=== PATIENT | female | born 1950 | race Caucasian/White ===

== ENCOUNTER 2016-06-29 14:50 | Emergency (ER) | payer OTHER ==
[~2016-06-29] VITALS: Ht 157.5 cm; Wt 90.0 kg
[2016-06-29 14:53] VITALS: BP 144/91; PULSE 101; RESP 22; TEMP 98; O2SAT 96
[2016-06-29 15:07] VITALS: BP 144/91; PULSE 101; RESP 22; TEMP 98; O2SAT 96
[2016-06-29] MEDS ORDERED: HYDR-3533 PO ×2 (15:13→16:42)
[2016-06-29] MEDS ORDERED: LISI2.5T3 PO (15:13)
[2016-06-29] MEDS ORDERED: BUPR150XL PO (15:13)
--- NOTE | 2016-06-29 15:17 | PD ---
HPI Chief Complaint: Injury Time Seen by Provider: 15:17 Travel History International Travel<30 days: No Contact w/Intl Traveler<30days: No Traveled to known affect area: No History of Present Illness HPI 66-year-old right-hand dominant female with history of chronic back pain, Manfred- en-Y bypass presents to the ED for evaluation of 2 month history of left shoulder pain. Patient states that she fell onto her outstretched left arm on . She states that she attempted to see her orthopedist but was denied due to insurance reasons. She states that she fell again 2 weeks ago, again injuring the left shoulder in the process. She presents to the ED today after pain has increased to the levels where she cannot sleep at night. She thinks it may be exacerbated by sleeping upright. She endorses pain with range of motion, numbness and tingling into all 5 fingers, weakness of machine quilt stuffer strength. She denies neck pain. No treatment attempted at home. PFSH Past Medical History Depression: Yes Hypertension: Yes Musculoskeletal: Yes (CHRONIC BACK PAIN) Tetanus Vaccination: > 5 Years Influenza Vaccination: No ?: Not Past Surgical History Abdominal Surgery: Yes (TUMMY TUCK, GASTRIC BYPASS) Joint Replacement: Yes (RIGHT SHOULDER) Other Surgery: Yes Social History Alcohol Use: No Tobacco Use: Yes (1.5 PPD) Substance Use: No Allergies-Medications (Allergen,Severity, Reaction): Coded Allergies: Nonsteroidal Anti-Inflammatory Agts (Verified Adverse Reaction, Severe, GASTRIC BYPASS, 06/29/16) Aspirin (Verified Adverse Reaction, Unknown, GASTRIC BYPASS, 06/29/16) Reported Meds & Prescriptions Reported Meds & Active Scripts Active Lortab (Hydrocodone-Acetaminophen) 5-325 Mg Tab 1 Tab PO Q6H PRN Reported Lortab (Hydrocodone-Acetaminophen) 5-325 Mg Tab Unknown Dose PO DIRECTED PRN Wellbutrin Xl 24 HR (Bupropion HCl) 150 Mg Tab Unknown Dose PO DAILY Lisinopril 2.5 Mg Tab Unknown Dose PO DAILY Review of Systems Except as stated in HPI: all other systems reviewed are Neg Physical Exam Narrative GENERAL: Well-nourished, well-developed obese white female in no acute distress. SKIN: Warm and dry. Several old ecchymosis and small skin tears over the left upper extremity. In various stages of healing. No signs of infection. HEAD: Normocephalic. EYES: No scleral icterus. No injection or drainage. NECK: Supple, trachea midline. No JVD or lymphadenopathy. No midline tenderness to palpation. No pain elicited with range of motion. CARDIOVASCULAR: Regular rate and rhythm without murmurs, gallops, or rubs. RESPIRATORY: Breath sounds equal bilaterally. No accessory muscle use. GASTROINTESTINAL: Abdomen soft, non-tender, nondistended. MUSCULOSKELETAL: No cyanosis, or edema. FOCUSED LEFT UPPER EXTREMITY EXAM: Tender to palpation over the acromioclavicular joint and posterior shoulder. Tender to palpation of the shaft of the humerus. Pain elicited with resisted abduction of the shoulder and flexion and extension of the elbow. Negative drop test. Strong machine quilt stuffer strength. 2+ radial pulse. Sensation intact and equal in the hands, forearms, upper arms as compared to contralateral arm. BACK: Nontender without obvious deformity. No CVA tenderness. Data Data Last Documented VS Vital Signs Date Time Temp Pulse Resp B/P Pulse Ox O2 Delivery O2 Flow Rate FiO2 06/29/16 15:07 Room Air 06/29/16 15:07 98.0 101 22 144/91 96 Orders Elbow, Complete (4 Vws) (06/29/16 15:35) Shoulder, Complete (>2vws) (06/29/16 15:35) Ice/Cold Pack (06/29/16 15:35) Splint Or Brace Apply/Monitor (06/29/16 16:38) MDM Medical Decision Making Medical Screen Exam Complete: Yes Emergency Medical Condition: Yes Differential Diagnosis Musculoskeletal pain versus acromioclavicular separation versus rotator cuff injury versus humeral fracture versus other Narrative Course 66-year-old right-hand dominant female with history of chronic back pain, Manfred- en-Y bypass presents to the ED for evaluation of 2 month history of left shoulder pain. Patient states that she fell onto her outstretched left arm on . She states that she fell again 2 weeks ago, again injuring the left shoulder in the process. Sought treatment after pain increased, affecting her sleep. She endorses pain with range of motion, numbness and tingling into all 5 fingers, weakness of machine quilt stuffer strength. She denies neck pain. States that she has a follow-up appointment with a new orthopedist early next month. Vitals reviewed. Physical exam reveals an obese white female in no acute distress. Focused left upper extremity exam reveals tenderness to palpation over the acromioclavicular joint and posterior shoulder. Tender to palpation of the shaft of the humerus. Pain elicited with resisted abduction of the shoulder and flexion and extension of the elbow. Negative drop test. Strong machine quilt stuffer strength. 2+ radial pulse. Sensation intact and equal in the hands, forearms, upper arms as compared to contralateral arm. Ice pack was applied. X -rays of the shoulder and elbow reveal no bony injury per radiology read. I suspect this may be a rotator cuff injury. She was provided with a shoulder sling. She is prescribed pain medications. I supplemented this with 5 mg Lortab, #20. Patient is instructed to wear the sling unless sleeping or showering, take medication as prescribed, follow up with the orthopedist as planned. She indicated understanding of the instructions and is amenable to plan of care. She stable and discharged home. Diagnosis Primary Impression: Left shoulder pain Qualified Code: M25.512 - Left shoulder pain, unspecified chronicity Additional Impression: Left upper arm pain Referrals: Orthopedist Patient Instructions: General Instructions, Rotator Cuff Injury (ED), Shoulder Pain (ED) Additional Instructions: Rest, ice, elevate the extremity. Keep the arm in the sling during the course of the day to remind you to rest. You may remove the sling for showering and sleeping at night. Apply ice no longer than 10-15 minutes per hour a few times a day. 800 mg ibuprofen up to 3 times a day as needed for pain. Return to normal, gentle activity as tolerated. No heavy lifting or strenuous activities for the next few weeks. Follow up with the orthopedist as planned Return to the ED for any urgent or emergent medical condition. Med/Other Pt SpecificInfo: Prescription(s) given Scripts Hydrocodone-Acetaminophen (Lortab)5-325 Mg Tab1 Tab PO Q6H PRN (PAIN) #15 TAB Ref 0 Prov:Nedra Cruz MD 06/29/16 Disposition: 01 DISCHARGE HOME Condition: Stable Ashley Davis Jun 29, 2016 15:17
--- NOTE | 2016-06-29 16:25 | RADHPO ---
EXAM DATE/TIME: 06/29/2016 15:48 [facility] COMPARISON: No previous studies available for comparison. INDICATIONS : Left elbow pain for 2 weeks. Patient fell. MEDICAL HISTORY : None. SURGICAL HISTORY : None. ENCOUNTER: Initial ACUITY: 2 weeks PAIN SCORE: 8/10 LOCATION: Left elbow. FINDINGS: Multiple view examination of the left elbow demonstrates no soft tissue swelling, joint effusion, or fracture. The osseous structures are in normal alignment. Bony mineralization is normal. CONCLUSION: Unremarkable examination of the left elbow. Ildefonso Ramsey MD on June 29, 2016 at 16:22 Board Certified Radiologist. This report was verified electronically.
--- NOTE | 2016-06-29 16:34 | RADHPO ---
EXAM DATE/TIME: 06/29/2016 15:53 [facility] COMPARISON: No previous studies available for comparison. INDICATIONS : Left shoulder pain for 2 weeks. Patient fell. MEDICAL HISTORY : None. SURGICAL HISTORY : None. ENCOUNTER: Initial ACUITY: 2 weeks PAIN SCORE: 8/10 LOCATION: Left shoulder. FINDINGS: Multiple view examination of the left shoulder demonstrates no evidence of fracture or dislocation. The glenohumeral and acromioclavicular joints are maintained. Mild degenerative changes. There is ind uration of the soft tissues of the proximal humerus. CONCLUSION: No acute fracture. Soft tissue swelling proximal arm. Leo Mata MD on June 29, 2016 at 16:31 Board Certified Radiologist. This report was verified electronically.
== END 2016-06-29 16:45 | disposition home or self-care (01) ==
LOC: PHEFT 14:50
DX: M25.512 Pain in left shoulder (principal); M79.622 Pain in left upper arm; I10 Essential (primary) hypertension; F17.200 Nicotine dependence, unspecified, uncomplicated; Z87.39 Personal history of other diseases of the musculoskeletal system and connective tissue; Z86.59 Personal history of other mental and behavioral disorders
CPT/HCPCS: 73030; 73080; 99283

== ENCOUNTER 2017-03-07 20:33 | Observation (INO) | payer OTHER ==
[~2017-03-07] VITALS: Ht 165.1 cm; Wt 85.0 kg
[~2017-03-07 20:33] MED LIST: BUPR150XL PO; HYDR-3533 PO; LISI2.5T3 PO
[2017-03-07 20:47] VITALS: BP 133/85; PULSE 112; RESP 20; TEMP 98.5; O2SAT 97
[2017-03-07] MEDS ORDERED: LORazepam 2 MG/ML VIAL IV PUSH ONE ×2 (21:00→21:45)
--- NOTE | 2017-03-07 21:15 | PD ---
HPI Chief Complaint: Altered Mental Status Time Seen by Provider: 21:11 Travel History International Travel<30 days: No Contact w/Intl Traveler<30days: No Traveled to known affect area: No History of Present Illness HPI This is a 66-year-old female who presents under a Shaikh act initiated by Police Department. According to her Shaikh act form, "subject was hallucinating, speaking the persons who aren't there, and attempted to leave the safety of her home and was wandering in the street on [facility], in [facility] The [employer] police coxswain reports that they received a call in regards to the patient being altered. This was from a home health care person. The home health care person was unable to provide additional information regards to her current circumstance such as symptoms duration or past medical history or primary care physician. The patient did tell paramedics that she has taken 5 of her Lortab tablets today. In addition to this the patient does report that she took 2 aspirin as well. When asked the patient feels suicidal she says "yes" but history is otherwise very minimal at this time. She seems to be primarily responding to internal stimuli. History from chart reveals very limitedthe patient was seen here in June 2016 where was noted that she has a history of gastric bypass, chronic back pain. She received 1.5 L of normal saline by EMS. PFSH Past Medical History Depression: Yes Hypertension: Yes Musculoskeletal: Yes (CHRONIC BACK PAIN) ?: Not Past Surgical History Abdominal Surgery: Yes (TUMMY TUCK, GASTRIC BYPASS) Joint Replacement: Yes (RIGHT SHOULDER) Other Surgery: Yes Social History Alcohol Use: No Tobacco Use: Yes (1.5 PPD) Substance Use: No Allergies-Medications (Allergen,Severity, Reaction): Coded Allergies: diclofenac (Unverified Adverse Reaction, Severe, GASTRIC BYPASS, 12/21/16) etodolac (Unverified Adverse Reaction, Severe, GASTRIC BYPASS, 12/21/16) flurbiprofen (Unverified Adverse Reaction, Severe, GASTRIC BYPASS, 12/21/16 ) ibuprofen (Unverified Adverse Reaction, Severe, GASTRIC BYPASS, 12/21/16) indomethacin (Unverified Adverse Reaction, Severe, GASTRIC BYPASS, 12/21/16 ) ketoprofen (Unverified Adverse Reaction, Severe, GASTRIC BYPASS, 12/21/16) ketorolac (Unverified Adverse Reaction, Severe, GASTRIC BYPASS, 12/21/16) naproxen (Unverified Adverse Reaction, Severe, GASTRIC BYPASS, 12/21/16) oxaprozin (Unverified Adverse Reaction, Severe, GASTRIC BYPASS, 12/21/16) aspirin (Unverified Adverse Reaction, Unknown, GASTRIC BYPASS, 12/21/16) Reported Meds & Prescriptions Reported Meds & Active Scripts Active Review of Systems ROS Limitations: Altered Mental Status Except as stated in HPI: all other systems reviewed are Neg Physical Exam Exam Limitations: Altered Mental Status Narrative GENERAL: This is a disheveled female who is tachycardic on initial examination with a heart rate of 110. SKIN: Warm and dry. HEAD: Atraumatic. Normocephalic. EYES: Pupils equal and round reactive to light. No scleral icterus. No injection or drainage. ENT: No nasal bleeding or discharge. Mucous membranes pink and moist. NECK: Trachea midline. No JVD. CARDIOVASCULAR: Tachycardic with a regular rhythm. No murmur appreciated. RESPIRATORY: No accessory muscle use. Clear to auscultation. Breath sounds equal bilaterally. GASTROINTESTINAL: Abdomen soft, non-tender, nondistended. Hepatic and splenic margins not palpable. MUSCULOSKELETAL: No obvious deformities. No clubbing. No cyanosis. No edema. NEUROLOGICAL: Awake and alert. No obvious cranial nerve deficits. Motor grossly within normal limits. Pressured speech. PSYCHIATRIC: Altered, responding to internal stimuli. Data Data Last Documented VS Vital Signs Date Time Temp Pulse Resp B/P (MAP) Pulse Ox O2 Delivery O2 Flow Rate FiO2 03/07/17 23:25 100 18 137/88 (104) 97 Nasal Cannula 2.00 03/07/17 20:47 98.5 Orders Orders Complete Blood Count With Diff (03/07/17 20:59) Comprehensive Metabolic Panel (03/07/17 20:59) Lactic Acid Sepsis Protocol (03/07/17 20:59) Urinalysis - C+S If Indicated (03/07/17 20:59) Blood Culture (03/07/17 20:59) Chest, Single Ap (03/07/17 20:59) Blood Glucose (03/07/17 20:59) Ecg Monitoring (03/07/17 20:59) Iv Access Insert/Monitor (03/07/17 20:59) Oximetry (03/07/17 20:59) Oxygen Administration (03/07/17 20:59) Cath For Specimen (03/07/17 20:59) Electrocardiogram (03/07/17 20:59) Prothrombin Time / Inr (Pt) (03/07/17 20:59) Act Partial Throm Time (Ptt) (03/07/17 20:59) Ct Brain W/O Iv Contrast(Rout) (03/07/17 20:59) Drug Screen, Random Urine (03/07/17 20:59) Alcohol (Ethanol) (03/07/17 20:59) Salicylates (Aspirin) (03/07/17 20:59) Tylenol (Acetaminophen) (03/07/17 20:59) Ckmb (Isoenzyme) Profile (03/07/17 20:59) Magnesium (Mg) (03/07/17 20:59) Troponin I (03/07/17 20:59) Lorazepam Inj (Ativan Inj) (03/07/17 21:00) Lorazepam Inj (Ativan Inj) (03/07/17 21:45) Ammonia (03/07/17 21:55) ^ Sitter (03/07/17 22:07) Sodium Chlorid 0.9% 500 Ml Inj (Ns 500 M (03/07/17 22:30) Salicylates (Aspirin) (03/07/17 23:43) Tylenol (Acetaminophen) (03/07/17 23:43) Admit Order (Ed Use Only) (03/07/17 23:56) Labs Laboratory Tests Test 03/07/17 21:15 03/07/17 22:20 03/07/17 22:30 03/07/17 23:50 White Blood Count 4.8 TH/MM3 Red Blood Count 2.46 MIL/MM3 Hemoglobin 8.7 GM/DL Hematocrit 27.0 % Mean Corpuscular Volume 109.7 FL Mean Corpuscular Hemoglobin 35.5 PG Mean Corpuscular Hemoglobin Concent 32.4 % Red Cell Distribution Width 19.8 % Platelet Count 176 TH/MM3 Mean Platelet Volume 8.5 FL Neutrophils (%) (Auto) 84.3 % Lymphocytes (%) (Auto) 8.2 % Monocytes (%) (Auto) 6.6 % Eosinophils (%) (Auto) 0.4 % Basophils (%) (Auto) 0.5 % Neutrophils # (Auto) 4.0 TH/MM3 Lymphocytes # (Auto) 0.4 TH/MM3 Monocytes # (Auto) 0.3 TH/MM3 Eosinophils # (Auto) 0.0 TH/MM3 Basophils # (Auto) 0.0 TH/MM3 CBC Comment DIFF FINAL Differential Comment Prothrombin Time 11.7 SEC Prothromb Time International Ratio 1.1 RATIO Activated Partial Thromboplast Time 25.3 SEC Blood Urea Nitrogen 11 MG/DL Creatinine 0.61 MG/DL Random Glucose 91 MG/DL Total Protein 6.0 GM/DL Albumin 2.6 GM/DL Calcium Level 7.7 MG/DL Magnesium Level 1.7 MG/DL Alkaline Phosphatase 121 U/L Aspartate Amino Transf (AST/SGOT) 23 U/L Alanine Aminotransferase (ALT/SGPT) 19 U/L Total Bilirubin 0.4 MG/DL Sodium Level 142 MEQ/L Potassium Level 3.8 MEQ/L Chloride Level 115 MEQ/L Carbon Dioxide Level 18.9 MEQ/L Anion Gap 8 MEQ/L Estimat Glomerular Filtration Rate 99 ML/MIN Lactic Acid Level 2.9 mmol/L 1.3 mmol/L Total Creatine Kinase 57 U/L Troponin I LESS THAN 0.02 NG/ML Salicylates Level 2.6 MG/DL Acetaminophen Level 9.3 MCG/ML Ethyl Alcohol Level LESS THAN 3 MG/DL Urine Color YELLOW Urine Turbidity CLEAR Urine pH 5.5 Urine Specific [place] 1.022 Urine Protein TRACE mg/dL Urine Glucose (UA) NEG mg/dL Urine Ketones NEG mg/dL Urine Occult Blood NEG Urine Nitrite NEG Urine Bilirubin NEG Urine Urobilinogen LESS THAN 2.0 MG/DL Urine Leukocyte Esterase NEG Urine RBC 1 /hpf Urine WBC 1 /hpf Urine Squamous Epithelial Cells <1 /hpf Urine Hyaline Casts 14 /lpf Urine Mucus FEW /lpf Microscopic Urinalysis Comment CATH-CULT NOT IND Urine Opiates Screen POS Urine Barbiturates Screen NEG Urine Amphetamines Screen POS Urine Benzodiazepines Screen POS Urine Cocaine Screen NEG Urine Cannabinoids Screen NEG Ammonia 20 MCMOL/L Test 03/07/17 23:55 Vitamin B12 Level 2464 PG/ML Salicylates Level 1.7 MG/DL Acetaminophen Level 4.4 MCG/ML MDM Medical Decision Making Medical Screen Exam Complete: Yes Emergency Medical Condition: Yes Medical Record Reviewed: Yes Interpretation(s) CBC reveals hemoglobin of 8.7, WBC count 4.8 Lactic acid 2.9 Differential Diagnosis Anticholinergic syndrome, sympathomimetic syndrome, unintentional overdose, intentional overdose, acute psychosis, substance, closed head injury, encephalitis, meningitis, schizophrenia, schizoaffective disorder Narrative Course The patient was placed on ECG monitoring pulse oximetry. A 12 EKG was obtained. The patient will be given IV Ativan. Plan is for basic lab work, chest x-ray, urinalysis, urine drug screen, CT brain. Patient became increasingly agitated during her hospital stay requiring the use of soft restraints. She was given a total of 2 mg IV Ativan in order to obtain CT imaging. Urinalysis and urine drug screen were obtained via catheter specimen. The patient's lactic acid was noted to be 2.9. She is already received 1.5 L of IV fluid via EMS, additional bolus of 500 mL normal saline will be initiated. 2300: Again of my shift the patient was signed out pending CT of the brain. Sixto Todd Mar 07, 2017 21:15
[2017-03-07 21:45] LABS: BASOPHIL % 0.5 % (0.0-2.0); EOSINOPHIL % 0.4 % (0.0-4.0); HEMOGLOBIN 8.7 GM/DL (11.6-15.3); LYMPH % 8.2 % (9.0-44.0); LYMPHOCYTE # 0.4 TH/MM3 (1.0-4.8); MEAN CELL VOLUME 109.7 FL (80.0-100.0); MEAN CORPUSCULAR HEMOGLOBIN 35.5 PG (27.0-34.0); MEAN CORPUSCULAR HGB CONC 32.4 % (32.0-36.0); MEAN PLATELET VOLUME 8.5 FL (7.0-11.0); MONO % 6.6 % (0.0-8.0); MONOCYTE # 0.3 TH/MM3 (0-0.9); NEUT % 84.3 % (16.0-70.0); PLATELET COUNT 176 TH/MM3 (150-450); RED BLOOD COUNT 2.46 MIL/MM3 (4.00-5.30); RED CELL DISTRIBUTION WIDTH 19.8 % (11.6-17.2); WHITE BLOOD COUNT 4.8 TH/MM3 (4.0-11.0)
[2017-03-07 21:57] LABS: LACTIC ACID SEPSIS PROTOCOL 2.9 mmol/L (0.4-2.0)
[2017-03-07 21:58] LABS: INTERNATIONAL NORMALIZED RATIO 1.1 RATIO; PROTHROMBIN TIME - PATIENT 11.7 SEC (9.8-11.6)
--- NOTE | 2017-03-07 22:02 | PD ---
Physical Exam Narrative General: The patient is a well-developed well-nourished female, agitated on my arrival to the room in soft restraints of her extremities. Head and Neck exam: Head is normocephalic atraumatic. Eyes: EOMI, pupils are equal round and reactive to light. Pupils are slightly dilated on examination. Nose: Midline septum with pink mucous membranes Mouth: Dentition unremarkable. Dry mucus membranes. Posterior oropharynx is not erythematous. No tonsillar hypertrophy. Uvula midline. Airway patent. Neck: No palpable lymphadenopathy. No nuchal rigidity. No thyromegaly. Cardiovascular: Sinus tachycardia in the low 100 without murmurs, gallops, or rubs. No pulse deficit to the extremities on simultaneous auscultation and palpation of her radial artery. Lungs: Clear to auscultation bilaterally. No wheezes, rhonchi, or rales. Abdomen: Soft, without tenderness to palpation in all 4 quadrants of the abdomen. No guarding, rebound, or rigidity. Normal bowel sounds are audible. No tenderness on palpation of McBurney's point. Extremities: No clubbing, cyanosis, or edema. 2+ pulses in all 4 extremities. No calf tenderness on palpation. Neurologic Exam: Cranial nerves 2-12 were intact on exam. Strength is 5/5 in all 4 extremities. No sensory deficits noted. Skin Exam: No rash noted. Intact skin that is warm and dry. Data Data Last Documented VS Vital Signs Date Time Temp Pulse Resp B/P (MAP) Pulse Ox O2 Delivery O2 Flow Rate FiO2 03/07/17 23:25 100 18 137/88 (104) 97 Nasal Cannula 2.00 03/07/17 20:47 98.5 Orders Orders Complete Blood Count With Diff (03/07/17 20:59) Comprehensive Metabolic Panel (03/07/17 20:59) Lactic Acid Sepsis Protocol (03/07/17 20:59) Urinalysis - C+S If Indicated (03/07/17 20:59) Blood Culture (03/07/17 20:59) Chest, Single Ap (03/07/17 20:59) Blood Glucose (03/07/17 20:59) Ecg Monitoring (03/07/17 20:59) Iv Access Insert/Monitor (03/07/17 20:59) Oximetry (03/07/17 20:59) Oxygen Administration (03/07/17 20:59) Cath For Specimen (03/07/17 20:59) Electrocardiogram (03/07/17 20:59) Prothrombin Time / Inr (Pt) (03/07/17 20:59) Act Partial Throm Time (Ptt) (03/07/17 20:59) Ct Brain W/O Iv Contrast(Rout) (03/07/17 20:59) Drug Screen, Random Urine (03/07/17 20:59) Alcohol (Ethanol) (03/07/17 20:59) Salicylates (Aspirin) (03/07/17 20:59) Tylenol (Acetaminophen) (03/07/17 20:59) Ckmb (Isoenzyme) Profile (03/07/17 20:59) Magnesium (Mg) (03/07/17 20:59) Troponin I (03/07/17 20:59) Lorazepam Inj (Ativan Inj) (03/07/17 21:00) Lorazepam Inj (Ativan Inj) (03/07/17 21:45) Ammonia (03/07/17 21:55) ^ Sitter (03/07/17 22:07) Sodium Chlorid 0.9% 500 Ml Inj (Ns 500 M (03/07/17 22:30) Salicylates (Aspirin) (03/07/17 23:43) Tylenol (Acetaminophen) (03/07/17 23:43) Admit Order (Ed Use Only) (03/07/17 23:56) Labs Laboratory Tests Test 03/07/17 21:15 03/07/17 22:20 03/07/17 22:30 03/07/17 23:50 White Blood Count 4.8 TH/MM3 Red Blood Count 2.46 MIL/MM3 Hemoglobin 8.7 GM/DL Hematocrit 27.0 % Mean Corpuscular Volume 109.7 FL Mean Corpuscular Hemoglobin 35.5 PG Mean Corpuscular Hemoglobin Concent 32.4 % Red Cell Distribution Width 19.8 % Platelet Count 176 TH/MM3 Mean Platelet Volume 8.5 FL Neutrophils (%) (Auto) 84.3 % Lymphocytes (%) (Auto) 8.2 % Monocytes (%) (Auto) 6.6 % Eosinophils (%) (Auto) 0.4 % Basophils (%) (Auto) 0.5 % Neutrophils # (Auto) 4.0 TH/MM3 Lymphocytes # (Auto) 0.4 TH/MM3 Monocytes # (Auto) 0.3 TH/MM3 Eosinophils # (Auto) 0.0 TH/MM3 Basophils # (Auto) 0.0 TH/MM3 CBC Comment DIFF FINAL Differential Comment Prothrombin Time 11.7 SEC Prothromb Time International Ratio 1.1 RATIO Activated Partial Thromboplast Time 25.3 SEC Blood Urea Nitrogen 11 MG/DL Creatinine 0.61 MG/DL Random Glucose 91 MG/DL Total Protein 6.0 GM/DL Albumin 2.6 GM/DL Calcium Level 7.7 MG/DL Magnesium Level 1.7 MG/DL Alkaline Phosphatase 121 U/L Aspartate Amino Transf (AST/SGOT) 23 U/L Alanine Aminotransferase (ALT/SGPT) 19 U/L Total Bilirubin 0.4 MG/DL Sodium Level 142 MEQ/L Potassium Level 3.8 MEQ/L Chloride Level 115 MEQ/L Carbon Dioxide Level 18.9 MEQ/L Anion Gap 8 MEQ/L Estimat Glomerular Filtration Rate 99 ML/MIN Lactic Acid Level 2.9 mmol/L 1.3 mmol/L Total Creatine Kinase 57 U/L Troponin I LESS THAN 0.02 NG/ML Salicylates Level 2.6 MG/DL Acetaminophen Level 9.3 MCG/ML Ethyl Alcohol Level LESS THAN 3 MG/DL Urine Color YELLOW Urine Turbidity CLEAR Urine pH 5.5 Urine Specific [place] 1.022 Urine Protein TRACE mg/dL Urine Glucose (UA) NEG mg/dL Urine Ketones NEG mg/dL Urine Occult Blood NEG Urine Nitrite NEG Urine Bilirubin NEG Urine Urobilinogen LESS THAN 2.0 MG/DL Urine Leukocyte Esterase NEG Urine RBC 1 /hpf Urine WBC 1 /hpf Urine Squamous Epithelial Cells <1 /hpf Urine Hyaline Casts 14 /lpf Urine Mucus FEW /lpf Microscopic Urinalysis Comment CATH-CULT NOT IND Urine Opiates Screen POS Urine Barbiturates Screen NEG Urine Amphetamines Screen POS Urine Benzodiazepines Screen POS Urine Cocaine Screen NEG Urine Cannabinoids Screen NEG Ammonia 20 MCMOL/L Test 03/07/17 23:55 Vitamin B12 Level 2464 PG/ML Salicylates Level 1.7 MG/DL Acetaminophen Level 4.4 MCG/ML [facility] Medical Record Reviewed: Yes Supervised Visit with MECCA: Yes Interpretation(s) Last Impressions Head CT 03/07/172058 Signed Impressions: Service Date/Time: Tuesday, March 07, 2017 22:49 - CONCLUSION: Normal examination. Ildefonso Ramsey MD Chest X-Ray 03/07/172058 Signed Impressions: Service Date/Time: Tuesday, March 07, 2017 22:27 - CONCLUSION: No acute disease. The study is degraded by motion artifact and there is no definite evidence of pneumonia. Riki Flynn MD Narrative Course I, Dr. Polo, have reviewed the advance practice practitioner's documentation and am in agreement, met with the patient face to face, made the diagnosis, and the medical decision making was done by me. The patient was initially evaluated by Sixto. Please see his complete history and physical. *My assessment and Findings: The patient is a 66-year-old female who presents to the [facility] emergency Department with altered mentation under a Shaikh act. The patient initially is unable to provide any history. According to the Shaikh act the patient was found altered by a FRAMING INSPECTOR that was reportedly caring for her. During the course of the patients emergency department visit, the patients history, examination, and differential diagnosis were reviewed with the patient. The patient was placed on a cardiac rehabilitation program director with oximetry and frequent blood pressure monitoring. The patient had IV access obtained and blood work sent for analysis. The patient was initially provided Ativan for sedation and agitation. The patient was placed in soft restraints for her safety. The patient was given normal saline IV fluids. The patients laboratory studies were reviewed and remarkable for a white count of 4.8, hemoglobin 8.7, platelets 176 with 84.3 neutrophils, lymphocytes 8.2. CMP is remarkable for chloride of 1:15, CO2 18.9, calcium 7.7, alkaline phosphatase 121, troponin I less than 0.02, CPK 57, initial lactic acid was 2.9 , repeat lactic acid 1.3, ammonia level is 20, PT 11.7, PTT 25.3, urine drug screen is positive for opiates, amphetamines, benzodiazepines. Acetaminophen level is 9.3, repeat level IV.4, alcohol level less than 3, initial aspirin level was 2.6 and repeated to be down to 1.7. Radiology studies were reviewed and remarkable for a chest x-ray that shows no acute cardiopulmonary disease. The patient's case was checked out to me at the conclusion of Sixto shift. The patient urinalysis and CT scan of the brain are pending. Urinalysis is unremarkable, no signs of infection, CT scan of the brain shows a normal examination. A repeat evaluation the patient has become more awake and attempts to provide some history. She reports that she took 10 Lortab in order to "get high". The patients results were discussed with the patient, including the plan of care. I explained that further testing and/ or monitoring is indicated based on the patients history, examination, and/ or laboratory findings. Therefore, I recommended admission for additional evaluation. The patient expressed understanding and was agreeable with this plan. The patient was admitted to the hospital in guarded condition and sent to a bed under the care of [facility] service. Physician Communication Physician Communication The patient's case including history, pertinent physical examination findings, and laboratory studies were discussed with Dr. Cochran. It was agreed that the patient would be admitted to the [facility] service. Diagnosis Primary Impression: Altered mental status Qualified Codes: R41.0 - Disorientation, unspecified Admitting Information Admitting Physician Requests: Observation Sera Polo MD Mar 07, 2017 22:02
[2017-03-07 22:15] LABS: ALBUMIN 2.6 GM/DL (3.4-5.0); AST (GOT) 23 U/L (15-37); BICARBONATE 18.9 MEQ/L (21.0-32.0); BLOOD UREA NITROGEN 11 MG/DL (7-18); CALCIUM 7.7 MG/DL (8.5-10.1); CHLORIDE 115 MEQ/L (98-107); CREATININE 0.61 MG/DL (0.50-1.00); GLOMERULAR FILTRATION RATE 99 ML/MIN (>89); GLUCOSE,RANDOM 91 MG/DL (74-106); MAGNESIUM 1.7 MG/DL (1.5-2.5); SODIUM (NA) 142 MEQ/L (136-145)
[2017-03-07 22:16] LABS: ACETAMINOPHEN 9.3 MCG/ML (10.0-30.0); ALT (GPT) 19 U/L (10-53)
[2017-03-07 22:19] LABS: ALKALINE PHOSPHATASE 121 U/L (45-117); TOTAL BILIRUBIN ADULT 0.4 MG/DL (0.2-1.0); TROPONIN I LESS THAN 0.02 NG/ML (0.02-0.05)
[2017-03-07] MEDS ORDERED: SODIUM CHLORID 0.9% 500 ML INJ 500 ML IV ONE (22:30)
--- NOTE | 2017-03-07 22:46 | RADRPT ---
EXAM DATE/TIME: 03/07/2017 22:27 [facility] COMPARISON: No previous studies available for comparison. INDICATIONS : Fever. MEDICAL HISTORY : None. SURGICAL HISTORY : None. ENCOUNTER: Initial ACUITY: 1 day PAIN SCORE: Non-responsive. LOCATION: Bilateral chest FINDINGS: A single view of the chest demonstrates the lungs to be symmetrically aerated without evidence of mas s, infiltrate or effusion. The cardiomediastinal contours are unremarkable. Osseous structures are intact. Patient is status post right shoulder arthroplasty. There is motion artifact. CONCLUSION: No acute disease. The study is degraded by motion artifact and there is no definite evidence of pneum onia. Riki Flynn MD on March 07, 2017 at 22:44 Board Certified Radiologist. This report was verified electronically.
[2017-03-07 23:04] LABS: BILIRUBIN, URINE NEG (NEG); BLOOD, URINE NEG (NEG); GLUCOSE,URINE NEG (NEG); HYALINE CAST, URINE 14 /lpf (RARE); KETONE, URINE NEG (NEG); MUCUS URINE FEW /lpf (OCC); NITRITE,URINE NEG (NEG); PH, URINE 5.5 (5.0-8.5); SQUAMOUS EPITHELIAL CELL URINE <1 /hpf (0-5); URINE COLOR YELLOW (YELLW/STRAW); URINE LEUKOCYTE ESTERASE NEG (NEG)
[2017-03-07 23:25] VITALS: BP 137/88; PULSE 100; RESP 18; O2SAT 97
--- NOTE | 2017-03-07 23:29 | RADRPT ---
EXAM DATE/TIME: 03/07/2017 22:49 [facility] COMPARISON: No previous studies available for comparison. INDICATIONS : Altered mental status. Possible ingestion. RADIATION DOSE: 56.35 CTDIvol (mGy) MEDICAL HISTORY : Hypertension. SURGICAL HISTORY : None. ENCOUNTER: Initial ACUITY: 1 day PAIN SCALE: 0/10 LOCATION: cranial TECHNIQUE: Multiple contiguous axial images were obtained of the head. Using automated exposure control and adj ustment of the mA and/or kV according to patient size, radiation dose was kept as low as reasonably a chievable to obtain optimal diagnostic quality images. DICOM format image data is available electro nically for review and comparison. FINDINGS: CEREBRUM: The ventricles are normal for age. No evidence of midline shift, mass lesion, hemorrhage or acute in farction. No extra-axial fluid collections are seen. POSTERIOR FOSSA: The cerebellum and brainstem are intact. The 4th ventricle is midline. The cerebellopontine angle i s unremarkable. EXTRACRANIAL: The visualized portion of the orbits is intact. SKULL: The calvaria is intact. No evidence of skull fracture. CONCLUSION: Normal examination. Ildefonso Ramsey MD on March 07, 2017 at 23:26 Board Certified Radiologist. This report was verified electronically.
[2017-03-08] VITALS (8 sets, daily range): BP systolic 140–176; BP diastolic 71–102; PULSE 82–111; RESP 18–24; TEMP 97.2–97.8; O2SAT 96–98
--- NOTE | 2017-03-08 00:05 | HHI.HP ---
[facility] Bryson Bradley M.D. Admission Diagnosis AMS, polysubstance abuse, valdez act Diagnoses: Chief Complaint: AMS Travel History International Travel<30 Days: No Contact w/Intl Traveler <30 Da: No Traveled to Known Affected Are: No History of Present Illness Written by FRITZ Osborne acting as scribe for Dr. Sierra] on 03/08/17 at 00:05. 66 y/o female with a history of depression and HTN was brought in under a valdez act after being found wondering in the streets after apparently taking an unspecified amount of Lortab per 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 Patient is confused and wakes up periodically, she was able to say she look the medication to hurt herself. After that statement she went to sleep. ROS and history taking is limited due to mental status. Review of Systems ROS Limitations: Altered Mental Status Past Family Social History Past Medical History Per EMR: HTN, depression Past Surgical History Unable to obtain Reported Medications Reported Meds & Active Scripts Active Lortab (Hydrocodone-Acetaminophen) 5-325 Mg Tab 1 Tab PO Q6H PRN Reported Lortab (Hydrocodone-Acetaminophen) 5-325 Mg Tab Unknown Dose PO DIRECTED PRN Wellbutrin Xl 24 HR (Bupropion HCl) 150 Mg Tab Unknown Dose PO DAILY Lisinopril 2.5 Mg Tab Unknown Dose PO DAILY Allergies: Coded Allergies: diclofenac (Unverified Adverse Reaction, Severe, GASTRIC BYPASS, 12/21/16) etodolac (Unverified Adverse Reaction, Severe, GASTRIC BYPASS, 12/21/16) flurbiprofen (Unverified Adverse Reaction, Severe, GASTRIC BYPASS, 12/21/16 ) ibuprofen (Unverified Adverse Reaction, Severe, GASTRIC BYPASS, 12/21/16) indomethacin (Unverified Adverse Reaction, Severe, GASTRIC BYPASS, 12/21/16 ) ketoprofen (Unverified Adverse Reaction, Severe, GASTRIC BYPASS, 12/21/16) ketorolac (Unverified Adverse Reaction, Severe, GASTRIC BYPASS, 12/21/16) naproxen (Unverified Adverse Reaction, Severe, GASTRIC BYPASS, 12/21/16) oxaprozin (Unverified Adverse Reaction, Severe, GASTRIC BYPASS, 12/21/16) aspirin (Unverified Adverse Reaction, Unknown, GASTRIC BYPASS, 12/21/16) Active Ordered Medications Current Medications Medications (Trade) Dose Ordered Sig/Bryan Route Start Time Stop Time Status Last Admin Sodium Chloride 1,000 ml @ 100 mls/hr Q10H IV 03/08/17 00:14 03/08/17 01:45 (NS Flush) 2 ml UNSCH PRN IV FLUSH 03/08/17 00:15 (NS Flush) 2 ml BID IV FLUSH 03/08/17 09:00 (Zofran Inj) 4 mg Q6H PRN IVP 03/08/17 00:15 (Narcan Inj) 0.4 mg UNSCH PRN IV PUSH 03/08/17 00:15 (Milk Of Magnesia Liq) 30 ml Q12H PRN PO 03/08/17 00:15 (Senokot) 17.2 mg Q12H PRN PO 03/08/17 00:15 (Dulcolax Supp) 10 mg DAILY PRN RECTAL 03/08/17 00:15 (Lactulose Liq) 30 ml DAILY PRN PO 03/08/17 00:15 Family History Unable to obtain Social History Unable to obtain Physical Exam Vital Signs Vital Signs Date Time Temp Pulse Resp B/P (MAP) Pulse Ox O2 Delivery O2 Flow Rate FiO2 03/07/17 23:25 100 18 137/88 (104) 97 Nasal Cannula 2.00 03/07/17 21:16 97 Nasal Cannula 2.00 03/07/17 20:47 98.5 112 20 133/85 (101) 97 Physical Exam GENERAL: This is a well-nourished, well-developed patient, in no apparent distress. SKIN: No rashes, ecchymoses or lesions. Cool and dry. HEAD: Atraumatic. Normocephalic. EYES: Pupils equal round and reactive. Extraocular motions intact. No scleral icterus. No injection or drainage. ENT: Nose without bleeding, purulent drainage or septal hematoma. Airway patent. NECK: Trachea midline. No JVD or lymphadenopathy. CARDIOVASCULAR: Regular rate and rhythm without murmurs, gallops, or rubs. RESPIRATORY: Clear to auscultation. Breath sounds equal bilaterally. No wheezes , rales, or rhonchi. GASTROINTESTINAL: Abdomen soft, non-tender, nondistended. No guarding. MUSCULOSKELETAL: Extremities without clubbing, cyanosis, or edema. No joint tenderness, effusion, or edema noted. NEUROLOGICAL: Sleepy and confused. Not oriented. Motor and sensory grossly within normal limits. Normal speech. Laboratory Laboratory Tests Test 03/07/17 21:15 03/07/17 22:20 03/07/17 22:30 03/07/17 23:50 White Blood Count 4.8 Red Blood Count 2.46 Hemoglobin 8.7 Hematocrit 27.0 Mean Corpuscular Volume 109.7 Mean Corpuscular Hemoglobin 35.5 Mean Corpuscular Hemoglobin Concent 32.4 Red Cell Distribution Width 19.8 Platelet Count 176 Mean Platelet Volume 8.5 Neutrophils (%) (Auto) 84.3 Lymphocytes (%) (Auto) 8.2 Monocytes (%) (Auto) 6.6 Eosinophils (%) (Auto) 0.4 Basophils (%) (Auto) 0.5 Neutrophils # (Auto) 4.0 Lymphocytes # (Auto) 0.4 Monocytes # (Auto) 0.3 Eosinophils # (Auto) 0.0 Basophils # (Auto) 0.0 CBC Comment DIFF FINAL Differential Comment Prothrombin Time 11.7 Prothromb Time International Ratio 1.1 Activated Partial Thromboplast Time 25.3 Blood Urea Nitrogen 11 Creatinine 0.61 Random Glucose 91 Total Protein 6.0 Albumin 2.6 Calcium Level 7.7 Magnesium Level 1.7 Alkaline Phosphatase 121 Aspartate Amino Transf (AST/SGOT) 23 Alanine Aminotransferase (ALT/SGPT) 19 Total Bilirubin 0.4 Sodium Level 142 Potassium Level 3.8 Chloride Level 115 Carbon Dioxide Level 18.9 Anion Gap 8 Estimat Glomerular Filtration Rate 99 Lactic Acid Level 2.9 Total Creatine Kinase 57 Troponin I LESS THAN 0.02 Salicylates Level 2.6 Acetaminophen Level 9.3 Ethyl Alcohol Level LESS THAN 3 Urine Color YELLOW Urine Turbidity CLEAR Urine pH 5.5 Urine Specific [place] 1.022 Urine Protein TRACE Urine Glucose (UA) NEG Urine Ketones NEG Urine Occult Blood NEG Urine Nitrite NEG Urine Bilirubin NEG Urine Urobilinogen LESS THAN 2.0 Urine Leukocyte Esterase NEG Urine RBC 1 Urine WBC 1 Urine Squamous Epithelial Cells <1 Urine Hyaline Casts 14 Urine Mucus FEW Microscopic Urinalysis Comment CATH-CULT NOT IND Urine Opiates Screen POS Urine Barbiturates Screen NEG Urine Amphetamines Screen POS Urine Benzodiazepines Screen POS Urine Cocaine Screen NEG Urine Cannabinoids Screen NEG Ammonia 20 Test 03/07/17 23:55 Date/Time Source Procedure Growth Status 03/07/17 21:15 Blood Peripheral Aerobic Blood Culture Pending Received 03/07/17 21:15 Blood Peripheral Anaerobic Blood Culture Pending Received Result Diagram: 03/07/[id number] Imaging Last Impressions Head CT 03/07/172058 Signed Impressions: Service Date/Time: Tuesday, March 07, 2017 22:49 - CONCLUSION: Normal examination. Ildefonso Ramsey MD Chest X-Ray 03/07/172058 Signed Impressions: Service Date/Time: Tuesday, March 07, 2017 22:27 - CONCLUSION: No acute disease. The study is degraded by motion artifact and there is no definite evidence of pneumonia. MD Cindy Allan VTE Risk Assessment Caprini VTE Risk Assessment: Mod/High Risk (score >= 2) Caprini Risk Assessment Model Point Value = 1 Point Value = 2 Point Value = 3 Point Value = 5 Age 41-60 Minor surgery BMI > 25 kg/m2 Swollen legs Varicose veins or History of unexplained or recurrent spontaneous Oral contraceptives or hormone replacement Sepsis (< 1 month) Serious lung disease, including pneumonia (< 1 month) Abnormal pulmonary function Acute myocardial infarction Congestive heart failure (< 1 month) History of inflammatory bowel disease Medical patient at bed rest Age 61-74 Arthroscopic surgery Major open surgery (> 45 min) Laparoscopic surgery (> 45 min) Malignancy Confined to bed (> 72 hours) Immobilizing plaster cast Central venous access Age >= 75 History of VTE Family history of VTE Factor V Leiden Prothrombin [id number] Lupus anticoagulant Anticardiolipin antibodies Elevated serum homocysteine Heparin-induced thrombocytopenia Other congenital or acquired thrombophilia Stroke (< 1 month) Elective arthroplasty Hip, pelvis, or leg fracture Acute spinal cord injury (< 1 month) Prophylaxis Regimen Total Risk Factor Score Risk Level Prophylaxis Regimen 0-1 Low Early ambulation 2 Moderate Order ONE of the following: *Sequential Compression Device (SCD) *Heparin 5000 units SQ BID 3-4 Higher Order ONE of the following medications: *Heparin 5000 units SQ TID *Enoxaparin/Lovenox 40 mg SQ daily (WT < 150 kg, CrCl > 30 mL/min) *Enoxaparin/Lovenox 30 mg SQ daily (WT < 150 kg, CrCl > 10-29 mL/min) *Enoxaparin/Lovenox 30 mg SQ BID (WT < 150 kg, CrCl > 30 mL/min) AND/OR *Sequential Compression Device (SCD) 5 or more Highest Order ONE of the following medications: *Heparin 5000 units SQ TID (Preferred with Epidurals) *Enoxaparin/Lovenox 40 mg SQ daily (WT < 150 kg, CrCl > 30 mL/min) *Enoxaparin/Lovenox 30 mg SQ daily (WT < 150 kg, CrCl > 10-29 mL/min) *Enoxaparin/Lovenox 30 mg SQ BID (WT < 150 kg, CrCl > 30 mL/min) AND *Sequential Compression Device (SCD) Assessment and Plan Problem List: (1) Acute encephalopathy ICD Code: G93.40 - Encephalopathy, unspecified Assessment and Plan 66 y/o female with a history of depression and THN was brought in under a valdez act after being found wondering in the streets after apparently taking an unspecified amount of Lortabs per 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 Acute toxic encephalopathy, suspected due to intentional overdose of lortab Head CT reviewed and unremarkable -Neuro checks -Consult psych -Monitor telemetry Amphetamine positive on urine drug screen. Counseled when appropriate. Hypertension, chronic -Resume medications when patient is alert, monitor vitals DVT prophylaxis: SCDs Discussed Condition With Patient and ED physician This note was transcribed by FRITZ Deal. I, Dr. Abel Cochran personally performed the history, physical exam, and medical decision making; and confirmed the accuracy of the information in the transcribed note. Authenticated by Dr. Abel Cochran on 03/08/17 at 05:59. Bryanna Mccormack Mar 08, 2017 00:05 Abel Cochran MD Mar 08, 2017 06:00
[2017-03-08] MEDS ORDERED: NALOXONE HCL 0.4 MG/ML AMP IV PUSH PRN (00:15)
[2017-03-08] MEDS ORDERED: SENNOSIDES 8.6 MG TAB PO PRN (00:15)
[2017-03-08] MEDS ORDERED: SODIUM CHLORIDE 0.9% FLUSH 10 ML FLUSH IV FLUSH PRN (00:15)
[2017-03-08] MEDS ORDERED: BISACODYL 10 MG SUPP RECTAL PRN (00:15)
[2017-03-08] MEDS ORDERED: LACTULOSE SYRUP 20 GM/30 ML CUP PO PRN (00:15)
[2017-03-08] MEDS ORDERED: ONDANSETRON HCL 4 MG/2 ML VIAL IVP PRN (00:15)
[2017-03-08] MEDS ORDERED: MAGNESIUM HYDROXIDE SUSP 30 ML CUP PO PRN (00:15)
[2017-03-08] MEDS: SODIUM CHLOR 0.9% 1000 ML INJ 1,000 ML IV SCH ×2 (01:45→12:02)
[2017-03-08] MEDS ORDERED: SODIUM CHLORIDE 0.9% FLUSH 10 ML FLUSH IV FLUSH SCH (09:00)
--- NOTE | 2017-03-08 09:25 | HHI.PR ---
Subjective Remarks Follow up for encephalopathy, overdose. The patient is drowsy, awakens to loud voice, but does not participate in communication. She will not answer any questions, including simple yes/no questions. She is not following commands. Currently in restraints. Vitals signs reviewed, BP elevated, otherwise stable. Objective Vitals Vital Signs Date Time Temp Pulse Resp B/P (MAP) Pulse Ox O2 Delivery O2 Flow Rate FiO2 03/08/17 08:12 97.6 98 24 176/96 (122) 97 03/08/17 06:49 98 Nasal Cannula 2.00 03/08/17 05:51 95 03/08/17 03:54 97.8 98 18 144/92 (109) 96 03/08/17 01:39 97.7 111 20 166/85 (112) 96 03/07/17 23:25 100 18 137/88 (104) 97 Nasal Cannula 2.00 03/07/17 21:16 97 Nasal Cannula 2.00 03/07/17 20:47 98.5 112 20 133/85 (101) 97 I/O 03/07/17 03/07/17 03/07/17 03/08/17 03/08/17 03/08/17 07:00 15:00 23:00 07:00 15:00 23:00 Intake Total 240 ml Balance 240 ml Intake Oral 240 ml # Voids 3 Result Diagram: 03/07/17211403/07/172114 Imaging Last Impressions Head CT 03/07/172058 Signed Impressions: Service Date/Time: Tuesday, March 07, 2017 22:49 - CONCLUSION: Normal examination. Ildefonso Ramsey MD Chest X-Ray 03/07/172058 Signed Impressions: Service Date/Time: Tuesday, March 07, 2017 22:27 - CONCLUSION: No acute disease. The study is degraded by motion artifact and there is no definite evidence of pneumonia. Riki Flynn MD Objective Remarks GENERAL: Well-nourished, well-developed female patient in [facility]. SKIN: Warm and dry. No rash. HEENT: Normocephalic. Atraumatic.Pupils equal and round. Mucous membranes pink and moist. NECK: Supple. Trachea midline. CARDIOVASCULAR: Regular rate and rhythm. S1, S2 noted. No murmur appreciated. RESPIRATORY: No accessory muscle use. Clear to auscultation. Breath sounds equal bilaterally. GASTROINTESTINAL: Abdomen soft, non-tender, nondistended. Normoactive bowel sounds x4. MUSCULOSKELETAL: No obvious deformities. Extremities without clubbing, cyanosis , or edema. NEUROLOGICAL: Awake and alert. No obvious cranial nerve deficits. Moving all extremities spontaneously. PSYCHIATRIC: Confused mood; insight and judgment limited. Medications and IVs Current Medications Medications (Trade) Dose Ordered Sig/Bryan Route Start Time Stop Time Status Last Admin Sodium Chloride 1,000 ml @ 100 mls/hr Q10H IV 03/08/17 00:14 03/08/17 01:45 (NS Flush) 2 ml UNSCH PRN IV FLUSH 03/08/17 00:15 (NS Flush) 2 ml BID IV FLUSH 03/08/17 09:00 (Zofran Inj) 4 mg Q6H PRN IVP 03/08/17 00:15 (Narcan Inj) 0.4 mg UNSCH PRN IV PUSH 03/08/17 00:15 (Milk Of Magnesia Liq) 30 ml Q12H PRN PO 03/08/17 00:15 (Senokot) 17.2 mg Q12H PRN PO 03/08/17 00:15 (Dulcolax Supp) 10 mg DAILY PRN RECTAL 03/08/17 00:15 (Lactulose Liq) 30 ml DAILY PRN PO 03/08/17 00:15 A/P Problem List: (1) Acute encephalopathy ICD Code: G93.40 - Encephalopathy, unspecified Assessment and Plan 66 y/o female with a history of depression and hypertension was brought in under a Shaikh Act by police after being found wandering in the streets after apparently taking an unspecified amount of Lortabs per her WAX PUMPER. Acute toxic encephalopathy, suspected due to intentional overdose: patient reportedly ingested unknown amount of Lortab. Head CT images reviewed and unremarkable. UDS positive for opiates, amphetamines, and benzos. Etoh level negative. Rule out infectious etiology, UA and CXR negative, blood cultures pending. -Continue Neuro checks -Supportive treatment -Restraints as needed -Sitter ordered -Monitor on telemetry -Monitor for improvement. Hallucinations and Suicidal Ideations: reportedly patient told admitting physician that she took the pills to hurt herself. Shaikh Act also reports patient was hallucinating on the scene. Unclear if related to psychiatric illness vs intoxication with polysubstance abuse. -consult psychiatry for further recommendations Polysubstance Abuse: UDS positive for Amphetamine, Opiates, Benzos. -Will insurance counsel on cessation when patient more awake/alert Hypertension, chronic -Resume medications when patient is alert, monitor vitals -IV Vasotec prn SBP > 180 DVT prophylaxis: SCDs Discharge Planning 1500hrs: Patient much more awake and alert, however still not making any sense nor following commands. Patient examined with Dr. Silverio. Patient appears to have involuntary movements of mouth, head, and extremities. I contacted Cammy Loomis at [phone]. Cammy reports that she was her caregiver previously but has not been her caregiver in over a year. She states she still keeps in touch with the patient about once a week. She believes the current primary caregiver is possibly Philippe with company called [employer], however the most recent caregiver prior to that was Ashley however she is in [place] with her ill mother. Ashley's number is [phone] however she did not answer the phone. Cammy also provided the patient's sister Asha's phone number [phone] however also no answer. Cammy explains most of the patient's problems stem from a "mental illness". The patient lives alone in a condo and has caregivers 4hours a day, 7days a week to assist with activities of daily living such as meals, getting to appointments, cleaning, etc. Cammy explains that the patient has questionable neighbors who frequent the home. Cammy actually stopped working for this patient because she felt unsafe visiting the home. Cammy also explains that the patient has a history of overmedicating herself when her back pain worsens. The patient does not pay attention to how much medications she takes. Also questioned the patient's current involuntary movements; Cammy denies any history of this and states the patient can usually sit still in a chair and carry on a decent conversation. Suspect involuntary movements related to recent methamphetamine use. Cammy reports the patient is independently ambulatory at baseline. Discussed extensively with Dr. Silverio who recommends 2mg IV Ativan x1 now, and admission to inpatient med/psych unit. He also recommends EEG and possibly neurology consult if condition does not improve. Will transfer the patient to med/psych today. Discharge patient to med/psych unit Condition on discharge: Improved Heart Healthy Diet as tolerated Ad Imani activity Rx written: no changes to meds Follow-up with primary care physician and psychiatry 1530 hrs.: Patient's niece Evette Worley [phone] contacted me. Evette reports that the patient does have a history of drug abuse many years ago, however has been reportedly clean other than her prescribed opiate medications. Evette says her family has suspected that the patient has been depressed and suicidal for a long time, however the patient has never outwardly expressed any suicidal ideations nor has she been hospitalized for suicide attempt. Evette is available to answer any further questions and would like to be updated if possible. I spent 35 minutes [id number] with the patient or on the emerson discussing the patient's disposition, prognosis, and plan of care with her caregivers. Over half the time spent was devoted to counseling the patient regarding placement in coordinating care with caregivers and case management. Pallavi Urrutia PA-C Mar 08, 2017 9:25 am
--- NOTE | 2017-03-08 09:25 | HHI.PR ---
Subjective Remarks Follow up for encephalopathy, overdose. The patient is drowsy, awakens to loud voice, but does not participate in communication. She will not answer any questions, including simple yes/no questions. She is not following commands. Currently in restraints. Vitals signs reviewed, BP elevated, otherwise stable. Objective Vitals Vital Signs Date Time Temp Pulse Resp B/P (MAP) Pulse Ox O2 Delivery O2 Flow Rate FiO2 03/08/17 08:12 97.6 98 24 176/96 (122) 97 03/08/17 06:49 98 Nasal Cannula 2.00 03/08/17 05:51 95 03/08/17 03:54 97.8 98 18 144/92 (109) 96 03/08/17 01:39 97.7 111 20 166/85 (112) 96 03/07/17 23:25 100 18 137/88 (104) 97 Nasal Cannula 2.00 03/07/17 21:16 97 Nasal Cannula 2.00 03/07/17 20:47 98.5 112 20 133/85 (101) 97 I/O 03/07/17 03/07/17 03/07/17 03/08/17 03/08/17 03/08/17 07:00 15:00 23:00 07:00 15:00 23:00 Intake Total 240 ml Balance 240 ml Intake Oral 240 ml # Voids 3 Result Diagram: 03/07/17211403/07/172114 Imaging Last Impressions Head CT 03/07/172058 Signed Impressions: Service Date/Time: Tuesday, March 07, 2017 22:49 - CONCLUSION: Normal examination. Ildefonso Ramsey MD Chest X-Ray 03/07/172058 Signed Impressions: Service Date/Time: Tuesday, March 07, 2017 22:27 - CONCLUSION: No acute disease. The study is degraded by motion artifact and there is no definite evidence of pneumonia. Riki Flynn MD Objective Remarks GENERAL: Well-nourished, well-developed female patient in [facility]. SKIN: Warm and dry. No rash. HEENT: Normocephalic. Atraumatic.Pupils equal and round. Mucous membranes pink and moist. NECK: Supple. Trachea midline. CARDIOVASCULAR: Regular rate and rhythm. S1, S2 noted. No murmur appreciated. RESPIRATORY: No accessory muscle use. Clear to auscultation. Breath sounds equal bilaterally. GASTROINTESTINAL: Abdomen soft, non-tender, nondistended. Normoactive bowel sounds x4. MUSCULOSKELETAL: No obvious deformities. Extremities without clubbing, cyanosis , or edema. NEUROLOGICAL: Awake and alert. No obvious cranial nerve deficits. Moving all extremities spontaneously. PSYCHIATRIC: Confused mood; insight and judgment limited. Medications and IVs Current Medications Medications (Trade) Dose Ordered Sig/Bryan Route Start Time Stop Time Status Last Admin Sodium Chloride 1,000 ml @ 100 mls/hr Q10H IV 03/08/17 00:14 03/08/17 01:45 (NS Flush) 2 ml UNSCH PRN IV FLUSH 03/08/17 00:15 (NS Flush) 2 ml BID IV FLUSH 03/08/17 09:00 (Zofran Inj) 4 mg Q6H PRN IVP 03/08/17 00:15 (Narcan Inj) 0.4 mg UNSCH PRN IV PUSH 03/08/17 00:15 (Milk Of Magnesia Liq) 30 ml Q12H PRN PO 03/08/17 00:15 (Senokot) 17.2 mg Q12H PRN PO 03/08/17 00:15 (Dulcolax Supp) 10 mg DAILY PRN RECTAL 03/08/17 00:15 (Lactulose Liq) 30 ml DAILY PRN PO 03/08/17 00:15 A/P Problem List: (1) Acute encephalopathy ICD Code: G93.40 - Encephalopathy, unspecified Assessment and Plan 66 y/o female with a history of depression and hypertension was brought in under a Shaikh Act by police after being found wandering in the streets after apparently taking an unspecified amount of Lortabs per her EVENTS ADMINISTRATIVE ASSISTANT. Acute toxic encephalopathy, suspected due to intentional overdose: patient reportedly ingested unknown amount of Lortab. Head CT images reviewed and unremarkable. UDS positive for opiates, amphetamines, and benzos. Etoh level negative. Rule out infectious etiology, UA and CXR negative, blood cultures pending. -Continue Neuro checks -Supportive treatment -Restraints as needed -Sitter ordered -Monitor on telemetry -Monitor for improvement. Hallucinations and Suicidal Ideations: reportedly patient told admitting physician that she took the pills to hurt herself. Shaikh Act also reports patient was hallucinating on the scene. Unclear if related to psychiatric illness vs intoxication with polysubstance abuse. -consult psychiatry for further recommendations Polysubstance Abuse: UDS positive for Amphetamine, Opiates, Benzos. -Will extension course counselor on cessation when patient more awake/alert Hypertension, chronic -Resume medications when patient is alert, monitor vitals -IV Vasotec prn SBP > 180 DVT prophylaxis: SCDs Discharge Planning 1500hrs: Patient much more awake and alert, however still not making any sense nor following commands. Patient examined with Dr. Silverio. Patient appears to have involuntary movements of mouth, head, and extremities. I contacted Cammy Loomis at [phone]. Cammy reports that she was her caregiver previously but has not been her caregiver in over a year. She states she still keeps in touch with the patient about once a week. She believes the current primary caregiver is possibly Philippe with company called [employer], however the most recent caregiver prior to that was Ashley however she is in [place] with her ill mother. Ashley's number is [phone] however she did not answer the phone. Cammy also provided the patient's sister Asha's phone number however also no answer. Cammy explains most of the patient's problems stem from a "mental illness". The patient lives alone in a condo and has caregivers 4hours a day, 7days a week to assist with activities of daily living such as meals, getting to appointments, cleaning, etc. Cammy explains that the patient has questionable neighbors who frequent the home. Cammy actually stopped working for this patient because she felt unsafe visiting the home. Cammy also explains that the patient has a history of overmedicating herself when her back pain worsens. The patient does not pay attention to how much medications she takes. Also questioned the patient's current involuntary movements; Cammy denies any history of this and states the patient can usually sit still in a chair and carry on a decent conversation. Suspect involuntary movements related to recent methamphetamine use. Cammy reports the patient is independently ambulatory at baseline. Discussed extensively with Dr. Silverio who recommends 2mg IV Ativan x1 now, and admission to inpatient med/psych unit. He also recommends EEG and possibly neurology consult if condition does not improve. Will transfer the patient to med/psych today. Discharge patient to med/psych unit Condition on discharge: Improved Heart Healthy Diet as tolerated Ad Imani activity Rx written: no changes to meds Follow-up with primary care physician and psychiatry 1530 hrs.: Patient's niece vEette Worley [phone] contacted me. Evette reports that the patient does have a history of drug abuse many years ago, however has been reportedly clean other than her prescribed opiate medications. Evette says her family has suspected that the patient has been depressed and suicidal for a long time, however the patient has never outwardly expressed any suicidal ideations nor has she been hospitalized for suicide attempt. Evette is available to answer any further questions and would like to be updated if possible. I spent 35 minutes [id number] with the patient or on the emerson discussing the patient's disposition, prognosis, and plan of care with her caregivers. Over half the time spent was devoted to counseling the patient regarding placement in coordinating care with caregivers and case management. Pallavi Urrutia PA-C Mar 08, 2017 9:25 am
--- NOTE | 2017-03-08 09:25 | HHI.PR ---
Subjective Remarks Follow up for encephalopathy, overdose. The patient is drowsy, awakens to loud voice, but does not participate in communication. She will not answer any questions, including simple yes/no questions. She is not following commands. Currently in restraints. Vitals signs reviewed, BP elevated, otherwise stable. Objective Vitals Vital Signs Date Time Temp Pulse Resp B/P (MAP) Pulse Ox O2 Delivery O2 Flow Rate FiO2 03/08/17 08:12 97.6 98 24 176/96 (122) 97 03/08/17 06:49 98 Nasal Cannula 2.00 03/08/17 05:51 95 03/08/17 03:54 97.8 98 18 144/92 (109) 96 03/08/17 01:39 97.7 111 20 166/85 (112) 96 03/07/17 23:25 100 18 137/88 (104) 97 Nasal Cannula 2.00 03/07/17 21:16 97 Nasal Cannula 2.00 03/07/17 20:47 98.5 112 20 133/85 (101) 97 I/O 03/07/17 03/07/17 03/07/17 03/08/17 03/08/17 03/08/17 07:00 15:00 23:00 07:00 15:00 23:00 Intake Total 240 ml Balance 240 ml Intake Oral 240 ml # Voids 3 Result Diagram: 03/07/17211403/07/172114 Imaging Last Impressions Head CT 03/07/172058 Signed Impressions: Service Date/Time: Tuesday, March 07, 2017 22:49 - CONCLUSION: Normal examination. Ildefonso Ramsey MD Chest X-Ray 03/07/172058 Signed Impressions: Service Date/Time: Tuesday, March 07, 2017 22:27 - CONCLUSION: No acute disease. The study is degraded by motion artifact and there is no definite evidence of pneumonia. Riki Flynn MD Objective Remarks GENERAL: Well-nourished, well-developed female patient in [facility]. SKIN: Warm and dry. No rash. HEENT: Normocephalic. Atraumatic.Pupils equal and round. Mucous membranes pink and moist. NECK: Supple. Trachea midline. CARDIOVASCULAR: Regular rate and rhythm. S1, S2 noted. No murmur appreciated. RESPIRATORY: No accessory muscle use. Clear to auscultation. Breath sounds equal bilaterally. GASTROINTESTINAL: Abdomen soft, non-tender, nondistended. Normoactive bowel sounds x4. MUSCULOSKELETAL: No obvious deformities. Extremities without clubbing, cyanosis , or edema. NEUROLOGICAL: Awake and alert. No obvious cranial nerve deficits. Moving all extremities spontaneously. PSYCHIATRIC: Confused mood; insight and judgment limited. Medications and IVs Current Medications Medications (Trade) Dose Ordered Sig/Bryan Route Start Time Stop Time Status Last Admin Sodium Chloride 1,000 ml @ 100 mls/hr Q10H IV 03/08/17 00:14 03/08/17 01:45 (NS Flush) 2 ml UNSCH PRN IV FLUSH 03/08/17 00:15 (NS Flush) 2 ml BID IV FLUSH 03/08/17 09:00 (Zofran Inj) 4 mg Q6H PRN IVP 03/08/17 00:15 (Narcan Inj) 0.4 mg UNSCH PRN IV PUSH 03/08/17 00:15 (Milk Of Magnesia Liq) 30 ml Q12H PRN PO 03/08/17 00:15 (Senokot) 17.2 mg Q12H PRN PO 03/08/17 00:15 (Dulcolax Supp) 10 mg DAILY PRN RECTAL 03/08/17 00:15 (Lactulose Liq) 30 ml DAILY PRN PO 03/08/17 00:15 A/P Problem List: (1) Acute encephalopathy ICD Code: G93.40 - Encephalopathy, unspecified Assessment and Plan 66 y/o female with a history of depression and hypertension was brought in under a Shaikh Act by police after being found wandering in the streets after apparently taking an unspecified amount of Lortabs per her ANALYTICS DIRECTOR. Acute toxic encephalopathy, suspected due to intentional overdose: patient reportedly ingested unknown amount of Lortab. Head CT images reviewed and unremarkable. UDS positive for opiates, amphetamines, and benzos. Etoh level negative. Rule out infectious etiology, UA and CXR negative, blood cultures pending. -Continue Neuro checks -Supportive treatment -Restraints as needed -Sitter ordered -Monitor on telemetry -Monitor for improvement. Hallucinations and Suicidal Ideations: reportedly patient told admitting physician that she took the pills to hurt herself. Shaikh Act also reports patient was hallucinating on the scene. Unclear if related to psychiatric illness vs intoxication with polysubstance abuse. -consult psychiatry for further recommendations Polysubstance Abuse: UDS positive for Amphetamine, Opiates, Benzos. -Will high school counselor on cessation when patient more awake/alert Hypertension, chronic -Resume medications when patient is alert, monitor vitals -IV Vasotec prn SBP > 180 DVT prophylaxis: SCDs Discharge Planning 1500hrs: Patient much more awake and alert, however still not making any sense nor following commands. Patient examined with Dr. Silverio. Patient appears to have involuntary movements of mouth, head, and extremities. I contacted Cammy Loomis at [phone]. Cammy reports that she was her caregiver previously but has not been her caregiver in over a year. She states she still keeps in touch with the patient about once a week. She believes the current primary caregiver is possibly Philippe with company called [employer], however the most recent caregiver prior to that was Ashley however she is in [place] with her ill mother. Ashley's number is [phone] however she did not answer the phone. Cammy also provided the patient's sister Asha's phone number however also no answer. Cammy explains most of the patient's problems stem from a "mental illness". The patient lives alone in a condo and has caregivers 4hours a day, 7days a week to assist with activities of daily living such as meals, getting to appointments, cleaning, etc. Cammy explains that the patient has questionable neighbors who frequent the home. Cammy actually stopped working for this patient because she felt unsafe visiting the home. Cammy also explains that the patient has a history of overmedicating herself when her back pain worsens. The patient does not pay attention to how much medications she takes. Also questioned the patient's current involuntary movements; Cammy denies any history of this and states the patient can usually sit still in a chair and carry on a decent conversation. Suspect involuntary movements related to recent methamphetamine use. Cammy reports the patient is independently ambulatory at baseline. Discussed extensively with Dr. Silverio who recommends 2mg IV Ativan x1 now, and admission to inpatient med/psych unit. He also recommends EEG and possibly neurology consult if condition does not improve. Will transfer the patient to med/psych today. Discharge patient to med/psych unit Condition on discharge: Improved Heart Healthy Diet as tolerated Ad Imani activity Rx written: no changes to meds Follow-up with primary care physician and psychiatry 1530 hrs.: Patient's niece Evette Worley [phone] contacted me. Evette reports that the patient does have a history of drug abuse many years ago, however has been reportedly clean other than her prescribed opiate medications. Evette says her family has suspected that the patient has been depressed and suicidal for a long time, however the patient has never outwardly expressed any suicidal ideations nor has she been hospitalized for suicide attempt. Evette is available to answer any further questions and would like to be updated if possible. I spent 35 minutes [id number] with the patient or on the emerson discussing the patient's disposition, prognosis, and plan of care with her caregivers. Over half the time spent was devoted to counseling the patient regarding placement in coordinating care with caregivers and case management. Pallavi Urrutia PA-C Mar 08, 2017 9:25 am
[2017-03-08] MEDS ORDERED: ENALAPRILAT 1.25 MG/ML VIAL IV PUSH PRN (10:00)
[2017-03-08] MEDS ORDERED: HYDR-3516 PO (10:06)
[2017-03-08] MEDS ORDERED: ZOLP5TAB3 PO (10:07)
[2017-03-08] MEDS ORDERED: ESCI10TA PO (10:07)
[2017-03-08] MEDS ORDERED: OMEP40CA2 PO (10:08)
[2017-03-08] MEDS ORDERED: ONDA1TAB17 PO (10:14)
[2017-03-08] MEDS ORDERED: VENTAER INH (10:14)
[2017-03-08] MEDS ORDERED: BUPR300T PO (10:16)
[2017-03-08] MEDS ORDERED: LISI10TA3 PO (10:16)
[2017-03-08] MEDS ORDERED: LORazepam 2 MG/ML VIAL IV PUSH ONE (14:45)
--- NOTE | 2017-03-08 15:01 | HHI.DCPOC ---
Discharge Care Plan Diagnosis: (1) Acute encephalopathy Goals to Promote Your Health * To prevent worsening of your condition and complications * To maintain your health at the optimal level Directions to Meet Your Goals Take your medications as prescribed Follow your dietary instruction Follow activity as directed Keep your appointments as scheduled Take your immunizations and boosters as scheduled If your symptoms worsen call your PCP, if no PCP go to Urgent Care Center or Emergency Room Smoking is Dangerous to Your Health. Avoid second hand smoke Call the 24-hour hour crisis hotline for domestic abuse at Pallavi Urrutia PA-C Mar 08, 2017 3:01 pm
--- NOTE | 2017-03-08 15:01 | HHI.DCPOC ---
Discharge Care Plan Diagnosis: (1) Acute encephalopathy Goals to Promote Your Health * To prevent worsening of your condition and complications * To maintain your health at the optimal level Directions to Meet Your Goals Take your medications as prescribed Follow your dietary instruction Follow activity as directed Keep your appointments as scheduled Take your immunizations and boosters as scheduled If your symptoms worsen call your PCP, if no PCP go to Urgent Care Center or Emergency Room Smoking is Dangerous to Your Health. Avoid second hand smoke Call the 24-hour hour crisis hotline for domestic abuse at Pallavi Urrutia PA-C Mar 08, 2017 3:01 pm
--- NOTE | 2017-03-08 15:01 | HHI.DCPOC ---
Discharge Care Plan Diagnosis: (1) Acute encephalopathy Goals to Promote Your Health * To prevent worsening of your condition and complications * To maintain your health at the optimal level Directions to Meet Your Goals Take your medications as prescribed Follow your dietary instruction Follow activity as directed Keep your appointments as scheduled Take your immunizations and boosters as scheduled If your symptoms worsen call your PCP, if no PCP go to Urgent Care Center or Emergency Room Smoking is Dangerous to Your Health. Avoid second hand smoke Call the 24-hour hour crisis hotline for domestic abuse at Pallavi Urrutia PA-C Mar 08, 2017 3:01 pm
--- NOTE | 2017-03-08 15:03 | PD.PSY.CON ---
Provisional Diagnosis Admission Date Mar 07, 2017 at 23:57 [place] I. Unspecified psychosis [place] II. deferred History of Present Illness Service Psychiatry Consult Requested By Hospitalist Reason for Consult Psychosis Primary Care Physician Bryson Bradley M.D. HPI The patient is a 66 year-old , domiciled alone in an apartment in [facility], single, unemployed, with a psychiatric history of depression and MRJim and medical history of HTN was brought in under a valdez act after being found wondering in the streets after apparently taking an unspecified amount of Lortab per her AUTHORIZATION NURSE. Patient is confused and wakes up periodically, she was able to say she look the medication to hurt herself. After that statement she went to sleep. ROS and history taking is limited due to mental status. As per documentation reviewed patient has endorsed that she has tried to OD deliberately. Documentation was reviewed. I have discussed the case with ESTRELLITA Urrutia. We also got collateral information from a previous caregiver. Patient is positive for amphetamines, opiates and benzodiazepines. At this moment the patient is agitated, incoherent, internally preoccupied, very restless, unable to provide any meaningful information for the psychiatric assessment. As per nurse in charge, patient has been having visual hallucinations, very disorganized, talking nonsense. Collateral f from her sister Asha, was attempted unsuccessfully. Review of Systems ROS Limitations: Uncooperative Past Family Social History Coded Allergies: diclofenac (Unverified Adverse Reaction, Severe, GASTRIC BYPASS, 12/21/16) etodolac (Unverified Adverse Reaction, Severe, GASTRIC BYPASS, 12/21/16) flurbiprofen (Unverified Adverse Reaction, Severe, GASTRIC BYPASS, 12/21/16 ) ibuprofen (Unverified Adverse Reaction, Severe, GASTRIC BYPASS, 12/21/16) indomethacin (Unverified Adverse Reaction, Severe, GASTRIC BYPASS, 12/21/16 ) ketoprofen (Unverified Adverse Reaction, Severe, GASTRIC BYPASS, 12/21/16) ketorolac (Unverified Adverse Reaction, Severe, GASTRIC BYPASS, 12/21/16) naproxen (Unverified Adverse Reaction, Severe, GASTRIC BYPASS, 12/21/16) oxaprozin (Unverified Adverse Reaction, Severe, GASTRIC BYPASS, 12/21/16) aspirin (Unverified Adverse Reaction, Unknown, GASTRIC BYPASS, 12/21/16) Reported Medications Lisinopril (Lisinopril) 10 Mg Tab, 10 MG PO DAILY, #30 TAB 0 Refills 03/08/17 Bupropion HCl ER 24 HR (Bupropion HCl ER 24 HR) 300 Mg Tab, 300 MG PO DAILY for Control Depression, TAB 0 Refills 03/08/17 Albuterol 18 GM Inh (Ventolin Hfa 18 GM Inh) 90 Mcg/Act Aer, 2 PUFF INH Q4-6H Y for SHORTNESS OF BREATH, #1 INHALER 0 Refills 03/08/17 Ondansetron (Ondansetron) 8 Mg Tab, 4 MG PO TID for Nausea/Vomiting, TAB 0 Refills 03/08/17 Omeprazole (Omeprazole) 40 Mg Cap, 40 MG PO DAILY, #30 CAP 0 Refills 03/08/17 Escitalopram (Escitalopram) 10 Mg Tab, 10 MG PO DAILY, #30 TAB 0 Refills 03/08/17 Zolpidem (Zolpidem) 5 Mg Tab, 5 MG PO HS Y for INSOMNIA, TAB 0 Refills 03/08/17 Hydrocodone-Acetaminophen (Hydrocodone-Acetaminophen) 5-325 mg Tab, 1 TAB PO Q4HR Y for PAIN, TAB 0 Refills 03/08/17 Current Medications Medications (Trade) Dose Ordered Sig/Bryan Route Start Time Stop Time Status Last Admin Sodium Chloride 1,000 ml @ 100 mls/hr Q10H IV 03/08/17 00:14 03/08/17 12:02 (NS Flush) 2 ml UNSCH PRN IV FLUSH 03/08/17 00:15 (NS Flush) 2 ml BID IV FLUSH 03/08/17 09:00 03/08/17 12:02 (Zofran Inj) 4 mg Q6H PRN IVP 03/08/17 00:15 (Narcan Inj) 0.4 mg UNSCH PRN IV PUSH 03/08/17 00:15 (Milk Of Magnesia Liq) 30 ml Q12H PRN PO 03/08/17 00:15 (Senokot) 17.2 mg Q12H PRN PO 03/08/17 00:15 (Dulcolax Supp) 10 mg DAILY PRN RECTAL 03/08/17 00:15 (Lactulose Liq) 30 ml DAILY PRN PO 03/08/17 00:15 (Vasotec Inj) 1.25 mg Q6HR PRN IV PUSH 03/08/17 10:00 03/08/17 12:31 (Ativan Inj) 2 mg ONCE ONCE IV PUSH 03/08/17 14:45 03/08/17 14:46 UNV Physical Exam Vital Signs Vital Signs Date Time Temp Pulse Resp B/P (MAP) Pulse Ox O2 Delivery O2 Flow Rate FiO2 03/08/17 14:02 152/81 (104) 03/08/17 12:22 97.6 96 22 98 03/08/17 06:49 Nasal Cannula 2.00 I/O 03/08/17 03/08/17 03/09/17 08:00 16:00 00:00 Intake Total 240 ml 53554 ml Balance 240 ml 77400 ml Lab Results Test 03/07/17 21:15 03/07/17 22:20 03/07/17 22:30 03/07/17 23:50 White Blood Count 4.8 TH/MM3 Red Blood Count 2.46 MIL/MM3 Hemoglobin 8.7 GM/DL Hematocrit 27.0 % Mean Corpuscular Volume 109.7 FL Mean Corpuscular Hemoglobin 35.5 PG Mean Corpuscular Hemoglobin Concent 32.4 % Red Cell Distribution Width 19.8 % Platelet Count 176 TH/MM3 Mean Platelet Volume 8.5 FL Neutrophils (%) (Auto) 84.3 % Lymphocytes (%) (Auto) 8.2 % Monocytes (%) (Auto) 6.6 % Eosinophils (%) (Auto) 0.4 % Basophils (%) (Auto) 0.5 % Neutrophils # (Auto) 4.0 TH/MM3 Lymphocytes # (Auto) 0.4 TH/MM3 Monocytes # (Auto) 0.3 TH/MM3 Eosinophils # (Auto) 0.0 TH/MM3 Basophils # (Auto) 0.0 TH/MM3 CBC Comment DIFF FINAL Differential Comment Prothrombin Time 11.7 SEC Prothromb Time International Ratio 1.1 RATIO Activated Partial Thromboplast Time 25.3 SEC Blood Urea Nitrogen 11 MG/DL Creatinine 0.61 MG/DL Random Glucose 91 MG/DL Total Protein 6.0 GM/DL Albumin 2.6 GM/DL Calcium Level 7.7 MG/DL Magnesium Level 1.7 MG/DL Alkaline Phosphatase 121 U/L Aspartate Amino Transf (AST/SGOT) 23 U/L Alanine Aminotransferase (ALT/SGPT) 19 U/L Total Bilirubin 0.4 MG/DL Sodium Level 142 MEQ/L Potassium Level 3.8 MEQ/L Chloride Level 115 MEQ/L Carbon Dioxide Level 18.9 MEQ/L Anion Gap 8 MEQ/L Estimat Glomerular Filtration Rate 99 ML/MIN Lactic Acid Level 2.9 mmol/L 1.3 mmol/L Total Creatine Kinase 57 U/L Troponin I LESS THAN 0.02 NG/ML Salicylates Level 2.6 MG/DL Acetaminophen Level 9.3 MCG/ML Ethyl Alcohol Level LESS THAN 3 MG/DL Urine Color YELLOW Urine Turbidity CLEAR Urine pH 5.5 Urine Specific [place] 1.022 Urine Protein TRACE mg/dL Urine Glucose (UA) NEG mg/dL Urine Ketones NEG mg/dL Urine Occult Blood NEG Urine Nitrite NEG Urine Bilirubin NEG Urine Urobilinogen LESS THAN 2.0 MG/DL Urine Leukocyte Esterase NEG Urine RBC 1 /hpf Urine WBC 1 /hpf Urine Squamous Epithelial Cells <1 /hpf Urine Hyaline Casts 14 /lpf Urine Mucus FEW /lpf Microscopic Urinalysis Comment CATH-CULT NOT IND Urine Opiates Screen POS Urine Barbiturates Screen NEG Urine Amphetamines Screen POS Urine Benzodiazepines Screen POS Urine Cocaine Screen NEG Urine Cannabinoids Screen NEG Ammonia 20 MCMOL/L Test 03/07/17 23:55 Vitamin B12 Level 2464 PG/ML Salicylates Level 1.7 MG/DL Acetaminophen Level 4.4 MCG/ML Date/Time Source Procedure Growth Status 03/07/17 21:15 Blood Peripheral Aerobic Blood Culture - Preliminary NO GROWTH IN 1 DAY Resulted 03/07/17 21:15 Blood Peripheral Anaerobic Blood Culture - Preliminary NO GROWTH IN 1 DAY Resulted Mental Status Examination Appearance: Appropriate Consciousness: Clouded Mental Status Exam Remarks Limited due to the level of agitation and disorganization. Assessment & Plan Problem List: (1) Unspecified psychosis ICD Codes: F29 - Unspecified psychosis not due to a substance or known physiological condition Assessment & Plan: At the moment of this evaluation the patient is noncooperative, very agitated, restless, incoherent, no able to provide any meaningful information. Patient has psychiatric history of developmental delay and depression. She is now under valdez act duet to psychosis and because patient had reportedly tried to commit suicide by overdose. No collateral information could be reached at this moment. Medical workup so far is negative. We will order an EEG. We will give Ativan 2 mg IV to help the patient to come down. Patient needs to be admitted in psychiatry for safety and stabilization. Transfer to med psych. Assessment & Plan Estimated LOS: Tico Hampton MD Mar 08, 2017 15:03
--- NOTE | 2017-03-08 19:45 | EKG ---
Date Performed: 03/07/2017 Time Performed: 21:18:40 PTAGE: 66 years EKG: SINUS TACHYCARDIA NONSPECIFIC ST T WAVE CHANGES NO PRIORS FOR COMPARISON ABNORMAL RHYTHM EC G NO PREVIOUS TRACING DOCTOR: Madisyn Davidson Interpretating Date/Time 03/08/2017 19:43:08
== END 2017-03-08 18:39 | disposition home or self-care (01) ==
LOC: NEPC 20:33 → NEDA 23:57 → NEPGCP 03-08 01:18
PROVIDERS: ADMIT Hospitalist; ATTEND Hospitalist
DX: T65.894A Toxic effect of other specified substances, undetermined, initial encounter (principal); G92 Toxic encephalopathy; G89.29 Other chronic pain; I10 Essential (primary) hypertension; Z78.1 Physical restraint status; F32.9 Major depressive disorder, single episode, unspecified; Z98.84 Bariatric surgery status; M54.9 Dorsalgia, unspecified; R94.31 Abnormal electrocardiogram [ECG] [EKG]; F17.200 Nicotine dependence, unspecified, uncomplicated; B95.7 Other staphylococcus as the cause of diseases classified elsewhere; Y92.488 Other paved roadways as the place of occurrence of the external cause
CPT/HCPCS: 70450; 71010; 80053; 80307; 81001; 82140; 82550; 82607; 83605; 83735; 84484; 85025; 85610; 85730; 86403; 87040; 87077; 87186; 93005; 96361; 96374; 96375; 99285; G0378; J2060; J7030; J7040; P9612

== ENCOUNTER 2017-03-08 18:59 | Inpatient (IN) | payer OTHER ==
[2017-03-08 18:20] VITALS: BP 150/110; PULSE 98; RESP 26; O2SAT 94
[~2017-03-08 18:59] MED LIST changes: +BUPR300T PO; +ESCI10TA PO; +HYDR-3516 PO; +LISI10TA3 PO; +OMEP40CA2 PO; +ONDA1TAB17 PO; +VENTAER INH; +ZOLP5TAB3 PO
[2017-03-08] MEDS: NICOTINE 21 MG/24 HR PATCH T-DERMAL SCH (19:45)
[2017-03-08] MEDS ORDERED: LORazepam 1 MG TAB PO PRN ×2 (19:45)
[2017-03-08] MEDS ORDERED: MAGNESIUM HYDROXIDE SUSP 30 ML CUP PO PRN (19:45)
[2017-03-08] MEDS ORDERED: ALUMINUM/MAGNESIUM/SIMETH 30 ML CUP PO PRN (19:45)
[2017-03-08] MEDS ORDERED: LORazepam 0.5 MG TAB PO PRN (19:45)
[2017-03-08] MEDS ORDERED: FLUMAZENIL 0.5 MG/5 ML VIAL IV PUSH PRN (19:45)
[2017-03-08] MEDS ORDERED: LORazepam 2 MG/ML VIAL IM PRN ×2 (19:45)
[2017-03-08] MEDS ORDERED: LORazepam 2 MG/ML VIAL IV PUSH PRN (19:45)
[2017-03-08] MEDS: LISINOPRIL 10 MG TAB PO SCH (19:45)
[2017-03-08] MEDS ORDERED: LORazepam 2 MG TAB PO PRN (19:45)
[2017-03-08] MEDS ORDERED: ACETAMINOPHEN 325 MG TAB PO PRN (19:45)
[2017-03-08] MEDS ORDERED: LORazepam 2 MG/ML VIAL IM ONE (20:00)
[2017-03-08] MEDS ORDERED: LORazepam 2 MG/ML VIAL IV PRN (20:30)
[2017-03-09] MEDS: LORazepam 2 MG/ML VIAL IV PUSH PRN ×7 (00:28→23:21)
[2017-03-09 05:47] VITALS: BP 123/64; PULSE 105; RESP 20; O2SAT 97
[2017-03-09] MEDS: LISINOPRIL 10 MG TAB PO SCH (08:27)
[2017-03-09] MEDS: NICOTINE 21 MG/24 HR PATCH T-DERMAL SCH ×2 (08:28→12:00)
[2017-03-09 10:26] LABS: ANION GAP 8 MEQ/L (5-15); BICARBONATE 25.9 MEQ/L (21.0-32.0); BLOOD UREA NITROGEN 4 MG/DL (7-18); CHLORIDE 105 MEQ/L (98-107); GLOMERULAR FILTRATION RATE 224 ML/MIN (>89); SODIUM (NA) 139 MEQ/L (136-145)
[2017-03-09 10:28] LABS: POTASSIUM 2.8 MEQ/L (3.5-5.1)
--- NOTE | 2017-03-09 10:30 | HHI.HP ---
Provisional Diagnosis Admission Date Mar 08, 2017 at 18:59 [place] I. Delirium, rule out depression Certification of Person's Competence To Provide Express and Informed Consent I have personally examined Katie Jaramillo , a person being served at [facility] on, Mar 09, 2017 10:22. Express and informed consent means consent voluntarily given in writing, by a competent person, after sufficient explanation and disclosure of the subject matter involved to enable the person to make a knowing and willful decision without any element of force, fraud, deceit, duress, or other form of constraint or coercion. This person is 18 years of age or older, is not now known to be incompetent to consent to treatment with a guardian advocate, and does not have a health care surrogate or proxy currently making medical treatment decisions. I have found this person to be one of the following: [] Competent to provide express and informed consent, as defined above, for voluntary admission to this facility and is competent to provide express and informed consent for treatment. He/she has the consistent capacity to make well reasoned, willful, and knowing decisions concerning his or her medical or mental health treatment. The person fully and consistently understands the purpose of the admission for examination/placement and is fully capable of personally exercising all rights assured [place] [x] Incompetent to provide express and informed consent to voluntary admission, and this is incompetent to provide express and informed consent to treatment. The person must be transferred to involuntary status and a petition for a guardian advocate filed with the Circuit Court. [] Refusing to provide express and informed consent to voluntary admission but is competent to provide express and informed consent for treatment. The person must be discharged or transferred to involuntary status. Form shall be completed within 24 hours of a person's arrival at the receiving facility and filed in the clinical record of each person: 1. Admitted on a voluntary basis 2. Permitted to provide express and informed consent to his/her own treatment 3. Allowed to transfer from involuntary to voluntary status 4. Prior to permitting a person to consent to his or her own treatment after having been previously found incompetent to consent to treatment. History of Present Illness Capacity: Lacks Capacity HPI 03/08/2017 The patient is a 66 year-old , domiciled alone in an apartment in [facility], single, unemployed, with a psychiatric history of depression and MRJim and medical history of HTN was brought in under a valdez act after being found wondering in the streets after apparently taking an unspecified amount of Lortab per her PROGRAM ARRANGER. Patient is confused and wakes up periodically, she was able to say she look the medication to hurt herself. After that statement she went to sleep. ROS and history taking is limited due to mental status. As per documentation reviewed patient has endorsed that she has tried to OD deliberately. Documentation was reviewed. I have discussed the case with ESTRELLITA Urrutia. We also got collateral information from a previous caregiver. Patient is positive for amphetamines, opiates and benzodiazepines. At this moment the patient is agitated, incoherent, internally preoccupied, very restless, unable to provide any meaningful information for the psychiatric assessment. As per nurse in charge, patient has been having visual hallucinations, very disorganized, talking nonsense. Collateral f from her sister Asha, was attempted unsuccessfully. At the moment of this evaluation the patient is noncooperative, very agitated, restless, incoherent, no able to provide any meaningful information. Patient has psychiatric history of developmental delay and depression. She is now under valdez act duet to psychosis and because patient had reportedly tried to commit suicide by overdose. No collateral information could be reached at this moment. Medical workup so far is negative. We will order an EEG. We will give Ativan 2 mg IV to help the patient to come down. Patient needs to be admitted in psychiatry for safety and stabilization. Transfer to med psych. 03/09/2017 Collateral from her sister Asha, was attempted today again unsuccessfully. On psychiatric evaluation patient is more alert today, continues to be very confused, disoriented in time and place, with loosening of associations, easily distracted, getting any significant information for the psychiatric assessment at this moment. Patient does report good mood, she denies suicidal and homicidal ideation at this moment, she denies visual and auditory hallucinations. Patient does not seem to be aware of the reason of her hospitalization. Review of Systems ROS Limitations: Uncooperative Past Family Social History Coded Allergies: diclofenac (Unverified Adverse Reaction, Severe, GASTRIC BYPASS, 12/21/16) etodolac (Unverified Adverse Reaction, Severe, GASTRIC BYPASS, 12/21/16) flurbiprofen (Unverified Adverse Reaction, Severe, GASTRIC BYPASS, 12/21/16 ) ibuprofen (Unverified Adverse Reaction, Severe, GASTRIC BYPASS, 12/21/16) indomethacin (Unverified Adverse Reaction, Severe, GASTRIC BYPASS, 12/21/16 ) ketoprofen (Unverified Adverse Reaction, Severe, GASTRIC BYPASS, 12/21/16) ketorolac (Unverified Adverse Reaction, Severe, GASTRIC BYPASS, 12/21/16) naproxen (Unverified Adverse Reaction, Severe, GASTRIC BYPASS, 12/21/16) oxaprozin (Unverified Adverse Reaction, Severe, GASTRIC BYPASS, 12/21/16) aspirin (Unverified Adverse Reaction, Unknown, GASTRIC BYPASS, 12/21/16) Reported Medications Lisinopril (Lisinopril) 10 Mg Tab, 10 MG PO DAILY, #30 TAB 0 Refills 03/08/17 Bupropion HCl ER 24 HR (Bupropion HCl ER 24 HR) 300 Mg Tab, 300 MG PO DAILY for Control Depression, TAB 0 Refills 03/08/17 Albuterol 18 GM Inh (Ventolin Hfa 18 GM Inh) 90 Mcg/Act Aer, 2 PUFF INH Q4-6H Y for SHORTNESS OF BREATH, #1 INHALER 0 Refills 03/08/17 Ondansetron (Ondansetron) 8 Mg Tab, 4 MG PO TID for Nausea/Vomiting, TAB 0 Refills 03/08/17 Omeprazole (Omeprazole) 40 Mg Cap, 40 MG PO DAILY, #30 CAP 0 Refills 03/08/17 Escitalopram (Escitalopram) 10 Mg Tab, 10 MG PO DAILY, #30 TAB 0 Refills 03/08/17 Zolpidem (Zolpidem) 5 Mg Tab, 5 MG PO HS Y for INSOMNIA, TAB 0 Refills 03/08/17 Hydrocodone-Acetaminophen (Hydrocodone-Acetaminophen) 5-325 mg Tab, 1 TAB PO Q4HR Y for PAIN, TAB 0 Refills 03/08/17 Current Medications Medications (Trade) Dose Ordered Sig/Bryan Route Start Time Stop Time Status Last Admin (Prinivil) 10 mg DAILY PO 03/08/17 19:45 (Ativan) 1 mg Q6H PRN PO 03/08/17 19:45 (Ativan Inj) 1 mg Q6H PRN IM 03/08/17 19:45 03/08/17 22:21 (Tylenol) 650 mg Q4H PRN PO 03/08/17 19:45 (Milk Of Magnesia Liq) 30 ml DAILY PRN PO 03/08/17 19:45 (Mag-Al Plus Susp Liq) 30 ml Q6H PRN PO 03/08/17 19:45 (Habitrol 21 Mg Patch.24 Hr) 1 patch DAILY T-DERMAL 03/08/17 19:45 (Romazicon Inj) 0.2 mg Q1M PRN IV PUSH 03/08/17 19:45 (Ativan) 1 mg Q4H PRN PO 03/08/17 19:45 (Ativan Inj) 1 mg Q4H PRN IV PUSH 03/08/17 19:45 (Ativan) 2 mg Q2H PRN PO 03/08/17 19:45 (Ativan Inj) 2 mg Q2H PRN IV PUSH 03/08/17 19:45 03/09/17 08:25 (Ativan Inj) 2 mg Q1H PRN IV PUSH 03/08/17 19:45 (Ativan Inj) 2 mg Q15M PRN IV PUSH 03/08/17 19:45 Physical Exam Vital Signs Vital Signs Date Time Temp Pulse Resp B/P (MAP) Pulse Ox O2 Delivery O2 Flow Rate FiO2 03/09/17 05:47 105 20 123/64 (83) 97 I/O 03/09/17 03/09/17 03/10/17 08:00 16:00 00:00 Intake Total 0 ml Balance 0 ml Lab Results Test 03/09/17 09:18 Mental Status Examination Appearance: Appropriate Consciousness: Lethargic Orientation: Person Motor Activity: Abnormal gait Speech: Incoherent Suicidal Ideation: No Suicidal Plan: No Suicidal Intention: No Homicidal Ideation: No Homicidal Plan: No Homicidal Intention: No Insight: Poor Judgment: Poor Assessment & Plan Problem List: (1) Unspecified psychosis ICD Codes: F29 - Unspecified psychosis not due to a substance or known physiological condition Assessment & Plan: At the moment of this evaluation the patient is poorly cooperative, incoherent, confused no able to provide any meaningful information. Patient has psychiatric history of developmental delay and depression. She is now under valdez act duet to psychosis and because patient had reportedly tried to commit suicide by overdose. No collateral information could be reached at this moment. Medical workup so far is negative. We will order an EEG. We will give Ativan 2 mg IV to help the patient to come down. Patient needs to be admitted in psychiatry for safety and stabilization. SW intervention for collateral and psychosocial assessment. Assessment & Plan Estimated LOS: days Tico Silverio MD Mar 09, 2017 10:30
[2017-03-09 10:34] LABS: HDL CHOLESTEROL 41.6 MG/DL (40.0-60.0); LDL CHOLESTEROL 18 MG/DL (0-99)
[2017-03-09] MEDS ORDERED: NS + KCL 20 MEQ INJ 1,000 ML IV SCH (12:00)
--- NOTE | 2017-03-09 14:19 | PD.CONS ---
[facility] By Dr Silverio Reason for Consult medical management Primary Care Physician Bryson Bradley M.D. Diagnoses: History of Present Illness 66 y/o female with a history of depression and HTN was brought initially to ER under a valdez act after being found wondering in the streets after apparently taking an unspecified amount of Lortab per her HAND WELT BUTTER. Patient was noted confused on admission, she was able to say she look the medication to hurt herself. Patient was seen b psych, recommends med psych admission. Patient is now in the psych /med floor. Not able to eat, K i slow and replaced. Patien tis with on / off mentation. Says she has no pain at this time. 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 Review of Systems ROS Limitations: Clinical Condition, Refused, Poor Historian Except as stated in HPI: all other systems reviewed are Neg Past Family Social History Allergies: Coded Allergies: diclofenac (Unverified Adverse Reaction, Severe, GASTRIC BYPASS, 12/21/16) etodolac (Unverified Adverse Reaction, Severe, GASTRIC BYPASS, 12/21/16) flurbiprofen (Unverified Adverse Reaction, Severe, GASTRIC BYPASS, 12/21/16 ) ibuprofen (Unverified Adverse Reaction, Severe, GASTRIC BYPASS, 12/21/16) indomethacin (Unverified Adverse Reaction, Severe, GASTRIC BYPASS, 12/21/16 ) ketoprofen (Unverified Adverse Reaction, Severe, GASTRIC BYPASS, 12/21/16) ketorolac (Unverified Adverse Reaction, Severe, GASTRIC BYPASS, 12/21/16) naproxen (Unverified Adverse Reaction, Severe, GASTRIC BYPASS, 12/21/16) oxaprozin (Unverified Adverse Reaction, Severe, GASTRIC BYPASS, 12/21/16) aspirin (Unverified Adverse Reaction, Unknown, GASTRIC BYPASS, 12/21/16) Past Medical History HTN, depression Past Surgical History none Reported Medications Reported Meds & Active Scripts Active Reported Lisinopril 10 Mg Tab 10 Mg PO DAILY Bupropion HCl ER 24 HR (Bupropion HCl) 300 Mg Tab 300 Mg PO DAILY Ventolin Hfa 18 GM Inh (Albuterol Sulfate) 90 Mcg/Act Aer 2 Puff INH Q4-6H PRN Ondansetron (Ondansetron HCl) 8 Mg Tab 4 Mg PO TID Omeprazole 40 Mg Cap 40 Mg PO DAILY Escitalopram (Escitalopram Oxalate) 10 Mg Tab 10 Mg PO DAILY Zolpidem (Zolpidem Tartrate) 5 Mg Tab 5 Mg PO HS PRN Hydrocodone-Acetaminophen 5-325 mg Tab 1 Tab PO Q4HR PRN Family History Denies any medical problems in the family Social History Chronic narcotic use Physical Exam Vital Signs Vital Signs Date Time Temp Pulse Resp B/P (MAP) Pulse Ox O2 Delivery O2 Flow Rate FiO2 03/09/17 05:47 105 20 123/64 (83) 97 03/08/17 18:20 98 26 150/110 (123) 94 Physical Exam GENERAL: This is a well-nourished, well-developed patient, in no apparent distress. SKIN: No rashes, ecchymoses or lesions. Cool and dry. HEAD: Atraumatic. Normocephalic. EYES: Pupils equal round and reactive. Extraocular motions intact. No scleral icterus. No injection or drainage. ENT: Nose without bleeding, purulent drainage or septal hematoma. Airway patent. NECK: Trachea midline. No JVD or lymphadenopathy. CARDIOVASCULAR: Regular rate and rhythm without murmurs, gallops, or rubs. RESPIRATORY: Clear to auscultation. Breath sounds equal bilaterally. No wheezes , rales, or rhonchi. GASTROINTESTINAL: Abdomen soft, non-tender, nondistended. No guarding. MUSCULOSKELETAL: Extremities without clubbing, cyanosis, or edema. No joint tenderness, effusion, or edema noted. NEUROLOGICAL: Sleepy.Not oriented. Motor and sensory grossly within normal limits. Normal speech. Laboratory Laboratory Tests Test 03/09/17 09:18 Blood Urea Nitrogen 4 Creatinine 0.30 Random Glucose 74 Calcium Level 8.1 Sodium Level 139 Potassium Level 2.8 Chloride Level 105 Carbon Dioxide Level 25.9 Anion Gap 8 Estimat Glomerular Filtration Rate 224 Triglycerides Level 66 Cholesterol Level 73 LDL Cholesterol 18 HDL Cholesterol 41.6 Cholesterol/HDL Ratio 1.75 Result Diagram: 03/09/17 0918 Assessment and Plan Assessment and Plan 66 y/o female with a history of depression and THN was brought in under a valdez act after being found wondering in the streets after apparently taking an unspecified amount of Lortabs per her HAND WELT BUTTER. Acute toxic encephalopathy, suspected due to intentional overdose of lortab Head CT reviewed and unremarkable -Neuro checks -Consult psych -Monitor telemetry Amphetamine positive on urine drug screen. Counseled when appropriate. Hypertension, chronic -Resume medications when patient is alert, monitor vitals DVT prophylaxis: ambulation Jenn Diaz MD Mar 09, 2017 14:19
[2017-03-09] MEDS: POTASSIUM CHLOR 20 MEQ PREMIX 100 ML IV SCH ×2 (15:39→17:43)
--- NOTE | 2017-03-09 16:11 | PD.PSY.CON ---
Provisional Diagnosis Admission Date Mar 08, 2017 at 18:59 [place] I. Delirium, rule out depression History of Present Illness Service Psychiatry Consult Requested By Dr. Tico Silverio Reason for Consult Second opinion Primary Care Physician Bryson Bradley M.D. [facility] 03/08/2017 The patient is a 66 year-old , domiciled alone in an apartment in [facility], single, unemployed, with a psychiatric history of depression and MRJim and medical history of HTN was brought in under a valdez act after being found wondering in the streets after apparently taking an unspecified amount of Lortab per her HOME HEALTH SPEECH THERAPIST. Patient is confused and wakes up periodically, she was able to say she look the medication to hurt herself. After that statement she went to sleep. ROS and history taking is limited due to mental status. As per documentation reviewed patient has endorsed that she has tried to OD deliberately. Documentation was reviewed. I have discussed the case with ESTRELLITA Urrutia. We also got collateral information from a previous caregiver. Patient is positive for amphetamines, opiates and benzodiazepines. At this moment the patient is agitated, incoherent, internally preoccupied, very restless, unable to provide any meaningful information for the psychiatric assessment. As per nurse in charge, patient has been having visual hallucinations, very disorganized, talking nonsense. Collateral f from her sister Asha, was attempted unsuccessfully. At the moment of this evaluation the patient is noncooperative, very agitated, restless, incoherent, no able to provide any meaningful information. Patient has psychiatric history of developmental delay and depression. She is now under valdez act duet to psychosis and because patient had reportedly tried to commit suicide by overdose. No collateral information could be reached at this moment. Medical workup so far is negative. We will order an EEG. We will give Ativan 2 mg IV to help the patient to come down. Patient needs to be admitted in psychiatry for safety and stabilization. Transfer to med psych. 03/09/2017 Collateral from her sister Asha, was attempted today again unsuccessfully. On psychiatric evaluation patient is more alert today, continues to be very confused, disoriented in time and place, with loosening of associations, easily distracted, getting any significant information for the psychiatric assessment at this moment. Patient does report good mood, she denies suicidal and homicidal ideation at this moment, she denies visual and auditory hallucinations. Patient does not seem to be aware of the reason of her hospitalization. 03/09/17 - Second opinion Patient is 66-year-old woman, domiciled alone, single, unemployed with a past psychiatric history of depression who was brought into the hospital after allegedly overdose on Lortab and wandering in the streets which she was subsequently admitted to the inpatient psychiatry unit for further evaluation and management. Patient was found lying on hospital bed, cooperative with interview, noted to be alert and oriented only to person to be confused and disorganized thought process and expressing nonsensical statements. Patient stated that she is 26 years old. Patient wasn't able to recall events that brought to the hospital. Patient's sister was was at bedside and stated that she believes that the patient had "took too much of something" was unable to recall what she had taken. Patient sister also reports that patient has never had a prior suicide attempt as far as she is concerned. Past Family Social History Coded Allergies: diclofenac (Unverified Adverse Reaction, Severe, GASTRIC BYPASS, 12/21/16) etodolac (Unverified Adverse Reaction, Severe, GASTRIC BYPASS, 12/21/16) flurbiprofen (Unverified Adverse Reaction, Severe, GASTRIC BYPASS, 12/21/16 ) ibuprofen (Unverified Adverse Reaction, Severe, GASTRIC BYPASS, 12/21/16) indomethacin (Unverified Adverse Reaction, Severe, GASTRIC BYPASS, 12/21/16 ) ketoprofen (Unverified Adverse Reaction, Severe, GASTRIC BYPASS, 12/21/16) ketorolac (Unverified Adverse Reaction, Severe, GASTRIC BYPASS, 12/21/16) naproxen (Unverified Adverse Reaction, Severe, GASTRIC BYPASS, 12/21/16) oxaprozin (Unverified Adverse Reaction, Severe, GASTRIC BYPASS, 12/21/16) aspirin (Unverified Adverse Reaction, Unknown, GASTRIC BYPASS, 12/21/16) Reported Medications Lisinopril (Lisinopril) 10 Mg Tab, 10 MG PO DAILY, #30 TAB 0 Refills 03/08/17 Bupropion HCl ER 24 HR (Bupropion HCl ER 24 HR) 300 Mg Tab, 300 MG PO DAILY for Control Depression, TAB 0 Refills 03/08/17 Albuterol 18 GM Inh (Ventolin Hfa 18 GM Inh) 90 Mcg/Act Aer, 2 PUFF INH Q4-6H Y for SHORTNESS OF BREATH, #1 INHALER 0 Refills 03/08/17 Ondansetron (Ondansetron) 8 Mg Tab, 4 MG PO TID for Nausea/Vomiting, TAB 0 Refills 03/08/17 Omeprazole (Omeprazole) 40 Mg Cap, 40 MG PO DAILY, #30 CAP 0 Refills 03/08/17 Escitalopram (Escitalopram) 10 Mg Tab, 10 MG PO DAILY, #30 TAB 0 Refills 03/08/17 Zolpidem (Zolpidem) 5 Mg Tab, 5 MG PO HS Y for INSOMNIA, TAB 0 Refills 03/08/17 Hydrocodone-Acetaminophen (Hydrocodone-Acetaminophen) 5-325 mg Tab, 1 TAB PO Q4HR Y for PAIN, TAB 0 Refills 03/08/17 Current Medications Medications (Trade) Dose Ordered Sig/Bryan Route Start Time Stop Time Status Last Admin (Prinivil) 10 mg DAILY PO 03/08/17 19:45 (Ativan) 1 mg Q6H PRN PO 03/08/17 19:45 (Ativan Inj) 1 mg Q6H PRN IM 03/08/17 19:45 03/08/17 22:21 (Tylenol) 650 mg Q4H PRN PO 03/08/17 19:45 (Milk Of Magnesia Liq) 30 ml DAILY PRN PO 03/08/17 19:45 (Mag-Al Plus Susp Liq) 30 ml Q6H PRN PO 03/08/17 19:45 (Habitrol 21 Mg Patch.24 Hr) 1 patch DAILY T-DERMAL 03/08/17 19:45 03/09/17 12:00 (Romazicon Inj) 0.2 mg Q1M PRN IV PUSH 03/08/17 19:45 (Ativan) 1 mg Q4H PRN PO 03/08/17 19:45 (Ativan Inj) 1 mg Q4H PRN IV PUSH 03/08/17 19:45 03/09/17 13:45 (Ativan) 2 mg Q2H PRN PO 03/08/17 19:45 (Ativan Inj) 2 mg Q2H PRN IV PUSH 03/08/17 19:45 03/09/17 08:25 (Ativan Inj) 2 mg Q1H PRN IV PUSH 03/08/17 19:45 (Ativan Inj) 2 mg Q15M PRN IV PUSH 03/08/17 19:45 Potassium Chloride 100 ml @ 50 mls/hr Q2H IV 03/09/17 14:00 03/09/17 17:59 03/09/17 15:39 Potassium Chloride/Sodium Chloride 1,000 ml @ 84 mls/hr [id number] IV 03/09/17 12:00 03/09/17 13:25 Physical Exam Vital Signs Vital Signs Date Time Temp Pulse Resp B/P (MAP) Pulse Ox O2 Delivery O2 Flow Rate FiO2 03/09/17 05:47 105 20 123/64 (83) 97 I/O 03/09/17 03/09/17 03/10/17 08:00 16:00 00:00 Intake Total 0 ml Balance 0 ml Lab Results Test 03/09/17 09:18 Blood Urea Nitrogen 4 MG/DL Creatinine 0.30 MG/DL Random Glucose 74 MG/DL Calcium Level 8.1 MG/DL Sodium Level 139 MEQ/L Potassium Level 2.8 MEQ/L Chloride Level 105 MEQ/L Carbon Dioxide Level 25.9 MEQ/L Anion Gap 8 MEQ/L Estimat Glomerular Filtration Rate 224 ML/MIN Triglycerides Level 66 MG/DL Cholesterol Level 73 MG/DL LDL Cholesterol 18 MG/DL HDL Cholesterol 41.6 MG/DL Cholesterol/HDL Ratio 1.75 RATIO Mental Status Examination Appearance: Appropriate Consciousness: Highly Distractible Orientation: Person Motor Activity: Abnormal gait Speech: Incoherent Fund of Knowledge: Poor (unable to assess due to patient's current disorganization) Attention and Concentration: Easily Distracted Memory: Impaired Mood: Other ("okay") Affect: Anxious Thought Process & Associations: Disorganized Thought Content: Other (nonsensical statements) Hallucination Type: None Delusion Type: None Suicidal Ideation: No Suicidal Plan: No Suicidal Intention: No Homicidal Ideation: No Homicidal Plan: No Homicidal Intention: No Insight: Poor Judgment: Poor Assessment & Plan Problem List: (1) Unspecified psychosis ICD Codes: F29 - Unspecified psychosis not due to a substance or known physiological condition Assessment & Plan I have seen and examined this patient, reviewed the documentation, discussed personally with Dr. Silverio, and I agree and concur with his assessment and plan. Consult appreciated. Leo Hogan MD Mar 09, 2017 16:11
[2017-03-09 19:05] LABS: HEMOGLOBIN A1a 1.1 %; HEMOGLOBIN A1b 0.7 %; HEMOGLOBIN Ao 87.4 %; HEMOGLOBIN LA1C 1.5 %; HEMOGLOBIN P3 3.4 %
[2017-03-10] MEDS: LORazepam 2 MG/ML VIAL IV PUSH PRN ×11 (01:10→15:49)
[2017-03-10] MEDS ORDERED: cloNIDine HCL 0.1 MG TAB PO ONE (05:30)
[2017-03-10 05:41] VITALS: BP 168/77; PULSE 122; RESP 18; TEMP 99.1; O2SAT 99
--- NOTE | 2017-03-10 06:23 | RADRPT ---
EXAM DATE/TIME: 03/10/2017 05:51 [place] COMPARISON: CHEST SINGLE AP, March 07, 2017, 22:27. INDICATIONS : Congestion. MEDICAL HISTORY : None. SURGICAL HISTORY : None. ENCOUNTER: Subsequent ACUITY: 4 - 6 days PAIN SCORE: 0/10 LOCATION: Bilateral chest FINDINGS: Bilateral infiltrates are present, mainly central and generally worse on the right than the left. No significant effusion suspected. Cardiac contours are satisfactory coming for rotation. CONCLUSION: Bilateral infiltrates Ildefonso Ramsey MD on March 10, 2017 at 6:21 Board Certified Radiologist. This report was verified electronically.
--- NOTE | 2017-03-10 06:56 | MG ---
cc: MELISA NEGRON Corrected: 03/10/17 Lab No: Date: 03/09/2017 Age: Sex: F Race: DATE OF 1950 REFERRING PHYSICIAN MCKENNA Urrutia MEDICAL HISTORY Hypertension, gastric bypass, depression, tobacco use admitted as Shaikh Act by police. The patient was hallucinating, speaking to people who were not there, wandering in the street. MEDICATIONS Not applicable. DESCRIPTION The background activity is 9-10 Hz alpha located posteriorly superimposed by excess beta activity. There is excessive muscle and movement artifact during the recording. Photic stimulation did not elicit a driving response. Hyperventilation was omitted. There were no electrographic seizures or epileptiform discharges noted. INTERPRETATION This is a normal awake EEG. Beta activity is a nonspecific finding that may indicate medication adverse effects like benzos or barbiturates. The absence of electrographic seizures or epileptiform discharges does not exclude the diagnosis of epilepsy. Clinical correlation is recommended. MD SHELL Sanches/JUMANA /9:09 PM /6:52 AM YOBANI
[2017-03-10] MEDS ORDERED: AZITHROMYCIN INJ 500 MG in SODIUM CHLOR 0.9% 250 ML INJ 250 ML IV ONE ×2 (07:00→07:30)
[2017-03-10] MEDS: NICOTINE 21 MG/24 HR PATCH T-DERMAL SCH (08:23)
[2017-03-10] MEDS: LISINOPRIL 10 MG TAB PO SCH (08:23)
--- NOTE | 2017-03-10 08:56 | HHI.PYPN ---
Subjective Remarks Patient was seen for psychiatric reevaluation. Case widely discussed with nurse in charge and executive secretary social welfare. Patient continues to be very confused,, disorganized, restless, agitated, unable to follow verbal commands. She is internally preoccupied having active visual hallucinations. As per nurses patient had some periods of lucidity is yesterday, but returns to her current state. Review of Systems Except as stated in HPI: all other systems reviewed are Neg Mental Status Examination Appearance: Appropriate Consciousness: Highly Distractible Orientation: Person Motor Activity: Abnormal gait Speech: Incoherent Fund of Knowledge: Poor (unable to assess due to patient's current disorganization) Attention and Concentration: Easily Distracted Memory: Impaired Mood: Other ("okay") Affect: Anxious Thought Process & Associations: Disorganized Thought Content: Other (nonsensical statements) Hallucination Type: None Delusion Type: None Suicidal Ideation: No Suicidal Plan: No Suicidal Intention: No Homicidal Ideation: No Homicidal Plan: No Homicidal Intention: No Insight: Poor Judgment: Poor Results Labs Test 03/09/17 09:18 Blood Urea Nitrogen 4 MG/DL Creatinine 0.30 MG/DL Random Glucose 74 MG/DL Calcium Level 8.1 MG/DL Sodium Level 139 MEQ/L Potassium Level 2.8 MEQ/L Chloride Level 105 MEQ/L Carbon Dioxide Level 25.9 MEQ/L Anion Gap 8 MEQ/L Estimat Glomerular Filtration Rate 224 ML/MIN Hemoglobin A1c 4.8 % Triglycerides Level 66 MG/DL Cholesterol Level 73 MG/DL LDL Cholesterol 18 MG/DL HDL Cholesterol 41.6 MG/DL Cholesterol/HDL Ratio 1.75 RATIO Vitals/IOs Vital Signs Date Time Temp Pulse Resp B/P (MAP) Pulse Ox O2 Delivery O2 Flow Rate FiO2 03/10/17 05:41 99.1 122 18 168/77 (107) 99 Intake and Output 03/10/17 03/10/17 03/11/17 08:00 16:00 00:00 Intake Total 0 ml Balance 0 ml Assessment & Plan Problem List: (1) Unspecified psychosis ICD Codes: F29 - Unspecified psychosis not due to a substance or known physiological condition (2) Sedative, hypnotic, 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 Continue to monitor withdrawal closely, CIWA protocol. We'll start Librium 50 mg every 6 hours to help with GABAergic hyper excitability. Also will order CMP, CBC. We will discuss with medical team the convenience of transfer the patient to ICU airway protection if withdrawal symptoms continue to worsen. Assessment & Plan Estimated LOS: days Justification for Cont. Inpt. Patient needs to continue hospitalization for stabilization and safety. Tico Silverio MD Mar 10, 2017 08:56
[2017-03-10] MEDS: chlordiazePOXIDE 25 MG CAP PO SCH ×2 (09:00→14:11)
[2017-03-10 09:09] VITALS: BP 150/102; PULSE 113; RESP 24; TEMP 98.1; O2SAT 95
[2017-03-10 10:10] VITALS: O2SAT 98
[2017-03-10] MEDS: PIPERACIL-TAZO 4.5 GM PREMIX 100 ML IV SCH ×2 (10:39→14:11)
[2017-03-10 11:50] LABS: AUTOMATED NEUTROPHIL # 22.1 TH/MM3 (1.8-7.7); BASOPHIL % 0.1 % (0.0-2.0); HEMATOCRIT 33.2 % (35.0-46.0); LYMPH % 3.3 % (9.0-44.0); LYMPHOCYTE # 0.8 TH/MM3 (1.0-4.8); MEAN CELL VOLUME 114.2 FL (80.0-100.0); MEAN CORPUSCULAR HGB CONC 31.6 % (32.0-36.0); MONO % 7.6 % (0.0-8.0); PLATELET COUNT 190 TH/MM3 (150-450); RED BLOOD COUNT 2.91 MIL/MM3 (4.00-5.30); RED CELL DISTRIBUTION WIDTH 21.6 % (11.6-17.2); WHITE BLOOD COUNT 24.9 TH/MM3 (4.0-11.0)
[2017-03-10 11:51] LABS: HEMO FLAGS AUTO DIFF
[2017-03-10 12:29] LABS: ALKALINE PHOSPHATASE 127 U/L (45-117); ALT (GPT) 35 U/L (10-53); ANION GAP 11 MEQ/L (5-15); AST (GOT) 68 U/L (15-37); BICARBONATE 24.3 MEQ/L (21.0-32.0); BLOOD UREA NITROGEN 7 MG/DL (7-18); CHLORIDE 105 MEQ/L (98-107); GLOMERULAR FILTRATION RATE 187 ML/MIN (>89); POTASSIUM 3.8 MEQ/L (3.5-5.1); SODIUM (NA) 140 MEQ/L (136-145); TOTAL BILIRUBIN ADULT 1.1 MG/DL (0.2-1.0)
[2017-03-10 15:35] VITALS: BP 147/95; PULSE 113; RESP 24; TEMP 97.7; O2SAT 99
[2017-03-10 16:40] LABS: BLOOD GAS BASE EXCESS 3.6 mmol/L (-2-2); BLOOD GAS CARBOXYHEMOGLOBIN 0.6 % (0-4); BLOOD GAS HCO3 26 mmol/L (22-26); BLOOD GAS O2 HGB SATURATION 92 % (90-100); BLOOD GAS OXYGEN CONTENT 9.6 Vol % (12.0-20.0); BLOOD GAS PCO2 26 mmHg (38-42); BLOOD GAS PO2 67 mmHG (61-120); BLOOD GAS TOTAL HGB 7.4 G/DL (12.0-16.0); TEMP CORR TO 98.6
[2017-03-10 16:42] LABS: CRITICAL VALUE YES; DRAW SITE RA; LITER FLOW 3 L/M; NUMBER OF ARTERIAL PUNCTURES 1; OXYGEN DEVICE NASAL CANNULA; STAT YES; ULNAR PULSE PRESENT
--- NOTE | 2017-03-10 17:31 | HHI.PR ---
Subjective Remarks Follow up visit overdose of Lortab, positive amphetamine and benzo on utox, withdrawals. Nurse reported patient has not been doing well all day. Spoke with Dr. Centeno, stating that they have been given IM and IV push advanced all day. Patient has received about 20 mg of Ativan and is still continues to be restless. O2 sat has dropped and now needs to be on 2 L nasal cannula. Currently O2 saturation is 96%. Patient's heart rate is 110-116. Patient is mouthing words but is very disoriented and confused. Patient is pale and clammy. Appears to be tachypneic and very restless. Objective Vitals Vital Signs Date Time Temp Pulse Resp B/P (MAP) Pulse Ox O2 Delivery O2 Flow Rate FiO2 03/10/17 15:35 97.7 113 24 147/95 (112) 99 03/10/17 10:10 98 03/10/17 09:09 98.1 113 24 150/102 (118) 95 03/10/17 05:41 99.1 122 18 168/77 (107) 99 I/O 03/09/17 03/09/17 03/09/17 03/10/17 03/10/17 03/10/17 07:00 15:00 23:00 07:00 15:00 23:00 Intake Total 0 ml 166 ml 0 ml 450 ml Balance 0 ml 166 ml 0 ml 450 ml Intake Oral 0 ml 0 ml 0 ml IV Total 166 ml 450 ml # Voids 4 2 2 # Bowel Movements 3 Result Diagram: 03/10/17 1115 03/10/17 1115 Imaging Last Impressions Chest X-Ray 03/10/17 0000 Signed Impressions: Service Date/Time: March 05:51 - CONCLUSION: Bilateral infiltrates Ildefonso Ramsey MD Objective Remarks GENERAL: This is an obese, well-developed patient, in no apparent distress. SKIN: Cool and Clammy. HEENT: Normocephalic. Pupils equal round and reactive. Nose without bleeding. Airway patent. NECK: Trachea midline. CARDIOVASCULAR: Tachycardia without murmurs, gallops, or rubs. RESPIRATORY: Rhonchi. Diminished bases. Tachypneic GASTROINTESTINAL: Abdomen soft, non-tender, nondistended. Bowel Sounds normoactive x4. MUSCULOSKELETAL: Extremities without clubbing, cyanosis, or edema. NEUROLOGICAL: Awake. Confuse. Moves all extremities.. 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 Admitted to inpatient medical psychiatric unit. Consulted for medical management. Acute toxic encephalopathy, suspected due to intentional overdose of lortab Head CT reviewed and unremarkable -Neuro checks -Consult psych -Monitor telemetry Amphetamine positive on urine drug screen - Notable withdrawals.Clammy, cold, pale - Has been given ativan approx 20 mg. patient continues to be restless, tachypneic and very disoriented. - Call was placed to donor floor technician for patient transfer to intensive care unit for closer monitoring. - ABG ordered. Transfer orders provided. Spoke with Dr. Fregoso regarding patient. Pneumonia - Possibly aspiration pna - Continue with azithromycin, Zosyn - Chest x-ray showed bilateral infiltrates - Leukocytosis Hypertension, chronic - Resume medications when patient is alert, monitor vitals DVT prophylaxis SCDs Discussed with nursing, Dr. Moreno Discharge Planning Discharge to intensive care unit Donnie Velazco Mar 10, 2017 17:31
[2017-03-11] MEDS ORDERED: AZITHROMYCIN INJ 500 MG in SODIUM CHLOR 0.9% 250 ML INJ 250 ML IV SCH (06:00)
== END 2017-03-10 16:49 | disposition short-term general hospital (02) | DRG 896 ==
LOC: H4EA 18:59
PROVIDERS: ADMIT Psychiatry & Neurology Psychiatry; ATTEND Psychiatry & Neurology Psychiatry
DX: F13.259 Sedative, hypnotic or anxiolytic dependence with sedative, hypnotic or anxiolytic-induced psychotic disorder, unspecified (principal); G92 Toxic encephalopathy; J69.0 Pneumonitis due to inhalation of food and vomit; F13.239 Sedative, hypnotic or anxiolytic dependence with withdrawal, unspecified; F32.9 Major depressive disorder, single episode, unspecified; T40.2X2A Poisoning by other opioids, intentional self-harm, initial encounter; I10 Essential (primary) hypertension; R06.82 Tachypnea, not elsewhere classified; Z79.891 Long term (current) use of opiate analgesic; Z98.84 Bariatric surgery status
CPT/HCPCS: 36600; 71010; 80048; 80053; 80061; 82805; 83036; 95819; J0456; J2060; J2543; J3480; J7050

== ENCOUNTER 2017-03-10 16:33 | Inpatient (IN) | payer OTHER ==
[2017-03-10] VITALS (7 sets, daily range): BP systolic 116–157; BP diastolic 86–104; PULSE 113–119; RESP 24–40; TEMP 98.1–99.2; O2SAT 91–99
[~2017-03-10] VITALS: Ht 162.6 cm; Wt 80.0 kg
[~2017-03-10 16:33] MED LIST changes: -BUPR150XL PO; -HYDR-3533 PO; -LISI2.5T3 PO; -ONDA1TAB17 PO; +ONDA8TAB7 PO
[2017-03-10] MEDS ORDERED: MIDAZOLAM HCL 5 MG/ML VIAL (1 ML) ONE (16:50)
[2017-03-10] MEDS ORDERED: SUCCINYLCHOLINE CHLORIDE 200 MG/10 ML VIAL ONE (16:50)
[2017-03-10] MEDS ORDERED: ETOMIDATE 40 MG/20 ML VIAL ONE (16:50)
--- NOTE | 2017-03-10 17:07 | HHI.HP ---
[facility] Service Critical Care Medicine Primary Care Physician Bryson Bradley M.D. Admission Diagnosis Diagnosis: Chief Complaint: altered mental status Travel History International Travel<30 Days: No Contact w/Intl Traveler <30 Da: No Traveled to Known Affected Are: No History of Present Illness This is a 66-year-old with a history of depression and hypertension who was brought in to the ER with altered mental status and subjective overdose on Lortabs. Her UDS at that time was positive for amphetamines, benzodiazepines, opiates. She was transferred to our medical psychiatry unit for management of resolving opiate overdose and poly-substance withdraw. I am familiar with this patient and have evaluated this patient at the request of the rapid response team multiple times over the last few days. She is a poor historian and cannot participate in a history. Today she was rapid responsed for altered mental statu. I evaluated her on arrival to the [facility]. She is at neurologic baseline for me over the last 3 days. she protects her airway. she has erratic movements that are almost choreic in nature, and has tachycardia and hypertension which she has had over the last 4 days. She has a blood gas which demonstrates a primary respiratory alkalosis and no evidence of hypoxia on room air. laboratory data is unremarkable except for a wbc 25k without fever or suspected area of infection. She is admitted to the ICU for withdraw symptoms too severe to be safely cared for on a medical floor. Review of Systems ROS Limitations: Clinical Condition, Altered Mental Status, Combative, Psychotic, Poor Historian Past Family Social History Allergies: Coded Allergies: diclofenac (Unverified Adverse Reaction, Severe, GASTRIC BYPASS, 12/21/16) etodolac (Unverified Adverse Reaction, Severe, GASTRIC BYPASS, 12/21/16) flurbiprofen (Unverified Adverse Reaction, Severe, GASTRIC BYPASS, 12/21/16 ) ibuprofen (Unverified Adverse Reaction, Severe, GASTRIC BYPASS, 12/21/16) indomethacin (Unverified Adverse Reaction, Severe, GASTRIC BYPASS, 12/21/16 ) ketoprofen (Unverified Adverse Reaction, Severe, GASTRIC BYPASS, 12/21/16) ketorolac (Unverified Adverse Reaction, Severe, GASTRIC BYPASS, 12/21/16) naproxen (Unverified Adverse Reaction, Severe, GASTRIC BYPASS, 12/21/16) oxaprozin (Unverified Adverse Reaction, Severe, GASTRIC BYPASS, 12/21/16) aspirin (Unverified Adverse Reaction, Unknown, GASTRIC BYPASS, 12/21/16) Past Medical History HTN depression Past Surgical History none Reported Medications Lisinopril 10 Mg Tab 10 Mg PO DAILY Bupropion HCl ER 24 HR (Bupropion HCl) 300 Mg Tab 300 Mg PO DAILY Ventolin Hfa 18 GM Inh (Albuterol Sulfate) 90 Mcg/Act Aer 2 Puff INH Q4-6H PRN Ondansetron (Ondansetron HCl) 8 Mg Tab 4 Mg PO TID Omeprazole 40 Mg Cap 40 Mg PO DAILY Escitalopram (Escitalopram Oxalate) 10 Mg Tab 10 Mg PO DAILY Zolpidem (Zolpidem Tartrate) 5 Mg Tab 5 Mg PO HS PRN Hydrocodone-Acetaminophen 5-325 mg Tab 1 Tab PO Q4HR PRN Active Ordered Medications See MAR Family History Denies any medical problems in the family Social History Chronic narcotic use Physical Exam Physical Exam GENERAL: Middle-aged female, lying in bed, no acute distress, very restless HEENT: Normocephalic. Atraumatic. Pupils equal, round, reactive, conjugate. Mucous membranes are moist NECK: Trachea is midline. There is no JVD. CHEST: Unlabored. Equal chest rise. 2 L nasal cannula CARDIOVASCULAR: Tachycardic rate, regular rhythm. Sinus by telemetry ABDOMEN: Soft, nontender, nondistended. No guarding. MUSCULOSKELETAL: Pulses 2+. No peripheral edema. NEUROLOGICAL: RASS +1. CAM +. intermittently follows simple commands. withdraws briskly. Caprini VTE Risk Assessment Caprini VTE Risk Assessment: Mod/High Risk (score >= 2) Caprini Risk Assessment Model Point Value = 1 Point Value = 2 Point Value = 3 Point Value = 5 Age 41-60 Minor surgery BMI > 25 kg/m2 Swollen legs Varicose veins or History of unexplained or recurrent spontaneous Oral contraceptives or hormone replacement Sepsis (< 1 month) Serious lung disease, including pneumonia (< 1 month) Abnormal pulmonary function Acute myocardial infarction Congestive heart failure (< 1 month) History of inflammatory bowel disease Medical patient at bed rest Age 61-74 Arthroscopic surgery Major open surgery (> 45 min) Laparoscopic surgery (> 45 min) Malignancy Confined to bed (> 72 hours) Immobilizing plaster cast Central venous access Age >= 75 History of VTE Family history of VTE Factor V Leiden Prothrombin [id number] Lupus anticoagulant Anticardiolipin antibodies Elevated serum homocysteine Heparin-induced thrombocytopenia Other congenital or acquired thrombophilia Stroke (< 1 month) Elective arthroplasty Hip, pelvis, or leg fracture Acute spinal cord injury (< 1 month) Prophylaxis Regimen Total Risk Factor Score Risk Level Prophylaxis Regimen 0-1 Low Early ambulation 2 Moderate Order ONE of the following: *Sequential Compression Device (SCD) *Heparin 5000 units SQ BID 3-4 Higher Order ONE of the following medications: *Heparin 5000 units SQ TID *Enoxaparin/Lovenox 40 mg SQ daily (WT < 150 kg, CrCl > 30 mL/min) *Enoxaparin/Lovenox 30 mg SQ daily (WT < 150 kg, CrCl > 10-29 mL/min) *Enoxaparin/Lovenox 30 mg SQ BID (WT < 150 kg, CrCl > 30 mL/min) AND/OR *Sequential Compression Device (SCD) 5 or more Highest Order ONE of the following medications: *Heparin 5000 units SQ TID (Preferred with Epidurals) *Enoxaparin/Lovenox 40 mg SQ daily (WT < 150 kg, CrCl > 30 mL/min) *Enoxaparin/Lovenox 30 mg SQ daily (WT < 150 kg, CrCl > 10-29 mL/min) *Enoxaparin/Lovenox 30 mg SQ BID (WT < 150 kg, CrCl > 30 mL/min) AND *Sequential Compression Device (SCD) Assessment and Plan Assessment and Plan Assessment: 66yF originally admitted for suspected opiate overdose, now well out of window for overdose symptoms, and presenting with what clinically appears to be combination of polysubstance withdraw and possible [place] 1 psych disorder. Difficult to distinguish the two at this point. will control her agitation with anti-psychotics and benzodiazepines and will monitor in an ICU setting. Airway patent. Polysubstance Abuse Acute polysubstance withdraw Agitated Delirium - consult psych to follow along - haldol 10mg iv x 1 now, and 5mg iv q4h prn agitation - seroquel 100mg po q8hr - clonidine 0.3mg po q8hr - valium 20mg po q8hr - ativan 2mg iv q15min prn withdraw symptoms - restraints for patient safety. SCDs Kody Portillo MD Mar 10, 2017 17:07
[2017-03-10] MEDS ORDERED: RESP: ALBUTEROL 2.5 MG/IPRATROPIUM 0.5 MG NEB (PRN) INH (17:15)
[2017-03-10] MEDS ORDERED: MISCELLANEOUS NURSING INFORMATION XX SCH (17:15)
[2017-03-10] MEDS ORDERED: CHLORHEXIDINE GLUCONATE 2 % 1 PACK (2 CLOTHS) TOP PRN (17:15)
[2017-03-10] MEDS ORDERED: DEXTROSE 50% IN WATER 50 ML VIAL(D50) IV PUSH PRN (17:15)
[2017-03-10] MEDS ORDERED: ONDANSETRON HCL 4 MG/2 ML VIAL IV PUSH PRN (17:15)
[2017-03-10] MEDS: INSULIN NovoLIN REGULAR SUPPLEMENTAL SCALE SQ SCH (18:00)
[2017-03-10] MEDS ORDERED: HALOPERIDOL LACTATE 5 MG/ML AMP IV PUSH ONE (18:00)
[2017-03-10] MEDS: cloNIDine HCL 0.3 MG TAB PO SCH (18:00)
[2017-03-10] MEDS: QUEtiapine FUMARATE 100 MG TAB PO SCH (18:00)
[2017-03-10] MEDS: DIAZEPAM 10 MG TAB PO SCH (18:00)
[2017-03-10] MEDS ORDERED: DEXMEDETOMIDINE INJ 200 MCG in SODIUM CHLORIDE 0.9% INJ 50 ML IV PRN (18:30)
[2017-03-10] MEDS ORDERED: FLUMAZENIL 0.5 MG/5 ML VIAL IV PUSH PRN (18:45)
[2017-03-10] MEDS ORDERED: LORazepam 1 MG TAB PO PRN (18:45)
[2017-03-10] MEDS ORDERED: LORazepam 2 MG/ML VIAL IV PUSH PRN ×4 (18:45)
[2017-03-10] MEDS ORDERED: LORazepam 2 MG TAB PO PRN (18:45)
[2017-03-10] MEDS: ENOXAPARIN SODIUM 40 MG/0.4 ML SYRINGE SQ SCH (18:57)
[2017-03-10] MEDS: SODIUM CHLOR 0.9% 1000 ML INJ 1,000 ML IV SCH (19:13)
[2017-03-10] MEDS: LORazepam 2 MG/ML VIAL IV PUSH PRN ×6 (19:13→23:45)
[2017-03-10] MEDS: RESP: ALBUTEROL 2.5 MG/IPRATROPIUM 0.5 MG NEB (SCH) INH (20:34)
[2017-03-10] MEDS: DEXMEDETOMIDINE INJ 200 MCG in SODIUM CHLORIDE 0.9% INJ 50 ML IV PRN ×2 (21:02→23:52)
[2017-03-10] MEDS: HALOPERIDOL LACTATE 5 MG/ML AMP IV PRN (21:26)
[2017-03-11] VITALS (12 sets, daily range): BP systolic 99–134; BP diastolic 60–84; PULSE 86–112; RESP 22–51; TEMP 97.6–100.4; O2SAT 81–100
[2017-03-11] MEDS: DEXMEDETOMIDINE INJ 200 MCG in SODIUM CHLORIDE 0.9% INJ 50 ML IV PRN ×4 (01:34→07:58)
[2017-03-11] MEDS: CHLORHEXIDINE GLUCONATE 2 % 1 PACK (2 CLOTHS) TOP SCH (04:00)
[2017-03-11] MEDS: RESP: ALBUTEROL 2.5 MG/IPRATROPIUM 0.5 MG NEB (SCH) INH ×4 (04:07→19:28)
[2017-03-11] MEDS: SODIUM CHLOR 0.9% 1000 ML INJ 1,000 ML IV SCH ×2 (05:40→18:32)
[2017-03-11 06:00] LABS: HEMATOCRIT 26.2 % (35.0-46.0); MEAN CELL VOLUME 110.7 FL (80.0-100.0); MEAN CORPUSCULAR HGB CONC 32.5 % (32.0-36.0); PLATELET COUNT 133 TH/MM3 (150-450); RED BLOOD COUNT 2.36 MIL/MM3 (4.00-5.30); RED CELL DISTRIBUTION WIDTH 21.1 % (11.6-17.2); REVIEW FLAG FINAL; WHITE BLOOD COUNT 14.9 TH/MM3 (4.0-11.0)
[2017-03-11 06:24] LABS: BICARBONATE 24.2 MEQ/L (21.0-32.0); POTASSIUM 3.1 MEQ/L (3.5-5.1)
[2017-03-11] MEDS: LORazepam 2 MG/ML VIAL IV PUSH PRN ×16 (08:05→23:50)
[2017-03-11] MEDS ORDERED: POTASSIUM PHOSPHATE INJ 30 MMOL in SODIUM CHLOR 0.9% 250 ML INJ 250 ML IV PRN (08:45)
[2017-03-11] MEDS ORDERED: MAGNESIUM SULFATE INJ 2 GM in SODIUM CHLORIDE 0.9% INJ 96 ML IV PRN (08:45)
[2017-03-11] MEDS ORDERED: POTASSIUM CHLORIDE 25 MEQ EFFERVESCENT TAB PO PRN (08:45)
[2017-03-11] MEDS ORDERED: POTASSIUM PHOSPHATE MONOBASIC 500 MG TAB PO/TUBE PRN (08:45)
[2017-03-11] MEDS ORDERED: POTASSIUM PHOSPHATE MONOBASIC 500 MG TAB PO PRN (08:45)
[2017-03-11] MEDS ORDERED: SODIUM PHOSPHATE INJ 30 MMOL in SODIUM CHLOR 0.9% 250 ML INJ 240 ML IV PRN (08:45)
[2017-03-11] MEDS ORDERED: POTASSIUM CHLOR 40 MEQ PREMIX 100 ML IV PRN (08:45)
[2017-03-11] MEDS ORDERED: MAGNESIUM OXIDE 400 MG TAB PO PRN (08:45)
[2017-03-11] MEDS ORDERED: MAGNESIUM SULFATE INJ 4 GM in SODIUM CHLORIDE 0.9% INJ 92 ML IV PRN (08:45)
[2017-03-11] MEDS ORDERED: DEXMEDETOMIDINE INJ 200 MCG in SODIUM CHLORIDE 0.9% INJ 50 ML IV PRN (09:00)
[2017-03-11] MEDS: POTASSIUM CHLOR 20 MEQ PREMIX 100 ML IV PRN ×4 (09:30→21:17)
[2017-03-11] MEDS: INSULIN NovoLIN REGULAR SUPPLEMENTAL SCALE SQ SCH ×3 (12:00→18:00)
[2017-03-11 12:17] LABS: MAGNESIUM 2.1 MG/DL (1.5-2.5)
[2017-03-11] MEDS: DEXMEDETOMIDINE INJ 1,000 MCG in SODIUM CHLOR 0.9% 250 ML INJ 250 ML IV PRN ×3 (12:50→23:50)
[2017-03-11] MEDS: cloNIDine HCL 0.3 MG TAB PO SCH ×2 (14:00→21:10)
[2017-03-11] MEDS: DIAZEPAM 10 MG TAB PO SCH ×2 (14:00→21:11)
[2017-03-11] MEDS: QUEtiapine FUMARATE 100 MG TAB PO SCH ×2 (14:00→21:11)
[2017-03-11] MEDS: HALOPERIDOL LACTATE 5 MG/ML AMP IV PRN ×2 (14:34→18:25)
--- NOTE | 2017-03-11 15:24 | HHI.PYPN ---
Subjective Remarks Patient visited for psychiatric reevaluation, patient is disoriented, restless, very disorganized, no making any sense, unable to provide any meaningful information at this moment. She is restrained in 2 points due to the severity of the agitation. Mental Status Examination Mental Status Exam Remarks Limited due to the level of confusion and delirium. Results Labs Test 03/10/17 18:30 03/11/17 05:36 Nasal Screen MRSA (PCR) MRSA DETECTED White Blood Count 14.9 TH/MM3 Red Blood Count 2.36 MIL/MM3 Hemoglobin 8.5 GM/DL Hematocrit 26.2 % Mean Corpuscular Volume 110.7 FL Mean Corpuscular Hemoglobin 36.0 PG Mean Corpuscular Hemoglobin Concent 32.5 % Red Cell Distribution Width 21.1 % Platelet Count 133 TH/MM3 Mean Platelet Volume 7.3 FL Blood Urea Nitrogen 11 MG/DL Creatinine 0.37 MG/DL Random Glucose 113 MG/DL Calcium Level 7.8 MG/DL Sodium Level 143 MEQ/L Potassium Level 3.1 MEQ/L Chloride Level 107 MEQ/L Carbon Dioxide Level 24.2 MEQ/L Anion Gap 12 MEQ/L Estimat Glomerular Filtration Rate 176 ML/MIN Phosphorus Level 2.2 MG/DL Magnesium Level 2.1 MG/DL Vitals/IOs Vital Signs Date Time Temp Pulse Resp B/P (MAP) Pulse Ox O2 Delivery O2 Flow Rate FiO2 03/11/17 10:00 90 03/11/17 08:50 98 Nasal Cannula 3.00 03/11/17 08:00 98.1 22 126/72 (90) Intake and Output 03/11/17 03/11/17 03/12/17 08:00 16:00 00:00 Intake Total 1150 ml 50 ml Balance 1150 ml 50 ml Assessment & Plan Problem List: (1) Delirium ICD Codes: R41.0 - Disorientation, unspecified Assessment & Plan: Continue current psychotropic regimen. CIWA protocol. Assessment & Plan Estimated LOS: days Justification for Cont. Inpt. Patient will be transferred to psychiatry once medically stable. Tico Silverio MD Mar 11, 2017 15:24
[2017-03-11] MEDS: ENOXAPARIN SODIUM 40 MG/0.4 ML SYRINGE SQ SCH (17:23)
--- NOTE | 2017-03-11 19:07 | HHI.CCPN ---
Subjective Remarks/Hospital Course Hospital Course: This is a 66-year-old with a history of depression and hypertension who was brought in to the ER with altered mental status and subjective overdose on Lortabs. Her UDS at that time was positive for amphetamines, benzodiazepines, opiates. She was transferred to our medical psychiatry unit for management of resolving opiate overdose and poly-substance withdraw. I am familiar with this patient and have evaluated this patient at the request of the rapid response team multiple times over the last few days. She is a poor historian and cannot participate in a history. Today she was rapid responsed for altered mental statu. I evaluated her on arrival to the [facility] [place]. She is at neurologic baseline for me over the last 3 days. she protects her airway. she has erratic movements that are almost choreic in nature, and has tachycardia and hypertension which she has had over the last 4 days. She has a blood gas which demonstrates a primary respiratory alkalosis and no evidence of hypoxia on room air. laboratory data is unremarkable except for a wbc 25k without fever or suspected area of infection. She is admitted to the ICU for withdraw symptoms too severe to be safely cared for on a medical floor. Subjective: 03/11: no changes. still very delirious. agitated. requiring high doses ativan and haldol. appreciate psych recs. afebrile. elevated wbc of unclear significance. no evidence of active infection. Objective Vital Signs Date Time Temp Pulse Resp B/P (MAP) Pulse Ox O2 Delivery O2 Flow Rate FiO2 03/11/17 16:00 93 03/11/17 16:00 98.1 45 125/74 (91) 99 03/11/17 08:50 Nasal Cannula 3.00 Intake and Output 03/11/17 03/11/17 03/12/17 08:00 16:00 00:00 Intake Total 1150 ml 50 ml Balance 1150 ml 50 ml Result Diagram: 03/11/17 0536 03/11/17 0536 Objective Remarks GENERAL: Middle-aged female, lying in bed, no acute distress, very restless HEENT: Normocephalic. Atraumatic. Pupils equal, round, reactive, conjugate. Mucous membranes are moist NECK: Trachea is midline. There is no JVD. CHEST: Unlabored. Equal chest rise. 2 L nasal cannula CARDIOVASCULAR: Tachycardic rate, regular rhythm. Sinus by telemetry ABDOMEN: Soft, nontender, nondistended. No guarding. MUSCULOSKELETAL: Pulses 2+. No peripheral edema. NEUROLOGICAL: RASS +1. CAM +. intermittently follows simple commands. withdraws briskly. A/P Assessment and Plan Assessment: 66yF originally admitted for suspected opiate overdose, now well out of window for overdose symptoms, and presenting with what clinically appears to be combination of polysubstance withdraw and possible [place] 1 psych disorder. Difficult to distinguish the two at this point. will control her agitation with anti-psychotics and benzodiazepines and will monitor in an ICU setting. Airway patent. Polysubstance Abuse Acute polysubstance withdraw Agitated Delirium - consult psych to follow along - haldol 5mg iv q4h prn agitation - seroquel 100mg po q8hr - clonidine 0.3mg po q8hr - valium 20mg po q8hr - ativan 2mg iv q15min prn withdraw symptoms - restraints for patient safety. - holding PO meds due to somnolence, not safe to take PO. will consult speech to follow along for swallowing eval. SCDs Kody Portillo MD Mar 11, 2017 19:07
[2017-03-12] VITALS (31 sets, daily range): BP systolic 99–155; BP diastolic 57–90; PULSE 82–108; RESP 16–51; TEMP 98.7–100.7; O2SAT 90–100
[2017-03-12] MEDS: LORazepam 2 MG/ML VIAL IV PUSH PRN (01:27)
[2017-03-12] MEDS ORDERED: ETOMIDATE 40 MG/20 ML VIAL ONE (01:30)
[2017-03-12] MEDS ORDERED: SUCCINYLCHOLINE CHLORIDE 200 MG/10 ML VIAL ONE (01:30)
[2017-03-12] MEDS ORDERED: PROPOFOL 500 MG/50 ML INJ 50 ML ONE (01:35)
--- NOTE | 2017-03-12 02:46 | RADRPT ---
EXAM DATE/TIME: 03/12/2017 02:05 [facility] COMPARISON: CHEST SINGLE AP, March 07, 2017, 22:27. CHEST SINGLE AP, March 10, 2017, 5:51. INDICATIONS : E-T tube placement. MEDICAL HISTORY : Hypertension. SURGICAL HISTORY : None. ENCOUNTER: Subsequent ACUITY: 4 - 6 days PAIN SCORE: Non-responsive. LOCATION: Bilateral chest FINDINGS: Single AP view of the chest. Endotracheal tube is now in place with the tip 6 mm above the marcello. Bi lateral diffuse, mildly asymmetric pulmonary opacity unchanged. Right shoulder prosthesis again seen. No evidence of pleural effusion or pneumothorax. Cardiomediastinal silhouette unchanged. CONCLUSION: Endotracheal tube in place with the tip 6 mm above the marcello. No change in bilateral pulmonary paren chymal opacity. Filemon Feldman MD on March 12, 2017 at 2:43 Board Certified Radiologist. This report was verified electronically.
[2017-03-12 02:56] LABS: BLOOD, URINE TRACE (NEG); COMMENT (UR) CULT NOT INDICATED; CULTURE IF INDICATED CULT NOT INDICATED; GLUCOSE,URINE NEG (NEG); HYALINE CAST, URINE 1 /lpf (RARE); KETONE, URINE 40 mg/dL (NEG); MUCUS URINE FEW /lpf (OCC); NITRITE,URINE NEG (NEG); URINE COLOR YELLOW (YELLW/STRAW)
[2017-03-12 03:24] LABS: BLOOD GAS BASE EXCESS -3.5 mmol/L (-2-2); BLOOD GAS CARBOXYHEMOGLOBIN 1.1 % (0-4); BLOOD GAS HCO3 20 mmol/L (22-26); BLOOD GAS METHEMOGLOBIN 1.8 % (0-2); BLOOD GAS O2 HGB SATURATION 96 % (90-100); BLOOD GAS OXYGEN CONTENT 10.4 Vol % (12.0-20.0); BLOOD GAS PCO2 30 mmHg (38-42); BLOOD GAS PO2 160 mmHg (61-120); BLOOD GAS TOTAL HGB 7.4 G/DL (12.0-16.0); CRITICAL VALUE NO; DRAW SITE RT RADIAL; FIO2 50 %; NUMBER OF ARTERIAL PUNCTURES 2; OXYGEN DEVICE VENTILATOR; STAT NO; TEMP CORR TO 98.6; ULNAR PULSE PRESENT; VENT SETTINGS VAC16/550/PEEP 8
[2017-03-12] MEDS: PROPOFOL 1000 MG/100 ML INJ 100 ML IV PRN ×7 (03:29→23:16)
[2017-03-12] MEDS: RESP: ALBUTEROL 2.5 MG/IPRATROPIUM 0.5 MG NEB (SCH) INH ×4 (03:46→20:07)
[2017-03-12] MEDS: CHLORHEXIDINE GLUCONATE 2 % 1 PACK (2 CLOTHS) TOP SCH (04:00)
[2017-03-12] MEDS: cloNIDine HCL 0.3 MG TAB PO SCH ×3 (06:00→21:22)
[2017-03-12] MEDS: DIAZEPAM 10 MG TAB PO SCH ×3 (06:00→21:22)
[2017-03-12] MEDS: INSULIN NovoLIN REGULAR SUPPLEMENTAL SCALE SQ SCH ×5 (06:00→23:19)
[2017-03-12] MEDS: QUEtiapine FUMARATE 100 MG TAB PO SCH ×3 (06:00→21:23)
[2017-03-12 07:29] LABS: MEAN CELL VOLUME 110.1 FL (80.0-100.0); MEAN CORPUSCULAR HEMOGLOBIN 35.9 PG (27.0-34.0); MEAN CORPUSCULAR HGB CONC 32.6 % (32.0-36.0); PLATELET COUNT 125 TH/MM3 (150-450); RED BLOOD COUNT 2.09 MIL/MM3 (4.00-5.30); RED CELL DISTRIBUTION WIDTH 20.3 % (11.6-17.2); REVIEW FLAG FINAL; WHITE BLOOD COUNT 17.1 TH/MM3 (4.0-11.0)
[2017-03-12] MEDS: SODIUM CHLOR 0.9% 1000 ML INJ 1,000 ML IV SCH ×2 (07:33→17:25)
[2017-03-12] MEDS: HALOPERIDOL LACTATE 5 MG/ML AMP IV PRN (08:32)
[2017-03-12] MEDS ORDERED: Vancomycin Consult Pharmacy 1 EA OTHER SCH (10:30)
[2017-03-12] MEDS ORDERED: ROCURONIUM INJ 50 MG/5 ML VIAL IV ONE (10:30)
[2017-03-12] MEDS ORDERED: VANCOMYCIN INJ 1,250 MG in SODIUM CHLOR 0.9% 250 ML INJ 250 ML IV ONE (10:30)
--- NOTE | 2017-03-12 10:34 | HHI.CCPN ---
Subjective Remarks/Hospital Course Hospital Course: This is a 66-year-old with a history of depression and hypertension who was brought in to the ER with altered mental status and subjective overdose on Lortabs. Her UDS at that time was positive for amphetamines, benzodiazepines, opiates. She was transferred to our medical psychiatry unit for management of resolving opiate overdose and poly-substance withdraw. I am familiar with this patient and have evaluated this patient at the request of the rapid response team multiple times over the last few days. She is a poor historian and cannot participate in a history. Today she was rapid responsed for altered mental statu. I [place] [facility] [place] She is at neurologic baseline for me over the last 3 days. she protects her airway. she has erratic movements that are almost choreic in nature, and has tachycardia and hypertension which she has had over the last 4 days. She has a blood gas which demonstrates a primary respiratory alkalosis and no evidence of hypoxia on room air. laboratory data is unremarkable except for a wbc 25k without fever or suspected area of infection. She is admitted to the ICU for withdraw symptoms too severe to be safely cared for on a medical floor. Subjective: 03/11: no changes. still very delirious. agitated. requiring high doses ativan and haldol. appreciate psych recs. afebrile. elevated wbc of unclear significance. no evidence of active infection. 03/12: intubated overnight for worsening hypoxia. this morning, new low-grade fevers, wbc uptrended. also persistently encephalopathic. Objective Vital Signs Date Time Temp Pulse Resp B/P (MAP) Pulse Ox O2 Delivery O2 Flow Rate FiO2 03/12/17 09:40 100 50 03/12/17 06:00 97 03/12/17 04:00 100.3 41 103/58 (73) 03/11/17 19:28 Venturi Mask 03/11/17 08:50 3.00 Intake and Output 03/12/17 03/12/17 03/13/17 08:00 16:00 00:00 Intake Total 1150 ml Output Total 150 ml Balance 1000 ml Result Diagram: 03/12/17 0655 03/11/17 0536 Other Results Laboratory Tests Test 03/12/17 03:00 Blood Gas Puncture Site RT RADIAL Blood Gas Patient Temperature 98.6 Blood Gas HCO3 20 mmol/L (22-26) Blood Gas Base Excess -3.5 mmol/L (-2-2) Blood Gas Oxygen Saturation 96 % (90-100) Arterial Blood pH 7.44 (7.380-7.420) Arterial Blood Partial Pressure CO2 30 mmHg (38-42) Arterial Blood Partial Pressure O2 160 mmHg (61-120) Arterial Blood Oxygen Content 10.4 Vol % (12.0-20.0) Arterial Blood Carboxyhemoglobin 1.1 % (0-4) Arterial Blood Methemoglobin 1.8 % (0-2) Blood Gas Hemoglobin 7.4 G/DL (12.0-16.0) Oxygen Delivery Device VENTILATOR Blood Gas Ventilator Setting VAC16/550/PEEP 8 Blood Gas Inspired Oxygen 50 % Objective Remarks GENERAL: Middle-aged female, lying in bed, intubated, encephalopathic HEENT: Normocephalic. Atraumatic. Pupils equal, round, reactive, conjugate. Mucous membranes are moist NECK: Trachea is midline. There is no JVD. CHEST: intubated, equal chest rise. CARDIOVASCULAR: Tachycardic rate, regular rhythm. Sinus by telemetry ABDOMEN: Soft, nontender, nondistended. No guarding. MUSCULOSKELETAL: Pulses 2+. No peripheral edema. NEUROLOGICAL: RASS +1 or -3. intermittently agitated. on propofol 50 mcg/kg/ min. CAM +. withdraws briskly. does not follow commands. A/P Assessment and Plan Assessment: 66yF originally admitted for suspected opiate overdose, now well out of window for overdose symptoms, and presenting with what clinically appears to be combination of polysubstance withdraw and possible [place] 1 psych disorder. Difficult to distinguish the two at this point. Now intubated for hypoxic respiratory failure. aspiration pneumonia in the differential, will cover with empiric abx and f/u cultures. In terms of persistent encephalopathy, will obtain MRI brain to rule out organic structural causes. EEG on 03/10 demonstrated encephalopathy without ictal activity. Will continue all anti- delirium meds. Critically ill today and clinically declining from yesterday. New respiratory failure and off pathway from encephalopathy. Neuro: Polysubstance Abuse Acute polysubstance withdraw Agitated Delirium Toxic Encephalopathy - consult psych to follow along - haldol 5mg iv q4h prn agitation - seroquel 100mg po q8hr - clonidine 0.3mg po q8hr - valium 20mg po q8hr - ativan 2mg iv q15min prn withdraw symptoms - restraints for patient safety. - prop/fentanyl for goal RASS -2 - mri brain - send folate, tsh, free t4 levels. - start IV thiamine. Resp: Acute hypoxic respiratory failure - vent bundle, hob at 30 degrees, nebs - wean fio2 for spo2 > 90% - no SBT until encephalopathy improves - sputum culture and abx to cover possible aspiration CV: Sinus tachycardia - secondary to polysubstance withdraw - clonidine 0.3mg po q8hr FEN/GI Acute protein calorie malnutrition - moderate - ICU electrolyte protocol - start tube feeds - nutrition consult for goal recs - keep mivf Heme/ID: Possible Aspiration Pneumonia, HCAP - Vancomycin with pharmacy dosing - Zosyn 4.5gm iv q6h - thompson culture Endo: Hyperglycemia of critical illness - ssi, med scale, q6h Prophylaxis: - pepcid - SCDs, Lovenox Lines: piv Dispo: remain in ICU. clinically worse and critically ill this morning. Critical care time: 37 minutes, exclusive of separately billable procedures. SCDs Kody Portillo MD Mar 12, 2017 10:34
[2017-03-12 11:08] LABS: BICARBONATE 23.8 MEQ/L (21.0-32.0); POTASSIUM 3.7 MEQ/L (3.5-5.1)
[2017-03-12] MEDS: fentaNYL DRIP 250 ML IV PRN (11:55)
[2017-03-12] MEDS: FAMOTIDINE 20 MG/2 ML VIAL IV PUSH SCH ×2 (11:56→23:16)
[2017-03-12] MEDS: PIPERACIL-TAZO 4.5 GM PREMIX 100 ML IV SCH ×3 (11:57→23:16)
[2017-03-12] MEDS: THIAMINE INJ 100 MG in SODIUM CHLORIDE 0.9% INJ 100 ML IV SCH (12:02)
[2017-03-12] MEDS ORDERED: LACTATED RINGER'S 1000 ML INJ 1,000 ML IV SCH (14:00)
[2017-03-12 14:54] LABS: FREE T4 1.2 NG/DL (0.76-1.46)
--- NOTE | 2017-03-12 15:10 | RADRPT ---
EXAM DATE/TIME: 03/12/2017 14:39 [facility] COMPARISON: CT BRAIN W/O CONTRAST, March 07, 2017, 22:49. INDICATIONS : Encephalopathy. MEDICAL HISTORY : Hypertension. SURGICAL HISTORY : Gastric bypass. ENCOUNTER: Initial ACUITY: 1 week PAIN SCORE: 0/10 LOCATION: cranial TECHNIQUE: Multiplanar, multisequence MRI of the brain was performed without contrast. FINDINGS: CEREBRUM: Mild atrophy. The ventricles are normal for age. No evidence of midline shift, mass lesion, hemorrha ge or acute infarction. No extraaxial fluid collections are seen. The pituitary gland and suprasell ar cistern are normal in configuration. WHITE MATTER: No significant signal abnormalities are seen in the white matter. POSTERIOR FOSSA: The cerebellum and brainstem are intact. The 4th ventricle is midline. The cerebellopontine angle is unremarkable. The cerebellar tonsils are normal in position. DIFFUSION IMAGING: No focal areas of restricted diffusion are seen. No evidence of acute infarction. EXTRACRANIAL: The visualized portions of the orbits and paranasal sinuses are unremarkable. CONCLUSION: Negative noncontrast MRI of the brain. Ildefonso Osullivan MD on March 12, 2017 at 15:06 Board Certified Radiologist. This report was verified electronically.
[2017-03-12] MEDS: VANCOMYCIN INJ 1,750 MG in SODIUM CHLORID 0.9% 500 ML INJ 500 ML IV SCH (15:23)
[2017-03-12] MEDS: ENOXAPARIN SODIUM 40 MG/0.4 ML SYRINGE SQ SCH (17:25)
--- NOTE | 2017-03-12 18:04 | PD.PROCEDR ---
Procedure Note Procedure Lumbar Puncture Diagnosis: Acute encephalopathy Indications: Acute Encephalopathy Consent: Written consent was obtained Anesthesia: Versed IV Description of the Procedure: The patient was placed in the supine, right lateral decubitus position. The patient was prepped and draped sterilely. 1% lidocaine was infiltrated subcutaneously. A 20g Quincke needle was inserted into the L3-4 interspace and advanced until CSF was obtained. Opening pressure was obtained. CSF was drained in 4 incremental vials. The needle was removed and a dressing was applied. The patient was returned to the supine position. Instructions were given to remain flat x 2 hours. There were no immediate complications noted. There was minimal EBL. The patient tolerated the procedure well. Opening Pressure: 19 mmHg Amount of CSF removed: 12 mL Findings: Clear CSF. I personally performed the procedure. Kody Robledo MD Mar 12, 2017 18:03
[2017-03-12 19:14] LABS: SUPERNATE COLOR TUBE #1 CLEAR (CLEAR); VOLUME TUBE # 1 2.9 ML
[2017-03-12 19:15] LABS: CSF LYMPHOCYTES 0 %; CSF NEUTROPHILS 0 %; GROSS BLOOD TUBE #1 0 (0); GROSS BLOOD TUBE #2 0 (0); GROSS BLOOD TUBE #3 0 (0); GROSS BLOOD TUBE #4 0 (0); SUPERNATE COLOR TUBE #2 CLEAR (CLEAR); SUPERNATE COLOR TUBE #3 CLEAR (CLEAR); SUPERNATE COLOR TUBE #4 CLEAR (CLEAR); VOLUME TUBE # 3 2.9 ML; WBC TUBE #4 0 /MM3 (0-10)
[2017-03-13] VITALS (34 sets, daily range): BP systolic 97–130; BP diastolic 61–84; PULSE 85–97; RESP 18–34; TEMP 98.3–99; O2SAT 97–100
[2017-03-13] MEDS: CHLORHEXIDINE GLUCONATE 2 % 1 PACK (2 CLOTHS) TOP SCH (04:00)
[2017-03-13] MEDS: RESP: ALBUTEROL 2.5 MG/IPRATROPIUM 0.5 MG NEB (SCH) INH ×4 (04:17→20:54)
[2017-03-13] MEDS: PIPERACIL-TAZO 4.5 GM PREMIX 100 ML IV SCH ×4 (05:43→22:37)
[2017-03-13] MEDS: cloNIDine HCL 0.3 MG TAB PO SCH ×2 (05:47→13:58)
[2017-03-13] MEDS: SODIUM CHLOR 0.9% 1000 ML INJ 1,000 ML IV SCH (05:47)
[2017-03-13] MEDS: QUEtiapine FUMARATE 100 MG TAB PO SCH ×3 (05:47→22:37)
[2017-03-13] MEDS: INSULIN NovoLIN REGULAR SUPPLEMENTAL SCALE SQ SCH ×4 (06:00→23:40)
[2017-03-13] MEDS: PROPOFOL 1000 MG/100 ML INJ 100 ML IV PRN ×2 (06:02→16:36)
[2017-03-13 06:05] LABS: HEMATOCRIT 21.8 % (35.0-46.0); MEAN CORPUSCULAR HEMOGLOBIN 35.5 PG (27.0-34.0); MEAN CORPUSCULAR HGB CONC 31.9 % (32.0-36.0); PLATELET COUNT 117 TH/MM3 (150-450); RED BLOOD COUNT 1.96 MIL/MM3 (4.00-5.30); RED CELL DISTRIBUTION WIDTH 20.4 % (11.6-17.2); WHITE BLOOD COUNT 23.2 TH/MM3 (4.0-11.0)
[2017-03-13 06:14] LABS: REVIEW FLAG FINAL
[2017-03-13] MEDS: DIAZEPAM 10 MG TAB PO SCH ×2 (06:26→13:58)
[2017-03-13 06:28] LABS: BICARBONATE 24.4 MEQ/L (21.0-32.0); POTASSIUM 3.6 MEQ/L (3.5-5.1)
[2017-03-13] MEDS ORDERED: SODIUM CHLOR 0.9% 250 ML INJ 250 ML IV ONE (06:30)
--- NOTE | 2017-03-13 08:04 | HHI.CCPN ---
Subjective Remarks/Hospital Course Hospital Course: This is a 66-year-old with a history of depression and hypertension who was brought in to the ER with altered mental status and subjective overdose on Lortabs. Her UDS at that time was positive for amphetamines, benzodiazepines, opiates. She was transferred to our medical psychiatry unit for management of resolving opiate overdose and poly-substance withdraw. I am familiar with this patient and have evaluated this patient at the request of the rapid response team multiple times over the last few days. She is a poor historian and cannot participate in a history. Today she was rapid responsed for altered mental statu. I evaluated [place] [facility] [place] She is at neurologic baseline for me over the last 3 days. she protects her airway. she has erratic movements that are almost choreic in nature, and has tachycardia and hypertension which she has had over the last 4 days. She has a blood gas which demonstrates a primary respiratory alkalosis and no evidence of hypoxia on room air. laboratory data is unremarkable except for a wbc 25k without fever or suspected area of infection. She is admitted to the ICU for withdraw symptoms too severe to be safely cared for on a medical floor. Subjective: 03/11: no changes. still very delirious. agitated. requiring high doses ativan and haldol. appreciate psych recs. afebrile. elevated wbc of unclear significance. no evidence of active infection. 03/12: intubated overnight for worsening hypoxia. this morning, new low-grade fevers, wbc uptrended. also persistently encephalopathic. 03/13: remains encephalopathic. oliguric overnight but Cr 0.8 this AM. bedside critical care echo with grossly normal biventricular function, 1.5cm ivc with < 30% respiratory variation, no pericardial effusion. LP done yesterday without evidence of overt infection, slightly elevated opening pressure at 19, but obese and likely some element of intra-abdominal hypertension contributing to elevated opening pressure. CSF studies pending. Also, new right neck swelling which appears to be submandibular, difficult to quantify but ~5x5cm. This appears to be tender to palpation as patient becomes agitated on palpation. no bruising. mass/swelling is fixed and nonmobile. no intra-oral component that I can appreciate. I spoke to her sister yesterday afternoon, and apparently she was seen back in November at OSH for "stroke-like symptoms" and since that time has had a progressive decline with "easy forgetfullness" and intermittent confusion. Her sister endorses that the patient has had substance abuse problems, usually prescription opiates, however, has never had any other mental health diagnoses. Objective Vital Signs Date Time Temp Pulse Resp B/P (MAP) Pulse Ox O2 Delivery O2 Flow Rate FiO2 03/13/17 07:44 100 45 03/13/17 06:00 91 03/13/17 04:00 98.7 22 97/61 (73) 03/11/17 19:28 Venturi Mask 03/11/17 08:50 3.00 Intake and Output 03/13/17 03/13/17 03/14/17 08:00 16:00 00:00 Intake Total 1393 ml Output Total 275 ml Balance 1118 ml Result Diagram: 03/13/1751903/13/17519 Objective Remarks GENERAL: Middle-aged female, lying in bed, intubated, encephalopathic HEENT: Normocephalic. Atraumatic. Pupils equal, round, reactive, conjugate. Mucous membranes are moist NECK: Trachea is midline. There is no JVD. right neck mass/swelling ~5x5cm without bruising. fixed. non-mobile. appears to be tender to palpation. no fluctuance noted. CHEST: intubated, equal chest rise. prvc fio2 40%. CARDIOVASCULAR: Tachycardic rate, regular rhythm. Sinus by telemetry ABDOMEN: Soft, nontender, nondistended. No guarding. MUSCULOSKELETAL: Pulses 2+. No peripheral edema. NEUROLOGICAL: RASS -3. intermittently agitated. CAM +. withdraws briskly. does not follow commands. A/P Assessment and Plan Assessment: 66yF originally admitted for suspected opiate overdose, now well out of window for overdose symptoms, and presenting with what clinically appears to be combination of polysubstance withdraw and possible [place] 1 psych disorder. Now intubated for hypoxic respiratory failure. aspiration pneumonia in the differential, will cover with empiric abx and f/u cultures. MRI normal from yesterday. Progressive decline over last 5 months is concerning, combined with her movements that do not appear myoclonic or agitated but more choreiform or akathetic in nature. LP studies pending. Other acute encephalopathies in the differential. Also with new facial swelling which could be peridental abscess or new lymphadenopathy or abscess. will obtain CT neck with contrast to evaluate. EEG on 03/10 was negative for ictal activity, but will repeat today in light of persistent encephalopathy. Remains off pathway and critically ill with almost no improvement in last 24h and new acute medical problems which are life- threatening. Neuro: Polysubstance Abuse Acute polysubstance withdraw Agitated Delirium Toxic Encephalopathy - consult psych to follow along - haldol 5mg iv q4h prn agitation - seroquel 100mg po q8hr - clonidine 0.3mg po q8hr - valium 20mg po q8hr - ativan 2mg iv q15min prn withdraw symptoms - restraints for patient safety. - prop/fentanyl for goal RASS -2 - mri brain - folate, tsh, free t4 all wnl 03/12. - IV thiamine. - MRI brain 03/12 wnl - LP 03/12 no evidence of acute infection. protein and glucose normal. no wbc. - 14-3-3 protein send out lab pending. Resp: Acute hypoxic respiratory failure - persistent. - vent bundle, hob at 30 degrees, nebs - wean fio2 for spo2 > 90% - no SBT until encephalopathy improves - sputum culture and abx to cover possible aspiration, sputum NGTD. CV: Sinus tachycardia - secondary to polysubstance withdraw - clonidine 0.3mg po q8hr FEN/GI Acute protein calorie malnutrition - moderate Hypernatremia Hyperchloremia - ICU electrolyte protocol - tube feeds - nutrition consult for goal recs - change MIVF to 1/2 NS @ 150cc/hr to help with hypernatremia - start free water per tube: 200 mL po q6h Heme/ID: Possible Aspiration Pneumonia, HCAP - Vancomycin with pharmacy dosing - Zosyn 4.5gm iv q6h - thompson culture, cultures NGTD. Endo: Hyperglycemia of critical illness - ssi, med scale, q6h Prophylaxis: - pepcid - SCDs, Lovenox Lines: piv Dispo: remain in ICU. clinically worse and critically ill again this morning. Critical care time: 55 minutes, exclusive of separately billable procedures. Kody Robledo MD Mar 13, 2017 08:04
[2017-03-13] MEDS ORDERED: IOHEXOL 350 MG/ML 10 ML VIAL (for RAD DIAG) IVCONTRAST ONE (08:45)
[2017-03-13] MEDS: FREE WATER G-TUBE SCH ×3 (09:00→20:06)
--- NOTE | 2017-03-13 09:15 | RADRPT ---
EXAM DATE/TIME: 03/13/2017 08:41 [facility] COMPARISON: No previous studies available for comparison. INDICATIONS : Right sided neck swelling. IV CONTRAST: 70 cc Omnipaque 350 (iohexol) IV RADIATION DOSE: 26.88 CTDIvol (mGy) MEDICAL HISTORY : Hernia, hiatal. Hypertension. SURGICAL HISTORY : None. ENCOUNTER: Initial ACUITY: 1 day PAIN SCALE: 6/10 LOCATION: Right neck TECHNIQUE: Volumetric scanning of the neck was performed. Using automated exposure control and adjustment of th e mA and/or kV according to patient size, radiation dose was kept as low as reasonably achievable to obtain optimal diagnostic quality images. DICOM format image data is available electronically for r eview and comparison. FINDINGS: The soft tissues of the right neck are more edematous than the left NASOPHARYNX: The nasopharyngeal airway has a normal configuration. No mucosal thickening or mass is seen. There i s fluid present in an intubated patient OROPHARYNX: The intrinsic muscles of the tongue are symmetric. The tonsillar pillars are intact. The prevertebr al soft tissues are not thickened. Endotracheal tube and nasogastric tube are present LARYNX: The supraglottic, glottic, and infraglottic structures are intact. PARAPHARYNGEAL: The parapharyngeal space is intact. SALIVARY GLANDS: The right parotid gland is larger then the left without evidence of abscess or drainable fluid collec tion. LYMPH NODES: No enlarged or necrotic-appearing nodes. THYROID: Homogeneous enhancement without evidence of nodule. BONES: Unremarkable. CONCLUSION: There is diffuse soft tissue swelling of the right neck compared to the left. The right parotid gland is also larger than mild left without drainable fluid collection or mass. No drainable abscess or s ignificant pathologic lymphadenopathy is noted Barry Riggs MD on March 13, 2017 at 9:10 Board Certified Radiologist. This report was verified electronically.
[2017-03-13] MEDS: FAMOTIDINE 20 MG/2 ML VIAL IV PUSH SCH ×2 (10:04→22:37)
[2017-03-13] MEDS: SODIUM CHLOR 0.45% 1000 ML INJ 1,000 ML IV SCH ×3 (10:04→22:39)
[2017-03-13] MEDS: THIAMINE INJ 100 MG in SODIUM CHLORIDE 0.9% INJ 100 ML IV SCH (10:04)
[2017-03-13] MEDS: VANCOMYCIN INJ 1,750 MG in SODIUM CHLORID 0.9% 500 ML INJ 500 ML IV SCH (13:57)
[2017-03-13] MEDS: ENOXAPARIN SODIUM 40 MG/0.4 ML SYRINGE SQ SCH (16:42)
[2017-03-13 19:33] LABS: HEMATOCRIT 24.6 % (35.0-46.0); REVIEW FLAG FINAL
[2017-03-13] MEDS: fentaNYL DRIP 250 ML IV PRN (20:05)
[2017-03-14] VITALS (25 sets, daily range): BP systolic 99–144; BP diastolic 59–86; PULSE 80–106; RESP 11–26; TEMP 97.3–99; O2SAT 94–100
[2017-03-14] MEDS: PROPOFOL 1000 MG/100 ML INJ 100 ML IV PRN ×6 (00:46→23:44)
[2017-03-14] MEDS: FREE WATER G-TUBE SCH ×4 (03:00→20:11)
[2017-03-14] MEDS: CHLORHEXIDINE GLUCONATE 2 % 1 PACK (2 CLOTHS) TOP SCH (04:00)
[2017-03-14] MEDS: RESP: ALBUTEROL 2.5 MG/IPRATROPIUM 0.5 MG NEB (SCH) INH ×4 (04:38→19:56)
[2017-03-14] MEDS: PIPERACIL-TAZO 4.5 GM PREMIX 100 ML IV SCH ×4 (05:26→21:20)
[2017-03-14] MEDS: QUEtiapine FUMARATE 100 MG TAB PO SCH ×3 (05:26→21:20)
[2017-03-14] MEDS: SODIUM CHLOR 0.45% 1000 ML INJ 1,000 ML IV SCH ×3 (05:26→18:30)
[2017-03-14] MEDS: INSULIN NovoLIN REGULAR SUPPLEMENTAL SCALE SQ SCH ×4 (05:30→23:08)
--- NOTE | 2017-03-14 05:55 | MG ---
cc: MELISA NEGRON Lab No: Date: 03/13/2017 Age: 66 Sex: F Race: DATE OF [address] Robledo MEDICAL HISTORY Altered mental status on Lortab. Worsening hypoxemia, low-grade fever, persistently encephalopathic. UDS positive for amphetamines, benzos and opiates. History of depression, hypertension, possible stroke, arthritis, osteoporosis. MEDICATIONS 1. Piperacillin. 2. Propofol. 3. Valium. 4. Seroquel. DESCRIPTION This is a follow-up EEG The background activity is 6-7 Hz theta superimposed by excess beta activity. During the recording there was intermittent episodes of slowing. The recording is contaminated with excess movement artifact. Hyperventilation was not done. Photic stimulation did not elicit a driving response. There were no electrographic seizures or epileptiform discharges noted. INTERPRETATION This is an awake and drowsy EEG. The background slowing and the generalized slowing may indicate an encephalopathic etiology that may be related to metabolic, medication effect or hypoxia. There is no ictal activity or epileptiform discharges noted. The beta activity is a nonspecific finding that may be related to medication adverse effect like benzos or barbiturates. Clinical correlation is recommended. MD SHELL Sanches/JUMANA /2:30 PM /6:55 AM YOBANI
[2017-03-14 05:57] LABS: HEMATOCRIT 22.6 % (35.0-46.0); MEAN CELL VOLUME 104.7 FL (80.0-100.0); MEAN CORPUSCULAR HEMOGLOBIN 34.3 PG (27.0-34.0); MEAN CORPUSCULAR HGB CONC 32.7 % (32.0-36.0); PLATELET COUNT 101 TH/MM3 (150-450); RED BLOOD COUNT 2.16 MIL/MM3 (4.00-5.30); RED CELL DISTRIBUTION WIDTH 22.8 % (11.6-17.2); REVIEW FLAG FINAL; WHITE BLOOD COUNT 15.7 TH/MM3 (4.0-11.0)
[2017-03-14 06:17] LABS: BICARBONATE 21.5 MEQ/L (21.0-32.0); POTASSIUM 3.1 MEQ/L (3.5-5.1)
[2017-03-14] MEDS: THIAMINE INJ 100 MG in SODIUM CHLORIDE 0.9% INJ 100 ML IV SCH (08:25)
[2017-03-14] MEDS: DEXAMETHASONE SOD PHOS 20 MG/5 ML VIAL IV SCH ×2 (08:25→20:11)
[2017-03-14] MEDS: POTASSIUM CHLOR 20 MEQ PREMIX 100 ML IV PRN ×4 (09:37→15:59)
[2017-03-14] MEDS: FAMOTIDINE 20 MG/2 ML VIAL IV PUSH SCH ×2 (10:16→21:20)
[2017-03-14] MEDS: VANCOMYCIN INJ 1,750 MG in SODIUM CHLORID 0.9% 500 ML INJ 500 ML IV SCH (13:28)
[2017-03-14] MEDS: ENOXAPARIN SODIUM 40 MG/0.4 ML SYRINGE SQ SCH (17:15)
[2017-03-14] MEDS: fentaNYL DRIP 250 ML IV PRN (18:27)
--- NOTE | 2017-03-14 19:22 | HHI.CCPN ---
Subjective Remarks/Hospital Course Hospital Course: This is a 66-year-old with a history of depression and hypertension who was brought in to the ER with altered mental status and subjective overdose on Lortabs. Her UDS at that time was positive for amphetamines, benzodiazepines, opiates. She was transferred to our medical psychiatry unit for management of resolving opiate overdose and poly-substance withdraw. I am familiar with this patient and have evaluated this patient at the request of the rapid response team multiple times over the last few days. She is a poor historian and cannot participate in a history. Today she was rapid responsed for altered mental statu. I evaluated her [place] [facility] [place] She is at neurologic baseline for me over the last 3 days. she protects her airway. she has erratic movements that are almost choreic in nature, and has tachycardia and hypertension which she has had over the last 4 days. She has a blood gas which demonstrates a primary respiratory alkalosis and no evidence of hypoxia on room air. laboratory data is unremarkable except for a wbc 25k without fever or suspected area of infection. She is admitted to the ICU for withdraw symptoms too severe to be safely cared for on a medical floor. Subjective: 03/11: no changes. still very delirious. agitated. requiring high doses ativan and haldol. appreciate psych recs. afebrile. elevated wbc of unclear significance. no evidence of active infection. 03/12: intubated overnight for worsening hypoxia. this morning, new low-grade fevers, wbc uptrended. also persistently encephalopathic. 03/13: remains encephalopathic. oliguric overnight but Cr 0.8 this AM. bedside critical care echo with grossly normal biventricular function, 1.5cm ivc with < 30% respiratory variation, no pericardial effusion. LP done yesterday without evidence of overt infection, slightly elevated opening pressure at 19, but obese and likely some element of intra-abdominal hypertension contributing to elevated opening pressure. CSF studies pending. Also, new right neck swelling which appears to be submandibular, difficult to quantify but ~5x5cm. This appears to be tender to palpation as patient becomes agitated on palpation. no bruising. mass/swelling is fixed and nonmobile. no intra-oral component that I can appreciate. I spoke to her sister yesterday afternoon, and apparently she was seen back in November at OSH for "stroke-like symptoms" and since that time has had a progressive decline with "easy forgetfullness" and intermittent confusion. Her sister endorses that the patient has had substance abuse problems, usually prescription opiates, however, has never had any other mental health diagnoses. 03/14: no changes in mental status. still encephalopathic. sputum with 3 organisms growing, consistent with an aspiration pneumonia. all sensitivities not back yet. Objective Vital Signs Date Time Temp Pulse Resp B/P (MAP) Pulse Ox O2 Delivery O2 Flow Rate FiO2 03/14/17 18:00 80 12 123/69 (87) 95 03/14/17 16:00 97.7 03/14/17 16:00 35 03/11/17 19:28 Venturi Mask 03/11/17 08:50 3.00 Intake and Output 03/14/17 03/14/17 03/15/17 08:00 16:00 00:00 Intake Total 2319 ml 3277 ml 2346 ml Output Total 675 ml 1400 ml Balance 1644 ml 3277 ml 946 ml Result Diagram: 03/14/17 0523 03/14/17 05 Objective Remarks GENERAL: Middle-aged female, lying in bed, intubated, encephalopathic HEENT: Normocephalic. Atraumatic. Pupils equal, round, reactive, conjugate. Mucous membranes are moist NECK: Trachea is midline. There is no JVD. right neck mass/swelling ~5x5cm without bruising. fixed. non-mobile. appears to be tender to palpation. no fluctuance noted. CHEST: intubated, equal chest rise. prvc fio2 40%. CARDIOVASCULAR: Tachycardic rate, regular rhythm. Sinus by telemetry ABDOMEN: Soft, nontender, nondistended. No guarding. MUSCULOSKELETAL: Pulses 2+. No peripheral edema. NEUROLOGICAL: RASS -3. intermittently agitated. CAM +. withdraws briskly. does not follow commands. A/P Assessment and Plan Assessment: 66yF originally admitted for suspected opiate overdose, now well out of window for overdose symptoms, and presenting with what clinically appears to be combination of polysubstance withdraw and possible [place] 1 psych disorder. Now intubated for hypoxic respiratory failure. aspiration pneumonia with 3 microbes growing on sputum culture, sensitivities pending. Encephalopathy persists- will consult neurology for their opinion and recommendations. This does not appear to be isolated to opiate withdraw symptoms. Progressive decline over last 5 months is concerning, combined with her movements that do not appear myoclonic or agitated but more choreiform or akathetic in nature. LP studies pending. Other acute encephalopathies in the differential. ENT consulted for facial swelling. Neuro: Polysubstance Abuse Acute polysubstance withdraw Agitated Delirium Toxic Encephalopathy - consult psych to follow along - haldol 5mg iv q4h prn agitation - valium 20mg po q8hr - ativan 2mg iv q15min prn withdraw symptoms - restraints for patient safety. - prop/fentanyl for goal RASS -2 - folate, tsh, free t4 all wnl 03/12. - IV thiamine. - MRI brain 03/12 wnl - LP 03/12 no evidence of acute infection. protein and glucose normal. no wbc. - 14-3-3 protein send out lab pending. - consult neurology. Resp: Acute hypoxic respiratory failure - persistent. - vent bundle, hob at 30 degrees, nebs - wean fio2 for spo2 > 90% - no SBT until encephalopathy improves - sputum culture growing both MRSA and GNRs. continue broad spectrum abx until sensitivities result. CV: Sinus tachycardia - secondary to polysubstance withdraw - monitor clinically - hold clonidine given borderline hypotension. FEN/GI Acute protein calorie malnutrition - moderate Hypernatremia Hyperchloremia - ICU electrolyte protocol - tube feeds - nutrition consult for goal recs - MIVF to 1/2 NS @ 150cc/hr to help with hypernatremia, improving. drop to 75 cc /hr. - free water per tube: 200 mL po q6h Heme/ID: Aspiration Pneumonia, HCAP - Vancomycin with pharmacy dosing - Zosyn 4.5gm iv q6h - sputum 03/12: MRSA, proteus, second GNR: speciation and sensitivities still pending. Endo: Hyperglycemia of critical illness - ssi, med scale, q6h Prophylaxis: - pepcid - SCDs, Lovenox Lines: piv Dispo: remain in ICU. Kody Robledo MD Mar 14, 2017 19:22
--- NOTE | 2017-03-14 20:33 | MB ---
cc: KOBI WATSON M.D. DATE OF CONSULTATION 03/14/2017 REASON FOR CONSULTATION Mental status change. HISTORY OF THE PRESENT ILLNESS Ms. Jaramillo is a 66-year-old female who is admitted through the emergency room with change in mental status. The patient apparently was taking Lortab. Initially it was thought she might of had an overdose of the Lortab. Drug screen initially positive for opiates, benzodiazepines, amphetamines. The patient was admitted to the medical psychiatry unit for observation. However, 10 days off of opioid medications she was not showing significant improvement in mental status, still with quite a bit of encephalopathic features, also demonstrating abnormal movements, choreoathetoid type movements of the upper and lower extremities. She was transferred to the intensive medical care unit to evaluate for the possibility of withdrawal symptoms. She has been intubated and on a ventilator. She has not had any focal deficits or seizure activity. Her evaluation thus far has included an MRI of the brain which is within normal limits. Laboratory evaluations revealed normal serum ammonia level of 13. Thyroid panel was within normal limits with a TSH is 0.983, free T4 1.2. She underwent lumbar puncture with normal CSF showing 0 wbc's, 2 rbc's, glucose 72, protein 35. Cryptococcal antigen pending. Viral encephalitis panel pending. 14-3-3 protein was sent but is currently pending. She also had an electroencephalogram which revealed generalized slowing indicative of encephalopathy. No epileptiform discharges were identified. Beta activity was seen as well probably due to medication effect. PAST MEDICAL HISTORY 1. History of depression. 2. As well as hypertension. MEDICATIONS Her current medications are: 1. Albuterol nebulizer. 2. Decadron 8 mg IV q.12 h. 3. Vancomycin. 4. Thiamine IV. 5. Piperacillin. 6. Pepcid. 7. She is on fentanyl. 8. And propofol. NEUROLOGIC EXAMINATION Sedation was held. Blood pressure 130/73, pulse 82, respirations 11, temperature 97 degrees. Higher cortical function, she is very lethargic but is arousable to voice. She does follow simple commands such as gripping. I do not appreciate any abnormal motor activity presently. Reflexes are symmetric, perhaps trace weak in the right claim inspector compared to left. There is no Babinski sign present. LABORATORY DATA CSF as noted above. The white count is 15,700, hemoglobin is 7.4, hematocrit 22%, platelet count is 101,000. Sodium is 143, potassium 3.1, chloride 111, CO2 is 21. The BUN is 16, creatinine 1.02. GFR 55, glucose is 94, calcium 7.5. Ammonia 13. Ceruloplasmin pending. HSV 1 and 2, PCR pending. IMPRESSION Encephalopathy. CSF is negative for any infectious source. I agree with checking 14-3-3 to rule out Luciano-Creutzfeldt especially with the abnormal motor activity. There is no other supporting evidence of this diagnosis at the present time. However EEG did not show PLEDs. Metabolic encephalopathy I think is the most likely. Although there has been quite a delay since her last opiate medication, I think this still could be a delayed effect of opiates withdrawal depending on her degree of usage before. RECOMMENDATIONS Check additional labs including a sed rate, [place]. Will check urine for porphyria, checking porphyrin screen. MD ALINE Olivas/BRETT /7:34 PM /8:19 PM
--- NOTE | 2017-03-14 20:53 | MB ---
cc: VEE MONET M.D. DATE OF CONSULTATION: 03/14/2017. REASON FOR CONSULTATION: HISTORY OF PRESENT ILLNESS: She is 66-year-old seen in neurological consultation in regards to altered mental status. She was admitted on 03/10 with a history of overdose with a positive urine drug screen for amphetamines, benzodiazepines and opiates. She is in the intensive care unit intubated and sedated. The patient was delirious initially and on 03/12 was intubated and lumbar puncture was carried out on 03/12. PAST MEDICAL HISTORY: There is a history of: 1. Depression. 2. Hypertension. 3. Chronic narcotic use. MEDICATIONS: 1. Bupropion. 2. Lisinopril. 3. Omeprazole. 4. Citalopram. 5. Zolpidem. 6. Hydrocodone. PHYSICAL EXAMINATION: On exam, she was awakened to stimulation, on the ventilator, pupils about same size and minimally reactive. She followed commands. She moved all four extremities mildly but perhaps moving the left arm more than the right, at least in terms of a coremaker machine on command. She moved the toes and feet and started doing some flexion and extension of the legs, though mildly. Reflexes were present but diminished throughout and plantar responses flexor. IMAGING STUDIES: On 03/12, MRI of brain was negative for any acute abnormality. The lumbar puncture showed 0 WBCs, 2 RBCs, glucose 72 and protein normal at 35.5. Today's chemistry with sodium 143, potassium 3.1, BUN and creatinine normal. Glucose 94. A couple of days ago, TSH and T4 normal. WBCs 15.7, hemoglobin 7.4, platelet count 101,000. ASSESSMENT: 1. Sepsis. 2. Overdose on narcotic medication and withdrawal. 3. Encephalopathy, multifactorial. PLAN: 1. EEG was obtained today and we will review this. 2. Continue supportive medical care. 3. At this point no other neurologic intervention unless the EMG shows significant epileptiform features. At least initially her prognosis very encouraging from a neurological standpoint. Evidently this will depend upon the clinical course on her multiple medical problems. I will follow her with you. Thank you for asking us to assist in her care. Vee Monet MD [facility] /8:21 PM /8:48 PM
[2017-03-15] VITALS (20 sets, daily range): BP systolic 90–158; BP diastolic 51–99; PULSE 68–108; RESP 11–25; TEMP 97.2–98.3; O2SAT 94–100
[2017-03-15] MEDS: FREE WATER G-TUBE SCH ×4 (03:00→21:00)
[2017-03-15] MEDS: CHLORHEXIDINE GLUCONATE 2 % 1 PACK (2 CLOTHS) TOP SCH (03:03)
[2017-03-15] MEDS: RESP: ALBUTEROL 2.5 MG/IPRATROPIUM 0.5 MG NEB (SCH) INH ×4 (04:01→21:16)
[2017-03-15] MEDS: PROPOFOL 1000 MG/100 ML INJ 100 ML IV PRN ×2 (04:17→08:16)
[2017-03-15] MEDS: PIPERACIL-TAZO 4.5 GM PREMIX 100 ML IV SCH ×4 (04:17→21:18)
[2017-03-15] MEDS: SODIUM CHLOR 0.45% 1000 ML INJ 1,000 ML IV SCH (04:18)
[2017-03-15] MEDS: fentaNYL DRIP 250 ML IV PRN ×2 (04:21→21:28)
[2017-03-15] MEDS: QUEtiapine FUMARATE 100 MG TAB PO SCH (05:32)
[2017-03-15] MEDS: INSULIN NovoLIN REGULAR SUPPLEMENTAL SCALE SQ SCH ×3 (05:33→18:05)
[2017-03-15 06:44] LABS: BICARBONATE 22.8 MEQ/L (21.0-32.0); POTASSIUM 4.2 MEQ/L (3.5-5.1)
[2017-03-15] MEDS: THIAMINE INJ 100 MG in SODIUM CHLORIDE 0.9% INJ 100 ML IV SCH (08:16)
[2017-03-15] MEDS: DEXAMETHASONE SOD PHOS 20 MG/5 ML VIAL IV SCH ×2 (08:16→21:18)
[2017-03-15 08:20] LABS: HSV 1,PCR Negative (Negative)
[2017-03-15 10:00] LABS: CF EBV DNA PCR RESULT Negative (Negative); CF EBV SPEC SOURCE CSF; CMV PCR SPECIMEN SOURCE CSF
[2017-03-15] MEDS: DEXMEDETOMIDINE INJ 1,000 MCG in SODIUM CHLOR 0.9% 250 ML INJ 250 ML IV PRN ×2 (11:28→21:17)
[2017-03-15] MEDS: FAMOTIDINE 20 MG/2 ML VIAL IV PUSH SCH ×2 (11:28→21:20)
--- NOTE | 2017-03-15 11:46 | HHI.PR ---
Review/Management Daily Summary 03/[address] Ortiz, he was not aware I had seen pt yesterday before he saw pt anyway case discussed, likely met encephaloapthy neuro status probably unchanged, limited exam due to sedation continue agressive medical care, spoke to RN eeg results seen myself or dr Ortiz will follow and advice Subjective Subjective Comments sedated, intubated Active Medications Current Medications Medications (Trade) Dose Ordered Sig/Bryan Route Start Time Stop Time Status Last Admin (Valium) 20 mg Q8HR PO 03/10/17 18:00 Future Hold 03/13/17 06:26 (Haldol Inj) 5 mg Q4H PRN IV 03/10/17 17:00 03/12/17 08:32 (SEROquel) 100 mg Q8HR PO 03/10/17 18:00 03/15/17 05:32 (Catapres) 0.3 mg Q8HR PO 03/10/17 18:00 Future Hold 03/12/17 21:22 (D50w (Vial) Inj) 25 ml UNSCH PRN IV PUSH 03/10/17 17:15 (NovoLIN R SUPPLEMENTAL SCALE) 1 Q6HR SQ 03/10/17 18:00 03/14/17 17:32 (Duoneb Neb) 1 ampule Q2HR NEB PRN INH 03/10/17 17:15 (Zofran Inj) 4 mg Q6H PRN IV PUSH 03/10/17 17:15 (Lovenox Inj) 40 mg Q24H SQ 03/10/17 18:00 03/14/17 17:15 Miscellaneous Information 1 Q361D XX 03/10/17 17:15 (Chlorhexidine 2% Cloth) 3 pack Taper DAILY@04 TOP 03/11/17 04:00 03/07/18 03:59 03/15/17 03:03 (Chlorhexidine 2% Cloth) 3 pack UNSCH PRN TOP 03/10/17 17:15 Potassium Chloride 100 ml @ 50 mls/hr Q2H PRN IV 03/11/17 08:45 Potassium Chloride 100 ml @ 50 mls/hr Q2H PRN IV 03/11/17 08:45 03/14/17 15:59 (K-Lyte Cl Eff) 50 meq UNSCH PRN PO 03/11/17 08:45 Potassium Chloride 100 ml @ 25 mls/hr UNSCH PRN IV 03/11/17 08:45 Potassium Chloride 100 ml @ 50 mls/hr Q2H PRN IV 03/11/17 08:45 Magnesium Sulfate 4 gm/Sodium Chloride 100 ml @ 50 mls/hr UNSCH PRN IV 03/11/17 08:45 (Mag-Ox) 800 mg UNSCH PRN PO 03/11/17 08:45 Magnesium Sulfate 2 gm/Sodium Chloride 100 ml @ 50 mls/hr UNSCH PRN IV 03/11/17 08:45 (K-Phos) 2,000 mg Q4H PRN PO 03/11/17 08:45 Sodium Phosphate 30 mmol/Sodium Chloride 250 ml @ 42 mls/hr UNSCH PRN IV 03/11/17 08:45 (K-Phos) 2,000 mg UNSCH PRN PO/TUBE 03/11/17 08:45 Potassium Phosphate 30 mmol/ Sodium Chloride 260 ml @ 42 mls/hr UNSCH PRN IV 03/11/17 08:45 Dexmedetomidine HCl 1000 mcg/ Sodium Chloride 260 ml @ 4.32 mls/hr TITRATE PRN IV 03/11/17 11:15 03/15/17 11:28 Propofol 100 ml @ 2.52 mls/hr TITRATE PRN IV 03/12/17 10:30 03/15/17 08:16 Thiamine HCl 100 mg/Sodium Chloride 101 ml @ 101 mls/hr DAILY IV 03/12/17 12:00 03/15/17 08:16 Pharmacy Profile Note 0 ml @ 0 mls/hr UNSCH OTHER 03/12/17 10:30 Piperacillin Sod/ Tazobactam Sod 100 ml @ 200 mls/hr Q6H IV 03/12/17 11:00 03/15/17 11:28 (Pepcid Inj) 20 mg Q12H IV PUSH 03/12/17 11:00 03/15/17 11:28 Fentanyl Citrate 250 ml @ 5 mls/hr TITRATE PRN IV 03/12/17 11:00 03/15/17 04:21 Vancomycin HCl 1750 mg/Sodium Chloride 517.5 ml @ 257.5 mls/ hr Q24H IV 03/12/17 14:00 03/14/17 13:28 Miscellaneous Information SPECIFIC LAB TO BE MARLON... ONCE ONCE .XX 03/15/17 13:45 03/15/17 13:46 Sodium Chloride 1,000 ml @ 75 mls/hr [id number] IV 03/13/17 08:15 03/15/17 04:18 (Free Water) VOLUME: 200 ML Q6H G-TUBE 03/13/17 09:00 03/15/17 08:16 (Decadron Inj) 8 mg Q12HR IV 03/14/17 09:00 03/16/17 21:01 03/15/17 08:16 (Duoneb Neb) 1 ampule Q6HR NEB INH 03/14/17 22:00 03/15/17 08:27 Allergies Allergies Coded Allergies diclofenac (Unverified Adverse Reaction, Severe, GASTRIC BYPASS, 12/21/16) etodolac (Unverified Adverse Reaction, Severe, GASTRIC BYPASS, 12/21/16) flurbiprofen (Unverified Adverse Reaction, Severe, GASTRIC BYPASS, 12/21/16) ibuprofen (Unverified Adverse Reaction, Severe, GASTRIC BYPASS, 12/21/16) indomethacin (Unverified Adverse Reaction, Severe, GASTRIC BYPASS, 12/21/16) ketoprofen (Unverified Adverse Reaction, Severe, GASTRIC BYPASS, 12/21/16) ketorolac (Unverified Adverse Reaction, Severe, GASTRIC BYPASS, 12/21/16) naproxen (Unverified Adverse Reaction, Severe, GASTRIC BYPASS, 12/21/16) oxaprozin (Unverified Adverse Reaction, Severe, GASTRIC BYPASS, 12/21/16) aspirin (Unverified Adverse Reaction, Unknown, GASTRIC BYPASS, 12/21/16) Exam I&O / VS 03/15/17 03/15/17 03/16/17 15:00 23:00 07:00 Intake Total 365 ml Balance 365 ml IV Total 365 ml Vital Signs Date Time Temp Pulse Resp B/P (MAP) Pulse Ox O2 Delivery O2 Flow Rate FiO2 03/15/17 10:00 80 03/15/17 09:00 81 16 92/56 (68) 100 03/15/17 08:30 100 Ventilator 35 03/15/17 08:30 100 35 03/15/17 08:00 97.9 81 16 92/53 (66) 100 03/15/17 08:00 81 03/15/17 08:00 35 03/15/17 07:00 83 17 90/51 (64) 100 03/15/17 04:02 98 35 03/15/17 04:00 35 03/15/17 04:00 97.4 78 17 105/64 (78) 98 03/15/17 00:00 35 03/15/17 00:00 97.2 75 17 99/58 (72) 94 03/14/17 23:45 94 35 03/14/17 20:00 35 03/14/17 20:00 97.3 90 22 133/81 (98) 97 03/14/17 19:57 96 35 03/14/17 18:00 80 12 123/69 (87) 95 03/14/17 18:00 80 03/14/17 17:00 82 11 130/73 (92) 98 03/14/17 16:00 90 03/14/17 16:00 97.7 90 23 143/80 (101) 95 03/14/17 16:00 35 03/14/17 15:06 98 35 03/14/17 15:00 85 18 144/86 (105) 98 03/14/17 14:00 83 15 99/59 (72) 95 03/14/17 14:00 83 03/14/17 13:23 84 21 110/74 (86) 95 03/14/17 13:01 84 18 130/78 (95) 95 03/14/17 13:00 84 18 95 03/14/17 12:00 97.9 82 16 124/75 (91) 95 03/14/17 12:00 82 03/14/17 12:00 95 35 03/14/17 12:00 35 Objective Micro and Labs Laboratory Tests Test 03/14/17 22:48 03/15/17 06:18 Erythrocyte Sedimentation Rate 8 Potassium Level 4.4 4.2 Blood Urea Nitrogen 15 Creatinine 0.89 Random Glucose 96 Calcium Level 8.3 Sodium Level 142 Chloride Level 109 Carbon Dioxide Level 22.8 Anion Gap 10 Estimat Glomerular Filtration Rate 64 Date/Time Source Procedure Growth Status 03/12/17 19:18 Blood Peripheral Aerobic Blood Culture - Preliminary NO GROWTH IN 3 DAYS Resulted 03/12/17 19:18 Blood Peripheral Anaerobic Blood Culture - Preliminary NO GROWTH IN 3 DAYS Resulted 03/12/17 17:15 Cerebral Spinal Fluid Lumbar Puncture Acid Fast Stain - Final NO ACID FAST BACILLI SEEN Resulted 03/12/17 17:15 Cerebral Spinal Fluid Lumbar Puncture Mycobacterial Culture Pending Resulted 03/12/17 01:50 Sputum Endotracheal Gram Stain - Final Resulted 03/12/17 01:50 Sputum Culture - Preliminary S. Aureus Mrsa Proteus Mirabilis Gram Negative Ahmet Resulted Frank Monet MD Mar 15, 2017 11:46
[2017-03-15 11:55] LABS: HEMATOCRIT 25.1 % (35.0-46.0); MEAN CELL VOLUME 105.1 FL (80.0-100.0); MEAN CORPUSCULAR HEMOGLOBIN 34.1 PG (27.0-34.0); MEAN CORPUSCULAR HGB CONC 32.5 % (32.0-36.0); PLATELET COUNT 93 TH/MM3 (150-450); RED BLOOD COUNT 2.39 MIL/MM3 (4.00-5.30); RED CELL DISTRIBUTION WIDTH 21.6 % (11.6-17.2); WHITE BLOOD COUNT 9.9 TH/MM3 (4.0-11.0)
[2017-03-15 11:57] LABS: REVIEW FLAG FINAL
--- NOTE | 2017-03-15 13:04 | HHI.CCPN ---
Subjective Remarks/Hospital Course Hospital Course: This is a 66-year-old with a history of depression and hypertension who was brought in to the ER with altered mental status and subjective overdose on Lortabs. Her UDS at that time was positive for amphetamines, benzodiazepines, opiates. She was transferred to our medical psychiatry unit for management of resolving opiate overdose and poly-substance withdraw. I am familiar with this patient and have evaluated this patient at the request of the rapid response team multiple times over the last few days. She is a poor historian and cannot participate in a history. Today she was rapid responsed for altered mental statu. I evaluated her on arrival to the [facility]. She is at neurologic baseline for me over the last 3 days. she protects her airway. she has erratic movements that are almost choreic in nature, and has tachycardia and hypertension which she has had over the last 4 days. She has a blood gas which demonstrates a primary respiratory alkalosis and no evidence of hypoxia on room air. laboratory data is unremarkable except for a wbc 25k without fever or suspected area of infection. She is admitted to the ICU for withdraw symptoms too severe to be safely cared for on a medical floor. Subjective: 03/11: no changes. still very delirious. agitated. requiring high doses ativan and haldol. appreciate psych recs. afebrile. elevated wbc of unclear significance. no evidence of active infection. 03/12: intubated overnight for worsening hypoxia. this morning, new low-grade fevers, wbc uptrended. also persistently encephalopathic. 03/13: remains encephalopathic. oliguric overnight but Cr 0.8 this AM. bedside critical care echo with grossly normal biventricular function, 1.5cm ivc with < 30% respiratory variation, no pericardial effusion. LP done yesterday without evidence of overt infection, slightly elevated opening pressure at 19, but obese and likely some element of intra-abdominal hypertension contributing to elevated opening pressure. CSF studies pending. Also, new right neck swelling which appears to be submandibular, difficult to quantify but ~5x5cm. This appears to be tender to palpation as patient becomes agitated on palpation. no bruising. mass/swelling is fixed and nonmobile. no intra-oral component that I can appreciate. I spoke to her sister yesterday afternoon, and apparently she was seen back in November at OSH for "stroke-like symptoms" and since that time has had a progressive decline with "easy forgetfullness" and intermittent confusion. Her sister endorses that the patient has had substance abuse problems, usually prescription opiates, however, has never had any other mental health diagnoses. 03/14: no changes in mental status. still encephalopathic. sputum with 3 organisms growing, consistent with an aspiration pneumonia. all sensitivities not back yet. 03/15: starting to follow commands. fio2 improved. neurology eval patient and added additional lab tests to eval for encephalopathy. sensitivities not back yet on sputum. Objective Vital Signs Date Time Temp Pulse Resp B/P (MAP) Pulse Ox O2 Delivery O2 Flow Rate FiO2 03/15/17 12:19 100 35 03/15/17 12:00 100 03/15/17 12:00 98.1 12 129/80 (96) 03/15/17 08:30 Ventilator 03/11/17 08:50 3.00 Intake and Output 03/15/17 03/15/17 03/15/17 07:59 15:59 23:59 Intake Total 2727 ml 465 ml Output Total 1200 ml Balance 1527 ml 465 ml Result Diagram: 03/15/17 1130 03/15/17 0618 Other Results Microbiology Date/Time Source Procedure Growth Status 03/12/17 17:15 Cerebral Spinal Fluid Lumbar Puncture Gram Stain - Final Complete 03/12/17 17:15 Cerebral Spinal Fluid Lumbar Puncture CSF Culture - Final NO GROWTH IN 72 HOURS Complete Objective Remarks GENERAL: Middle-aged female, lying in bed, intubated, encephalopathic HEENT: Normocephalic. Atraumatic. Pupils equal, round, reactive, conjugate. Mucous membranes are moist NECK: Trachea is midline. There is no JVD. right neck swelling stable. CHEST: intubated, equal chest rise. prvc fio2 35%. CARDIOVASCULAR: Tachycardic rate, regular rhythm. Sinus by telemetry ABDOMEN: Soft, nontender, nondistended. No guarding. MUSCULOSKELETAL: Pulses 2+. No peripheral edema. NEUROLOGICAL: RASS -2. CAM +. withdraws briskly. intermittently weakly following commands. A/P Assessment and Plan Assessment: 66yF originally admitted for suspected opiate overdose, now well out of window for overdose symptoms, and presenting with what clinically appears to be combination of polysubstance withdraw and possible [place] 1 psych disorder. Now intubated for hypoxic respiratory failure. aspiration pneumonia with 3 microbes growing on sputum culture, sensitivities pending. encephalopathy slightly better- will transition to precedex and attempt to wean mechanical ventilation. neurology following and appreciate recommendations. Neuro: Polysubstance Abuse Acute polysubstance withdraw Agitated Delirium Toxic Encephalopathy - consult psych to follow along - haldol 5mg iv q4h prn agitation - ativan 2mg iv q15min prn withdraw symptoms - decrease seroquel to 50mg po q8hr. - restraints for patient safety. - transition to precedex for goal RASS -2. - folate, tsh, free t4 all wnl 03/12. - IV thiamine. - MRI brain 03/12 wnl - LP 03/12 no evidence of acute infection. protein and glucose normal. no wbc. - 14-3-3 protein send out lab pending. - neurology following. Resp: Acute hypoxic respiratory failure - persistent. - vent bundle, hob at 30 degrees, nebs - wean fio2 for spo2 > 90% - start SBTs. - sputum culture growing both MRSA and GNRs. continue broad spectrum abx until sensitivities result. CV: Sinus tachycardia - secondary to polysubstance withdraw - monitor clinically - hold clonidine given borderline hypotension. FEN/GI Acute protein calorie malnutrition - moderate Hypernatremia Hyperchloremia - ICU electrolyte protocol - tube feeds - nutrition consult for goal recs - d/c mivf. - free water per tube: 200 mL po q6h - lasix 40mg iv. Heme/ID: Aspiration Pneumonia, HCAP - Vancomycin with pharmacy dosing - Zosyn 4.5gm iv q6h - sputum 03/12: MRSA, proteus, second GNR: speciation and sensitivities still pending. Endo: Hyperglycemia of critical illness - ssi, med scale, q6h Prophylaxis: - pepcid - SCDs, Lovenox Lines: piv Dispo: remain in ICU. Kody Robledo MD Mar 15, 2017 13:04
[2017-03-15] MEDS ORDERED: FUROSEMIDE 40 MG/4 ML VIAL IV PUSH ONE (13:15)
[2017-03-15] MEDS ORDERED: PHARMACY ORDERED LAB ONE (13:45)
[2017-03-15] MEDS: QUEtiapine FUMARATE 25 MG TAB PO SCH ×2 (14:15→21:19)
[2017-03-15] MEDS: VANCOMYCIN INJ 1,750 MG in SODIUM CHLORID 0.9% 500 ML INJ 500 ML IV SCH (14:54)
[2017-03-15] MEDS: ENOXAPARIN SODIUM 40 MG/0.4 ML SYRINGE SQ SCH (17:57)
[2017-03-15 18:21] LABS: CSF CRYPTOCOCCUS AG CONF ND (NOT DETECTD)
[2017-03-16] VITALS (15 sets, daily range): BP systolic 127–164; BP diastolic 60–99; PULSE 56–129; RESP 11–27; TEMP 97–99.1; O2SAT 96–100
[2017-03-16] MEDS: DEXMEDETOMIDINE INJ 1,000 MCG in SODIUM CHLOR 0.9% 250 ML INJ 250 ML IV PRN (03:11)
[2017-03-16] MEDS: FREE WATER G-TUBE SCH ×4 (03:11→20:29)
[2017-03-16] MEDS: CHLORHEXIDINE GLUCONATE 2 % 1 PACK (2 CLOTHS) TOP SCH (03:12)
[2017-03-16] MEDS: hydrALAZINE HCL 20 MG/ML VIAL IV PRN (03:39)
[2017-03-16] MEDS: RESP: ALBUTEROL 2.5 MG/IPRATROPIUM 0.5 MG NEB (SCH) INH ×4 (04:10→19:31)
[2017-03-16] MEDS: INSULIN NovoLIN REGULAR SUPPLEMENTAL SCALE SQ SCH ×5 (05:00→16:53)
[2017-03-16] MEDS: QUEtiapine FUMARATE 25 MG TAB PO SCH ×3 (05:00→20:30)
[2017-03-16] MEDS: PIPERACIL-TAZO 4.5 GM PREMIX 100 ML IV SCH ×3 (05:00→16:53)
[2017-03-16] MEDS: fentaNYL DRIP 250 ML IV PRN (05:03)
[2017-03-16 05:45] LABS: HEMATOCRIT 24.1 % (35.0-46.0); MEAN CELL VOLUME 103.3 FL (80.0-100.0); MEAN CORPUSCULAR HEMOGLOBIN 34.3 PG (27.0-34.0); MEAN CORPUSCULAR HGB CONC 33.2 % (32.0-36.0); PLATELET COUNT 99 TH/MM3 (150-450); RED BLOOD COUNT 2.34 MIL/MM3 (4.00-5.30); RED CELL DISTRIBUTION WIDTH 20.6 % (11.6-17.2); WHITE BLOOD COUNT 3.7 TH/MM3 (4.0-11.0)
[2017-03-16 06:02] LABS: REVIEW FLAG FINAL
[2017-03-16 06:10] LABS: BICARBONATE 25.6 MEQ/L (21.0-32.0); POTASSIUM 4.1 MEQ/L (3.5-5.1)
[2017-03-16] MEDS ORDERED: DEXMEDETOMIDINE INJ 1,000 MCG in SODIUM CHLOR 0.9% 250 ML INJ 250 ML IV PRN (06:45)
[2017-03-16] MEDS: THIAMINE INJ 100 MG in SODIUM CHLORIDE 0.9% INJ 100 ML IV SCH (08:37)
[2017-03-16] MEDS: DEXAMETHASONE SOD PHOS 20 MG/5 ML VIAL IV SCH ×2 (08:37→20:29)
[2017-03-16] MEDS: FAMOTIDINE 20 MG/2 ML VIAL IV PUSH SCH (10:34)
--- NOTE | 2017-03-16 12:20 | HHI.CCPN ---
Subjective Remarks/Hospital Course Hospital Course: This is a 66-year-old with a history of depression and hypertension who was brought in to the ER with altered mental status and subjective overdose on Lortabs. Her UDS at that time was positive for amphetamines, benzodiazepines, opiates. She was transferred to our medical psychiatry unit for management of resolving opiate overdose and poly-substance withdraw. I am familiar with this patient and have evaluated this patient at the request of the rapid response team multiple times over the last few days. She is a poor historian and cannot participate in a history. Today she was rapid responsed for altered mental statu. I evaluated her on arrival to the [facility]. She is at neurologic baseline for me over the last 3 days. she protects her airway. she has erratic movements that are almost choreic in nature, and has tachycardia and hypertension which she has had over the last 4 days. She has a blood gas which demonstrates a primary respiratory alkalosis and no evidence of hypoxia on room air. laboratory data is unremarkable except for a wbc 25k without fever or suspected area of infection. She is admitted to the ICU for withdraw symptoms too severe to be safely cared for on a medical floor. Subjective: 03/11: no changes. still very delirious. agitated. requiring high doses ativan and haldol. appreciate psych recs. afebrile. elevated wbc of unclear significance. no evidence of active infection. 03/12: intubated overnight for worsening hypoxia. this morning, new low-grade fevers, wbc uptrended. also persistently encephalopathic. 03/13: remains encephalopathic. oliguric overnight but Cr 0.8 this AM. bedside critical care echo with grossly normal biventricular function, 1.5cm ivc with < 30% respiratory variation, no pericardial effusion. LP done yesterday without evidence of overt infection, slightly elevated opening pressure at 19, but obese and likely some element of intra-abdominal hypertension contributing to elevated opening pressure. CSF studies pending. Also, new right neck swelling which appears to be submandibular, difficult to quantify but ~5x5cm. This appears to be tender to palpation as patient becomes agitated on palpation. no bruising. mass/swelling is fixed and nonmobile. no intra-oral component that I can appreciate. I spoke to her sister yesterday afternoon, and apparently she was seen back in November at OSH for "stroke-like symptoms" and since that time has had a progressive decline with "easy forgetfullness" and intermittent confusion. Her sister endorses that the patient has had substance abuse problems, usually prescription opiates, however, has never had any other mental health diagnoses. 03/14: no changes in mental status. still encephalopathic. sputum with 3 organisms growing, consistent with an aspiration pneumonia. all sensitivities not back yet. 03/15: starting to follow commands. fio2 improved. neurology eval patient and added additional lab tests to eval for encephalopathy. sensitivities not back yet on sputum. 11:8: Waking up easily follows commands today. Tolerating CPAP. Will proceed with extubation. Sputum cx 03/12 with MRSA, Proteus and Pseudomonas Objective Vital Signs Date Time Temp Pulse Resp B/P (MAP) Pulse Ox O2 Delivery O2 Flow Rate FiO2 03/16/17 11:32 96 Nasal Cannula 4 36 03/16/17 10:00 56 03/16/17 08:00 98.0 27 137/72 (93) Intake and Output 03/16/17 03/16/17 03/17/17 08:00 16:00 00:00 Intake Total 1801 ml Output Total 1600 ml Balance 201 ml Result Diagram: 03/16/17 0445 03/16/17 0445 Objective Remarks GENERAL: Middle-aged female, lying in bed, intubated, following commands today HEENT: Normocephalic. Atraumatic. Pupils equal, round, reactive, conjugate. Mucous membranes are moist NECK: Trachea is midline. There is no JVD. right neck swelling stable. CHEST: intubated, equal chest rise. Now on CPAP, good TV CARDIOVASCULAR: S1-S2 normal no murmurs ABDOMEN: Soft, nontender, nondistended. No guarding. MUSCULOSKELETAL: Pulses 2+. No peripheral edema. NEUROLOGICAL: Intubated off sedation Follows commands in all extremities A/P Assessment and Plan Assessment: 66yF originally admitted for suspected opiate overdose, probably with prolonged opiate/polysubstance withdrawal. Now intubated for hypoxic respiratory failure. aspiration pneumonia with MRSA, proteus and PSAE growing on sputum culture. Encephalopathy Improving. neurology following and appreciate recommendations. Neuro: Polysubstance Abuse Acute prolonged polysubstance withdraw Agitated Delirium Toxic Encephalopathy - consulted psych to follow along - haldol 5mg iv q4h prn agitation - ativan 2mg iv q15min prn withdraw symptoms - Seroquel to 50mg po q8hr. - restraints for patient safety. - Precedex for goal RASS -1 to 0. - folate, tsh, free t4 all wnl 03/12. - IV thiamine. - MRI brain 03/12 wnl - LP 03/12 no evidence of acute infection. protein and glucose normal. no wbc. - 14-3-3 protein send out lab pending. - neurology following. Resp: Acute hypoxic respiratory failure - persistent. - vent bundle, hob at 30 degrees, nebs - wean fio2 for spo2 > 90% - SBT with possible extubation - sputum culture growing both MRSA, proteus, PSAE. continue broad spectrum abx until sensitivities result. CV: Sinus tachycardia - secondary to polysubstance withdraw - monitor clinically - hold clonidine given borderline hypotension. FEN/GI Acute protein calorie malnutrition - moderate Hypernatremia Hyperchloremia - ICU electrolyte protocol - tube feeds. PO diet after extubation - nutrition consult for goal recs Heme/ID: Aspiration Pneumonia, HCAP - Vancomycin with pharmacy dosing - Zosyn 4.5gm iv q6h - sputum 03/12: MRSA, proteus, PSAE Endo: Hyperglycemia of critical illness - ssi, med scale, q6h Prophylaxis: - pepcid - SCDs, Lovenox Lines: piv Dispo: remain in ICU. Level 3 Carol Fregoso MD Mar 16, 2017 12:20
[2017-03-16] MEDS: ENOXAPARIN SODIUM 40 MG/0.4 ML SYRINGE SQ SCH (16:53)
[2017-03-16 19:51] LABS: CALIFORNIA ENCEPH AB IGG <1:4 (<1:4); CALIFORNIA ENCEPH AB IGM <1:4 (<1:4); EAST EQUINE ENCEPH AB IGG <1:4 (<1:4); EAST EQUINE ENCEPH AB IGM <1:4 (<1:4); ST LOUIS ENCEPH AB IGG <1:4 (<1:4); ST LOUIS ENCEPH AB IGM <1:4 (<1:4)
[2017-03-16] MEDS: VANCOMYCIN INJ 1,500 MG in SODIUM CHLORID 0.9% 500 ML INJ 500 ML IV SCH (20:30)
[2017-03-16] MEDS: HALOPERIDOL LACTATE 5 MG/ML AMP IV PRN (20:31)
[2017-03-17] VITALS (14 sets, daily range): BP systolic 137–174; BP diastolic 74–97; PULSE 82–131; RESP 15–31; TEMP 97.4–99; O2SAT 92–100
[2017-03-17] MEDS: PIPERACIL-TAZO 4.5 GM PREMIX 100 ML IV SCH ×4 (00:39→17:08)
[2017-03-17] MEDS: FAMOTIDINE 20 MG/2 ML VIAL IV PUSH SCH ×2 (00:40→10:56)
[2017-03-17] MEDS: HALOPERIDOL LACTATE 5 MG/ML AMP IV PRN ×3 (00:40→08:18)
[2017-03-17] MEDS: FREE WATER G-TUBE SCH ×4 (00:40→21:00)
[2017-03-17] MEDS: CHLORHEXIDINE GLUCONATE 2 % 1 PACK (2 CLOTHS) TOP SCH (01:54)
[2017-03-17] MEDS: RESP: ALBUTEROL 2.5 MG/IPRATROPIUM 0.5 MG NEB (SCH) INH ×4 (03:20→22:28)
[2017-03-17] MEDS: QUEtiapine FUMARATE 25 MG TAB PO SCH ×3 (04:18→22:51)
[2017-03-17] MEDS: INSULIN NovoLIN REGULAR SUPPLEMENTAL SCALE SQ SCH ×4 (06:00→17:08)
--- NOTE | 2017-03-17 06:00 | RADRPT ---
EXAM DATE/TIME: 03/17/2017 03:36 [facility] COMPARISON: CHEST SINGLE AP, March 12, 2017, 2:05. INDICATIONS : Shortness of breath, possible pulmonary disease. MEDICAL HISTORY : Hypertension. SURGICAL HISTORY : None. ENCOUNTER: Subsequent ACUITY: 1 week PAIN SCORE: Non-responsive. LOCATION: Bilateral chest FINDINGS: The cardiac silhouette is enlarged in transverse diameter. Endotracheal tube is removed. There is pat martha alveolar disease bilaterally compatible with edema or pneumonia. CONCLUSION: 1. Patchy alveolar disease characteristic of edema or pneumonia. There has been no significant camacho e when compared to the prior exam. Mg Kendrick MD on March 17, 2017 at 5:58 Board Certified Radiologist. This report was verified electronically.
[2017-03-17 06:09] LABS: AUTOMATED NEUTROPHIL # 7.1 TH/MM3 (1.8-7.7); BASOPHIL % 0.2 % (0.0-2.0); LYMPH % 8.4 % (9.0-44.0); LYMPHOCYTE # 0.8 TH/MM3 (1.0-4.8); MEAN CELL VOLUME 103.6 FL (80.0-100.0); MEAN CORPUSCULAR HEMOGLOBIN 35.4 PG (27.0-34.0); MEAN CORPUSCULAR HGB CONC 34.2 % (32.0-36.0); MONO % 13.5 % (0.0-8.0); NEUT % 77.9 % (16.0-70.0); PLATELET COUNT 149 TH/MM3 (150-450); RED BLOOD COUNT 2.32 MIL/MM3 (4.00-5.30); WHITE BLOOD COUNT 9.1 TH/MM3 (4.0-11.0)
[2017-03-17 06:17] LABS: HEMO FLAGS AUTO DIFF
[2017-03-17 06:25] LABS: ANION GAP 11 MEQ/L (5-15); AST (GOT) 35 U/L (15-37); BLOOD UREA NITROGEN 19 MG/DL (7-18); CHLORIDE 106 MEQ/L (98-107); GLOMERULAR FILTRATION RATE 63 ML/MIN (>89); POTASSIUM 3.4 MEQ/L (3.5-5.1); SODIUM (NA) 142 MEQ/L (136-145)
[2017-03-17 06:26] LABS: ALT (GPT) 26 U/L (10-53)
[2017-03-17 06:28] LABS: ALKALINE PHOSPHATASE 92 U/L (45-117); TOTAL BILIRUBIN ADULT 0.5 MG/DL (0.2-1.0)
[2017-03-17] MEDS: POTASSIUM CHLOR 20 MEQ PREMIX 100 ML IV PRN ×2 (06:32→08:19)
[2017-03-17] MEDS: THIAMINE INJ 100 MG in SODIUM CHLORIDE 0.9% INJ 100 ML IV SCH (08:15)
--- NOTE | 2017-03-17 08:36 | HHI.PR ---
Review/Management Daily Summary 03/[address] Ortiz, he was not aware I had seen pt yesterday before he saw pt anyway case discussed, likely met encephaloapthy neuro status probably unchanged, limited exam due to sedation continue agressive medical care, spoke to RN eeg results seen myself or dr Ortiz will follow and advice 03/17 awake and anxious thinks she is the psych emerson follows commands, strong lining stamper resolving encephalopathy monitor peripherally 14-3-3 pending but do not expect abn Subjective Subjective Comments No acute events reported No headache Active Medications Current Medications Medications (Trade) Dose Ordered Sig/Bryan Route Start Time Stop Time Status Last Admin (Valium) 20 mg Q8HR PO 03/10/17 18:00 Future Hold 03/13/17 06:26 (Haldol Inj) 5 mg Q4H PRN IV 03/10/17 17:00 03/17/17 08:18 (Catapres) 0.3 mg Q8HR PO 03/10/17 18:00 Future Hold 03/12/17 21:22 (D50w (Vial) Inj) 25 ml UNSCH PRN IV PUSH 03/10/17 17:15 (NovoLIN R SUPPLEMENTAL SCALE) 1 Q6HR SQ 03/10/17 18:00 03/16/17 12:00 (Duoneb Neb) 1 ampule Q2HR NEB PRN INH 03/10/17 17:15 (Zofran Inj) 4 mg Q6H PRN IV PUSH 03/10/17 17:15 03/15/17 13:03 (Lovenox Inj) 40 mg Q24H SQ 03/10/17 18:00 03/16/17 16:53 Miscellaneous Information 1 Q361D XX 03/10/17 17:15 (Chlorhexidine 2% Cloth) Taper DAILY@04 TOP 03/11/17 04:00 03/07/18 03:59 03/15/17 03:03 (Chlorhexidine 2% Cloth) 3 pack UNSCH PRN TOP 03/10/17 17:15 Potassium Chloride 100 ml @ 50 mls/hr Q2H PRN IV 03/11/17 08:45 Potassium Chloride 100 ml @ 50 mls/hr Q2H PRN IV 03/11/17 08:45 03/14/17 15:59 (K-Lyte Cl Eff) 50 meq UNSCH PRN PO 03/11/17 08:45 Potassium Chloride 100 ml @ 25 mls/hr UNSCH PRN IV 03/11/17 08:45 Potassium Chloride 100 ml @ 50 mls/hr Q2H PRN IV 03/11/17 08:45 03/17/17 08:19 Magnesium Sulfate 4 gm/Sodium Chloride 100 ml @ 50 mls/hr UNSCH PRN IV 03/11/17 08:45 (Mag-Ox) 800 mg UNSCH PRN PO 03/11/17 08:45 Magnesium Sulfate 2 gm/Sodium Chloride 100 ml @ 50 mls/hr UNSCH PRN IV 03/11/17 08:45 (K-Phos) 2,000 mg Q4H PRN PO 03/11/17 08:45 Sodium Phosphate 30 mmol/Sodium Chloride 250 ml @ 42 mls/hr UNSCH PRN IV 03/11/17 08:45 (K-Phos) 2,000 mg UNSCH PRN PO/TUBE 03/11/17 08:45 Potassium Phosphate 30 mmol/ Sodium Chloride 260 ml @ 42 mls/hr UNSCH PRN IV 03/11/17 08:45 Thiamine HCl 100 mg/Sodium Chloride 101 ml @ 101 mls/hr DAILY IV 03/12/17 12:00 03/17/17 08:15 Pharmacy Profile Note 0 ml @ 0 mls/hr UNSCH OTHER 03/12/17 10:30 Piperacillin Sod/ Tazobactam Sod 100 ml @ 200 mls/hr Q6H IV 03/12/17 11:00 03/17/17 04:18 (Pepcid Inj) 20 mg Q12H IV PUSH 03/12/17 11:00 03/17/17 00:40 Fentanyl Citrate 250 ml @ 5 mls/hr TITRATE PRN IV 03/12/17 11:00 03/16/17 05:03 (Free Water) VOLUME: 200 ML Q6H G-TUBE 03/13/17 09:00 03/16/17 14:38 (Duoneb Neb) 1 ampule Q6HR NEB INH 03/14/17 22:00 03/17/17 03:20 (SEROquel) 50 mg Q8HR PO 03/15/17 14:00 03/16/17 14:38 Vancomycin HCl 1500 mg/Sodium Chloride 515 ml @ 257.5 mls/ hr Q24H IV 03/16/17 21:00 03/16/17 20:30 Miscellaneous Information SPECIFIC LAB TO BE DRAWN:VANCO TROUGH DATE TO BE DRReal ONCE ONCE .XX 03/19/17 20:45 03/19/17 20:46 (Apresoline Inj) 20 mg Q4H PRN IV 03/16/17 03:30 03/16/17 03:39 Dexmedetomidine HCl 1000 mcg/ Sodium Chloride 260 ml @ 4.32 mls/hr TITRATE PRN IV 03/16/17 06:45 03/16/17 09:02 Allergies Allergies Coded Allergies diclofenac (Unverified Adverse Reaction, Severe, GASTRIC BYPASS, 12/21/16) etodolac (Unverified Adverse Reaction, Severe, GASTRIC BYPASS, 12/21/16) flurbiprofen (Unverified Adverse Reaction, Severe, GASTRIC BYPASS, 12/21/16) ibuprofen (Unverified Adverse Reaction, Severe, GASTRIC BYPASS, 12/21/16) indomethacin (Unverified Adverse Reaction, Severe, GASTRIC BYPASS, 12/21/16) ketoprofen (Unverified Adverse Reaction, Severe, GASTRIC BYPASS, 12/21/16) ketorolac (Unverified Adverse Reaction, Severe, GASTRIC BYPASS, 12/21/16) naproxen (Unverified Adverse Reaction, Severe, GASTRIC BYPASS, 12/21/16) oxaprozin (Unverified Adverse Reaction, Severe, GASTRIC BYPASS, 12/21/16) aspirin (Unverified Adverse Reaction, Unknown, GASTRIC BYPASS, 12/21/16) Exam I&O / VS Vital Signs Date Time Temp Pulse Resp B/P (MAP) Pulse Ox O2 Delivery O2 Flow Rate FiO2 03/17/17 06:00 124 03/17/17 04:00 98.9 127 19 154/97 (116) 94 03/17/17 04:00 129 03/17/17 02:00 131 03/17/17 00:00 131 03/17/17 00:00 99.0 129 15 164/97 (119) 100 03/16/17 22:00 129 03/16/17 20:00 99.1 127 24 150/90 (110) 100 03/16/17 20:00 127 03/16/17 19:31 100 Nasal Cannula 4.00 03/16/17 18:00 119 03/16/17 16:00 101 03/16/17 16:00 98.2 101 12 128/72 (90) 03/16/17 14:00 86 03/16/17 12:00 75 03/16/17 12:00 98.4 75 11 145/91 (109) 100 03/16/17 11:32 96 Nasal Cannula 4 36 03/16/17 10:00 56 Objective Micro and Labs Laboratory Tests Test 03/17/17 04:58 White Blood Count 9.1 Red Blood Count 2.32 Hemoglobin 8.2 Hematocrit 24.0 Mean Corpuscular Volume 103.6 Mean Corpuscular Hemoglobin 35.4 Mean Corpuscular Hemoglobin Concent 34.2 Red Cell Distribution Width 20.0 Platelet Count 149 Mean Platelet Volume 9.9 Neutrophils (%) (Auto) 77.9 Lymphocytes (%) (Auto) 8.4 Monocytes (%) (Auto) 13.5 Eosinophils (%) (Auto) 0.0 Basophils (%) (Auto) 0.2 Neutrophils # (Auto) 7.1 Lymphocytes # (Auto) 0.8 Monocytes # (Auto) 1.2 Eosinophils # (Auto) 0.0 Basophils # (Auto) 0.0 CBC Comment AUTO DIFF Blood Urea Nitrogen 19 Creatinine 0.90 Random Glucose 97 Total Protein 5.9 Albumin 1.6 Calcium Level 9.1 Alkaline Phosphatase 92 Aspartate Amino Transf (AST/SGOT) 35 Alanine Aminotransferase (ALT/SGPT) 26 Total Bilirubin 0.5 Sodium Level 142 Potassium Level 3.4 Chloride Level 106 Carbon Dioxide Level 25.0 Anion Gap 11 Estimat Glomerular Filtration Rate 63 Date/Time Source Procedure Growth Status 03/12/17 19:18 Blood Peripheral Aerobic Blood Culture - Preliminary NO GROWTH IN 4 DAYS Resulted 03/12/17 19:18 Blood Peripheral Anaerobic Blood Culture - Preliminary NO GROWTH IN 4 DAYS Resulted 03/12/17 17:15 Cerebral Spinal Fluid Lumbar Puncture Acid Fast Stain - Final NO ACID FAST BACILLI SEEN Resulted 03/12/17 17:15 Cerebral Spinal Fluid Lumbar Puncture Mycobacterial Culture Pending Resulted 03/12/17 01:50 Sputum Endotracheal Gram Stain - Final Complete 03/12/17 01:50 Sputum Culture - Final S. Aureus Mrsa Proteus Mirabilis Pseudomonas Aeruginosa Complete Frank Monet MD Mar 17, 2017 08:36
[2017-03-17 09:24] LABS: BANDS 6 % (0-6); MYELOCYTES 1 % (0-0); NEUTROPHIL # MANUAL DIFF 7.7 TH/MM3 (1.8-7.7); POLYS (SEG NEUTROPHILS) 78 % (16-70); WBC DIFF SAMPLE 100
[2017-03-17 09:25] LABS: PLATELET ESTIMATE SMEAR LOW (NORMAL); PLATELET MORPHOLOGY NORMAL (NORMAL); SCAN/DIFF FINAL DIFF MANUAL
--- NOTE | 2017-03-17 11:50 | HHI.CCPN ---
Subjective Remarks/Hospital Course Hospital Course: This is a 66-year-old with a history of depression and hypertension who was brought in to the ER with altered mental status and subjective overdose on Lortabs. Her UDS at that time was positive for amphetamines, benzodiazepines, opiates. She was transferred to our medical psychiatry unit for management of resolving opiate overdose and poly-substance withdraw. I am familiar with this patient and have evaluated this patient at the request of the rapid response team multiple times over the last few days. She is a poor historian and cannot participate in a history. Today she was rapid responsed for altered mental statu. I evaluated her on arrival to the [facility]. She is at neurologic baseline for me over the last 3 days. she protects her airway. she has erratic movements that are almost choreic in nature, and has tachycardia and hypertension which she has had over the last 4 days. She has a blood gas which demonstrates a primary respiratory alkalosis and no evidence of hypoxia on room air. laboratory data is unremarkable except for a wbc 25k without fever or suspected area of infection. She is admitted to the ICU for withdraw symptoms too severe to be safely cared for on a medical floor. Subjective: 03/11: no changes. still very delirious. agitated. requiring high doses ativan and haldol. appreciate psych recs. afebrile. elevated wbc of unclear significance. no evidence of active infection. 03/12: intubated overnight for worsening hypoxia. this morning, new low-grade fevers, wbc uptrended. also persistently encephalopathic. 03/13: remains encephalopathic. oliguric overnight but Cr 0.8 this AM. bedside critical care echo with grossly normal biventricular function, 1.5cm ivc with < 30% respiratory variation, no pericardial effusion. LP done yesterday without evidence of overt infection, slightly elevated opening pressure at 19, but obese and likely some element of intra-abdominal hypertension contributing to elevated opening pressure. CSF studies pending. Also, new right neck swelling which appears to be submandibular, difficult to quantify but ~5x5cm. This appears to be tender to palpation as patient becomes agitated on palpation. no bruising. mass/swelling is fixed and nonmobile. no intra-oral component that I can appreciate. I spoke to her sister yesterday afternoon, and apparently she was seen back in November at OSH for "stroke-like symptoms" and since that time has had a progressive decline with "easy forgetfullness" and intermittent confusion. Her sister endorses that the patient has had substance abuse problems, usually prescription opiates, however, has never had any other mental health diagnoses. 03/14: no changes in mental status. still encephalopathic. sputum with 3 organisms growing, consistent with an aspiration pneumonia. all sensitivities not back yet. 03/15: starting to follow commands. fio2 improved. neurology eval patient and added additional lab tests to eval for encephalopathy. sensitivities not back yet on sputum. 03/16: Waking up easily follows commands today. Tolerating CPAP. Will proceed with extubation. Sputum cx 03/12 with MRSA, Proteus and Pseudomonas 03/17: Extubated yesterday, orientation is better today oriented to person and place. Remains tachycardic, Inderal started. Chest x-ray shows bilateral patchy infiltrates, but oxygen saturation is adequate. Will start Diuresis with Bumex for 2 days Objective Vital Signs Date Time Temp Pulse Resp B/P (MAP) Pulse Ox O2 Delivery O2 Flow Rate FiO2 03/17/17 10:00 122 03/17/17 08:49 96 Nasal Cannula 4.00 03/17/17 08:00 98.5 18 155/86 (109) 03/16/17 11:32 36 Intake and Output 03/17/17 03/17/17 03/18/17 08:00 16:00 00:00 Intake Total 200 ml Output Total 900 ml Balance -700 ml Result Diagram: 03/17/17 0458 03/17/17 0458 Objective Remarks GENERAL: Middle-aged female, lying in bed, following commands oriented to person and place HEENT: Normocephalic. Atraumatic. Pupils equal, round, reactive, conjugate. Mucous membranes are moist NECK: Trachea is midline. There is no JVD. right neck swelling stable, to improving. CHEST:Equal chest rise. No significant wheezes or crackles CARDIOVASCULAR: S1-S2 normal no murmurs. Tachycardic ABDOMEN: Soft, nontender, nondistended. No guarding. MUSCULOSKELETAL: Pulses 2+. No peripheral edema. NEUROLOGICAL: Alert awake oriented to person and place A/P Assessment and Plan Assessment: 66yF originally admitted for suspected opiate overdose, probably with prolonged opiate/polysubstance withdrawal. Now intubated for hypoxic respiratory failure. aspiration pneumonia with MRSA, proteus and PSAE growing on sputum culture. Encephalopathy Improving. neurology following and appreciate recommendations. Neuro: Polysubstance Abuse Prolonged polysubstance withdrawal Agitated Delirium Toxic Encephalopathy - Re consulted psych to follow along - haldol 5mg iv q4h prn agitation - ativan 2mg iv q15min prn withdraw symptoms - Seroquel to 50mg po q8hr. - restraints for patient safety- DC today - DC Precedex and Fentanyl - folate, tsh, free t4 all wnl 03/12. - IV thiamine. - MRI brain 03/12 wnl - LP 03/12 no evidence of acute infection. protein and glucose normal. no wbc. - 14-3-3 protein send out lab pending. - neurology following. Resp/ENT: Acute hypoxic respiratory failure - persistent. Bilateral infiltrates/Pneumonia Neck, R parotid gland swelling - Extubated 03/16/17 tolerating well - wean fio2 for spo2 > 90% - sputum culture 03/12/17 growing both MRSA, proteus, PSAE. continue broad spectrum abx - CT neck showing soft tissue swelling and an last parotid gland on the right side-possible parotiditis continue broad-spectrum antibiotics CV: Sinus tachycardia - secondary to polysubstance withdraw - monitor clinically - holding clonidine given borderline hypotension. - Start Inderal 40 mg q8 with weaning parameters FEN/GI Acute protein calorie malnutrition - moderate Hypernatremia Hyperchloremia - ICU electrolyte protocol - Heart healthy diuet - nutrition consult for goal recs Heme/ID: Aspiration Pneumonia, HCAP - Vancomycin with pharmacy dosing - Zosyn 4.5gm iv q6h - sputum 03/12: MRSA, proteus, PSAE Endo: Hyperglycemia of critical illness - ssi, med scale, q6h Prophylaxis: - pepcid - SCDs, Lovenox Lines: piv Dispo: remain in ICU. Level 2 Consult [facility] to assume care in am, re consulted psych Carol Fregoso MD Mar 17, 2017 11:50
[2017-03-17 13:52] LABS: VZV PCR RESULT <500 (<500 copies)
--- NOTE | 2017-03-17 14:24 | HHI.PYPN ---
Subjective Remarks Patient was seen for psychiatric reevaluation along with medical student and also with the nurse in charge. Patient is calm, superficially cooperative, still disoriented in time and place. She reports good mood, denies suicidal and homicidal ideation, she denies visual and auditory hallucinations. However the patient is disorganized, internally stimulated, with rapidly shifting in attention span, unable to provide any meaningful information. She doesn't remember the reason of her hospitalization. She says that she is here because her leg hurts. Patient is unable to recall or elaborate about recent overdose. Review of Systems Except as stated in HPI: all other systems reviewed are Neg Mental Status Examination Appearance: Appropriate Consciousness: Clouded Orientation: Person Motor Activity: Normal gait Speech: Hesitant Language: Adequate Fund of Knowledge: Inadequate Memory: Impaired Affect: Labile Thought Process & Associations: Loose associations Thought Content: Bizarre thinking Hallucination Type: None Suicidal Ideation: No Suicidal Plan: No Suicidal Intention: No Homicidal Ideation: No Homicidal Plan: No Homicidal Intention: No Insight: Poor Judgment: Poor Results Labs Test 03/17/17 04:58 White Blood Count 9.1 TH/MM3 Red Blood Count 2.32 MIL/MM3 Hemoglobin 8.2 GM/DL Hematocrit 24.0 % Mean Corpuscular Volume 103.6 FL Mean Corpuscular Hemoglobin 35.4 PG Mean Corpuscular Hemoglobin Concent 34.2 % Red Cell Distribution Width 20.0 % Platelet Count 149 TH/MM3 Mean Platelet Volume 9.9 FL Neutrophils (%) (Auto) 77.9 % Lymphocytes (%) (Auto) 8.4 % Monocytes (%) (Auto) 13.5 % Eosinophils (%) (Auto) 0.0 % Basophils (%) (Auto) 0.2 % Neutrophils # (Auto) 7.1 TH/MM3 Lymphocytes # (Auto) 0.8 TH/MM3 Monocytes # (Auto) 1.2 TH/MM3 Eosinophils # (Auto) 0.0 TH/MM3 Basophils # (Auto) 0.0 TH/MM3 CBC Comment AUTO DIFF Differential Total Cells Counted 100 Neutrophils % (Manual) 78 % Band Neutrophils % 6 % Lymphocytes % 11 % Monocytes % 4 % Neutrophils # (Manual) 7.7 TH/MM3 Myelocytes 1 % Differential Comment FINAL DIFF MANUAL Atypical Lymphocytes % Platelet Estimate LOW Platelet Morphology Comment NORMAL Blood Urea Nitrogen 19 MG/DL Creatinine 0.90 MG/DL Random Glucose 97 MG/DL Total Protein 5.9 GM/DL Albumin 1.6 GM/DL Calcium Level 9.1 MG/DL Alkaline Phosphatase 92 U/L Aspartate Amino Transf (AST/SGOT) 35 U/L Alanine Aminotransferase (ALT/SGPT) 26 U/L Total Bilirubin 0.5 MG/DL Sodium Level 142 MEQ/L Potassium Level 3.4 MEQ/L Chloride Level 106 MEQ/L Carbon Dioxide Level 25.0 MEQ/L Anion Gap 11 MEQ/L Estimat Glomerular Filtration Rate 63 ML/MIN Date/Time Source Procedure Growth Status 03/12/17 19:18 Blood Peripheral Aerobic Blood Culture - Final NO GROWTH IN 5 DAYS Complete 03/12/17 19:18 Blood Peripheral Anaerobic Blood Culture - Final NO GROWTH IN 5 DAYS Complete 03/12/17 17:15 Cerebral Spinal Fluid Lumbar Puncture Acid Fast Stain - Final NO ACID FAST BACILLI SEEN Resulted 03/12/17 17:15 Cerebral Spinal Fluid Lumbar Puncture Mycobacterial Culture Pending Resulted 03/12/17 01:50 Sputum Endotracheal Gram Stain - Final Complete 03/12/17 01:50 Sputum Culture - Final S. Aureus Mrsa Proteus Mirabilis Pseudomonas Aeruginosa Complete Vitals/IOs Vital Signs Date Time Temp Pulse Resp B/P (MAP) Pulse Ox O2 Delivery O2 Flow Rate FiO2 03/17/17 12:00 97.4 121 31 140/90 (107) 100 03/17/17 08:49 Nasal Cannula 4.00 03/16/17 11:32 36 Intake and Output 03/17/17 03/17/17 03/18/17 08:00 16:00 00:00 Intake Total 200 ml Output Total 900 ml Balance -700 ml Assessment & Plan Problem List: (1) Delirium ICD Codes: R41.0 - Disorientation, unspecified Assessment & Plan: Patient is acutely delirious, disorganized, with poor attention span, fluctuation of consciousness, disoriented and with illogical thinking. Patient is unable to provide any meaningful information about recent suicidal attempt. Patient continues to need psychiatric admission for stabilization and safety. Continue Seroquel 50 mgs 3 times a day Assessment & Plan Estimated LOS: days Justification for Cont. Inpt. Patient is for psychiatric admission once medically stable. Tico Silverio MD Mar 17, 2017 14:24
[2017-03-17] MEDS: PROPRANOLOL HCL 40 MG TAB PO SCH ×2 (14:32→22:51)
[2017-03-17] MEDS: BUMETANIDE INJ 1 MG/4 ML VIAL IV PUSH SCH ×2 (14:33→17:08)
[2017-03-17] MEDS: ALBUMIN 25% INJ 50 ML IV SCH (14:33)
[2017-03-17] MEDS: FAMOTIDINE 20 MG TAB PO SCH ×2 (14:33→22:49)
[2017-03-17] MEDS: POTASSIUM CHLORIDE 25 MEQ EFFERVESCENT TAB NG SCH ×2 (14:33→22:49)
[2017-03-17] MEDS: ENOXAPARIN SODIUM 40 MG/0.4 ML SYRINGE SQ SCH (17:08)
[2017-03-17 19:54] LABS: VDRL CSF NON-REACTIVE (NON-REACTVE)
[2017-03-18] VITALS (15 sets, daily range): BP systolic 132–172; BP diastolic 78–83; PULSE 75–89; RESP 20–28; TEMP 97.7–99; O2SAT 96–100
[2017-03-18] MEDS: hydrALAZINE HCL 20 MG/ML VIAL IV PRN (00:09)
[2017-03-18] MEDS: VANCOMYCIN INJ 1,500 MG in SODIUM CHLORID 0.9% 500 ML INJ 500 ML IV SCH ×2 (00:09→21:05)
[2017-03-18] MEDS: CHLORHEXIDINE GLUCONATE 2 % 1 PACK (2 CLOTHS) TOP SCH (00:10)
[2017-03-18] MEDS: FREE WATER G-TUBE SCH ×4 (00:10→20:52)
[2017-03-18] MEDS: RESP: ALBUTEROL 2.5 MG/IPRATROPIUM 0.5 MG NEB (SCH) INH ×4 (05:05→20:26)
--- NOTE | 2017-03-18 05:06 | PD.PROCEDR ---
Procedure Note Procedure DATE: 03/18/70 CENTRAL LINE PLACEMENT: Left internal jugular vein. Ultrasound-guided INDICATION: Patient in need of IV access. She is delirious and has pulled out all of her IVs and multiple RN attempts at PIV unsuccessful . Left upper extremity has infiltrated with vancomycin and bilateral extremities are swollen. She is in need of various antibiotics and other meds so will proceed with central venous line CONSENT Procedure was done emergently. Patient has not capacitated for consent. Her next of kin is her sister who apparently is also not in condition to provide consent. DESCRIPTION OF THE PROCEDURE The patient was placed in supine position, mild Trendelenburg. The skin was cleansed with Chloraprep x3. Additional barrier precautions included large sterile drape, sterile gloves, sterile gown, face mask, and hat. 1 % lidocaine was used for local anesthesia. Under direct ultrasound guidance and on single attempt, the vein was accessed with an introducer needle. The guide wire was advanced and the tract was dilated. Using Seldinger technique a 7 [place] 20 cm antimicrobial coated triple-lumen catheter was advanced to a depth of 18 centimeters. The guide wire was removed. All ports had good return of dark venous blood and flushed easily with saline. The central line was secured with Stat-lock. A sterile dressing with antibiotic disc was applied. ESTIMATED BLOOD LOSS: Minimal COMPLICATIONS: No apparent complications. STAT chest x-ray demonstrates satisfactory central venous line position without apparent complication. Trupti Higginbotham MD Mar 18, 2017 05:06
[2017-03-18] MEDS: PIPERACIL-TAZO 4.5 GM PREMIX 100 ML IV SCH ×4 (05:08→23:00)
[2017-03-18] MEDS: ALBUMIN 25% INJ 50 ML IV SCH ×2 (05:08→14:03)
[2017-03-18] MEDS: PROPRANOLOL HCL 40 MG TAB PO SCH ×3 (05:08→21:06)
[2017-03-18] MEDS: QUEtiapine FUMARATE 25 MG TAB PO SCH ×3 (05:08→21:07)
[2017-03-18] MEDS: INSULIN NovoLIN REGULAR SUPPLEMENTAL SCALE SQ SCH ×4 (05:10→17:12)
--- NOTE | 2017-03-18 05:51 | RADRPT ---
EXAM DATE/TIME: 03/18/2017 04:56 [facility] COMPARISON: CHEST SINGLE AP, March 17, 2017, 3:36. INDICATIONS : Evaluate Central Line Placement MEDICAL HISTORY : Hypertension. SURGICAL HISTORY : None. ENCOUNTER: Subsequent ACUITY: 1 week PAIN SCORE: Non-responsive. LOCATION: Bilateral chest FINDINGS: The cardiac silhouette is enlarged in transverse diameter. There is patchy alveolar disease bilateral ly compatible with edema or pneumonia. A left sided internal jugular vein catheter is in place withou t pneumothorax with its tip in the superior vena cava. CONCLUSION: 1. Patchy alveolar disease characteristic of edema or pneumonia. 2. Uncomplicated line placement. No evidence of pneumothorax. Mg Kendrick MD on March 18, 2017 at 5:49 Board Certified Radiologist. This report was verified electronically.
[2017-03-18 06:48] LABS: AUTOMATED NEUTROPHIL # 6.6 TH/MM3 (1.8-7.7); BASOPHIL % 0.5 % (0.0-2.0); EOSINOPHIL # 0.2 TH/MM3 (0-0.4); EOSINOPHIL % 2.5 % (0.0-4.0); HEMATOCRIT 25.1 % (35.0-46.0); MEAN CELL VOLUME 101.9 FL (80.0-100.0); MEAN CORPUSCULAR HEMOGLOBIN 34.5 PG (27.0-34.0); MEAN CORPUSCULAR HGB CONC 33.9 % (32.0-36.0); MONO % 12.9 % (0.0-8.0); NEUT % 73.1 % (16.0-70.0); PLATELET COUNT 186 TH/MM3 (150-450); RED BLOOD COUNT 2.47 MIL/MM3 (4.00-5.30); RED CELL DISTRIBUTION WIDTH 19.7 % (11.6-17.2)
[2017-03-18 06:52] LABS: HEMO FLAGS AUTO DIFF
[2017-03-18 07:48] LABS: ALKALINE PHOSPHATASE 87 U/L (45-117); ALT (GPT) 23 U/L (10-53); ANION GAP 11 MEQ/L (5-15); AST (GOT) 30 U/L (15-37); BLOOD UREA NITROGEN 15 MG/DL (7-18); CHLORIDE 101 MEQ/L (98-107); FREE T4 0.78 NG/DL (0.76-1.46); GLOMERULAR FILTRATION RATE 75 ML/MIN (>89); MAGNESIUM 1.6 MG/DL (1.5-2.5); SODIUM (NA) 142 MEQ/L (136-145); TOTAL BILIRUBIN ADULT 0.8 MG/DL (0.2-1.0)
[2017-03-18 07:54] LABS: POTASSIUM 2.7 MEQ/L (3.5-5.1)
[2017-03-18] MEDS: POTASSIUM CHLORIDE 25 MEQ EFFERVESCENT TAB NG SCH ×2 (08:18→21:06)
[2017-03-18] MEDS: FAMOTIDINE 20 MG TAB PO SCH ×2 (08:18→21:06)
[2017-03-18] MEDS: POTASSIUM CHLOR 40 MEQ PREMIX 100 ML IV PRN ×3 (08:18→21:04)
[2017-03-18] MEDS: BUMETANIDE INJ 1 MG/4 ML VIAL IV PUSH SCH ×2 (08:18→17:13)
[2017-03-18] MEDS: THIAMINE INJ 100 MG in SODIUM CHLORIDE 0.9% INJ 100 ML IV SCH (08:18)
[2017-03-18 08:53] LABS: BANDS 2 % (0-6); EOSINOPHILS 1 % (0-4); MYELOCYTES 2 % (0-0); NEUTROPHIL # MANUAL DIFF 7.3 TH/MM3 (1.8-7.7); POLYS (SEG NEUTROPHILS) 76 % (16-70); PROMYELOCYTES 1 % (0-0); WBC DIFF SAMPLE 100
[2017-03-18 08:54] LABS: PLATELET ESTIMATE SMEAR NORMAL (NORMAL); PLATELET MORPHOLOGY NORMAL (NORMAL); SCAN/DIFF FINAL DIFF MANUAL
[2017-03-18 13:47] LABS: HEPATCARBOXYLPORPHYRINS 9 nmol/24 h (<=9); HEXACARBOXYL PORPHYRINS 2 nmol/24 h (<=8); PENTACARBOXYL PORPHYRINS 23 nmol/24 h (<=10); PORPHOBILINOGEN 0.8 mcmol/24 h (<=2.2); PORPHYRINS QN COLLECTION DUR 24 h; PORPHYRINS QN UR TOTAL VOLUME 6150 mL
[2017-03-18 16:01] LABS: HEMOGLOBIN A1a 1.1 %; HEMOGLOBIN A1b 0.8 %; HEMOGLOBIN Ao 85.9 %; HEMOGLOBIN LA1C 2.1 %; HEMOGLOBIN P3 4.9 %
--- NOTE | 2017-03-18 17:11 | HHI.PR ---
Subjective Remarks This is a 66-year-old with a history of depression and hypertension who was brought in to the ER with altered mental status and subjective overdose on Lortabs. Her UDS at that time was positive for amphetamines, benzodiazepines, opiates. She was transferred to our medical psychiatry unit for management of resolving opiate overdose and poly-substance withdraw. I am familiar with this patient and have evaluated this patient at the request of the rapid response team multiple times over the last few days. She is a poor historian and cannot participate in a history. Today she was rapid responsed for altered mental statu. I evaluated her on arrival to the [facility]. She is at neurologic baseline for me over the last 3 days. she protects her airway. she has erratic movements that are almost choreic in nature, and has tachycardia and hypertension which she has had over the last 4 days. She has a blood gas which demonstrates a primary respiratory alkalosis and no evidence of hypoxia on room air. laboratory data is unremarkable except for a wbc 25k without fever or suspected area of infection. She is admitted to the ICU for withdraw symptoms too severe to be safely cared for on a medical floor. Subjective: 03/11: no changes. still very delirious. agitated. requiring high doses ativan and haldol. appreciate psych recs. afebrile. elevated wbc of unclear significance. no evidence of active infection. 03/12: intubated overnight for worsening hypoxia. this morning, new low-grade fevers, wbc uptrended. also persistently encephalopathic. 03/13: remains encephalopathic. oliguric overnight but Cr 0.8 this AM. bedside critical care echo with grossly normal biventricular function, 1.5cm ivc with < 30% respiratory variation, no pericardial effusion. LP done yesterday without evidence of overt infection, slightly elevated opening pressure at 19, but obese and likely some element of intra-abdominal hypertension contributing to elevated opening pressure. CSF studies pending. Also, new right neck swelling which appears to be submandibular, difficult to quantify but ~5x5cm. This appears to be tender to palpation as patient becomes agitated on palpation. no bruising. mass/swelling is fixed and nonmobile. no intra-oral component that I can appreciate. I spoke to her sister yesterday afternoon, and apparently she was seen back in November at OSH for "stroke-like symptoms" and since that time has had a progressive decline with "easy forgetfullness" and intermittent confusion. Her sister endorses that the patient has had substance abuse problems, usually prescription opiates, however, has never had any other mental health diagnoses. 03/14: no changes in mental status. still encephalopathic. sputum with 3 organisms growing, consistent with an aspiration pneumonia. all sensitivities not back yet. 03/15: starting to follow commands. fio2 improved. neurology eval patient and added additional lab tests to eval for encephalopathy. sensitivities not back yet on sputum. 03/16: Waking up easily follows commands today. Tolerating CPAP. Will proceed with extubation. Sputum cx 03/12 with MRSA, Proteus and Pseudomonas 03/17: Extubated yesterday, orientation is better today oriented to person and place. Remains tachycardic, Inderal started. Chest x-ray shows bilateral patchy infiltrates, but oxygen saturation is adequate. Will start Diuresis with Bumex for 2 days 03/18 TRANSFERRED TO HOSPITALIST SERVICE TODAY NEEDS PT AND OT TRANSFER OUT OF ICU IN NEXT 24 TO 48 HOURS INCENTIVE SPIROMETRY DW RN AND PATIENT CURRENTLY SEDATED WITHOUT COMPLAINTS IN THE ICU Objective Vitals Vital Signs Date Time Temp Pulse Resp B/P (MAP) Pulse Ox O2 Delivery O2 Flow Rate FiO2 03/18/17 16:00 98.6 81 22 146/83 (104) 100 03/18/17 16:00 81 03/18/17 14:00 84 03/18/17 12:00 81 03/18/17 12:00 97.7 81 24 132/78 (96) 99 03/18/17 10:00 83 03/18/17 08:22 100 Nasal Cannula 4.00 03/18/17 08:00 99.0 79 20 154/78 (103) 100 03/18/17 08:00 79 03/18/17 06:00 76 03/18/17 04:00 85 03/18/17 04:00 98.0 89 28 142/78 (99) 100 03/18/17 02:00 89 03/18/17 00:00 78 03/18/17 00:00 98.4 78 27 172/83 (112) 100 03/17/17 22:28 100 Nasal Cannula 4.00 03/17/17 22:00 100 03/17/17 20:00 101 03/17/17 20:00 97.7 101 30 174/92 (119) 95 03/17/17 18:00 93 I/O 03/17/17 03/17/17 03/17/17 03/18/17 03/18/17 03/18/17 07:00 15:00 23:00 07:00 15:00 23:00 Intake Total 200 ml 293 ml 446 ml 955 ml 195 ml Output Total 900 ml 2300 ml 4900 ml Balance -700 ml 293 ml -1854 ml -3945 ml 195 ml Intake Oral 0 ml 300 ml 240 ml IV Total 200 ml 293 ml 146 ml 665 ml 195 ml Tube Feeding 0 ml Albumin 50 ml Output Urine Total 900 ml 2300 ml 4900 ml # Bowel Movements 4 1 2 Result Diagram: 03/18/17 0609 03/18/17 0609 Other Results Laboratory Tests Test 03/15/17 20:00 03/16/17 04:45 03/17/17 04:58 03/18/17 06:09 Urine Porphobilinogen 0.8 mcmol/24 h Urine Collection Duration 24 h Urine Total Volume 6150 mL Ur Porphyrin Quant Interpretation . Urine Uroporphyrin (Octacarboxyl) 37 nmol/24 h Urine Heptacarboxylporphyrins 9 nmol/24 h Urine Hexacarboxylporphyrins 2 nmol/24 h Urine Pentacarboxylporphyrins 23 nmol/24 h Urine Coproporphyrin (Tetracarboxyl 92 nmol/24 h White Blood Count 3.7 TH/MM3 9.1 TH/MM3 9.0 TH/MM3 Red Blood Count 2.34 MIL/MM3 2.32 MIL/MM3 2.47 MIL/MM3 Hemoglobin 8.0 GM/DL 8.2 GM/DL 8.5 GM/DL Hematocrit 24.1 % 24.0 % 25.1 % Mean Corpuscular Volume 103.3 FL 103.6 FL 101.9 FL Mean Corpuscular Hemoglobin 34.3 PG 35.4 PG 34.5 PG Mean Corpuscular Hemoglobin Concent 33.2 % 34.2 % 33.9 % Red Cell Distribution Width 20.6 % 20.0 % 19.7 % Platelet Count 99 TH/MM3 149 TH/MM3 186 TH/MM3 Mean Platelet Volume 9.9 FL 9.9 FL 8.5 FL Blood Urea Nitrogen 18 MG/DL 19 MG/DL 15 MG/DL Creatinine 0.98 MG/DL 0.90 MG/DL 0.77 MG/DL Random Glucose 186 MG/DL 97 MG/DL 96 MG/DL Calcium Level 8.6 MG/DL 9.1 MG/DL 8.3 MG/DL Sodium Level 142 MEQ/L 142 MEQ/L 142 MEQ/L Potassium Level 4.1 MEQ/L 3.4 MEQ/L 2.7 MEQ/L Chloride Level 108 MEQ/L 106 MEQ/L 101 MEQ/L Carbon Dioxide Level 25.6 MEQ/L 25.0 MEQ/L 30.0 MEQ/L Anion Gap 8 MEQ/L 11 MEQ/L 11 MEQ/L Estimat Glomerular Filtration Rate 57 ML/MIN 63 ML/MIN 75 ML/MIN Neutrophils (%) (Auto) 77.9 % 73.1 % Lymphocytes (%) (Auto) 8.4 % 11.0 % Monocytes (%) (Auto) 13.5 % 12.9 % Eosinophils (%) (Auto) 0.0 % 2.5 % Basophils (%) (Auto) 0.2 % 0.5 % Neutrophils # (Auto) 7.1 TH/MM3 6.6 TH/MM3 Lymphocytes # (Auto) 0.8 TH/MM3 1.0 TH/MM3 Monocytes # (Auto) 1.2 TH/MM3 1.2 TH/MM3 Eosinophils # (Auto) 0.0 TH/MM3 0.2 TH/MM3 Basophils # (Auto) 0.0 TH/MM3 0.0 TH/MM3 CBC Comment AUTO DIFF AUTO DIFF Differential Total Cells Counted 100 100 Neutrophils % (Manual) 78 % 76 % Band Neutrophils % 6 % 2 % Lymphocytes % 11 % 9 % Monocytes % 4 % 9 % Neutrophils # (Manual) 7.7 TH/MM3 7.3 TH/MM3 Myelocytes 1 % 2 % Differential Comment FINAL DIFF MANUAL FINAL DIFF MANUAL Atypical Lymphocytes % Platelet Estimate LOW NORMAL Platelet Morphology Comment NORMAL NORMAL Total Protein 5.9 GM/DL 6.0 GM/DL Albumin 1.6 GM/DL 2.1 GM/DL Alkaline Phosphatase 92 U/L 87 U/L Aspartate Amino Transf (AST/SGOT) 35 U/L 30 U/L Alanine Aminotransferase (ALT/SGPT) 26 U/L 23 U/L Total Bilirubin 0.5 MG/DL 0.8 MG/DL Eosinophils % 1 % Promyelocytes 1 % Phosphorus Level 3.1 MG/DL Magnesium Level 1.6 MG/DL Hemoglobin A1c 5.1 % Free Thyroxine 0.78 NG/DL Thyroid Stimulating Hormone 3rd Gen 2.900 uIU/ML Imaging Last Impressions Chest X-Ray 03/18/17 0600 Signed Impressions: Service Date/Time: Saturday, March 18, 2017 04:56 - CONCLUSION: 1. Patchy alveolar disease characteristic of edema or pneumonia. 2. Uncomplicated line placement. No evidence of pneumothorax. Mg Kendrick MD Neck CT 03/13/17 0000 Signed Impressions: Service Date/Time: Monday, March 13, 2017 08:41 - CONCLUSION: There is diffuse soft tissue swelling of the right neck compared to the left. The right parotid gland is also larger than mild left without drainable fluid collection or mass. No drainable abscess or significant pathologic lymphadenopathy is noted Barry Riggs MD Brain MRI 03/12/17 0000 Signed Impressions: Service Date/Time: Sunday, March 12, 2017 14:39 - CONCLUSION: Negative noncontrast MRI of the brain. Ildefonso Osullivan MD Objective Remarks GENERAL: NOT AWAKE OR ALERT CURRENTLY- SEDATED SKIN: Warm and dry. HEAD: Atraumatic. Normocephalic. EYES: Pupils equal and round. No scleral icterus. No injection or drainage. ENT: No nasal bleeding or discharge. Mucous membranes pink and moist. NECK: Trachea midline. No JVD. SUPPLE CARDIOVASCULAR: Regular rate and rhythm. S1, S2 NO S3 OR S4 RESPIRATORY: No accessory muscle use. Clear to auscultation. Breath sounds equal bilaterally. FEW RHONCHI GASTROINTESTINAL: Abdomen soft, non-tender, nondistended. Hepatic and splenic margins not palpable. MUSCULOSKELETAL: Extremities without clubbing, cyanosis, or edema. No obvious deformities. NEUROLOGICAL: NOT Awake and alert. No obvious cranial nerve deficits. Motor grossly within normal limits.4 out of 5 muscle strength in the arms and legs. NONVERBAL CURRENTLY. PSYCHIATRIC: INAppropriate mood and affect; insight and judgment ABnormal. Procedures LEFT IJ CATHETER 11-10 Medications and IVs Current Medications Etomidate (Amidate Inj) 40 mg STK-MED ONCE .ROUTE ; Start 03/10/17 at 16:50; Stop 03/10/17 at 16:51; Status DC Midazolam HCl (Versed Inj) 10 mg STK-MED ONCE .ROUTE ; Start 03/10/17 at 16:50; Stop 03/10/17 at 16:51; Status DC Succinylcholine Chloride (Quelicin Inj) 200 mg STK-MED ONCE .ROUTE ; Start 03/10 at 16:50; Stop 03/10/17 at 16:51; Status DC Diazepam (Valium) 20 mg Q8HR PO Last administered on 03/13/17 06:26; Start at 18:00; Status Future Hold Haloperidol Lactate (Haldol Inj) 10 mg ONCE ONCE IV PUSH Last administered on 03/10/17 18:57; Start 03/10/17 at 18:00; Stop 03/10/17 at 18:01; Status DC Haloperidol Lactate (Haldol Inj) 5 mg Q4H PRN IV agitation Last administered on 03/17/17 08:18; Start 03/10/17 at 17:00 Lorazepam (Ativan Inj) 2 mg Q15M PRN IV PUSH alcohol withdraw symtpoms Last administered on 03/12/17 01:27; Start 03/10/17 at 17:00; Stop 03/12/17 at 10:19 ; Status DC Quetiapine Fumarate (SEROquel) 100 mg Q8HR PO Last administered on 03/15/17 05 :32; Start 03/10/17 at 18:00; Stop 03/15/17 at 13:03; Status DC Clonidine (Catapres) 0.3 mg Q8HR PO Last administered on 03/12/17 21:22; Start 03/10/17 at 18:00; Status Future Hold Dextrose (D50w (Vial) Inj) 25 ml UNSCH PRN IV PUSH HYPOGLYCEMIA-SEE COMMENTS; Start 03/10/17 at 17:15 Insulin Human Regular (NovoLIN R SUPPLEMENTAL SCALE) 1 Q6HR SQ Last administered on 03/16/17 12:00; Start 03/10/17 at 18:00 Albuterol/ Ipratropium (Duoneb Neb) 1 ampule Q6HR NEB INH Last administered on 03/14/17 15:05; Start 03/10/17 at 22:00; Stop 03/14/17 at 19:21; Status DC Albuterol/ Ipratropium (Duoneb Neb) 1 ampule Q2HR NEB PRN INH WHEEZING; Start 03/10/17 at 17:15 Sodium Chloride 1,000 ml @ 84 mls/hr [id number] IV Last administered on 05:47; Start 03/10/17 at 18:00; Stop 03/13/17 at 08:04; Status DC Ondansetron HCl (Zofran Inj) 4 mg Q6H PRN IV PUSH NAUSEA OR VOMITING Last administered on 03/15/17 13:03; Start 03/10/17 at 17:15 Enoxaparin Sodium (Lovenox Inj) 40 mg Q24H SQ Last administered on 03/17/17 17 :08; Start 03/10/17 at 18:00 Miscellaneous Information 1 [id number] XX ; Start 03/10/17 at 17:15 Chlorhexidine Gluconate (Chlorhexidine 2% Cloth) Taper DAILY@04 TOP Last administered on 03/15/17 03:03; Start 03/11/17 at 04:00; Stop 03/07/18 at 03: 59 Chlorhexidine Gluconate (Chlorhexidine 2% Cloth) 3 pack UNSCH PRN TOP HYGIENIC CARE; Start 03/10/17 at 17:15 Dexmedetomidine HCl 200 mcg/ Sodium Chloride 52 ml @ 0 mls/hr TITRATE PRN IV SEDATION; Start 03/10/17 at 18:30; Stop 03/10/17 at 20:24; Status DC Flumazenil (Romazicon Inj) 0.2 mg Q1M PRN IV PUSH SEE LABEL COMMENTS; Start at 18:45; Stop 03/12/17 at 10:19; Status DC Lorazepam (Ativan) 1 mg Q4H PRN PO CIWA 8 - 10; Start 03/10/17 at 18:45; Stop 03/12/17 at 10:19; Status DC Lorazepam (Ativan Inj) 1 mg Q4H PRN IV PUSH CIWA 8 - 10; Start 03/10/17 at 18: 45; Stop 03/12/17 at 10:20; Status DC Lorazepam (Ativan) 2 mg Q2H PRN PO CIWA 11-14; Start 03/10/17 at 18:45; Stop 03/12/17 at 10:20; Status DC Lorazepam (Ativan Inj) 2 mg Q2H PRN IV PUSH CIWA 11-14; Start 03/10/17 at 18:45 ; Stop 03/12/17 at 10:20; Status DC Lorazepam (Ativan Inj) 2 mg Q1H PRN IV PUSH CIWA 15-20; Start 03/10/17 at 18:45 ; Stop 03/12/17 at 10:20; Status DC Lorazepam (Ativan Inj) 2 mg Q15M PRN IV PUSH CIWA > 20; Start 03/10/17 at 18:45 ; Stop 03/12/17 at 10:20; Status DC Dexmedetomidine HCl 200 mcg/ Sodium Chloride 52 ml @ 4.31 mls/hr TITRATE PRN IV SEDATION Last administered on 03/11/17 07:58; Start 03/10/17 at 20:30; Stop 03/11/17 at 08:47; Status DC Potassium Chloride 100 ml @ 50 mls/hr Q2H PRN IV For Potassium 2.8 - 3.2 mEq/ L Last administered on 03/18/17 10:11; Start 03/11/17 at 08:45 Potassium Chloride 100 ml @ 50 mls/hr Q2H PRN IV For Potassium 2.8 - 3.2 mEq/ L Last administered on 03/14/17 15:59; Start 03/11/17 at 08:45 Potassium Bicarb/ Potassium Chloride (K-Lyte Cl Eff) 50 meq UNSCH PRN PO For Potassium 3.3 - 3.5 mEq/L; Start 03/11/17 at 08:45 Potassium Chloride 100 ml @ 25 mls/hr UNSCH PRN IV For Potassium 3.3 - 3.5 mEq /L; Start 03/11/17 at 08:45 Potassium Chloride 100 ml @ 50 mls/hr Q2H PRN IV For Potassium 3.3 - 3.5 mEq/ L Last administered on 03/17/17 08:19; Start 03/11/17 at 08:45 Magnesium Sulfate 4 gm/Sodium Chloride 100 ml @ 50 mls/hr UNSCH PRN IV For Magnesium 0.9 - 1.1 mg/dL; Start 03/11/17 at 08:45 Magnesium Oxide (Mag-Ox) 800 mg UNSCH PRN PO For Magnesium 1.2 - 1.6 mg/dL; Start 03/11/17 at 08:45 Magnesium Sulfate 2 gm/Sodium Chloride 100 ml @ 50 mls/hr UNSCH PRN IV For Magnesium 1.2 - 1.6 mg/dL; Start 03/11/17 at 08:45 Potassium Phosphate (K-Phos) 2,000 mg Q4H PRN PO For Phosphorus < 2.5 mg/dL; Start 03/11/17 at 08:45 Sodium Phosphate 30 mmol/Sodium Chloride 250 ml @ 42 mls/hr UNSCH PRN IV For Phosphorus < 2.5 mg/dL; Start 03/11/17 at 08:45 Potassium Phosphate (K-Phos) 2,000 mg UNSCH PRN PO/TUBE SEE LABEL COMMENTS; Start 03/11/17 at 08:45 Potassium Phosphate 30 mmol/ Sodium Chloride 260 ml @ 42 mls/hr UNSCH PRN IV SEE LABEL COMMENTS; Start 03/11/17 at 08:45 Dexmedetomidine HCl 200 mcg/ Sodium Chloride 52 ml @ 4.32 mls/hr TITRATE PRN IV SEDATION; Start 03/11/17 at 09:00; Stop 03/11/17 at 11:15; Status DC Dexmedetomidine HCl 1000 mcg/ Sodium Chloride 260 ml @ 4.32 mls/hr TITRATE PRN IV SEDATION Last administered on 03/16/17 03:11; Start 03/11/17 at 11:15; Stop 03/16/17 at 06:43; Status DC Succinylcholine Chloride (Quelicin Inj) 200 mg STK-MED ONCE .ROUTE ; Start 03/12 at 01:30; Stop 03/12/17 at 01:31; Status DC Etomidate (Amidate Inj) 40 mg STK-MED ONCE .ROUTE Last administered on 01:40; Start 03/12/17 at 01:30; Stop 03/12/17 at 01:31; Status DC Propofol 50 ml @ As Directed STK-MED ONCE .ROUTE Last administered on 02:11; Start 03/12/17 at 01:35; Stop 03/12/17 at 01:36; Status DC Propofol 100 ml @ 2.493 mls/ hr TITRATE PRN IV SEDATION Last administered on 03/13/17 06:02; Start 03/12/17 at 02:00; Stop 03/13/17 at 08:57; Status DC Propofol 100 ml @ 2.52 mls/hr TITRATE PRN IV SEDATION Last administered on 08:16; Start 03/12/17 at 10:30; Stop 03/15/17 at 13:03; Status DC Rocuronium Ceres (Zemuron Inj) 50 mg BOLUS ONCE IV Last administered on 03/12 15:23; Start 03/12/17 at 10:30; Stop 03/12/17 at 10:47; Status DC Thiamine HCl 100 mg/Sodium Chloride 101 ml @ 101 mls/hr DAILY IV Last administered on 03/18/17 08:18; Start 03/12/17 at 12:00 Pharmacy Profile Note 0 ml @ 0 mls/hr UNSCH OTHER ; Start 03/12/17 at 10:30 Vancomycin HCl 1250 mg/Sodium Chloride 262.5 ml @ 250 mls/hr ONCE ONCE IV ; Start 03/12/17 at 10:30; Stop 03/12/17 at 11:32; Status UNV Piperacillin Sod/ Tazobactam Sod 100 ml @ 200 mls/hr Q6H IV Last administered on 03/18/17 16:55; Start 03/12/17 at 11:00 Famotidine (Pepcid Inj) 20 mg Q12H IV PUSH Last administered on 03/17/17 10:56 ; Start 03/12/17 at 11:00; Stop 03/17/17 at 12:00; Status DC Fentanyl Citrate 250 ml @ 5 mls/hr TITRATE PRN IV SEDATION Last administered on 03/16/17 05:03; Start 03/12/17 at 11:00; Stop 03/17/17 at 12:00; Status DC Vancomycin HCl 1750 mg/Sodium Chloride 517.5 ml @ 257.5 mls/ hr Q24H IV Last administered on 03/15/17 14:54; Start 03/12/17 at 14:00; Stop 03/15/17 at 16:30 ; Status DC Miscellaneous Information SPECIFIC LAB TO BE ... ONCE ONCE .XX Last administered on 03/15/17 13:45; Start 03/15/17 at 13:45; Stop 03/15/17 at 13:46 ; Status DC Lactated Ringer's 1,000 ml @ 500 mls/hr Q2H IV Last administered on 11/4/17at 14:00; Start 03/12/17 at 14:00; Stop 03/12/17 at 20:03; Status DC Sodium Chloride 250 ml @ 15 mls/hr ONCE ONCE IV Last administered on 06:30; Start 03/13/17 at 06:30; Stop 03/13/17 at 23:09; Status DC Sodium Chloride 1,000 ml @ 75 mls/hr [id number] IV Last administered on 04:18; Start 03/13/17 at 08:15; Stop 03/15/17 at 13:03; Status DC Water (Free Water) VOLUME: 200 ML Q6H G-TUBE Last administered on 03/16/17 14: 38; Start 03/13/17 at 09:00 Iohexol (Omnipaque 350 Inj) 70 ml STK-MED ONCE IVCONTRAST Last administered on 03/13/17 08:45; Start 03/13/17 at 08:45; Stop 03/13/17 at 08:46; Status DC Dexamethasone Sodium Phosphate (Decadron Inj) 8 mg Q12HR IV Last administered on 03/16/17 20:29; Start 03/14/17 at 09:00; Stop 03/16/17 at 21:01; Status DC Albuterol/ Ipratropium (Duoneb Neb) 1 ampule Q6HR NEB INH Last administered on 03/18/17 15:57; Start 03/14/17 at 22:00 Quetiapine Fumarate (SEROquel) 50 mg Q8HR PO Last administered on 03/18/17 14 :03; Start 03/15/17 at 14:00 Furosemide (Lasix Inj) 40 mg ONCE ONCE IV PUSH Last administered on 03/15/17 14:15; Start 03/15/17 at 13:15; Stop 03/15/17 at 13:16; Status DC Vancomycin HCl 1500 mg/Sodium Chloride 515 ml @ 257.5 mls/ hr Q24H IV Last administered on 03/18/17 00:09; Start 03/16/17 at 21:00 Miscellaneous Information SPECIFIC LAB TO BE DRAWN:VANCO TROUGH DATE TO BE DR... ONCE ONCE .XX ; Start 03/19/17 at 20:45; Stop 11/11/17 at 20:46 Hydralazine HCl (Apresoline Inj) 20 mg Q4H PRN IV SYS BP GREATER THAN 160 MMHG Last administered on 03/18/17 00:09; Start 03/16/17 at 03:30 Dexmedetomidine HCl 1000 mcg/ Sodium Chloride 260 ml @ 4.32 mls/hr TITRATE PRN IV SEDATION Last administered on 03/16/17 09:02; Start 03/16/17 at 06:45; Stop 03/17/17 at 12:00; Status DC Propranolol HCl (Inderal) 40 mg Q8HR PO Last administered on 03/18/17 14:03; Start 03/17/17 at 14:00 Bumetanide (Bumex Inj) 1 mg BID@09,18 IV PUSH Last administered on 03/18/17 08:18; Start 03/17/17 at 12:00; Stop 03/19/17 at 11:59 Potassium Bicarb/ Potassium Chloride (K-Lyte Cl Eff) 25 meq Q12HR NG Last administered on 03/18/17 08:18; Start 03/17/17 at 12:00; Stop 03/19/17 at 11: 59 Albumin Human 50 ml @ 60 mls/hr Q12H IV Last administered on 03/18/17 14:03; Start 03/17/17 at 14:00; Stop 03/19/17 at 13:59 Famotidine (Pepcid) 20 mg BID PO Last administered on 03/18/17 08:18; Start 03/17/17 at 12:00 Urinary Catheter: Yes Assessment to: Continue Pitt insert reason: Obstruction/Retention Vascular Central Line Catheter: Yes Assessment to: Continue Line: Central Venous Catheter Side: Left Location: Internal, Jugular A/P Assessment and Plan Assessment: 66yF originally admitted for suspected opiate overdose, probably with prolonged opiate/polysubstance withdrawal. Now intubated for hypoxic respiratory failure. aspiration pneumonia with MRSA, proteus and PSAE growing on sputum culture. Encephalopathy Improving. neurology following and appreciate recommendations. Neuro: Polysubstance Abuse Prolonged polysubstance withdrawal Agitated Delirium Toxic Encephalopathy - Re consulted psych to follow along - haldol 5mg iv q4h prn agitation - ativan 2mg iv q15min prn withdraw symptoms - Seroquel to 50mg po q8hr. - restraints for patient safety- DC today - DC Precedex and Fentanyl - folate, tsh, free t4 all wnl 03/12. - IV thiamine. - MRI brain 03/12 wnl - LP 03/12 no evidence of acute infection. protein and glucose normal. no wbc. - 14-3-3 protein send out lab pending. - neurology following. Resp/ENT: Acute hypoxic respiratory failure - persistent. Bilateral infiltrates/Pneumonia Neck, R parotid gland swelling - Extubated 03/16/17 tolerating well - wean fio2 for spo2 > 90% - sputum culture 03/12/17 growing both MRSA, proteus, PSAE. continue broad spectrum abx - CT neck showing soft tissue swelling and an last parotid gland on the right side-possible parotiditis continue broad-spectrum antibiotics CV: Sinus tachycardia - secondary to polysubstance withdraw - monitor clinically - holding clonidine given borderline hypotension. - Start Inderal 40 mg q8 with weaning parameters FEN/GI Acute protein calorie malnutrition - moderate Hypernatremia Hyperchloremia - ICU electrolyte protocol - Heart healthy diuet - nutrition consult for goal recs Heme/ID: Aspiration Pneumonia, HCAP - Vancomycin with pharmacy dosing - Zosyn 4.5gm iv q6h - sputum 03/12: MRSA, proteus, PSAE Endo: Hyperglycemia of critical illness - ssi, med scale, q6h Prophylaxis: - pepcid - SCDs, Lovenox HYPOKALEMIA REPLACE BY PROTOCOLS HYPOMAGNESIA-REPLACE BY PROTOCOLS AM LABS Discharge Planning NEEDS PT AN OT MONITOR IN ICU TODAY OUT OF ICU IF STABLE TOMORROW Hay Wolf DO Mar 18, 2017 17:11
[2017-03-18] MEDS: ENOXAPARIN SODIUM 40 MG/0.4 ML SYRINGE SQ SCH (17:13)
[2017-03-18] MEDS: MAGNESIUM SULFATE 1 GM PREMIX 100 ML IV SCH ×2 (17:39→18:44)
[2017-03-19] VITALS (14 sets, daily range): BP systolic 147–178; BP diastolic 77–91; PULSE 68–88; RESP 20–26; TEMP 97.6–99.1; O2SAT 96–99
[2017-03-19] MEDS: ALBUMIN 25% INJ 50 ML IV SCH (01:31)
[2017-03-19] MEDS: FREE WATER G-TUBE SCH ×4 (03:00→21:00)
[2017-03-19] MEDS: CHLORHEXIDINE GLUCONATE 2 % 1 PACK (2 CLOTHS) TOP SCH (03:09)
[2017-03-19] MEDS: QUEtiapine FUMARATE 25 MG TAB PO SCH ×3 (05:49→21:27)
[2017-03-19] MEDS: PROPRANOLOL HCL 40 MG TAB PO SCH ×3 (05:49→21:26)
[2017-03-19] MEDS: PIPERACIL-TAZO 4.5 GM PREMIX 100 ML IV SCH ×4 (05:50→21:27)
[2017-03-19 07:40] LABS: ALKALINE PHOSPHATASE 83 U/L (45-117); ALT (GPT) 19 U/L (10-53); ANION GAP 10 MEQ/L (5-15); AST (GOT) 21 U/L (15-37); BICARBONATE 28.8 MEQ/L (21.0-32.0); BLOOD UREA NITROGEN 12 MG/DL (7-18); CHLORIDE 101 MEQ/L (98-107); FREE T4 0.78 NG/DL (0.76-1.46); GLOMERULAR FILTRATION RATE 66 ML/MIN (>89); MAGNESIUM 2.2 MG/DL (1.5-2.5); POTASSIUM 3.9 MEQ/L (3.5-5.1); SODIUM (NA) 140 MEQ/L (136-145); TOTAL BILIRUBIN ADULT 0.6 MG/DL (0.2-1.0)
[2017-03-19] MEDS: THIAMINE INJ 100 MG in SODIUM CHLORIDE 0.9% INJ 100 ML IV SCH ×2 (09:00→15:56)
[2017-03-19] MEDS: BUMETANIDE INJ 1 MG/4 ML VIAL IV PUSH SCH (09:12)
[2017-03-19] MEDS: FAMOTIDINE 20 MG TAB PO SCH ×2 (09:12→21:26)
[2017-03-19] MEDS: POTASSIUM CHLORIDE 25 MEQ EFFERVESCENT TAB NG SCH (09:12)
[2017-03-19] MEDS: INSULIN NovoLIN REGULAR SUPPLEMENTAL SCALE SQ SCH ×4 (12:00→23:17)
[2017-03-19 12:35] LABS: BASOPHIL # 0.1 TH/MM3 (0-0.2); BASOPHIL % 0.5 % (0.0-2.0); EOSINOPHIL # 0.2 TH/MM3 (0-0.4); EOSINOPHIL % 1.7 % (0.0-4.0); HEMATOCRIT 30.5 % (35.0-46.0); HEMO FLAGS DIFF FINAL; LYMPH % 9.6 % (9.0-44.0); LYMPHOCYTE # 1.3 TH/MM3 (1.0-4.8); MEAN CELL VOLUME 103.8 FL (80.0-100.0); MEAN CORPUSCULAR HEMOGLOBIN 34.8 PG (27.0-34.0); MEAN CORPUSCULAR HGB CONC 33.5 % (32.0-36.0); MONO % 11.2 % (0.0-8.0); PLATELET COUNT 213 TH/MM3 (150-450); RED BLOOD COUNT 2.94 MIL/MM3 (4.00-5.30)
[2017-03-19] MEDS: ENOXAPARIN SODIUM 40 MG/0.4 ML SYRINGE SQ SCH (17:33)
--- NOTE | 2017-03-19 19:08 | HHI.PR ---
Subjective Remarks As per RN report the patient is having diarrhea. Patient c/o diffuse abdominal pain Patient is sating 99% on 2 liters nasal canula. Objective Vitals Vital Signs Date Time Temp Pulse Resp B/P (MAP) Pulse Ox O2 Delivery O2 Flow Rate FiO2 03/19/17 18:00 82 03/19/17 16:00 70 03/19/17 16:00 98.0 78 22 154/77 (102) 97 03/19/17 14:00 70 03/19/17 12:00 70 03/19/17 12:00 98.0 78 22 147/80 (102) 97 03/19/17 10:00 70 03/19/17 08:26 97 Nasal Cannula 2.00 03/19/17 08:00 70 03/19/17 08:00 98.0 68 22 173/91 (118) 97 03/19/17 06:00 83 03/19/17 04:00 97.8 75 24 178/87 (117) 96 03/19/17 04:00 84 03/19/17 02:00 84 03/19/17 00:00 83 03/19/17 00:00 97.6 72 20 153/82 (105) 98 03/18/17 22:00 81 03/18/17 20:30 99 Nasal Cannula 2.00 03/18/17 20:00 75 03/18/17 20:00 97.9 75 20 149/79 (102) 96 03/18/17 19:18 98 Nasal Cannula 4.00 I/O 03/18/17 03/18/17 03/18/17 03/19/17 03/19/17 03/19/17 07:00 15:00 23:00 07:00 15:00 23:00 Intake Total 955 ml 195 ml 566 ml 898 ml 521 ml Output Total 4900 ml 1600 ml 1750 ml 1750 ml Balance -3945 ml 195 ml -1034 ml -852 ml -1229 ml Intake Oral 240 ml 120 ml 320 ml IV Total 665 ml 195 ml 566 ml 778 ml 201 ml Albumin 50 ml Output Urine Total 4900 ml 1600 ml 1750 ml 1750 ml # Bowel Movements 2 2 2 Result Diagram: 03/19/17 1145 03/19/17 06 Imaging Last Impressions Chest X-Ray 03/18/17 0600 Signed Impressions: Service Date/Time: Saturday, March 18, 2017 04:56 - CONCLUSION: 1. Patchy alveolar disease characteristic of edema or pneumonia. 2. Uncomplicated line placement. No evidence of pneumothorax. Mg Kendrick MD Neck CT 03/13/17 0000 Signed Impressions: Service Date/Time: Monday, March 13, 2017 08:41 - CONCLUSION: There is diffuse soft tissue swelling of the right neck compared to the left. The right parotid gland is also larger than mild left without drainable fluid collection or mass. No drainable abscess or significant pathologic lymphadenopathy is noted Barry Riggs MD Brain MRI 03/12/17 0000 Signed Impressions: Service Date/Time: Sunday, March 12, 2017 14:39 - CONCLUSION: Negative noncontrast MRI of the brain. Ildefonso Osullivan MD Objective Remarks Awake and alert to person only Lungs are clear to auscultation bilaterally S1S2 RRR, no MRG abdomen soft, diffusely tender to palpation no edema in lower extremities Procedures LEFT IJ CATHETER 11-10 Medications and IVs Current Medications Medications (Trade) Dose Ordered Sig/Bryan Route Start Time Stop Time Status Last Admin (Valium) 20 mg Q8HR PO 03/10/17 18:00 Future Hold 03/13/17 06:26 (Haldol Inj) 5 mg Q4H PRN IV 03/10/17 17:00 03/17/17 08:18 (Catapres) 0.3 mg Q8HR PO 03/10/17 18:00 Future Hold 03/12/17 21:22 (D50w (Vial) Inj) 25 ml UNSCH PRN IV PUSH 03/10/17 17:15 (NovoLIN R SUPPLEMENTAL SCALE) 1 Q6HR SQ 03/10/17 18:00 03/16/17 12:00 (Duoneb Neb) 1 ampule Q2HR NEB PRN INH 03/10/17 17:15 (Zofran Inj) 4 mg Q6H PRN IV PUSH 03/10/17 17:15 03/15/17 13:03 (Lovenox Inj) 40 mg Q24H SQ 03/10/17 18:00 03/19/17 17:33 Miscellaneous Information 1 Q361D XX 03/10/17 17:15 (Chlorhexidine 2% Cloth) Taper DAILY@04 TOP 03/11/17 04:00 03/07/18 03:59 03/15/17 03:03 (Chlorhexidine 2% Cloth) 3 pack UNSCH PRN TOP 03/10/17 17:15 Potassium Chloride 100 ml @ 50 mls/hr Q2H PRN IV 03/11/17 08:45 03/18/17 21:04 Potassium Chloride 100 ml @ 50 mls/hr Q2H PRN IV 03/11/17 08:45 03/14/17 15:59 (K-Lyte Cl Eff) 50 meq UNSCH PRN PO 03/11/17 08:45 Potassium Chloride 100 ml @ 25 mls/hr UNSCH PRN IV 03/11/17 08:45 Potassium Chloride 100 ml @ 50 mls/hr Q2H PRN IV 03/11/17 08:45 03/17/17 08:19 Magnesium Sulfate 4 gm/Sodium Chloride 100 ml @ 50 mls/hr UNSCH PRN IV 03/11/17 08:45 (Mag-Ox) 800 mg UNSCH PRN PO 03/11/17 08:45 Magnesium Sulfate 2 gm/Sodium Chloride 100 ml @ 50 mls/hr UNSCH PRN IV 03/11/17 08:45 (K-Phos) 2,000 mg Q4H PRN PO 03/11/17 08:45 Sodium Phosphate 30 mmol/Sodium Chloride 250 ml @ 42 mls/hr UNSCH PRN IV 03/11/17 08:45 (K-Phos) 2,000 mg UNSCH PRN PO/TUBE 03/11/17 08:45 Potassium Phosphate 30 mmol/ Sodium Chloride 260 ml @ 42 mls/hr UNSCH PRN IV 03/11/17 08:45 Thiamine HCl 100 mg/Sodium Chloride 101 ml @ 101 mls/hr DAILY IV 03/12/17 12:00 03/19/17 15:56 Pharmacy Profile Note 0 ml @ 0 mls/hr UNSCH OTHER 03/12/17 10:30 Piperacillin Sod/ Tazobactam Sod 100 ml @ 200 mls/hr Q6H IV 03/12/17 11:00 03/19/17 21:27 (Free Water) VOLUME: 200 ML Q6H G-TUBE 03/13/17 09:00 03/16/17 14:38 (SEROquel) 50 mg Q8HR PO 03/15/17 14:00 03/19/17 21:27 Vancomycin HCl 1500 mg/Sodium Chloride 515 ml @ 257.5 mls/ hr Q24H IV 03/16/17 21:00 03/18/17 21:05 (Apresoline Inj) 20 mg Q4H PRN IV 03/16/17 03:30 03/18/17 00:09 (Inderal) 40 mg Q8HR PO 03/17/17 14:00 03/19/17 21:26 (Pepcid) 20 mg BID PO 03/17/17 12:00 03/19/17 21:26 Miscellaneous Information SPECIFIC LAB TO BE DRAWN:VANCO TROUGH DATE TO BE DR[facility].. ONCE ONCE .XX 03/20/17 20:45 03/20/17 20:46 Line: Central Venous Catheter Side: Left Location: Internal, Jugular A/P Assessment and Plan Assessment: 66yF originally admitted for suspected opiate overdose, probably with prolonged opiate/polysubstance withdrawal. Now intubated for hypoxic respiratory failure. aspiration pneumonia with MRSA, proteus and PSAE growing on sputum culture. Encephalopathy Improving. neurology following and appreciate recommendations. Neuro: Polysubstance Abuse Prolonged polysubstance withdrawal Agitated Delirium Toxic Encephalopathy - Re consulted psych to follow along - haldol 5mg iv q4h prn agitation - ativan 2mg iv q15min prn withdraw symptoms - Seroquel to 50mg po q8hr. - restraints for patient safety- DC today - DC Precedex and Fentanyl - folate, tsh, free t4 all wnl 03/12. - IV thiamine. - MRI brain 03/12 wnl - LP 03/12 no evidence of acute infection. protein and glucose normal. no wbc. - 14-3-3 protein send out lab pending. - neurology following. Resp/ENT: Acute hypoxic respiratory failure - persistent. Bilateral infiltrates/Pneumonia Neck, R parotid gland swelling - Extubated 03/16/17 tolerating well - wean fio2 for spo2 > 90% - sputum culture 03/12/17 growing both MRSA, proteus, PSAE. continue broad spectrum abx - CT neck showing soft tissue swelling and an last parotid gland on the right side-possible parotiditis continue broad-spectrum antibiotics CV: Sinus tachycardia - secondary to polysubstance withdraw - monitor clinically - holding clonidine given borderline hypotension. - Start Inderal 40 mg q8 with weaning parameters FEN/GI Acute protein calorie malnutrition - moderate Hypernatremia Hyperchloremia Diarrhea - ICU electrolyte protocol - Heart healthy diuet - nutrition consult for goal recs - 03/19 will check for C diff pcr, will also order a Dignishield. Heme/ID: Aspiration Pneumonia, HCAP - Vancomycin with pharmacy dosing - Zosyn 4.5gm iv q6h - sputum 03/12: MRSA, proteus, PSAE Endo: Hyperglycemia of critical illness - ssi, med scale, q6h Prophylaxis: - pepcid - SCDs, Lovenox Discharge Planning transfer patient out of unit in am if stable. Andrew Kemp MD Mar 19, 2017 19:08
[2017-03-19] MEDS ORDERED: PHARMACY ORDERED LAB ONE (20:45)
[2017-03-19] MEDS: VANCOMYCIN INJ 1,500 MG in SODIUM CHLORID 0.9% 500 ML INJ 500 ML IV SCH (22:48)
[2017-03-20] VITALS (14 sets, daily range): BP systolic 143–153; BP diastolic 72–87; PULSE 71–84; RESP 18–27; TEMP 98.4–99; O2SAT 97–100
[2017-03-20] MEDS: HALOPERIDOL LACTATE 5 MG/ML AMP IV PRN (00:17)
[2017-03-20 01:42] LABS: C. DIFF EPI 027 PRESUMPTIVE NEGATIVE (NEGATIVE)
[2017-03-20] MEDS: FREE WATER G-TUBE SCH ×4 (02:33→23:49)
[2017-03-20] MEDS: CHLORHEXIDINE GLUCONATE 2 % 1 PACK (2 CLOTHS) TOP SCH ×2 (04:00→23:47)
[2017-03-20] MEDS: PIPERACIL-TAZO 4.5 GM PREMIX 100 ML IV SCH ×4 (05:13→23:46)
[2017-03-20] MEDS: INSULIN NovoLIN REGULAR SUPPLEMENTAL SCALE SQ SCH ×4 (05:13→23:48)
[2017-03-20] MEDS: PROPRANOLOL HCL 40 MG TAB PO SCH ×3 (05:13→21:06)
[2017-03-20] MEDS: QUEtiapine FUMARATE 25 MG TAB PO SCH ×3 (05:13→21:06)
[2017-03-20] MEDS: THIAMINE INJ 100 MG in SODIUM CHLORIDE 0.9% INJ 100 ML IV SCH (08:22)
[2017-03-20] MEDS: FAMOTIDINE 20 MG TAB PO SCH ×2 (08:23→21:06)
[2017-03-20 10:18] LABS: HEMOGLOBIN A1a 1.2 %; HEMOGLOBIN A1b 0.8 %; HEMOGLOBIN Ao 85.8 %; HEMOGLOBIN F 1.1 %; HEMOGLOBIN LA1C 2.2 %
[2017-03-20] MEDS: ENOXAPARIN SODIUM 40 MG/0.4 ML SYRINGE SQ SCH (17:34)
--- NOTE | 2017-03-20 18:53 | HHI.PR ---
Subjective Remarks Patient denies cp/sob. Still having diarrhea denies fevers or chills vital signs stable Objective Vitals Vital Signs Date Time Temp Pulse Resp B/P (MAP) Pulse Ox O2 Delivery O2 Flow Rate FiO2 03/20/17 18:00 74 03/20/17 16:00 74 03/20/17 16:00 98.5 80 24 143/81 (101) 99 03/20/17 14:00 74 03/20/17 12:00 74 03/20/17 12:00 99.0 84 24 150/84 (106) 99 03/20/17 10:00 74 03/20/17 09:19 100 Nasal Cannula 2.00 03/20/17 08:00 74 03/20/17 08:00 98.5 71 22 146/77 (100) 100 03/20/17 06:00 74 03/20/17 04:00 72 03/20/17 04:00 98.5 72 27 145/87 (106) 100 03/20/17 02:00 75 03/20/17 00:00 72 03/20/17 00:00 98.4 72 18 143/72 (95) 97 03/19/17 22:00 88 03/19/17 20:22 99 Nasal Cannula 2.00 03/19/17 20:00 99.1 72 26 151/77 (101) 98 03/19/17 20:00 72 I/O 03/19/17 03/19/17 03/19/17 03/20/17 03/20/17 03/20/17 07:00 15:00 23:00 07:00 15:00 23:00 Intake Total 898 ml 621 ml 1353 ml 101 ml 380 ml Output Total 1750 ml 1750 ml 1550 ml 1300 ml Balance -852 ml -1129 ml -197 ml 101 ml -920 ml Intake Oral 120 ml 320 ml 280 ml IV Total 778 ml 301 ml 1353 ml 101 ml 100 ml Output Urine Total 1750 ml 1750 ml 950 ml 950 ml Stool Total 600 ml 350 ml # Bowel Movements 2 Result Diagram: 03/19/17 1145 03/19/17 06 Imaging Last Impressions Chest X-Ray 03/18/17 06 Signed Impressions: Service Date/Time: Saturday, March 18, 2017 04:56 - CONCLUSION: 1. Patchy alveolar disease characteristic of edema or pneumonia. 2. Uncomplicated line placement. No evidence of pneumothorax. Mg Kendrick MD Neck CT 03/13/17 0000 Signed Impressions: Service Date/Time: Monday, March 13, 2017 08:41 - CONCLUSION: There is diffuse soft tissue swelling of the right neck compared to the left. The right parotid gland is also larger than mild left without drainable fluid collection or mass. No drainable abscess or significant pathologic lymphadenopathy is noted Barry Riggs MD Brain MRI 03/12/17 0000 Signed Impressions: Service Date/Time: Sunday, March 12, 2017 14:39 - CONCLUSION: Negative noncontrast MRI of the brain. Ildefonso Osullivan MD Objective Remarks Awake and alert to person only Lungs are clear to auscultation bilaterally S1S2 RRR, no MRG abdomen soft, diffusely tender to palpation no edema in lower extremities Procedures LEFT IJ CATHETER 11-10 Medications and IVs Current Medications Medications (Trade) Dose Ordered Sig/Bryan Route Start Time Stop Time Status Last Admin (Valium) 20 mg Q8HR PO 03/10/17 18:00 Future Hold 03/13/17 06:26 (Haldol Inj) 5 mg Q4H PRN IV 03/10/17 17:00 03/20/17 00:17 (Catapres) 0.3 mg Q8HR PO 03/10/17 18:00 Future Hold 03/12/17 21:22 (D50w (Vial) Inj) 25 ml UNSCH PRN IV PUSH 03/10/17 17:15 (NovoLIN R SUPPLEMENTAL SCALE) 1 Q6HR SQ 03/10/17 18:00 03/16/17 12:00 (Duoneb Neb) 1 ampule Q2HR NEB PRN INH 03/10/17 17:15 (Zofran Inj) 4 mg Q6H PRN IV PUSH 03/10/17 17:15 03/15/17 13:03 (Lovenox Inj) 40 mg Q24H SQ 03/10/17 18:00 03/20/17 17:34 Miscellaneous Information 1 Q361D XX 03/10/17 17:15 (Chlorhexidine 2% Cloth) Taper DAILY@04 TOP 03/11/17 04:00 03/07/18 03:59 03/15/17 03:03 (Chlorhexidine 2% Cloth) 3 pack UNSCH PRN TOP 03/10/17 17:15 Potassium Chloride 100 ml @ 50 mls/hr Q2H PRN IV 03/11/17 08:45 03/18/17 21:04 Potassium Chloride 100 ml @ 50 mls/hr Q2H PRN IV 03/11/17 08:45 03/14/17 15:59 (K-Lyte Cl Eff) 50 meq UNSCH PRN PO 03/11/17 08:45 Potassium Chloride 100 ml @ 25 mls/hr UNSCH PRN IV 03/11/17 08:45 Potassium Chloride 100 ml @ 50 mls/hr Q2H PRN IV 03/11/17 08:45 03/17/17 08:19 Magnesium Sulfate 4 gm/Sodium Chloride 100 ml @ 50 mls/hr UNSCH PRN IV 03/11/17 08:45 (Mag-Ox) 800 mg UNSCH PRN PO 03/11/17 08:45 Magnesium Sulfate 2 gm/Sodium Chloride 100 ml @ 50 mls/hr UNSCH PRN IV 03/11/17 08:45 (K-Phos) 2,000 mg Q4H PRN PO 03/11/17 08:45 Sodium Phosphate 30 mmol/Sodium Chloride 250 ml @ 42 mls/hr UNSCH PRN IV 03/11/17 08:45 (K-Phos) 2,000 mg UNSCH PRN PO/TUBE 03/11/17 08:45 Potassium Phosphate 30 mmol/ Sodium Chloride 260 ml @ 42 mls/hr UNSCH PRN IV 03/11/17 08:45 Thiamine HCl 100 mg/Sodium Chloride 101 ml @ 101 mls/hr DAILY IV 03/12/17 12:00 03/20/17 08:22 Pharmacy Profile Note 0 ml @ 0 mls/hr UNSCH OTHER 03/12/17 10:30 Piperacillin Sod/ Tazobactam Sod 100 ml @ 200 mls/hr Q6H IV 03/12/17 11:00 03/20/17 17:35 (Free Water) VOLUME: 200 ML Q6H G-TUBE 03/13/17 09:00 03/16/17 14:38 (SEROquel) 50 mg Q8HR PO 03/15/17 14:00 03/20/17 14:56 (Apresoline Inj) 20 mg Q4H PRN IV 03/16/17 03:30 03/18/17 00:09 (Inderal) 40 mg Q8HR PO 03/17/17 14:00 03/20/17 14:56 (Pepcid) 20 mg BID PO 03/17/17 12:00 03/20/17 08:23 Miscellaneous Information SPECIFIC LAB TO BE DRAWN:VANCO TROUGH DATE TO BE DR... ONCE ONCE .XX 03/20/17 20:45 03/20/17 20:46 Vancomycin HCl 1250 mg/Sodium Chloride 262.5 ml @ 250 mls/hr Q24H IV 03/21/17 09:00 Miscellaneous Information SPECIFIC LAB TO BE DRAWN:VANCOMYCIN TROUGH DATE TO... ONCE ONCE .XX 03/24/17 08:45 03/24/17 08:46 Line: Central Venous Catheter Side: Left Location: Internal, Jugular A/P Assessment and Plan Assessment: 66yF originally admitted for suspected opiate overdose, probably with prolonged opiate/polysubstance withdrawal. Now intubated for hypoxic respiratory failure. aspiration pneumonia with MRSA, proteus and PSAE growing on sputum culture. Encephalopathy Improving. neurology following and appreciate recommendations. Neuro: Polysubstance Abuse Prolonged polysubstance withdrawal Agitated Delirium Toxic Encephalopathy - Re consulted psych to follow along - haldol 5mg iv q4h prn agitation - ativan 2mg iv q15min prn withdraw symptoms - Seroquel to 50mg po q8hr. - restraints for patient safety- DC today - DC Precedex and Fentanyl - folate, tsh, free t4 all wnl 03/12. - IV thiamine. - MRI brain 03/12 wnl - LP 03/12 no evidence of acute infection. protein and glucose normal. no wbc. - 14-3-3 protein send out lab pending. - neurology following. Resp/ENT: Acute hypoxic respiratory failure - persistent. Bilateral infiltrates/Pneumonia Neck, R parotid gland swelling - Extubated 03/16/17 tolerating well - wean fio2 for spo2 > 90% - sputum culture 03/12/17 growing both MRSA, proteus, PSAE. continue broad spectrum abx - CT neck showing soft tissue swelling and an last parotid gland on the right side-possible parotiditis continue broad-spectrum antibiotics CV: Sinus tachycardia - secondary to polysubstance withdraw - monitor clinically - holding clonidine given borderline hypotension. - Start Inderal 40 mg q8 with weaning parameters FEN/GI Acute protein calorie malnutrition - moderate Hypernatremia Hyperchloremia Diarrhea - ICU electrolyte protocol - Heart healthy diuet - nutrition consult for goal recs - c diff negative. will start Imodium and Lactobacillus Acidophilous. Heme/ID: Aspiration Pneumonia, HCAP - Vancomycin with pharmacy dosing - Zosyn 4.5gm iv q6h - sputum 03/12: MRSA, proteus, PSAE Endo: Hyperglycemia of critical illness - ssi, med scale, q6h Prophylaxis: - pepcid - SCDs, Lovenox Discharge Planning transfer patient out of unit in am if stable. Andrew Kemp MD Mar 20, 2017 18:53
[2017-03-20] MEDS ORDERED: LOPERAMIDE HCL 2 MG CAP PO PRN (19:30)
[2017-03-20] MEDS ORDERED: PHARMACY ORDERED LAB ONE (20:45)
[2017-03-21] VITALS (21 sets, daily range): BP systolic 116–168; BP diastolic 57–103; PULSE 72–89; RESP 16–35; TEMP 98–99; O2SAT 97–100
[2017-03-21] MEDS: FREE WATER G-TUBE SCH ×4 (03:00→20:25)
[2017-03-21] MEDS: PIPERACIL-TAZO 4.5 GM PREMIX 100 ML IV SCH ×4 (04:35→21:31)
[2017-03-21] MEDS: QUEtiapine FUMARATE 25 MG TAB PO SCH ×3 (04:36→20:25)
[2017-03-21] MEDS: PROPRANOLOL HCL 40 MG TAB PO SCH ×3 (04:36→20:25)
[2017-03-21] MEDS: INSULIN NovoLIN REGULAR SUPPLEMENTAL SCALE SQ SCH ×3 (06:00→18:00)
[2017-03-21 06:26] LABS: ALT (GPT) 17 U/L (10-53); ANION GAP 10 MEQ/L (5-15); AST (GOT) 22 U/L (15-37); BICARBONATE 26.4 MEQ/L (21.0-32.0); BLOOD UREA NITROGEN 10 MG/DL (7-18); CHLORIDE 101 MEQ/L (98-107); GLOMERULAR FILTRATION RATE 73 ML/MIN (>89); MAGNESIUM 2.2 MG/DL (1.5-2.5); POTASSIUM 3.1 MEQ/L (3.5-5.1); SODIUM (NA) 137 MEQ/L (136-145)
[2017-03-21 06:28] LABS: ALKALINE PHOSPHATASE 79 U/L (45-117); TOTAL BILIRUBIN ADULT 0.5 MG/DL (0.2-1.0)
[2017-03-21 06:29] LABS: AUTOMATED NEUTROPHIL # 7.9 TH/MM3 (1.8-7.7); BASOPHIL # 0.1 TH/MM3 (0-0.2); BASOPHIL % 0.8 % (0.0-2.0); EOSINOPHIL # 0.2 TH/MM3 (0-0.4); EOSINOPHIL % 2.2 % (0.0-4.0); HEMATOCRIT 23.3 % (35.0-46.0); LYMPH % 11.9 % (9.0-44.0); LYMPHOCYTE # 1.3 TH/MM3 (1.0-4.8); MEAN CELL VOLUME 104.4 FL (80.0-100.0); MEAN CORPUSCULAR HEMOGLOBIN 35.4 PG (27.0-34.0); MEAN CORPUSCULAR HGB CONC 33.9 % (32.0-36.0); MONO % 11.6 % (0.0-8.0); NEUT % 73.5 % (16.0-70.0); PLATELET COUNT 202 TH/MM3 (150-450); RED BLOOD COUNT 2.24 MIL/MM3 (4.00-5.30); RED CELL DISTRIBUTION WIDTH 19.6 % (11.6-17.2); WHITE BLOOD COUNT 10.7 TH/MM3 (4.0-11.0)
[2017-03-21 06:46] LABS: HEMO FLAGS AUTO DIFF
[2017-03-21] MEDS: THIAMINE INJ 100 MG in SODIUM CHLORIDE 0.9% INJ 100 ML IV SCH (08:14)
[2017-03-21] MEDS: LACTOBACILLUS ACIDOPHILUS TAB PO SCH ×3 (08:14→18:38)
[2017-03-21] MEDS: VANCOMYCIN INJ 1,250 MG in SODIUM CHLOR 0.9% 250 ML INJ 250 ML IV SCH (08:14)
[2017-03-21] MEDS: FAMOTIDINE 20 MG TAB PO SCH ×2 (08:14→20:25)
[2017-03-21] MEDS: POTASSIUM CHLOR 40 MEQ PREMIX 100 ML IV PRN ×2 (08:30→10:26)
[2017-03-21 10:22] LABS: BANDS 15 % (0-6); MYELOCYTES 1 % (0-0); NEUTROPHIL # MANUAL DIFF 9.3 TH/MM3 (1.8-7.7); PLATELET ESTIMATE SMEAR NORMAL (NORMAL); PLATELET MORPHOLOGY NORMAL (NORMAL); POLYS (SEG NEUTROPHILS) 71 % (16-70); SCAN/DIFF FINAL DIFF MANUAL; TOXIC GRANULATION 2+ (NORMAL); WBC DIFF SAMPLE 100
--- NOTE | 2017-03-21 13:38 | HHI.PR ---
Subjective Remarks no complains stools brown ellison draining- clear urine Objective Vitals Vital Signs Date Time Temp Pulse Resp B/P (MAP) Pulse Ox O2 Delivery O2 Flow Rate FiO2 03/21/17 12:00 84 03/21/17 12:00 98.0 84 23 149/87 (107) 99 03/21/17 11:00 80 03/21/17 10:00 84 03/21/17 09:00 80 03/21/17 08:00 72 03/21/17 08:00 98.1 72 25 116/57 (76) 100 03/21/17 07:52 100 Nasal Cannula 4.00 03/21/17 07:00 75 03/21/17 06:00 83 03/21/17 04:00 81 03/21/17 04:00 99.0 81 18 168/77 (107) 100 03/21/17 02:00 76 03/21/17 00:00 77 03/21/17 00:00 98.6 77 35 119/61 (80) 100 03/20/17 22:00 84 03/20/17 20:21 100 Nasal Cannula 2.00 03/20/17 20:00 77 03/20/17 20:00 98.8 77 23 153/87 (109) 100 03/20/17 18:00 74 03/20/17 16:00 74 03/20/17 16:00 98.5 80 24 143/81 (101) 99 03/20/17 14:00 74 I/O 03/20/17 03/20/17 03/20/17 03/21/17 03/21/17 03/21/17 07:00 15:00 23:00 07:00 15:00 23:00 Intake Total 1353 ml 101 ml 380 ml 100 ml Output Total 1550 ml 1300 ml 1350 ml Balance -197 ml 101 ml -920 ml -1250 ml Intake Oral 280 ml IV Total 1353 ml 101 ml 100 ml 100 ml Output Urine Total 950 ml 950 ml 850 ml Stool Total 600 ml 350 ml 500 ml Result Diagram: 03/21/17 0450 03/21/17 0450 Imaging Last Impressions Chest X-Ray 03/18/17 0600 Signed Impressions: Service Date/Time: Saturday, March 18, 2017 04:56 - CONCLUSION: 1. Patchy alveolar disease characteristic of edema or pneumonia. 2. Uncomplicated line placement. No evidence of pneumothorax. Mg Kendrick MD Neck CT 03/13/17 0000 Signed Impressions: Service Date/Time: Monday, March 13, 2017 08:41 - CONCLUSION: There is diffuse soft tissue swelling of the right neck compared to the left. The right parotid gland is also larger than mild left without drainable fluid collection or mass. No drainable abscess or significant pathologic lymphadenopathy is noted Barry Riggs MD Brain MRI 03/12/17 0000 Signed Impressions: Service Date/Time: Sunday, March 12, 2017 14:39 - CONCLUSION: Negative noncontrast MRI of the brain. Ildefonso Osullivan MD Objective Remarks awake and alert, oriented x 3 anicteric lungs- no rales regular rhythm abdomen soft, nontender extremities no edema ellison in place dignishield in place- yellow brown stools Procedures LEFT IJ CATHETER 03-18 Urinary Catheter: Yes Assessment to: Continue Ellison insert reason: Prolonged Immobilization Line: Central Venous Catheter Side: Left Location: Internal, Jugular A/P Assessment and Plan Assessment: 66yF originally admitted for suspected opiate overdose, probably with prolonged opiate/polysubstance withdrawal. Now intubated for hypoxic respiratory failure. aspiration pneumonia with MRSA, proteus and PSAE growing on sputum culture. Encephalopathy Improving. neurology following and appreciate recommendations. Neuro: Polysubstance Abuse Prolonged polysubstance withdrawal Agitated Delirium Toxic Encephalopathy - Re consulted psych to follow along - haldol 5mg iv q4h prn agitation - ativan 2mg iv q15min prn withdraw symptoms - Seroquel to 50mg po q8hr. - restraints for patient safety- DC today - DC Precedex and Fentanyl - folate, tsh, free t4 all wnl 03/12. - IV thiamine. - MRI brain 03/12 wnl - LP 03/12 no evidence of acute infection. protein and glucose normal. no wbc. - 14-3-3 protein send out lab pending. - neurology following. Resp/ENT: Acute hypoxic respiratory failure - persistent. Bilateral infiltrates/Pneumonia Neck, R parotid gland swelling - Extubated 03/16/17 tolerating well - wean fio2 for spo2 > 90% - sputum culture 03/12/17 growing both MRSA, proteus, PSAE. continue broad spectrum abx - CT neck showing soft tissue swelling and an last parotid gland on the right side-possible parotiditis continue broad-spectrum antibiotics CV: Sinus tachycardia - secondary to polysubstance withdraw - monitor clinically - holding clonidine given borderline hypotension. - Start Inderal 40 mg q8 with weaning parameters FEN/GI Acute protein calorie malnutrition - moderate Hypernatremia Hyperchloremia Diarrhea - ICU electrolyte protocol - Heart healthy diuet - nutrition consult for goal recs - c diff negative. will start Imodium and Lactobacillus Acidophilous. Heme/ID: Aspiration Pneumonia, HCAP - Vancomycin with pharmacy dosing - Zosyn 4.5gm iv q6h - sputum 03/12: MRSA, proteus, PSAE Endo: Hyperglycemia of critical illness - ssi, med scale, q6h Hypokalemia - on replacement protocol Anemia- acute drop -check iron studies -recheck in am Prophylaxis: - pepcid - SCDs, Lovenox Discharge Planning transfer patient out of unit in am if stable. Diallo Garcia MD Mar 21, 2017 13:37
[2017-03-21 16:48] LABS: TRANSFERRIN IRON PROFILE 140 MG/DL (200-360)
[2017-03-21] MEDS: ENOXAPARIN SODIUM 40 MG/0.4 ML SYRINGE SQ SCH (18:38)
[2017-03-21] MEDS: HALOPERIDOL LACTATE 5 MG/ML AMP IV PRN (20:35)
[2017-03-22 04:00] VITALS: BP 164/88; PULSE 91; RESP 18; TEMP 98.3; O2SAT 94
[2017-03-22] MEDS: CHLORHEXIDINE GLUCONATE 2 % 1 PACK (2 CLOTHS) TOP SCH (04:00)
[2017-03-22] MEDS: PIPERACIL-TAZO 4.5 GM PREMIX 100 ML IV SCH (05:58)
[2017-03-22] MEDS: PROPRANOLOL HCL 40 MG TAB PO SCH ×3 (05:58→22:40)
[2017-03-22] MEDS: QUEtiapine FUMARATE 25 MG TAB PO SCH ×3 (05:58→22:40)
[2017-03-22] MEDS: INSULIN NovoLIN REGULAR SUPPLEMENTAL SCALE SQ SCH ×3 (06:00→11:35)
[2017-03-22 08:22] VITALS: BP 149/73; PULSE 79; RESP 18; TEMP 98.6; O2SAT 98
[2017-03-22] MEDS: FAMOTIDINE 20 MG TAB PO SCH ×2 (08:48→22:40)
[2017-03-22] MEDS: LACTOBACILLUS ACIDOPHILUS TAB PO SCH ×3 (08:48→17:19)
[2017-03-22] MEDS: VANCOMYCIN INJ 1,250 MG in SODIUM CHLOR 0.9% 250 ML INJ 250 ML IV SCH (08:48)
--- NOTE | 2017-03-22 09:24 | HHI.PR ---
Subjective Remarks Follow up for aspiration pneumonia, hypoxic respiratory failure requiring intubation, polysubstance abuse. Patient is currently doing well. However, she is confused. She thinks she is 14 years old and has been living in [place] for 20 years. She also says she has a kid that is 12 years old. She is not agitated. Objective Vitals Vital Signs Date Time Temp Pulse Resp B/P (MAP) Pulse Ox O2 Delivery O2 Flow Rate FiO2 03/22/17 08:22 98.6 79 18 149/73 (98) 98 03/22/17 04:00 98.3 91 18 164/88 (113) 94 03/21/17 23:30 98.3 80 16 157/90 (112) 100 03/21/17 22:00 77 03/21/17 20:00 80 03/21/17 20:00 98.5 83 22 130/103 (112) 100 03/21/17 19:04 99 Nasal Cannula 4.00 03/21/17 18:00 80 03/21/17 17:00 89 03/21/17 16:00 78 03/21/17 16:00 98.3 78 31 132/84 (100) 97 03/21/17 15:00 85 03/21/17 14:00 84 03/21/17 13:00 79 03/21/17 12:00 84 03/21/17 12:00 98.0 84 23 149/87 (107) 99 03/21/17 11:00 80 03/21/17 10:00 84 I/O 03/21/17 03/21/17 03/21/17 03/22/17 03/22/17 03/22/17 07:00 15:00 23:00 07:00 15:00 23:00 Intake Total 100 ml 663.5 ml 550 ml 100 ml Output Total 1350 ml 900 ml Balance -1250 ml 663.5 ml -350 ml 100 ml Intake Oral 350 ml IV Total 100 ml 663.5 ml 200 ml 100 ml Output Urine Total 850 ml 600 ml Stool Total 500 ml 300 ml # Voids 2 3 Result Diagram: 03/21/17 0450 03/21/17 1700 Imaging Last Impressions Chest X-Ray 03/18/17 0600 Signed Impressions: Service Date/Time: Saturday, March 18, 2017 04:56 - CONCLUSION: 1. Patchy alveolar disease characteristic of edema or pneumonia. 2. Uncomplicated line placement. No evidence of pneumothorax. Mg Kendrick MD Neck CT 03/13/17 0000 Signed Impressions: Service Date/Time: Monday, March 13, 2017 08:41 - CONCLUSION: There is diffuse soft tissue swelling of the right neck compared to the left. The right parotid gland is also larger than mild left without drainable fluid collection or mass. No drainable abscess or significant pathologic lymphadenopathy is noted Barry Riggs MD Brain MRI 03/12/17 0000 Signed Impressions: Service Date/Time: Sunday, March 12, 2017 14:39 - CONCLUSION: Negative noncontrast MRI of the brain. Ildefonso Osullivan MD Objective Remarks GENERAL: Alert, NAD. SKIN: Warm and dry. HEAD: Normocephalic. EYES: No scleral icterus. No injection or drainage. NECK: Supple, trachea midline. No JVD or lymphadenopathy. CARDIOVASCULAR: Regular rate and rhythm without murmurs, gallops, or rubs. RESPIRATORY: Breath sounds equal bilaterally. No accessory muscle use. GASTROINTESTINAL: Abdomen soft, non-tender, nondistended. MUSCULOSKELETAL: No cyanosis, or edema. BACK: Nontender without obvious deformity. No CVA tenderness. Procedures LEFT IJ CATHETER 11 Line: Central Venous Catheter Side: Left Location: Internal, Jugular A/P Assessment and Plan Neuro: Polysubstance Abuse Prolonged polysubstance withdrawal Agitated Delirium Toxic Encephalopathy - Re consulted psych to follow along. Patient can go to Psychiatry today/ tomorrow. - haldol 5mg iv q4h prn agitation - Seroquel to 50mg po q8hr. - folate, tsh, free t4 all wnl 03/12. - MRI brain 03/12 wnl - LP 03/12 no evidence of acute infection. protein and glucose normal. no wbc. - 14-3-3 protein send out lab pending. Resp/ENT: Acute hypoxic respiratory failure - persistent. Bilateral infiltrates/Pneumonia Neck, R parotid gland swelling - Extubated 03/16/17 tolerating well - wean fio2 for spo2 > 90% - sputum culture 03/12/17 growing both MRSA, proteus, PSAE. Currently on Vanc and Zosyn - CT neck showing soft tissue swelling and an last parotid gland on the right side-possible parotiditis - Patient has received about 10 days of IV Vanc/Zosyn. - Will continue Bactrim and Levaquin for 4 more days to complete a 14 day course of abx. CV: Sinus tachycardia - resolved. - secondary to polysubstance withdraw - monitor clinically - holding clonidine given borderline hypotension. - Propranolol 40 mg q8 with weaning parameters GI Acute protein calorie malnutrition - moderate Hypernatremia Hyperchloremia Diarrhea - Heart healthy diuet - c diff negative. Continue Imodium and Lactobacillus Acidophilous. - D/C rectal tube. Heme/ID: Probable HCAP - sputum cultures positive for MRSA, proteus and Pseudomonas - Will d/c IV abx and start Levaquin and Bactrim PO for 4 days. Full code. Lovenox. Discharge plan: We will d/c IV abx and start patient on Oral abx (for 4 days). We also discontinued rectal tube today. Will switch from tube feed to regular tray food (1800 elicia Diabetic diet). If patient continues to do well, we will discharge her to Psychiatry on 03/23/2017. Gina Urias DO Mar 22, 2017 09:24
[2017-03-22] MEDS: HALOPERIDOL LACTATE 5 MG/ML AMP IV PRN (10:37)
[2017-03-22 11:50] VITALS: BP 144/78; PULSE 80; RESP 18; TEMP 98.3; O2SAT 97
[2017-03-22 15:52] VITALS: BP 166/81; PULSE 81; RESP 18; TEMP 98; O2SAT 96
[2017-03-22] MEDS: ENOXAPARIN SODIUM 40 MG/0.4 ML SYRINGE SQ SCH (17:19)
[2017-03-22] MEDS ORDERED: HALOPERIDOL LACTATE 5 MG/ML AMP IM PRN (17:30)
[2017-03-22] MEDS ORDERED: OLANZapine IM 10 MG VIAL IM ONE (19:00)
[2017-03-22 21:00] VITALS: BP 130/84; PULSE 88; RESP 19; TEMP 98.1; O2SAT 95
[2017-03-22] MEDS: SULFAMETHOXAZOLE-TRIMETHOPRIM DS 800-160 MG TAB PO SCH (22:40)
[2017-03-23] VITALS: BP 128/80; PULSE 75; RESP 18; TEMP 97.6; O2SAT 96
[2017-03-23] MEDS: CHLORHEXIDINE GLUCONATE 2 % 1 PACK (2 CLOTHS) TOP SCH (00:37)
[2017-03-23] MEDS: QUEtiapine FUMARATE 25 MG TAB PO SCH ×2 (05:39→13:03)
[2017-03-23] MEDS: PROPRANOLOL HCL 40 MG TAB PO SCH ×2 (05:39→13:03)
[2017-03-23 06:00] VITALS: BP 122/71; PULSE 84; RESP 18; TEMP 97.8; O2SAT 94
[2017-03-23] MEDS: SULFAMETHOXAZOLE-TRIMETHOPRIM DS 800-160 MG TAB PO SCH (08:28)
[2017-03-23] MEDS: FAMOTIDINE 20 MG TAB PO SCH (08:28)
[2017-03-23] MEDS: LACTOBACILLUS ACIDOPHILUS TAB PO SCH ×2 (08:29→13:03)
[2017-03-23 08:51] VITALS: BP 142/91; PULSE 81; RESP 18; TEMP 97.8; O2SAT 95
[2017-03-23] MEDS ORDERED: LEVOFLOXACIN 500 MG TAB PO SCH (09:00)
[2017-03-23] MEDS ORDERED: SERO25TA PO (10:44)
[2017-03-23] MEDS ORDERED: LEVA500T33 PO (10:44)
[2017-03-23] MEDS ORDERED: OLAN5TAB PO (10:44)
[2017-03-23] MEDS ORDERED: PROP40TA3 PO (10:44)
[2017-03-23] MEDS ORDERED: FAMO20TA2 PO (10:44)
[2017-03-23] MEDS ORDERED: SULF1TAB23 PO (10:44)
--- NOTE | 2017-03-23 10:54 | HHI.DS ---
Discharge Summary Admission Date Mar 10, 2017 at 16:53 Discharge Date: Mar 23, 2017 Admitting Diagnosis Polysubstance abuse, Delirium (1) Schizophrenia ICD Code: F20.9 - Schizophrenia, unspecified (2) Acute encephalopathy ICD Code: G93.40 - Encephalopathy, unspecified (3) Delirium ICD Code: R41.0 - Disorientation, unspecified Procedures LEFT IJ CATHETER 11-10 Brief History - From Admission This is a 66-year-old with a history of depression and hypertension who was brought in to the ER with altered mental status and subjective overdose on Lortabs. Her UDS at that time was positive for amphetamines, benzodiazepines, opiates. She was transferred to our medical psychiatry unit for management of resolving opiate overdose and poly-substance withdraw. I am familiar with this patient and have evaluated this patient at the request of the rapid response team multiple times over the last few days. She is a poor historian and cannot participate in a history. Today she was rapid responsed for altered mental statu. I [place] [facility] [place] is at neurologic baseline for me over the last 3 days. she protects her airway. she has erratic movements that are almost choreic in nature, and has tachycardia and hypertension which she has had over the last 4 days. She has a blood gas which demonstrates a primary respiratory alkalosis and no evidence of hypoxia on room air. laboratory data is unremarkable except for a wbc 25k without fever or suspected area of infection. She is admitted to the ICU for withdraw symptoms too severe to be safely cared for on a medical floor. CBC/BMP: 03/21/17 0450 03/21/17 1700 Significant Findings Laboratory Tests Test 03/21/17 04:50 03/21/17 17:00 Red Blood Count 2.24 MIL/MM3 (4.00-5.30) Hemoglobin 7.9 GM/DL (11.6-15.3) Hematocrit 23.3 % (35.0-46.0) Mean Corpuscular Volume 104.4 FL (80.0-100.0) Mean Corpuscular Hemoglobin 35.4 PG (27.0-34.0) Red Cell Distribution Width 19.6 % (11.6-17.2) Neutrophils (%) (Auto) 73.5 % (16.0-70.0) Monocytes (%) (Auto) 11.6 % (0.0-8.0) Neutrophils # (Auto) 7.9 TH/MM3 (1.8-7.7) Monocytes # (Auto) 1.2 TH/MM3 (0-0.9) Neutrophils % (Manual) 71 % (16-70) Band Neutrophils % 15 % (0-6) Neutrophils # (Manual) 9.3 TH/MM3 (1.8-7.7) Myelocytes 1 % (0-0) Toxic Granulation 2+ (NORMAL) Total Protein 6.3 GM/DL (6.4-8.2) Albumin 2.1 GM/DL (3.4-5.0) Potassium Level 3.1 MEQ/L (3.5-5.1) Estimat Glomerular Filtration Rate 73 ML/MIN (>89) Total Iron Binding Capacity 196 MCG/DL (250-450) Imaging Last Impressions Chest X-Ray 03/18/17 0600 Signed Impressions: Service Date/Time: Saturday, March 18, 2017 04:56 - CONCLUSION: 1. Patchy alveolar disease characteristic of edema or pneumonia. 2. Uncomplicated line placement. No evidence of pneumothorax. Mg Kendrick MD Neck CT 03/13/17 0000 Signed Impressions: Service Date/Time: Monday, March 13, 2017 08:41 - CONCLUSION: There is diffuse soft tissue swelling of the right neck compared to the left. The right parotid gland is also larger than mild left without drainable fluid collection or mass. No drainable abscess or significant pathologic lymphadenopathy is noted Barry Riggs MD Brain MRI 03/12/17 0000 Signed Impressions: Service Date/Time: Sunday, March 12, 2017 14:39 - CONCLUSION: Negative noncontrast MRI of the brain. Ildefonso Osullivan MD PE at Discharge GENERAL: Alert, NAD. SKIN: Warm and dry. HEAD: Normocephalic. EYES: No scleral icterus. No injection or drainage. NECK: Supple, trachea midline. No JVD or lymphadenopathy. CARDIOVASCULAR: Regular rate and rhythm without murmurs, gallops, or rubs. RESPIRATORY: Breath sounds equal bilaterally. No accessory muscle use. GASTROINTESTINAL: Abdomen soft, non-tender, nondistended. MUSCULOSKELETAL: No cyanosis, or edema. BACK: Nontender without obvious deformity. No CVA tenderness. Pt update on day of discharge Patient is much better today. We gave her 5 mg of Haldol and 10mg of Olanzapine IM yesterday for acute psychosis, hallucinations. Today, she is alert, oriented to person, place, month, year. She knows the name of the current [place] president. She is much more coherent and cooperative today. She also knows she is 66 years old. Hospital Course This is a 66-year-old with a history of depression and hypertension who was brought in to the ER with altered mental status and subjective overdose on Lortabs. Her UDS at that time was positive for amphetamines, benzodiazepines, opiates. She was transferred to our medical psychiatry unit for management of resolving opiate overdose and poly-substance withdraw. A rapid response was called for altered mental status. She was subsequently admitted to ICU due to respiratory failure requiring intubation. She was extubated on 03/16/2017 and transferred to med-surg floor. During her stay in the ICU, she was treated for HCAP. Her sputum grew MRSA, Pseudomonas as well as Proteus. She received 10 days of IV Vanc and Zosyn. We switched her to Levaquin and Bactrim for 4 more days to complete a course of 14 days. Patient showed episodic psychotic behavior and hallucinations. On 03/22/2017, we gave her IM Haldol 5mg and IM olanzapine 10mg. On 03/23/2017, she appears to be much improved. She is more coherent and alert, oriented. Patient can be discharged to Psychiatry unit from medical standpoint. We would like to continue Olanzapine PO. Hospitalist service can be consulted for any medical concerns. Pt Condition on Discharge: Good Discharge Disposition: Disc to Psych Care Fac Discharge Time: > 30 minutes Discharge Instructions DIET: Follow Instructions for: As Tolerated, No Restrictions Activities you can perform: Regular-No Restrictions New Medications: Olanzapine (Olanzapine) 5 Mg Tab 5 MG PO BID for Schizophrenia, #60 TAB 0 Refills Famotidine (Famotidine) 20 Mg Tab 20 MG PO BID for Reflux, #60 TAB Levofloxacin (Levaquin) 500 Mg Tablet 500 MG PO DAILY for Infection, #3 TAB Propranolol (Propranolol) 40 Mg Tab 40 MG PO Q8HR for tachycardia, #90 TAB Quetiapine (Seroquel) 25 Mg Tab 50 MG PO Q8HR for Anxiety and/or Insomnia, #30 TAB Sulfamethoxazole-Trimethoprim (Sulfamethoxazole-Trimethoprim) 800-160 Mg Tab 1 TAB PO Q12HR for Infection, #6 TAB Continued Medications: Albuterol 18 GM Inh (Ventolin Hfa 18 GM Inh) 90 Mcg/Act Aer 2 PUFF INH Q4-6H PRN for SHORTNESS OF BREATH, #1 INHALER 0 Refills Discontinued Medications: Bupropion HCl ER 24 HR (Bupropion HCl ER 24 HR) 300 Mg Tab 300 MG PO DAILY for Control Depression, TAB 0 Refills Escitalopram (Escitalopram) 10 Mg Tab 10 MG PO DAILY, #30 TAB 0 Refills Hydrocodone-Acetaminophen (Hydrocodone-Acetaminophen) 5-325 mg Tab 1 TAB PO Q4HR PRN for PAIN, TAB 0 Refills Lisinopril (Lisinopril) 10 Mg Tab 10 MG PO DAILY, #30 TAB 0 Refills Omeprazole (Omeprazole) 40 Mg Cap 40 MG PO DAILY, #30 CAP 0 Refills Ondansetron (Ondansetron) 8 Mg Tab 4 MG PO TID for Nausea/Vomiting, TAB 0 Refills Zolpidem (Zolpidem) 5 Mg Tab 5 MG PO HS PRN for INSOMNIA, TAB 0 Refills Gina Urias DO Mar 23, 2017 10:54
[2017-03-23 11:58] VITALS: BP 137/97; PULSE 78; RESP 18; TEMP 98.1; O2SAT 98
[2017-03-24] MEDS ORDERED: PHARMACY ORDERED LAB ONE (08:45)
--- NOTE | 2017-03-25 11:32 | PQ ---
Physician Query Response Document PATIENT: BRIEN BRENNAN : 1950 ADMIT DATE: 03/10/2017 4:53 PM DISCH DATE: 03/23/2017 3:46 PM RESPONDING PROVIDER #: bradley QUERY TEXT: Clarification of Clinical Diagnostic Findings Please clarify documentation or clinical relevance for the clinical / diagnostic findings or whether those are insignificant or unable to be further specified. AFTER STUDIES PERFORMED. Was patient's altered mental status/delirium due to: 1)unknown etiology/Deliriun NOS 2)drug withdrawl as suggested by H 3)schizophrenia 4)other(PLEASE SPECIFY) The patient's Clinical Indicators include: Dr. Urias, please clarify. Patient was admitted with altered mental status/delirium. Please review the question below and answer to the best of your ability. Query created by: Peyman Rodriguez on 03/25/2017 8:38 AM RESPONSE TEXT: Acute delirium likely due to schizophrenia. Improved after starting Seroquel. Electronically signed by: Eugenio Urias DO 03/25/2017 11:28 AM
== END 2017-03-23 15:46 | DRG 885 ==
LOC: HIMN 16:53 → N05B 03-21 22:45
PROVIDERS: ADMIT Hospitalist; ATTEND Hospitalist
PROC: 5A09357 Assistance with Respiratory Ventilation, Less than 24 Consecutive Hours, Continuous Positive Airway Pressure (ICD-10-PCS; 2017-03-10)
PROC: 0DH67UZ Insertion of Feeding Device into Stomach, Via Natural or Artificial Opening (ICD-10-PCS; 2017-03-12)
PROC: 009U3ZX Drainage of Spinal Canal, Percutaneous Approach, Diagnostic (ICD-10-PCS; 2017-03-12)
PROC: 0T9B70Z Drainage of Bladder with Drainage Device, Via Natural or Artificial Opening (ICD-10-PCS; 2017-03-12)
PROC: 5A1955Z Respiratory Ventilation, Greater than 96 Consecutive Hours (ICD-10-PCS; 2017-03-12)
PROC: 0BH17EZ Insertion of Endotracheal Airway into Trachea, Via Natural or Artificial Opening (ICD-10-PCS; 2017-03-12)
PROC: 30233N1 Transfusion of Nonautologous Red Blood Cells into Peripheral Vein, Percutaneous Approach (ICD-10-PCS; principal; 2017-03-13)
PROC: 05HN33Z Insertion of Infusion Device into Left Internal Jugular Vein, Percutaneous Approach (ICD-10-PCS; 2017-03-18)
DX: F20.9 Schizophrenia, unspecified (principal); J96.01 Acute respiratory failure with hypoxia; J69.0 Pneumonitis due to inhalation of food and vomit; F19.931 Other psychoactive substance use, unspecified with withdrawal delirium; E87.3 Alkalosis; E44.0 Moderate protein-calorie malnutrition; E87.0 Hyperosmolality and hypernatremia; Y95 Nosocomial condition; I10 Essential (primary) hypertension; F32.9 Major depressive disorder, single episode, unspecified; Z79.891 Long term (current) use of opiate analgesic; Z78.1 Physical restraint status; R00.0 Tachycardia, unspecified; R73.9 Hyperglycemia, unspecified; E66.9 Obesity, unspecified; E87.8 Other disorders of electrolyte and fluid balance, not elsewhere classified; K11.20 Sialoadenitis, unspecified; E87.6 Hypokalemia; R19.7 Diarrhea, unspecified; D64.9 Anemia, unspecified
CPT/HCPCS: 31500; 36430; 36556; 36600; 62270; 70491; 70551; 71010; 76937; 80048; 80053; 80202; 81001; 82140; 82390; 82728; 82746; 82805; 82945; 82948; 83036; 83540; 83550; 83735; 84100; 84110; 84120; 84132; 84157; 84439; 84443; 85007; 85014; 85018; 85025; 85027; 85652; 86038; 86403; 86592; 86651; 86652; 86653; 86654; 86850; 86900; 86901; 86920; 87015; 87040; 87070; 87077; 87116; 87147; 87186; 87205; 87206; 87493; 87497; 87529; 87641; 87798; 87799; 89051; 94002; 94003; 94640; 94667; 95819; J0330; J0360; J1100; J1630; J1650; J1940; J2060; J2250; J2405; J2543; J3010; J3370; J3411; J3475; J3480; J7030; J7040; J7050; J7120; P9016; P9047; Q9967

== ENCOUNTER 2017-03-23 13:17 | Inpatient (IN) | payer OTHER ==
[~2017-03-23 13:17] MED LIST changes: +FAMO20TA2 PO; +LEVA500T33 PO; +OLAN5TAB PO; +PROP40TA3 PO; +SERO25TA PO; +SULF1TAB23 PO
[2017-03-23] MEDS ORDERED: LORazepam 1 MG TAB PO PRN (16:30)
[2017-03-23] MEDS ORDERED: LORazepam 0.5 MG TAB PO PRN (16:30)
[2017-03-23] MEDS ORDERED: ALUMINUM/MAGNESIUM/SIMETH 30 ML CUP PO PRN (16:30)
[2017-03-23] MEDS ORDERED: MAGNESIUM HYDROXIDE SUSP 30 ML CUP PO PRN (16:30)
[2017-03-23] MEDS ORDERED: ALBUTEROL SULFATE 90 MCG/ACT HFA 8 GM INHALER INH PRN (16:30)
[2017-03-23] MEDS ORDERED: LORazepam 2 MG/ML VIAL IM PRN ×2 (16:30)
[2017-03-23] MEDS: QUEtiapine FUMARATE 25 MG TAB PO SCH (23:09)
[2017-03-23] MEDS: PROPRANOLOL HCL 40 MG TAB PO SCH (23:09)
[2017-03-23] MEDS: FAMOTIDINE 20 MG TAB PO SCH (23:09)
[2017-03-23] MEDS: OLANZapine 5 MG TAB PO SCH (23:09)
[2017-03-23] MEDS: SULFAMETHOXAZOLE-TRIMETHOPRIM DS 800-160 MG TAB PO SCH (23:09)
[2017-03-23] MEDS: ACETAMINOPHEN 325 MG TAB PO PRN (23:10)
[2017-03-24] MEDS: PROPRANOLOL HCL 40 MG TAB PO SCH ×3 (06:14→22:00)
[2017-03-24] MEDS: QUEtiapine FUMARATE 25 MG TAB PO SCH ×2 (06:14→15:00)
[2017-03-24 06:22] VITALS: BP 155/75; PULSE 88; RESP 17; TEMP 98.1; O2SAT 95
[2017-03-24 08:51] VITALS: BP 133/65; PULSE 70; RESP 18
[2017-03-24] MEDS: SULFAMETHOXAZOLE-TRIMETHOPRIM DS 800-160 MG TAB PO SCH ×2 (10:17→22:46)
[2017-03-24] MEDS: LEVOFLOXACIN 500 MG TAB PO SCH (10:18)
[2017-03-24] MEDS: FAMOTIDINE 20 MG TAB PO SCH ×2 (10:18→22:46)
[2017-03-24] MEDS: OLANZapine 5 MG TAB PO SCH (10:19)
[2017-03-24 10:25] LABS: ANION GAP 12 MEQ/L (5-15); CHLORIDE 107 MEQ/L (98-107); GLOMERULAR FILTRATION RATE 56 ML/MIN (>89); POTASSIUM 3.6 MEQ/L (3.5-5.1); SODIUM (NA) 141 MEQ/L (136-145)
[2017-03-24] MEDS: NICOTINE 21 MG/24 HR PATCH T-DERMAL SCH (10:27)
[2017-03-24] MEDS: REMOVE OLD PATCH T-DERMAL SCH (10:27)
[2017-03-24 10:30] LABS: BLOOD UREA NITROGEN 8 MG/DL (7-18)
[2017-03-24 10:36] LABS: HDL CHOLESTEROL 34.3 MG/DL (40.0-60.0); LDL CHOLESTEROL 100 MG/DL (0-99)
--- NOTE | 2017-03-24 14:52 | HHI.HP ---
Provisional Diagnosis Admission Date Mar 23, 2017 at 15:48 [place]. 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 Express and informed consent means consent voluntarily given in writing, by a competent person, after sufficient explanation and disclosure of the subject matter involved to enable the person to make a knowing and willful decision without any element of force, fraud, deceit, duress, or other form of constraint or coercion. This person is 18 years of age or older, is not now known to be incompetent to consent to treatment with a guardian advocate, and does not have a health care surrogate or proxy currently making medical treatment decisions. I have found this person to be one of the following: [] Competent to provide express and informed consent, as defined above, for voluntary admission to this facility and is competent to provide express and informed consent for treatment. He/she has the consistent capacity to make well reasoned, willful, and knowing decisions concerning his or her medical or mental health treatment. The person fully and consistently understands the purpose of the admission for examination/placement and is fully capable of personally exercising all rights assured under [place] Incompetent to provide express and informed consent to voluntary admission , and this is incompetent to provide express and informed consent to treatment. The person must be transferred to involuntary status and a petition for a guardian advocate filed with the Circuit Court. Refusing to provide express and informed consent to voluntary admission but is competent to provide express and informed consent for treatment. The person must be discharged or transferred to involuntary status. Form shall be completed within 24 hours of a person's arrival at the receiving facility and filed in the clinical record of each person: 1. Admitted on a voluntary basis 2. Permitted to provide express and informed consent to his/her own treatment 3. Allowed to transfer from involuntary to voluntary status 4. Prior to permitting a person to consent to his or her own treatment after having been previously found incompetent to consent to treatment. History of Present Illness Capacity: Lacks Capacity Psych Chief Complaint: patient confused delirious HPI Patient is a 66-year-old white female was initially admitted here on 03/07/17 under visit [id number] at that time urine toxicology positive for opiates entitlements of benzodiazepines negative for alcohol. She is seen in skin also a Dr. Centeno. Visit discharge with that visit number on 03/08/17, on visit it appears it patient seen again by Dr. Centeno will diagnosis of delirium a cipr protocol was initiated the Shaikh act was completed at that time. Patient was discharged from that visit on 03-25. Then on 03-25 was a visit number [id number]. She was followed at that time also with Dr. Centeno. Patient appears was medically cleared and then brought to this unit for further care and attention. Patient also has positive MRSA in her naris. Is on isolation. Patient seen in her room with nurse Valeriy and medical student Dante. Patient is alert somewhat diffusely confused as to time place and situation. It appears she has recently moved locally. Lives by herself. With pet cats. He somewhat childish Rashad and superficially acknowledges multiple drug abuse in the past. That may be continuing to the present. She acknowledges past mental health history of being diagnosed bipolar. Though she is vague about any past psychiatric hospitalizations. It appears she has been in a detox in a fairly long rehabilitation a number of years ago. States she is single never been has no children. Though she does have a sister with appears is somewhat supportive. At the present time patient has continue to meet Shaikh act criteria. It appears she has completed the process for involuntary hospitalization during the 3 prior visits. I did complete the admission psychiatric template. I did review the med reconciliation we will modify the Zyprexa order to 10 mg at at bedtime only. We will modify the Seroquel 50 mg 2 in a.m. noon and 4 PM. Will attempt to reach patient started to get further information about this lady and consider various placement options Review of Systems Constitutional: DENIES: Diaphoretic episodes, Fatigue, Fever, Weight gain, Weight loss, Chills, Dizziness, Change in appetite, Night Sweats Eyes: DENIES: Blurred vision, Diplopia, Eye inflammation, Eye pain, Vision loss , Photosensitivity, Double Vision Ears, nose, mouth, throat: DENIES: Tinnitus, Hearing loss, Vertigo, Nasal discharge, Oral lesions, Throat pain, Hoarseness, Ear Pain, Running Nose, Epistaxis, Sinus Pain, Toothache, Odynophagia Respiratory: DENIES: Apneas, Cough, Snoring, Wheezing, Hemoptysis, Sputum production, Shortness of breath Cardiovascular: DENIES: Chest pain, Palpitations, Syncope, Dyspnea on Exertion , PND, Lower Extremity Edema, Orthopnea, Claudication Gastrointestinal: DENIES: Abdominal pain, Black stools, Bloody stools, Constipation, Diarrhea, Nausea, Vomiting, Difficulty Swallowing, Anorexia Genitourinary: DENIES: Abnormal vaginal bleeding, Dysmenorrhea, Dyspareunia, Sexual dysfunction, Urinary frequency, Urinary incontinence, Urgency, Hematuria , Dysuria, Nocturia, Vaginal discharge Musculoskeletal: DENIES: Joint pain, Muscle aches, Stiffness, Joint Swelling, Back pain, Neck pain Integumentary: DENIES: Abnormal pigmentation, Pruritus, Rash, Nail changes, Breast masses, Breast skin changes, Nipple discharge Hematologic/lymphatic: DENIES: Bruising, Lymphadenopathy Immunologic/allergic: DENIES: Eczema, Urticaria Psychiatric: COMPLAINS OF: Confusion (patient somewhat disorganized, vaguely disorganized to place time and situation), DENIES: Anxiety, Mood changes, Depression, Hallucinations, Agitation, Suicidal Ideation, Homicidal Ideation, Delusions Past Psych History Psychological trauma history Patient denies Violence risk - others (6 mos) Low Violence risk - self (6 mos) Low Substance Abuse History Drugs/Alcohol past 12 months Patient positive urine toxicology with visit [id number] of opiates amphetamines and benzodiazepines Past Family Social History Coded Allergies: diclofenac (Unverified Adverse Reaction, Severe, GASTRIC BYPASS, 12/21/16) etodolac (Unverified Adverse Reaction, Severe, GASTRIC BYPASS, 12/21/16) flurbiprofen (Unverified Adverse Reaction, Severe, GASTRIC BYPASS, 12/21/16 ) ibuprofen (Unverified Adverse Reaction, Severe, GASTRIC BYPASS, 12/21/16) indomethacin (Unverified Adverse Reaction, Severe, GASTRIC BYPASS, 12/21/16 ) ketoprofen (Unverified Adverse Reaction, Severe, GASTRIC BYPASS, 12/21/16) ketorolac (Unverified Adverse Reaction, Severe, GASTRIC BYPASS, 12/21/16) naproxen (Unverified Adverse Reaction, Severe, GASTRIC BYPASS, 12/21/16) oxaprozin (Unverified Adverse Reaction, Severe, GASTRIC BYPASS, 12/21/16) aspirin (Unverified Adverse Reaction, Unknown, GASTRIC BYPASS, 12/21/16) Past Medical History Patient medically cleared through 3 prior visits Active Scripts Olanzapine (Olanzapine) 5 Mg Tab, 5 MG PO BID for Schizophrenia, #60 TAB 0 Refills Prov:Eugenio Uriasrachelanita 03/23/17 Famotidine (Famotidine) 20 Mg Tab, 20 MG PO BID for Reflux, #60 TAB Prov:nathalieRobcarmelina 03/23/17 Quetiapine (Seroquel) 25 Mg Tab, 50 MG PO Q8HR for Anxiety and/or Insomnia, #30 TAB Prov:nathalieGina 03/23/17 Propranolol (Propranolol) 40 Mg Tab, 40 MG PO Q8HR for tachycardia, #90 TAB Prov:nathalieRobcarmelina 03/23/17 Sulfamethoxazole-Trimethoprim (Sulfamethoxazole-Trimethoprim) 800-160 Mg Tab, 1 TAB PO Q12HR for Infection, #6 TAB Prov:nathalieRobcarmelina 03/23/17 Levofloxacin (Levaquin) 500 Mg Tablet, 500 MG PO DAILY for Infection, #3 TAB Prov:nathalieRobcarmelina 03/23/17 Reported Medications Albuterol 18 GM Inh (Ventolin Hfa 18 GM Inh) 90 Mcg/Act Aer, 2 PUFF INH Q4-6H Y for SHORTNESS OF BREATH, #1 INHALER 0 Refills 03/08/17 Discontinued Reported Medications Lisinopril (Lisinopril) 10 Mg Tab, 10 MG PO DAILY, #30 TAB 0 Refills 03/08/17 Bupropion HCl ER 24 HR (Bupropion HCl ER 24 HR) 300 Mg Tab, 300 MG PO DAILY for Control Depression, TAB 0 Refills 03/08/17 Ondansetron (Ondansetron) 8 Mg Tab, 4 MG PO TID for Nausea/Vomiting, TAB 0 Refills 03/08/17 Omeprazole (Omeprazole) 40 Mg Cap, 40 MG PO DAILY, #30 CAP 0 Refills 03/08/17 Escitalopram (Escitalopram) 10 Mg Tab, 10 MG PO DAILY, #30 TAB 0 Refills 03/08/17 Zolpidem (Zolpidem) 5 Mg Tab, 5 MG PO HS Y for INSOMNIA, TAB 0 Refills 03/08/17 Hydrocodone-Acetaminophen (Hydrocodone-Acetaminophen) 5-325 mg Tab, 1 TAB PO Q4HR Y for PAIN, TAB 0 Refills 03/08/17 Current Medications Medications (Trade) Dose Ordered Sig/Bryan Route Start Time Stop Time Status Last Admin (Proair Hfa Inh) 2 puff Q4HR PRN INH 03/23/17 16:30 (Pepcid) 20 mg BID PO 03/23/17 21:00 03/24/17 10:18 (Levaquin) 500 mg DAILY PO 03/24/17 09:00 03/24/17 10:18 (ZyPREXA) 5 mg BID PO 03/23/17 21:00 03/24/17 10:19 (Inderal) 40 mg Q8HR PO 03/23/17 22:00 03/24/17 06:14 (SEROquel) 50 mg Q8HR PO 03/23/17 22:00 03/24/17 06:14 (Bactrim Ds 800-160 Mg) 1 tab Q12HR PO 03/23/17 21:00 03/24/17 10:17 (Ativan) 1 mg Q6H PRN PO 03/23/17 16:30 (Ativan Inj) 1 mg Q6H PRN IM 03/23/17 16:30 (Tylenol) 650 mg Q4H PRN PO 03/23/17 16:30 03/23/17 23:10 (Milk Of Magnesia Liq) 30 ml DAILY PRN PO 03/23/17 16:30 (Mag-Al Plus Susp Liq) 30 ml Q6H PRN PO 03/23/17 16:30 (Habitrol 21 Mg Patch.24 Hr) 1 patch DAILY T-DERMAL 03/24/17 09:00 03/24/17 10:27 Miscellaneous Information 1 DAILY T-DERMAL 03/24/17 09:00 Family Psych History Patient denies Social History Patient single never lives by herself with pet cats Patient's Strengths (min. 2) Patient verbal irritable access healthcare Physical Exam Patient medically cleared through 3 prior visits, at this time patient resting quietly in bed she is calm cooperative is somewhat diffusely confused, she is in no acute distress, is in no respiratory distress, no complains of abdominal pain patient when quietly in bed moves all 4 extremities rolling now. Vital Signs Vital Signs Date Time Temp Pulse Resp B/P (MAP) Pulse Ox O2 Delivery O2 Flow Rate FiO2 03/24/17 06:22 98.1 88 17 155/75 (101) 95 Lab Results Test 03/24/17 08:09 Blood Urea Nitrogen 8 MG/DL Creatinine 0.99 MG/DL Random Glucose 88 MG/DL Calcium Level 8.4 MG/DL Sodium Level 141 MEQ/L Potassium Level 3.6 MEQ/L Chloride Level 107 MEQ/L Carbon Dioxide Level 22.0 MEQ/L Anion Gap 12 MEQ/L Estimat Glomerular Filtration Rate 56 ML/MIN Triglycerides Level 144 MG/DL Cholesterol Level 163 MG/DL LDL Cholesterol 100 MG/DL HDL Cholesterol 34.3 MG/DL Cholesterol/HDL Ratio 4.75 RATIO Thyroid Stimulating Hormone 3rd Gen 2.710 uIU/ML Mental Status Examination Appearance: Appropriate Consciousness: Alert Orientation: Person, Place (vaguely confused), Date/Time (vaguely confused), Situation (vaguely confused) Motor Activity: Other (patient laying in bed) Speech: Other (disorganized) Language: Adequate Fund of Knowledge: Adequate Attention and Concentration: Other (fair) Memory: Impaired (somewhat confusing) Mood: Other (euthymic to mildly dysphoric) Affect: Other (good range and intensity) Thought Content: Appropriate, Bizarre thinking (mildly) Hallucination Type: None (denies) Delusion Type: Other (vague) Suicidal Ideation: No (denies) Suicidal Plan: No (denies) Suicidal Intention: No (denies) Homicidal Ideation: No Homicidal Plan: No Homicidal Intention: No Insight: Poor Judgment: Poor Assessment & Plan Problem List: (1) Schizophrenia ICD Codes: F20.9 - Schizophrenia, unspecified (2) Delirium ICD Codes: R41.0 - Disorientation, unspecified Assessment & Plan Estimated LOS: days at this time patient continues meet criteria for involuntary psychiatric hospitalization. Seem medication modification above. Attempted to reach patient's sister did further information. Discharge Planning Discharge planning placement need to be further clarified related to patient's recovery, perhaps Bactrim her own apartment Request HC Surrog/Guard Advoc?: Yes Problem Qualifiers (1) Schizophrenia: Qualified Codes: F20.1 - Disorganized schizophrenia Ildefonso Armstrong MD Mar 24, 2017 14:52
--- NOTE | 2017-03-24 16:42 | PD.CONS ---
[facility] By Reason for Consult Medical management Primary Care Physician Bryson Bradley M.D. Diagnoses: (1) Pneumonia (2) Schizophrenia History of Present Illness Written by Edi Carrion, acting as scribe for Dr. Urias on 03/24/17 at 16:04. 66-year-old female with a past medical history of schizophrenia, HTN, and depression. Patient was brought to ED on 03/10 after she was observed ingesting Lortabs and subsequently developed AMS, delirium, and encephalopathy. Her urine toxicology screen was positive for amphetamines, benzodiazepines, and opiates. She was admitted to medical psychiatry unit for however due to continued AMS a Rapid response was called and patient transferred to ICU. She was subsequently intubated for respiratory distress and treated for MRSA pneumonia with IV Vancomycin and Zosyn. She was extubated on 03/16 and transferred to medical surgical floor. Her antibiotics were switched from IV to oral Bactrim and Levaquin. She was discharged on 03/23 to Psychiatric services with three days more of Bactrim and Levaquin. The medical team has been consulted for medical management. Patient was seen in room lying in bed in no acute distress, she is pleasant and cooperative answering questions. She denies any SOB, chest pain, fever, chills, nausea, vomiting, trouble using bathroom. She does complain of right foot pain as she states she tripped over something earlier today. Area was examined and there is no noted ecchymosis, warmth, edema or noted trauma, normal range of motion of foot. She asks when she will be able to go home, voices no other acute concerns at the moment. Review of Systems Cardiovascular: DENIES: Chest pain Gastrointestinal: DENIES: Abdominal pain, Black stools, Bloody stools, Nausea, Vomiting Except as stated in HPI: all other systems reviewed are Neg Past Family Social History Allergies: Coded Allergies: diclofenac (Unverified Adverse Reaction, Severe, GASTRIC BYPASS, 12/21/16) etodolac (Unverified Adverse Reaction, Severe, GASTRIC BYPASS, 12/21/16) flurbiprofen (Unverified Adverse Reaction, Severe, GASTRIC BYPASS, 12/21/16 ) ibuprofen (Unverified Adverse Reaction, Severe, GASTRIC BYPASS, 12/21/16) indomethacin (Unverified Adverse Reaction, Severe, GASTRIC BYPASS, 12/21/16 ) ketoprofen (Unverified Adverse Reaction, Severe, GASTRIC BYPASS, 12/21/16) ketorolac (Unverified Adverse Reaction, Severe, GASTRIC BYPASS, 12/21/16) naproxen (Unverified Adverse Reaction, Severe, GASTRIC BYPASS, 12/21/16) oxaprozin (Unverified Adverse Reaction, Severe, GASTRIC BYPASS, 12/21/16) aspirin (Unverified Adverse Reaction, Unknown, GASTRIC BYPASS, 12/21/16) Past Medical History Obtained from patient and medical records HTN Depression Schizophrenia Past Surgical History Right shoulder replacement Gastric bypass Hernia repair Reported Medications Reported Meds & Active Scripts Active Olanzapine 5 Mg Tab 5 Mg PO BID Famotidine 20 Mg Tab 20 Mg PO BID Seroquel (Quetiapine Fumarate) 25 Mg Tab 50 Mg PO Q8HR Propranolol (Propranolol HCl) 40 Mg Tab 40 Mg PO Q8HR Sulfamethoxazole-Trimethoprim 800-160 Mg Tab 1 Tab PO Q12HR Levaquin (Levofloxacin) 500 Mg Tablet 500 Mg PO DAILY Reported Ventolin Hfa 18 GM Inh (Albuterol Sulfate) 90 Mcg/Act Aer 2 Puff INH Q4-6H PRN Active Ordered Medications Active Medications Acetaminophen (Tylenol) 650 mg Q4H PRN PO Last administered on 03/23/17 23:10 ; Admin Dose 650 MG; Start 03/23/17 at 16:30 Al Hydrox/Mg Hydrox/Simethicone (Mag-Al Plus Susp Liq) 30 ml Q6H PRN PO; Start 03/23/17 at 16:30 Albuterol Sulfate (Proair Hfa Inh) 2 puff Q4HR PRN INH; Start 03/23/17 at 16: 30 Famotidine (Pepcid) 20 mg BID PO Last administered on 03/24/17 10:18; Admin Dose 20 MG; Start 03/23/17 at 21:00 Levofloxacin (Levaquin) 500 mg DAILY PO Last administered on 03/24/17 10:18; Admin Dose 500 MG; Start 03/24/17 at 09:00; Stop 03/27/17 at 08:59 Lorazepam (Ativan Inj) 0.5 mg Q12H PRN IM; Start 03/23/17 at 16:30; Stop at 16:44; Status DC Lorazepam (Ativan Inj) 1 mg Q6H PRN IM; Start 03/23/17 at 16:30; Stop at 14:30; Status DC Lorazepam (Ativan) 0.5 mg Q12H PRN PO; Start 03/23/17 at 16:30; Stop at 16:44; Status DC Lorazepam (Ativan) 1 mg Q6H PRN PO; Start 03/23/17 at 16:30; Stop 03/24/17 at 14:30; Status DC Magnesium Hydroxide (Milk Of Magnyomi Liq) 30 ml DAILY PRN PO; Start 03/23/17 at 16:30 Miscellaneous Information 1 DAILY T-DERMAL; Start 03/24/17 at 09:00 Nicotine (Habitrol 21 Mg Patch.24 Hr) 1 patch DAILY T-DERMAL Last administered on 03/24/17 10:27; Admin Dose 1 PATCH; Start 03/24/17 at 09:00 Olanzapine (ZyPREXA) 5 mg BID PO Last administered on 03/24/17 10:19; Admin Dose 5 MG; Start 03/23/17 at 21:00; Stop 03/24/17 at 14:30; Status DC Olanzapine (ZyPREXA) 10 mg HS PO; Start 03/24/17 at 21:00 Propranolol HCl (Inderal) 40 mg Q8HR PO Last administered on 03/24/17 15:00; Admin Dose 40 MG; Start 03/23/17 at 22:00 Quetiapine Fumarate (SEROquel) 50 mg DAILY@0800,1200,1600 PO Last administered on 03/24/17 15:00; Admin Dose 50 MG; Start 03/24/17 at 16:00 Quetiapine Fumarate (SEROquel) 50 mg Q8HR PO Last administered on 03/24/17 06: 14; Admin Dose 50 MG; Start 03/23/17 at 22:00; Stop 03/24/17 at 14:30; Status DC Trimethoprim/ Sulfamethoxazole (Bactrim Ds 800-160 Mg) 1 tab Q12HR PO Last administered on 03/24/17 10:17; Admin Dose 1 TAB; Start 03/23/17 at 21:00 Family History Denies past family history Social History Tobacco use: 1 PPD prior to coming to the hospital Alcohol: reports drinking prior to coming to the hospital, but does not quantify Illicit drug use: prior use of amphetamines as noted on urine toxicology screen Physical Exam Vital Signs Vital Signs Date Time Temp Pulse Resp B/P (MAP) Pulse Ox O2 Delivery O2 Flow Rate FiO2 03/24/17 08:51 70 18 133/65 (87) 03/24/17 06:22 98.1 88 17 155/75 (101) 95 03/24/17 06:15 16 Physical Exam GENERAL: This is a well-nourished, well-developed patient, in no apparent distress. SKIN: No rashes, ecchymoses or lesions. Cool and dry. HEAD: Atraumatic. Normocephalic. No temporal or scalp tenderness. EYES: Pupils equal round and reactive. Extraocular motions intact. No scleral icterus. No injection or drainage. ENT: Nose without bleeding, purulent drainage or septal hematoma. Throat without erythema, tonsillar hypertrophy or exudate. Uvula midline. Airway patent. NECK: Trachea midline. Supple, nontender, no meningeal signs. CARDIOVASCULAR: Regular rate and rhythm without murmurs, gallops, or rubs. RESPIRATORY: Clear to auscultation. Breath sounds equal bilaterally. No wheezes , rales, or rhonchi. GASTROINTESTINAL: Abdomen soft, non-tender, nondistended. No hepato-splenomegaly , or palpable masses. No guarding. MUSCULOSKELETAL: Extremities without clubbing, cyanosis, or edema. No joint tenderness, effusion, or edema noted. No calf tenderness. Right foot with no ecchymosis, edema, or warmth, full range of motion. NEUROLOGICAL: Awake and alert. Motor and sensory grossly within normal limits. Five out of 5 muscle strength in all muscle groups. Normal speech. Laboratory Laboratory Tests Test 03/24/17 08:09 Blood Urea Nitrogen 8 Creatinine 0.99 Random Glucose 88 Calcium Level 8.4 Sodium Level 141 Potassium Level 3.6 Chloride Level 107 Carbon Dioxide Level 22.0 Anion Gap 12 Estimat Glomerular Filtration Rate 56 Triglycerides Level 144 Cholesterol Level 163 LDL Cholesterol 100 HDL Cholesterol 34.3 Cholesterol/HDL Ratio 4.75 Thyroid Stimulating Hormone 3rd Gen 2.710 Result Diagram: 03/24/17 0809 Assessment and Plan Problem List: (1) Pneumonia ICD Code: J18.9 - Pneumonia, unspecified organism (2) Schizophrenia ICD Code: F20.9 - Schizophrenia, unspecified Assessment and Plan 66 year old female recently admitted for suspected opiate overdose, now well out of window for overdose symptoms. Treated inpatient for respiratory failure secondary to encephalopathy, PNA, and alter mental status. Discharged to psychiatric services, medical services consulted for medical management. PNA, MRSA - Patient has continued Bactrim and Levaquin since discharged to psych. - Finish date of both 03/27, will place stop date - No complaints of SOB, on room air in no acute distress HTN, chronic - Stable on current dose of Inderal, no changes at this time Right foot pain, acute - Secondary to injury she states she suffered earlier today - No visible trauma appreciated - Tylenol PRN pain Schizophrenia - Patient is being treated by psychiatric services. - She is pleasant and cooperative at the time of my vist. Problem Qualifiers (1) Pneumonia: Qualified Codes: J15.212 - Pneumonia due to methicillin resistant Staphylococcus aureus (2) Schizophrenia: Qualified Codes: F20.1 - Disorganized schizophrenia Edi Carrion Mar 24, 2017 16:42
[2017-03-24 16:57] VITALS: BP 138/65; PULSE 78; RESP 18; TEMP 98; O2SAT 97
[2017-03-24] MEDS: OLANZapine 10 MG TAB PO SCH (21:00)
[2017-03-24 21:52] LABS: HEMOGLOBIN A1a 1.1 %; HEMOGLOBIN A1b 0.7 %; HEMOGLOBIN Ao 86.6 %; HEMOGLOBIN P3 4.7 %
[2017-03-25 05:51] VITALS: BP 138/67; PULSE 91; RESP 17; TEMP 98.5; O2SAT 97
[2017-03-25] MEDS: PROPRANOLOL HCL 40 MG TAB PO SCH ×3 (06:16→21:09)
[2017-03-25] MEDS: LEVOFLOXACIN 500 MG TAB PO SCH (09:00)
[2017-03-25] MEDS: NICOTINE 21 MG/24 HR PATCH T-DERMAL SCH (09:00)
[2017-03-25] MEDS: FAMOTIDINE 20 MG TAB PO SCH ×2 (09:00→21:09)
[2017-03-25] MEDS: SULFAMETHOXAZOLE-TRIMETHOPRIM DS 800-160 MG TAB PO SCH ×2 (09:00→21:09)
[2017-03-25] MEDS: QUEtiapine FUMARATE 25 MG TAB PO SCH ×3 (09:00→17:45)
[2017-03-25] MEDS: REMOVE OLD PATCH T-DERMAL SCH (09:06)
[2017-03-25] MEDS: ACETAMINOPHEN 325 MG TAB PO PRN (09:08)
--- NOTE | 2017-03-25 12:24 | HHI.PYPN ---
Subjective Chief Complaint: patient confused delirious Remarks Patient seen in her room with medical student Dante, patient sitting quietly in Sue chair, coping well with the isolation requirements. She is alert her orientation is improving, she now denies suicidality homicidality voices or visions. She is pleasant. Says she wishes on discharge to return to her own residence and her pet cats. For now continue treatment no change Review of Systems Except as stated in HPI: all other systems reviewed are Neg Mental Status Examination Appearance: Appropriate Consciousness: Alert Orientation: Person, Place (vaguely confused), Date/Time (vaguely confused), Situation (vaguely confused) Motor Activity: Other (patient laying in bed) Speech: Other (disorganized) Language: Adequate Fund of Knowledge: Adequate Attention and Concentration: Other (fair) Memory: Impaired (somewhat confusing) Mood: Other (euthymic to mildly dysphoric) Affect: Other (good range and intensity) Thought Content: Appropriate, Bizarre thinking (mildly) Hallucination Type: None (denies) Delusion Type: Other (vague) Suicidal Ideation: No (denies) Suicidal Plan: No (denies) Suicidal Intention: No (denies) Homicidal Ideation: No Homicidal Plan: No Homicidal Intention: No Insight: Poor Judgment: Poor Results Vitals/IOs Vital Signs Date Time Temp Pulse Resp B/P (MAP) Pulse Ox O2 Delivery O2 Flow Rate FiO2 03/25/17 05:51 98.5 91 17 138/67 (90) 97 Intake and Output 03/25/17 03/25/17 03/26/17 08:00 16:00 00:00 Output Total 2 ml Balance -2 ml Assessment & Plan Problem List: (1) Schizophrenia ICD Codes: F20.9 - Schizophrenia, unspecified (2) Delirium ICD Codes: R41.0 - Disorientation, unspecified Assessment & Plan Estimated LOS: days patient somewhat calmer today now denies voices denies suicidality denies homicidality. Patient however still somewhat vague about the events surrounding her initial hospitalization. For now continue treatment. Patient continues in isolation related to her MRSA Justification for Cont. Inpt. At this time patient will decompensate the placed a lower level of care Discharge Planning Probable return to her home with outpatient services Request HC Surrog/Guard Advoc?: Yes Problem Qualifiers (1) Schizophrenia: Qualified Codes: F20.1 - Disorganized schizophrenia Ildefonso Armstrong MD Mar 25, 2017 12:24
--- NOTE | 2017-03-25 14:12 | PD.TTN ---
Patient Problems 1. Discharge planning 2. Medication compliance 3. Knowledge deficit 4. Lack of coping skills Progress Toward Goals Provider Present: Dr. Kimberley Armstrong Provider Input: 03/25/17 patient to remain over weekend for more observation and adjustment- still labile Nurse(s) Input: 03/25/17 caregivers are involved Psychiatric Counselors Present: Rosalind Ordonez LCSW Psych Therapist Input: 03/25/17 patient can discharge home with caregiver next week Group Spec/RT/OT/MACE Present: YULY Plummer Group Spec/RT/OT/MACE Input: 03/25/17 isolated to room due to medical issues Rosalind Ordonez LCSW Mar 25, 2017 14:12
--- NOTE | 2017-03-25 16:23 | EKG ---
Date Performed: 03/24/2017 Time Performed: 13:54:09 PTAGE: 66 years EKG: Sinus rhythm NORMAL ECG Compared to PREVIOUS TRACING , ST-T changes have improved to some degree. PREVIOUS TRACIN 7 21.18 DOCTOR: Sven Person Interpretating Date/Time 03/25/2017 16:21:36
[2017-03-25 17:33] VITALS: BP 124/70; PULSE 92; RESP 18; TEMP 98.7; O2SAT 98
[2017-03-25] MEDS: OLANZapine 10 MG TAB PO SCH (21:00)
[2017-03-26 05:52] VITALS: BP 181/84; PULSE 83; RESP 16; TEMP 98; O2SAT 98
[2017-03-26] MEDS: PROPRANOLOL HCL 40 MG TAB PO SCH ×3 (06:11→21:21)
[2017-03-26] MEDS: FAMOTIDINE 20 MG TAB PO SCH ×2 (08:53→21:21)
[2017-03-26] MEDS: LEVOFLOXACIN 500 MG TAB PO SCH (08:54)
[2017-03-26] MEDS: QUEtiapine FUMARATE 25 MG TAB PO SCH ×3 (08:54→17:09)
[2017-03-26] MEDS: SULFAMETHOXAZOLE-TRIMETHOPRIM DS 800-160 MG TAB PO SCH (08:56)
[2017-03-26] MEDS: NICOTINE 21 MG/24 HR PATCH T-DERMAL SCH (08:59)
[2017-03-26] MEDS: REMOVE OLD PATCH T-DERMAL SCH (08:59)
--- NOTE | 2017-03-26 15:38 | HHI.PYPN ---
Subjective Chief Complaint: patient confused delirious Remarks Pt seen and discussed with staff. She has been disrobing on unit. She is confused and was looking for her cats on unit. She is compliant with medications and denies side effects. She states that she has "spent hours living with [employer]". Mental Status Examination Appearance: Appropriate Consciousness: Alert Orientation: Person, Place (vaguely confused), Date/Time (tuesday) Motor Activity: Other (patient laying in bed) Speech: Other (disorganized) Language: Adequate Fund of Knowledge: Adequate Attention and Concentration: Other (fair) Memory: Impaired (somewhat confusing) Mood: Other (euthymic to mildly dysphoric) Affect: Other (good range and intensity) Thought Content: Appropriate, Bizarre thinking (mildly) Hallucination Type: None (denies) Delusion Type: Other (vague) Suicidal Ideation: No (denies) Suicidal Plan: No (denies) Suicidal Intention: No (denies) Homicidal Ideation: No Homicidal Plan: No Homicidal Intention: No Insight: Poor Judgment: Poor Results Vitals/IOs Vital Signs Date Time Temp Pulse Resp B/P (MAP) Pulse Ox O2 Delivery O2 Flow Rate FiO2 03/26/17 05:52 98.0 83 16 181/84 (116) 98 Intake and Output 03/26/17 03/26/17 03/27/17 08:00 16:00 00:00 Intake Total 360 ml 480 ml Output Total 400 ml Balance -40 ml 480 ml Assessment & Plan Problem List: (1) Schizophrenia ICD Codes: F20.9 - Schizophrenia, unspecified (2) Delirium ICD Codes: R41.0 - Disorientation, unspecified Assessment & Plan Continue current tx plan Estimated LOS: days Justification for Cont. Inpt. impairments in safety Request HC Surrog/Guard Advoc?: Yes Problem Qualifiers (1) Schizophrenia: Qualified Codes: F20.1 - Disorganized schizophrenia Edel Pal MD Mar 26, 2017 15:38
[2017-03-26 17:38] VITALS: BP 146/75; PULSE 79; RESP 16; TEMP 98.6; O2SAT 98
[2017-03-26] MEDS: OLANZapine 10 MG TAB PO SCH (21:00)
[2017-03-27 05:52] VITALS: BP 161/74; PULSE 67; RESP 16; TEMP 97.7; O2SAT 99
[2017-03-27] MEDS: PROPRANOLOL HCL 40 MG TAB PO SCH ×2 (06:01→12:16)
[2017-03-27] MEDS: REMOVE OLD PATCH T-DERMAL SCH (09:00)
[2017-03-27] MEDS: NICOTINE 21 MG/24 HR PATCH T-DERMAL SCH (09:00)
[2017-03-27] MEDS: QUEtiapine FUMARATE 25 MG TAB PO SCH ×2 (09:04→12:08)
[2017-03-27] MEDS: FAMOTIDINE 20 MG TAB PO SCH (09:04)
[2017-03-27] MEDS ORDERED: amLODIPine BESYLATE 5 MG TAB PO ONE (10:00)
[2017-03-27 12:00] VITALS: BP 131/80; PULSE 85
--- NOTE | 2017-03-27 13:59 | HHI.PYPN ---
Subjective Chief Complaint: patient confused delirious Remarks Pt seen and discussed with staff. No disrobing on unit today. She remains disorganized with loose associations. She is fixated on finding "cats in a bag" . staff respiratory therapist report that pt's mental status has slowly deteriorated over the afternoon and she has been less alert. Pt presents with AMS that waxes and wanes. Pt recently treated for PNA and finished abx today. Mental Status Examination Appearance: Appropriate Consciousness: Lethargic, Other (alertness waxes and wanes) Orientation: Person Motor Activity: Other (in gerichair, attempts to bite RN, kicks at vitals machine, moves all 4 extremites on command) Speech: Other (disorganized) Language: Other (muttering, rambling) Fund of Knowledge: Inadequate Attention and Concentration: Inadequate Memory: Impaired Mood: Other (unable to assess due delirium) Affect: Blunt, Other Thought Content: Bizarre thinking Hallucination Type: Other (unable to assess) Delusion Type: Other (vague) Suicidal Ideation: No (denies) Suicidal Plan: No (denies) Suicidal Intention: No (denies) Homicidal Ideation: No Homicidal Plan: No Homicidal Intention: No Insight: Poor Judgment: Poor Results Vitals/IOs Vital Signs Date Time Temp Pulse Resp B/P (MAP) Pulse Ox O2 Delivery O2 Flow Rate FiO2 03/27/17 12:00 85 131/80 (97) 03/27/17 05:52 97.7 16 99 Intake and Output 03/27/17 03/27/17 03/28/17 08:00 16:00 00:00 Intake Total 60 ml Balance 60 ml Assessment & Plan Problem List: (1) Schizophrenia ICD Codes: F20.9 - Schizophrenia, unspecified (2) Delirium ICD Codes: R41.0 - Disorientation, unspecified Assessment & Plan Hospitalist notified. U/A, ABG and CMP, CBC ordered. EKG ordered. Appreciate medicine management Estimated LOS: days Justification for Cont. Inpt. medical complications Request HC Surrog/Guard Advoc?: Yes Problem Qualifiers (1) Schizophrenia: Qualified Codes: F20.1 - Disorganized schizophrenia Edel Pal MD Mar 27, 2017 13:59
[2017-03-27 14:34] VITALS: RESP 22; TEMP 97.9; O2SAT 100
[2017-03-27] MEDS ORDERED: LORazepam 2 MG/ML VIAL ONE ×4 (15:21→15:37)
[2017-03-27 15:30] VITALS: BP 111/64; PULSE 77; RESP 22; TEMP 97.7; O2SAT 98
[2017-03-27 15:40] LABS: BLOOD GAS BASE EXCESS -4.4 mmol/L (-2-2); BLOOD GAS CARBOXYHEMOGLOBIN 1.6 % (0-4); BLOOD GAS HCO3 19 mmol/L (22-26); BLOOD GAS METHEMOGLOBIN 0.8 % (0-2); BLOOD GAS O2 HGB SATURATION 95 % (90-100); BLOOD GAS OXYGEN CONTENT 10.7 Vol % (12.0-20.0); BLOOD GAS PCO2 28 mmHg (38-42); BLOOD GAS PO2 90 mmHG (61-120); BLOOD GAS TOTAL HGB 7.9 G/DL (12.0-16.0); CRITICAL VALUE NO; DRAW SITE RT RADIAL; FIO2 21 %; NUMBER OF ARTERIAL PUNCTURES 1; STAT YES; TEMP CORR TO 98.6; ULNAR PULSE PRESENT
--- NOTE | 2017-03-27 16:13 | HHI.PR ---
Subjective Remarks Follow up for pneumonia. Patient was seen after RN reported that patient is not doing well. At the time of this visit, patient barely responsive, started having multiple episodes of seizures. We gave her ativan and she was taken to ICU. Detail in the assessment and plan section. Objective Vitals Vital Signs Date Time Temp Pulse Resp B/P (MAP) Pulse Ox O2 Delivery O2 Flow Rate FiO2 03/27/17 14:34 97.9 22 100 03/27/17 12:00 85 131/80 (97) 03/27/17 05:52 97.7 67 16 161/74 (103) 99 03/26/17 17:38 98.6 79 16 146/75 (98) 98 I/O 03/26/17 03/26/17 03/26/17 03/27/17 03/27/17 03/27/17 07:00 15:00 23:00 07:00 15:00 23:00 Intake Total 360 ml 480 ml 120 ml 60 ml Output Total 400 ml Balance -40 ml 480 ml 120 ml 60 ml Intake Oral 360 ml 480 ml 120 ml 60 ml Output Urine Total 400 ml Result Diagram: 03/24/17 0809 Objective Remarks GENERAL: Minimally responsive, whole body jerking, eyes rolled back. SKIN: Warm and dry. Facial area pale appearance. HEAD: Normocephalic. EYES: No scleral icterus. No injection or drainage. NECK: Supple, trachea midline. No JVD or lymphadenopathy. CARDIOVASCULAR: Regular rate and rhythm without murmurs, gallops, or rubs. RESPIRATORY: Breath sounds equal bilaterally. No accessory muscle use. GASTROINTESTINAL: Abdomen soft, non-tender, nondistended. MUSCULOSKELETAL: No cyanosis, or edema. Neurological: Eyes rolled back, not responsive to verbal commands. No loss of bowel or bladder control. BACK: Nontender without obvious deformity. A/P Problem List: (1) Pneumonia ICD Code: J18.9 - Pneumonia, unspecified organism (2) Schizophrenia ICD Code: F20.9 - Schizophrenia, unspecified Assessment and Plan Ms. Jaramillo became lethargic, unresponsive this afternoon. After discussing with RN, I went to see patient along with two of our ARNPs. When we arrived to see patient, she was minimally responsive. She started having seizure. We pushed 2mg Ativan X 2 Intramuscularly. Our ARNPs established IV access on the left arm and then we pushed 2mg of IV Ativan. After IM Ativan, patient appeared to respond briefly but then she started having seizure again and became unresponsive. We established cardiac monitoring using emergency cart. Vitals were monitored closely. Her blood glucose was 95. ABG reviewed - no sign of hypoxia or hypercarbia. Rapid response was called and patient was subsequently transferred to Critical care. En route, patient received 2mg of IV Ativan. She was somewhat responsive in the ICU. We discussed with [facility] staff as well as attending. Patient will likely need anti-epileptic medications as well as neurology consult. Total critical care time spent over 40 minutes. Problem Qualifiers (1) Pneumonia: Qualified Codes: J15.212 - Pneumonia due to methicillin resistant Staphylococcus aureus (2) Schizophrenia: Qualified Codes: F20.1 - Disorganized schizophrenia Gina Urias DO Mar 27, 2017 16:13
[2017-03-27 16:15] LABS: BLOOD, URINE MOD (NEG); GLUCOSE,URINE NEG (NEG); KETONE, URINE NEG (NEG); NITRITE,URINE NEG (NEG); URINE COLOR YELLOW (YELLW/STRAW)
[2017-03-27 16:43] LABS: MUCUS URINE RARE /lpf (OCC); RBC, URINE 0-3 /hpf (0-3); WBC, URINE 0-2 /hpf (0-5)
[2017-03-27 16:44] LABS: BACTERIA, URINE RARE /hpf; COMMENT (UR) CATH-CULTURE IND; CULTURE IF INDICATED CATH CULTURE IND
[2017-03-27 17:58] LABS: C. DIFF EPI 027 PRESUMPTIVE NEGATIVE (NEGATIVE)
[2017-03-28] MEDS ORDERED: amLODIPine BESYLATE 5 MG TAB PO SCH (09:00)
--- NOTE | 2017-03-28 11:18 | HHI.PYPN ---
Subjective Chief Complaint: patient confused delirious Remarks Patient was seen today in the ICU for psychiatric reevaluation. Patient was initially admitted in psychiatry due to an episode of exacerbation of schizophrenia. In the psychiatric unit she became lethargic, and unresponsive. She was sitting in the psychiatric unit she was found minimally responsive. She started having seizure. Was pushed 2mg Ativan X 2 Intramuscularly, established IV access on the left arm and then we pushed 2mg of IV Ativan. After IM Ativan, patient appeared to respond briefly but then she started having seizure again and became unresponsive. Rapid response was called and patient was subsequently transferred to Critical care. En route, patient received 2mg of IV Ativan. She was somewhat responsive in the ICU. She was consulted to neurology. Today on psychiatric evaluation patient is alert, oriented 3, engageable in a conversation. She is calm, mostly cooperative, breathing with not so cannula, no distress or pain reported. She reports feeling much better. She reports good mood, but says that she has been receiving visits from "small scary people from the [place] has been coming inside his room". She is able to was her most of my questions, but at times becomes disorganized and tangential. Patient was able to repeat car black judgment, but unable to recall these words in 5 minutes. Patient could not spell world backward or tell me the days of the week backwards, her abstract thinking also seems to be impaired at the moment of this evaluation. Review of Systems Psychiatric: COMPLAINS OF: Hallucinations, Delusions Mental Status Examination Appearance: Appropriate Consciousness: Lethargic, Other (alertness waxes and wanes) Orientation: x4 Motor Activity: Other (in gerichair, attempts to bite RN, kicks at vitals machine, moves all 4 extremites on command) Speech: Other (disorganized) Language: Other (muttering, rambling) Fund of Knowledge: Inadequate Attention and Concentration: Inadequate Memory: Impaired Mood: Good Affect: Appropriate Thought Content: Bizarre thinking Hallucination Type: Visual, Other (unable to assess) Delusion Type: Other (vague) Suicidal Ideation: No (denies) Suicidal Plan: No (denies) Suicidal Intention: No (denies) Homicidal Ideation: No Homicidal Plan: No Homicidal Intention: No Insight: Poor Judgment: Poor Results Labs Test 03/27/17 15:18 03/27/17 15:30 Urine Color YELLOW Urine Turbidity CLEAR Urine pH 6.0 Urine Specific [facility] 1.018 Urine Protein TRACE mg/dL Urine Glucose (UA) NEG mg/dL Urine Ketones NEG mg/dL Urine Occult Blood MOD Urine Nitrite NEG Urine Bilirubin NEG Urine Urobilinogen LESS THAN 2.0 MG/DL Urine Leukocyte Esterase NEG Urine RBC 0-3 /hpf Urine WBC 0-2 /hpf Urine Bacteria RARE /hpf Urine Mucus RARE /lpf Microscopic Urinalysis Comment CATH-CULTURE IND Stool C. difficile Toxin (PCR) NEGATIVE Stl C. difficile Toxin Epiderm 027 PRESUMPTIVE NEGATIVE Blood Gas Puncture Site RT RADIAL Blood Gas Patient Temperature 98.6 Blood Gas HCO3 19 mmol/L Blood Gas Base Excess -4.4 mmol/L Blood Gas Oxygen Saturation 95 % Arterial Blood pH 7.44 Arterial Blood Partial Pressure CO2 28 mmHg Arterial Blood Partial Pressure O2 90 mmHG Arterial Blood Oxygen Content 10.7 Vol % Arterial Blood Carboxyhemoglobin 1.6 % Arterial Blood Methemoglobin 0.8 % Blood Gas Hemoglobin 7.9 G/DL Blood Gas Inspired Oxygen 21 % Date/Time Source Procedure Growth Status 03/27/17 15:18 Urine Catheterized Urine Urine Culture Pending Received Vitals/IOs Vital Signs Date Time Temp Pulse Resp B/P (MAP) Pulse Ox O2 Delivery O2 Flow Rate FiO2 03/27/17 15:30 97.7 77 22 111/64 (80) 98 Assessment & Plan Problem List: (1) Schizophrenia ICD Codes: F20.9 - Schizophrenia, unspecified Assessment & Plan: At the moment of this evaluation patient has some disorganized speech, tangentiality, reported visual hallucinations. She is oriented 3, she has impairment in concentration and immediate recall. We will restart Seroquel 25 mg twice a day. We'll continue follow-up. (2) Delirium ICD Codes: R41.0 - Disorientation, unspecified Assessment & Plan Estimated LOS: days Justification for Cont. Inpt. Patient needs to continue psychiatric hospitalization for stabilization. Patient can be transferred back to psychiatry once medically stable. Request HC Surrog/Guard Advoc?: Yes Problem Qualifiers (1) Schizophrenia: Qualified Codes: F20.1 - Disorganized schizophrenia Tico Silverio MD Mar 28, 2017 11:18
--- NOTE | 2017-03-28 16:12 | EKG ---
Date Performed: 03/27/2017 Time Performed: 16:06:54 PTAGE: 66 years EKG: Sinus rhythm Compared to prior tracing no significant change NORMAL ECG PREVIOUS TRACING : 03/24/2017 13.54 DOCTOR: David Cortez Interpretating Date/Time 03/28/2017 16:11:10
== END 2017-03-27 15:40 | disposition short-term general hospital (02) | DRG 885 ==
LOC: H260 15:48
PROVIDERS: ADMIT Psychiatry & Neurology Psychiatry; ATTEND Psychiatry & Neurology Psychiatry
DX: F20.1 Disorganized schizophrenia (principal); J15.212 Pneumonia due to Methicillin resistant Staphylococcus aureus; R56.9 Unspecified convulsions; I10 Essential (primary) hypertension; M79.671 Pain in right foot; Z88.8 Allergy status to other drugs, medicaments and biological substances
CPT/HCPCS: 36600; 80048; 80061; 81001; 82805; 82948; 83036; 84443; 87086; 87493; 93005; J2060

== ENCOUNTER 2017-03-27 16:14 | Inpatient (IN) | payer OTHER ==
[2017-03-27] VITALS (8 sets, daily range): BP systolic 115–160; BP diastolic 55–88; PULSE 68–87; RESP 17–29; TEMP 98–98.6; O2SAT 100
[~2017-03-27] VITALS: Ht 165.1 cm; Wt 82.9 kg
[~2017-03-27 16:14] MED LIST changes: -BUPR300T PO; -ESCI10TA PO; -HYDR-3516 PO; -LISI10TA3 PO; +LORazepam 2 MG/ML VIAL IM ONE; -OMEP40CA2 PO; -ONDA8TAB7 PO; -ZOLP5TAB3 PO
[2017-03-27] MEDS ORDERED: LORazepam 2 MG/ML VIAL IV PUSH PRN (16:30)
[2017-03-27] MEDS ORDERED: DEXTROSE 50% IN WATER 50 ML VIAL(D50) IV PUSH PRN (16:30)
[2017-03-27] MEDS ORDERED: MAGNESIUM HYDROXIDE SUSP 30 ML CUP PO PRN (16:30)
[2017-03-27] MEDS ORDERED: RESP: ALBUTEROL 2.5 MG/IPRATROPIUM 0.5 MG NEB (PRN) INH (16:30)
[2017-03-27] MEDS: DEXT 5%-NACL 0.9% 1000 ML INJ 1,000 ML IV SCH (16:30)
[2017-03-27] MEDS ORDERED: CHLORHEXIDINE GLUCONATE 2 % 1 PACK (2 CLOTHS) TOP PRN (16:30)
[2017-03-27] MEDS ORDERED: GLUCAGON 1 MG/ML VIAL OTHER PRN (16:30)
[2017-03-27] MEDS ORDERED: BISACODYL 10 MG SUPP RECTAL PRN (16:30)
[2017-03-27] MEDS ORDERED: SENNOSIDES 8.6 MG TAB PO PRN (16:30)
[2017-03-27] MEDS ORDERED: LACTULOSE SYRUP 20 GM/30 ML CUP PO PRN (16:30)
[2017-03-27] MEDS ORDERED: MISCELLANEOUS NURSING INFORMATION XX SCH (16:30)
[2017-03-27] MEDS ORDERED: LORazepam 2 MG/ML VIAL IV ONE ×2 (16:45)
[2017-03-27] MEDS ORDERED: LORazepam 2 MG/ML VIAL IM ONE ×2 (16:45)
--- NOTE | 2017-03-27 17:25 | HHI.PR ---
Subjective Remarks ? sz todya given 8 mg ativan Objective Objective Remarks awake seems dazed yells appropriately to pinc moves all 4 ext ok toes down not much rxt threat pupil= neck supple Assessment and Plan Assessment and Plan imp ? sz check nh3 and ct and eeg Mg Jessica MD Mar 27, 2017 17:25
[2017-03-27] MEDS: HEPARIN SODIUM - SQ 10,000 UNITS/ML VIAL SQ SCH (17:27)
[2017-03-27] MEDS: INSULIN NovoLIN REGULAR SUPPLEMENTAL SCALE SQ SCH ×2 (17:27→22:00)
--- NOTE | 2017-03-27 17:35 | MH ---
cc: TERESA MONTANO M.D. DATE OF ADMISSION: 03/27/2017 HISTORY OF PRESENT ILLNESS: The patient is a 66-year-old female with past medical history of hypertension, depression, schizophrenia and polysubstance abuse. She was admitted back in early March for altered mental status and polysubstance abuse withdrawal. At that time, she was in the ICU and required intubation, mechanical ventilation. In addition, she was treated for pneumonia. Her sputum culture from March 12 was positive for Proteus, Pseudomonas and MRSA. At that time, she was also seen by Dr. Ortiz from the neurology service due to encephalopathy and at that time she had a CT scan of the brain and an MRI of the brain from March 12 that were unremarkable. She was eventually stabilized and transferred to the psych unit. A HaliCAT was called for questionable new-onset seizures. The patient was given Ativan 4 milligrams IV push along with 4 milligrams IM total. An ABG was performed on room air which showed a pH of 7.44, CO2 28, pAO2 90, bicarb 19 and saturation of 95%. When seen in ICU the patient is restless and agitated. Her current blood pressure is 145/89 with a saturation a 98%. Blood sugar is 102. PAST MEDICAL HISTORY: The past medical history significant for: 1. Hypertension. 2. Depression. 3. Schizophrenia. PAST SURGICAL HISTORY: None. ALLERGIES: MULTIPLE, WHICH INCLUDE: 1. NAPROXEN. 2. INDOMETHACIN. 3. OXAPROZIN. 4. IBUPROFEN. 5. ASPIRIN. 6. ETODOLAC. FAMILY HISTORY: Noncontributory. SOCIAL HISTORY: Chronic narcotic use. MEDICATIONS: 1. Levaquin. 2. Seroquel. 3. Zyprexa. 4. Norvasc. 5. Albuterol. 6. Ativan. REVIEW OF SYSTEMS: The review of systems is as per the history of present illness, and the rest of the review of systems is unobtainable due to the patient's mental status. PHYSICAL EXAMINATION: GENERAL: A 66-year-old female lying in bed in no acute distress. VITAL SIGNS: Afebrile, pulse of 89, blood pressure 145/89, saturation 98%. HEAD, EYES, EARS, NOSE, THROAT: Normocephalic and atraumatic. Pupils equal, round and reactive to light and accommodation. Extraocular muscles intact. Conjunctivae are pink. Nonicteric sclerae. Oral mucosa within normal limits. NECK: The neck is supple. No jugular venous distention, adenopathy or thyromegaly. Trachea in the midline. CARDIOVASCULAR: Regular rate and rhythm. Normal S1-S2. No murmurs, rubs or gallops noted. PULMONARY: Bilateral equal air entry. No rales or wheezing. ABDOMEN: The abdomen is soft, nontender and no distention. Positive bowel sounds. EXTREMITIES: No cyanosis, clubbing or edema. NEUROLOGIC: Restless, agitated. LABORATORY DATA: Laboratory data from : WBCs 10.7, hemoglobin 7.9, hematocrit 23, platelet count of 202,000. Basic metabolic profile from March 24 showed sodium 141, potassium 3.6, chloride 107, carbon dioxide 22, BUN 8, creatinine 0.99, glucose of 88. RADIOGRAPHIC STUDIES: Her last chest x-ray from March 18 showed patchy alveolar disease. MRI of the brain from March [address] head from February 18 showed no acute intracranial findings. EEG from March 14: generalized slowing, which may be related to metabolic medication effect. No ictal activity. IMPRESSION: 1. Respiratory insufficiency. 2. Questionable new-onset seizure. 3. Altered mental status. 4. Hypertension. 5. History of schizophrenia and depression. 6. Recent hospitalization for pneumonia. 7. Anemia. RECOMMENDATIONS: 1. Monitor neuro status closely and will place on an Ativan 1 mg IV q. 2 hour PRN for seizures. She had a previous MRI of the brain and CT scan of the brain which were unremarkable. Will re-consult the neurology service and repeat EEG. 2. Continue with oxygen and maintain saturations above 92%. 3. Bronchodilators in the form of DuoNeb q 4 plus q 2 PRN for shortness of breath. 4. Aspiration precautions. 5. She appears to be protecting her airway at the present time. If there is any change in clinical status, will proceed with intubation. 6. Monitor heart rate and blood pressure closely and maintain MAP greater than 65 mmHg. 7. Monitor renal function, intake and output and electrolyte replacement as needed. 8. Place on IV fluids D5 normal saline at 84 mL/hour. 9. Keep NPO for now and place on Pepcid 20 milligrams IV q. 12 for GI prophylaxis. 10. Monitor for signs of infection which include fever and WBCs. 11. Will check a chest x-ray and urinalysis with culture if indicated. 12. The patient is status post treatment for pneumonia. Will obtain a sputum culture with Gram stain. Her last sputum culture from March 12 was positive for Pseudomonas, Proteus and MRSA. 13. Monitor CBC. 14. Place on sliding scale insulin with Accu-Cheks for glycemic control. 15. GI prophylaxis with Pepcid 20 milligrams IV q. 12 and DVT prophylaxis with SCDs and heparin subcu. Further recommendations will be based on the hospital course. MD JESSICA Jimenez/JEFFY /4:30 PM /4:45 PM
[2017-03-27] MEDS: levETIRAcetam INJ 500 MG in SODIUM CHLORIDE 0.9% INJ 100 ML IV SCH (18:24)
--- NOTE | 2017-03-27 18:47 | RADRPT ---
EXAM DATE/TIME: 03/27/2017 16:16 [facility] COMPARISON: No previous studies available for comparison. INDICATIONS : Short of Breath MEDICAL HISTORY : Hypertension. SURGICAL HISTORY : None. ENCOUNTER: Subsequent ACUITY: 3 days PAIN SCORE: 0/10 LOCATION: Bilateral chest FINDINGS: A single view of the chest demonstrates the lungs to be symmetrically aerated without evidence of mas s, infiltrate or effusion. The cardiomediastinal contours are unremarkable. Remote right mid clavicl e fracture deformity. Right shoulder arthroplasty. CONCLUSION: No acute disease. Osmany Leija MD on March 27, 2017 at 18:46 Board Certified Radiologist. This report was verified electronically.
[2017-03-27] MEDS: RESP: ALBUTEROL 2.5 MG/IPRATROPIUM 0.5 MG NEB (SCH) INH ×2 (19:44→23:10)
[2017-03-27] MEDS: DOCUSATE SODIUM 50 MG/SENNA 8.6 MG TAB PO SCH (21:00)
--- NOTE | 2017-03-27 21:11 | RADRPT ---
EXAM DATE/TIME: 03/27/2017 20:14 [facility] COMPARISON: MRI BRAIN W/O CONTRAST, March 12, 2017, 14:39. CT BRAIN W/O CONTRAST, March 07, 2017, 22:49. INDICATIONS : Seizure. RADIATION DOSE: 40.99 CTDIvol (mGy) MEDICAL HISTORY : Hypertension. Stroke SURGICAL HISTORY : None. ENCOUNTER: Initial ACUITY: 1 day PAIN SCALE: Non-responsive LOCATION: cranial TECHNIQUE: Multiple contiguous axial images were obtained of the head. Using automated exposure control and adj ustment of the mA and/or kV according to patient size, radiation dose was kept as low as reasonably a chievable to obtain optimal diagnostic quality images. DICOM format image data is available electro nically for review and comparison. FINDINGS: CEREBRUM: Frontotemporal sulci are again somewhat prominent symmetrically indicating atrophy that is prominent for age. The ventricles are normal for age. No evidence of midline shift, mass lesion, hemorrhage or acute infarction. No extra-axial fluid collections are seen. POSTERIOR FOSSA: The cerebellum and brainstem are intact. The 4th ventricle is midline. The cerebellopontine angle i s unremarkable. EXTRACRANIAL: The visualized portion of the orbits is intact. SKULL: The calvaria is intact. No evidence of skull fracture. CONCLUSION: Atrophy mildly prominent for age. No acute intracranial findings. Filemon Feldman MD on March 27, 2017 at 21:06 Board Certified Radiologist. This report was verified electronically.
[2017-03-27] MEDS: FAMOTIDINE 20 MG/2 ML VIAL IV PUSH SCH (22:38)
[2017-03-28] VITALS (23 sets, daily range): BP systolic 92–173; BP diastolic 60–93; PULSE 70–109; RESP 16–43; TEMP 97.9–99.2; O2SAT 92–100
[2017-03-28] MEDS: INSULIN NovoLIN REGULAR SUPPLEMENTAL SCALE SQ SCH ×6 (02:00→22:00)
[2017-03-28] MEDS: RESP: ALBUTEROL 2.5 MG/IPRATROPIUM 0.5 MG NEB (SCH) INH ×6 (03:58→23:32)
[2017-03-28] MEDS: CHLORHEXIDINE GLUCONATE 2 % 1 PACK (2 CLOTHS) TOP SCH (04:00)
[2017-03-28 04:15] LABS: AUTOMATED NEUTROPHIL # 2.6 TH/MM3 (1.8-7.7); BASOPHIL # 0.2 TH/MM3 (0-0.2); BASOPHIL % 3.9 % (0.0-2.0); EOSINOPHIL # 0.2 TH/MM3 (0-0.4); EOSINOPHIL % 4.1 % (0.0-4.0); HEMATOCRIT 22.9 % (35.0-46.0); LYMPH % 25.3 % (9.0-44.0); LYMPHOCYTE # 1.2 TH/MM3 (1.0-4.8); MEAN CORPUSCULAR HEMOGLOBIN 35.3 PG (27.0-34.0); MONO % 11.8 % (0.0-8.0); NEUT % 54.9 % (16.0-70.0); PLATELET COUNT 154 TH/MM3 (150-450); RED BLOOD COUNT 2.14 MIL/MM3 (4.00-5.30); RED CELL DISTRIBUTION WIDTH 18.9 % (11.6-17.2); WHITE BLOOD COUNT 4.7 TH/MM3 (4.0-11.0)
[2017-03-28] MEDS: DEXT 5%-NACL 0.9% 1000 ML INJ 1,000 ML IV SCH ×2 (04:30→16:32)
[2017-03-28 04:34] LABS: BICARBONATE 21.7 MEQ/L (21.0-32.0); MAGNESIUM 1.9 MG/DL (1.5-2.5); POTASSIUM 3.6 MEQ/L (3.5-5.1)
--- NOTE | 2017-03-28 05:18 | MG ---
cc: WILLIAMS CARLTON M.D. Lab No: [id number] Date: 03/27/2017 Age: Sex: F Race: INDICATIONS Possible seizure. Schizophrenia. Depression. MEDICATIONS Keppra Ativan 8 mg. FINDINGS The recording shows Stage II sleep with sleep spindles but overall is synchronous and symmetric. Some alpha and beta waves are noted diffusely. No hemisphere asymmetry is noted. No epileptiform or seizure activity is seen. Photic stimulation was performed without significant posterior driving. IMPRESSION Normal sleep EEG. No evidence for a focal or diffuse abnormality. MD BRITT Nguyen/JUMANA /11:13 PM /5:17 AM
[2017-03-28 05:19] LABS: HEMO FLAGS AUTO DIFF
[2017-03-28 05:20] LABS: PLATELET ESTIMATE SMEAR NORMAL (NORMAL); PLATELET MORPHOLOGY NORMAL (NORMAL); SCAN/DIFF AUTO DIFF CONFIRMED
[2017-03-28 05:21] LABS: ACANTHOCYTES OCC (NORMAL); OVALOCYTES 1+ (NORMAL)
[2017-03-28] MEDS: levETIRAcetam INJ 500 MG in SODIUM CHLORIDE 0.9% INJ 100 ML IV SCH ×2 (05:42→17:28)
[2017-03-28] MEDS: HEPARIN SODIUM - SQ 10,000 UNITS/ML VIAL SQ SCH ×2 (05:43→17:27)
--- NOTE | 2017-03-28 08:53 | HHI.CCPN ---
Subjective Remarks/Hospital Course The patient is a 66-year-old female with past medical history of hypertension, depression, schizophrenia and polysubstance abuse. She was admitted back in early March for altered mental status and polysubstance abuse withdrawal. At that time, she was in the ICU and required intubation, mechanical ventilation. In addition, she was treated for pneumonia. Her sputum culture from March 12 was positive for Proteus, Pseudomonas and MRSA. At that time, she was also seen by Dr. Ortiz from the neurology service due to encephalopathy and at that time she had a CT scan of the brain and an MRI of the brain from March 12 that were unremarkable. She was eventually stabilized and transferred to the psych unit. A HaliCAT was called for questionable new-onset seizures. The patient was given Ativan 4 milligrams IV push along with 4 milligrams IM total. An ABG was performed on room air which showed a pH of 7.44, CO2 28, pAO2 90, bicarb 19 and saturation of 95%. When seen in ICU the patient is restless and agitated. Her current blood pressure is 145/89 with a saturation a 98%. Blood sugar is 102. 1120 Patient with intermittent confusion. Afebrile. CT brain last night no acute findings, EEG is within normal. Objective Vital Signs Date Time Temp Pulse Resp B/P (MAP) Pulse Ox O2 Delivery O2 Flow Rate FiO2 03/28/17 08:38 98 Nasal Cannula 3.00 03/28/17 06:00 78 03/28/17 06:00 22 158/93 (114) 03/28/17 04:00 98.2 Intake and Output 03/28/17 03/28/17 03/29/17 08:00 16:00 00:00 Intake Total 1000 ml Balance 1000 ml Result Diagram: 03/28/17 0340 03/28/17 0340 Other Results Laboratory Tests Test 03/27/17 16:37 03/27/17 17:40 03/28/17 03:40 Nasal Screen MRSA (PCR) MRSA DETECTED Ammonia 14 MCMOL/L White Blood Count 4.7 TH/MM3 Red Blood Count 2.14 MIL/MM3 Hemoglobin 7.6 GM/DL Hematocrit 22.9 % Mean Corpuscular Volume 107.0 FL Mean Corpuscular Hemoglobin 35.3 PG Mean Corpuscular Hemoglobin Concent 33.0 % Red Cell Distribution Width 18.9 % Platelet Count 154 TH/MM3 Mean Platelet Volume 9.3 FL Neutrophils (%) (Auto) 54.9 % Lymphocytes (%) (Auto) 25.3 % Monocytes (%) (Auto) 11.8 % Eosinophils (%) (Auto) 4.1 % Basophils (%) (Auto) 3.9 % Neutrophils # (Auto) 2.6 TH/MM3 Lymphocytes # (Auto) 1.2 TH/MM3 Monocytes # (Auto) 0.5 TH/MM3 Eosinophils # (Auto) 0.2 TH/MM3 Basophils # (Auto) 0.2 TH/MM3 CBC Comment AUTO DIFF Differential Comment AUTO DIFF CONFIRMED Platelet Estimate NORMAL Platelet Morphology Comment NORMAL Ovalocytes 1+ Acanthocytes OCC Blood Urea Nitrogen 9 MG/DL Creatinine 0.93 MG/DL Random Glucose 100 MG/DL Calcium Level 8.0 MG/DL Phosphorus Level 3.5 MG/DL Magnesium Level 1.9 MG/DL Sodium Level 141 MEQ/L Potassium Level 3.6 MEQ/L Chloride Level 110 MEQ/L Carbon Dioxide Level 21.7 MEQ/L Anion Gap 9 MEQ/L Estimat Glomerular Filtration Rate 61 ML/MIN Imaging Last Impressions Head CT 03/27/17 0000 Signed Impressions: Service Date/Time: Monday, March 27, 2017 20:14 - CONCLUSION: Atrophy mildly prominent for age. No acute intracranial findings. Filemon Feldman MD Chest X-Ray 03/27/17 0000 Signed Impressions: Service Date/Time: Monday, March 27, 2017 16:16 - CONCLUSION: No acute disease. Osmany Leija MD Objective Remarks GENERAL: Patient is lying in bed in no acute resp distress, confused SKIN: Warm and dry. HEAD: Normocephalic. EYES: No scleral icterus. No injection or drainage. NECK: Supple, trachea midline. No JVD or lymphadenopathy. CARDIOVASCULAR: Regular rate and rhythm without murmurs, gallops, or rubs. RESPIRATORY: Breath sounds equal bilaterally. No accessory muscle use. GASTROINTESTINAL: Abdomen soft, non-tender, nondistended. MUSCULOSKELETAL: No cyanosis, or edema. Neuro: Awake and alert. A/P Assessment and Plan 1. Respiratory insufficiency. 2.? seizure. 3. Altered mental status. 4. Hypertension. 5. History of schizophrenia and depression. 6. Recent hospitalization for pneumonia. 7. Anemia. Plan Neuro: Monitor neuro status, on Ativan 1 mg IV q. 2 hour PRN Had a previous unremarkable MRI brain and CT brain . Repeat CT brain 03/27 - no acute findings. EEG 03/27 within normal. Neuro is following- On Keppra per neuro. Consult Psych Pulm: Continue with oxygen and maintain sats> 92%. Bronchodilators CV: MonitorHR and BP and maintain MAP >65 mmHg. : Monitor renal function, intake and output and electrolyte replacement as needed. On D5 NS at 84 mL/hour. GI: On Pepcid 20 milligrams IV q. 12 for GI prophylaxis. Speech eval diet per speech. ID: Monitor for signs of infection(fever and WBC)s. CXR 03/27: No acute disease. [facility] Heme: Monitor CBC. Endo: SSI with Accu-Cheks for glycemic control. GI prophylaxis with Pepcid 20 milligrams IV q. 12 and DVT prophylaxis with SCDs and heparin subcu. Level 2 Jhony Lemons MD Mar 28, 2017 08:53
[2017-03-28] MEDS: DOCUSATE SODIUM 50 MG/SENNA 8.6 MG TAB PO SCH ×2 (09:00→19:34)
[2017-03-28] MEDS: FAMOTIDINE 20 MG/2 ML VIAL IV PUSH SCH ×2 (09:20→19:33)
[2017-03-28] MEDS: QUEtiapine FUMARATE 25 MG TAB PO SCH (13:34)
[2017-03-28 15:27] LABS: HEMATOCRIT 24.7 % (35.0-46.0); REVIEW FLAG FINAL
[2017-03-28] MEDS: ACETAMINOPHEN 325 MG TAB PO PRN (19:34)
[2017-03-29] VITALS (22 sets, daily range): BP systolic 111–138; BP diastolic 55–78; PULSE 103–126; RESP 18–32; TEMP 98.1–99.7; O2SAT 97–100
[2017-03-29] MEDS: ACETAMINOPHEN 325 MG TAB PO PRN ×4 (01:15→21:37)
[2017-03-29] MEDS: INSULIN NovoLIN REGULAR SUPPLEMENTAL SCALE SQ SCH ×6 (01:15→21:36)
[2017-03-29] MEDS: RESP: ALBUTEROL 2.5 MG/IPRATROPIUM 0.5 MG NEB (SCH) INH ×6 (03:17→23:27)
[2017-03-29] MEDS: CHLORHEXIDINE GLUCONATE 2 % 1 PACK (2 CLOTHS) TOP SCH (04:00)
[2017-03-29] MEDS: DEXT 5%-NACL 0.9% 1000 ML INJ 1,000 ML IV SCH (04:15)
[2017-03-29] MEDS: HEPARIN SODIUM - SQ 10,000 UNITS/ML VIAL SQ SCH (05:31)
[2017-03-29] MEDS: levETIRAcetam INJ 500 MG in SODIUM CHLORIDE 0.9% INJ 100 ML IV SCH ×2 (05:31→18:09)
[2017-03-29 06:13] LABS: AUTOMATED NEUTROPHIL # 2.1 TH/MM3 (1.8-7.7); BASOPHIL % 1.2 % (0.0-2.0); EOSINOPHIL # 0.1 TH/MM3 (0-0.4); LYMPH % 21.1 % (9.0-44.0); LYMPHOCYTE # 0.7 TH/MM3 (1.0-4.8); MEAN CELL VOLUME 105.5 FL (80.0-100.0); MEAN CORPUSCULAR HEMOGLOBIN 34.6 PG (27.0-34.0); MEAN CORPUSCULAR HGB CONC 32.8 % (32.0-36.0); MONO % 13.7 % (0.0-8.0); PLATELET COUNT 130 TH/MM3 (150-450); RED CELL DISTRIBUTION WIDTH 17.8 % (11.6-17.2); WHITE BLOOD COUNT 3.5 TH/MM3 (4.0-11.0)
[2017-03-29 06:26] LABS: HEMO FLAGS DIFF FINAL
[2017-03-29 06:27] LABS: HEMATOCRIT 20.1 % (35.0-46.0)
[2017-03-29 06:49] LABS: ALT (GPT) 15 U/L (10-53); ANION GAP 9 MEQ/L (5-15); AST (GOT) 18 U/L (15-37); BICARBONATE 21.1 MEQ/L (21.0-32.0); BLOOD UREA NITROGEN 13 MG/DL (7-18); CHLORIDE 112 MEQ/L (98-107); GLOMERULAR FILTRATION RATE 54 ML/MIN (>89); POTASSIUM 3.4 MEQ/L (3.5-5.1); SODIUM (NA) 142 MEQ/L (136-145)
[2017-03-29 06:52] LABS: ALKALINE PHOSPHATASE 77 U/L (45-117); TOTAL BILIRUBIN ADULT 0.2 MG/DL (0.2-1.0)
[2017-03-29] MEDS ORDERED: MAGNESIUM SULFATE INJ 4 GM in SODIUM CHLORIDE 0.9% INJ 92 ML IV PRN (07:45)
[2017-03-29] MEDS ORDERED: POTASSIUM PHOSPHATE MONOBASIC 500 MG TAB PO PRN (07:45)
[2017-03-29] MEDS ORDERED: POTASSIUM CHLOR 20 MEQ PREMIX 100 ML IV PRN (07:45)
[2017-03-29] MEDS ORDERED: MAGNESIUM SULFATE INJ 2 GM in SODIUM CHLORIDE 0.9% INJ 96 ML IV PRN (07:45)
[2017-03-29] MEDS ORDERED: POTASSIUM CHLOR 40 MEQ PREMIX 100 ML IV PRN ×2 (07:45)
[2017-03-29] MEDS ORDERED: SODIUM PHOSPHATE INJ 30 MMOL in SODIUM CHLOR 0.9% 250 ML INJ 240 ML IV PRN (07:45)
[2017-03-29] MEDS ORDERED: POTASSIUM PHOSPHATE INJ 30 MMOL in SODIUM CHLOR 0.9% 250 ML INJ 250 ML IV PRN (07:45)
[2017-03-29] MEDS ORDERED: POTASSIUM CHLORIDE 25 MEQ EFFERVESCENT TAB PO PRN (07:45)
[2017-03-29] MEDS ORDERED: MAGNESIUM OXIDE 400 MG TAB PO PRN (07:45)
[2017-03-29] MEDS ORDERED: POTASSIUM PHOSPHATE MONOBASIC 500 MG TAB PO/TUBE PRN (07:45)
--- NOTE | 2017-03-29 07:51 | HHI.CCPN ---
Subjective Remarks/Hospital Course The patient is a 66-year-old female with past medical history of hypertension, depression, schizophrenia and polysubstance abuse. She was admitted back in early March for altered mental status and polysubstance abuse withdrawal. At that time, she was in the ICU and required intubation, mechanical ventilation. In addition, she was treated for pneumonia. Her sputum culture from March 12 was positive for Proteus, Pseudomonas and MRSA. At that time, she was also seen by Dr. Ortiz from the neurology service due to encephalopathy and at that time she had a CT scan of the brain and an MRI of the brain from March 12 that were unremarkable. She was eventually stabilized and transferred to the psych unit. A HaliCAT was called for questionable new-onset seizures. The patient was given Ativan 4 milligrams IV push along with 4 milligrams IM total. An ABG was performed on room air which showed a pH of 7.44, CO2 28, pAO2 90, bicarb 19 and saturation of 95%. When seen in ICU the patient is restless and agitated. Her current blood pressure is 145/89 with a saturation a 98%. Blood sugar is 102. 03/28 Patient with intermittent confusion. Afebrile. CT brain last night no acute findings, EEG is within normal. 03/29 No events overnight. Patient is awake and alert. Objective Vital Signs Date Time Temp Pulse Resp B/P (MAP) Pulse Ox O2 Delivery O2 Flow Rate FiO2 03/29/17 06:00 110 03/29/17 04:00 98.4 19 119/71 (87) 100 03/28/17 20:07 Nasal Cannula 2.50 Intake and Output 03/29/17 03/29/17 03/30/17 08:00 16:00 00:00 Intake Total 1400 ml Output Total 700 ml Balance 700 ml Result Diagram: 03/29/17 0510 03/29/17 0510 Other Results Laboratory Tests Test 03/28/17 14:20 03/29/17 05:10 Hemoglobin 8.4 GM/DL 6.6 GM/DL Hematocrit 24.7 % 20.1 % White Blood Count 3.5 TH/MM3 Red Blood Count 1.90 MIL/MM3 Mean Corpuscular Volume 105.5 FL Mean Corpuscular Hemoglobin 34.6 PG Mean Corpuscular Hemoglobin Concent 32.8 % Red Cell Distribution Width 17.8 % Platelet Count 130 TH/MM3 Mean Platelet Volume 8.7 FL Neutrophils (%) (Auto) 60.0 % Lymphocytes (%) (Auto) 21.1 % Monocytes (%) (Auto) 13.7 % Eosinophils (%) (Auto) 4.0 % Basophils (%) (Auto) 1.2 % Neutrophils # (Auto) 2.1 TH/MM3 Lymphocytes # (Auto) 0.7 TH/MM3 Monocytes # (Auto) 0.5 TH/MM3 Eosinophils # (Auto) 0.1 TH/MM3 Basophils # (Auto) 0.0 TH/MM3 CBC Comment DIFF FINAL Differential Comment Blood Urea Nitrogen 13 MG/DL Creatinine 1.03 MG/DL Random Glucose 102 MG/DL Total Protein 5.7 GM/DL Albumin 2.1 GM/DL Calcium Level 8.3 MG/DL Alkaline Phosphatase 77 U/L Aspartate Amino Transf (AST/SGOT) 18 U/L Alanine Aminotransferase (ALT/SGPT) 15 U/L Total Bilirubin 0.2 MG/DL Sodium Level 142 MEQ/L Potassium Level 3.4 MEQ/L Chloride Level 112 MEQ/L Carbon Dioxide Level 21.1 MEQ/L Anion Gap 9 MEQ/L Estimat Glomerular Filtration Rate 54 ML/MIN Imaging Last Impressions Head CT 03/27/17 0000 Signed Impressions: Service Date/Time: Monday, March 27, 2017 20:14 - CONCLUSION: Atrophy mildly prominent for age. No acute intracranial findings. Filemon Feldman MD Chest X-Ray 03/27/17 0000 Signed Impressions: Service Date/Time: Monday, March 27, 2017 16:16 - CONCLUSION: No acute disease. Osmany Leija MD Objective Remarks GENERAL: Patient is lying in bed in no acute resp distress, confused SKIN: Warm and dry. HEAD: Normocephalic. EYES: No scleral icterus. No injection or drainage. NECK: Supple, trachea midline. No JVD or lymphadenopathy. CARDIOVASCULAR: Regular rate and rhythm without murmurs, gallops, or rubs. RESPIRATORY: Breath sounds equal bilaterally. No accessory muscle use. GASTROINTESTINAL: Abdomen soft, non-tender, nondistended. MUSCULOSKELETAL: No cyanosis, or edema. Neuro: Awake and alert. A/P Assessment and Plan 1. Respiratory insufficiency. 2.? seizure. 3. Altered mental status. 4. Hypertension. 5. History of schizophrenia and depression. 6. Recent hospitalization for pneumonia. 7. Anemia. Plan Neuro: Monitor neuro status, on Ativan 1 mg IV q. 2 hour PRN Had a previous unremarkable MRI brain and CT brain . Repeat CT brain 03/27 - no acute findings. EEG 03/27 within normal. Neuro is following- On Keppra per neuro. Consult Psych Pulm: Continue with oxygen and maintain sats> 92%. Bronchodilators CV: Monitor HR and BP and maintain MAP >65 mmHg. : Monitor renal function, intake and output and electrolyte replacement as needed. d/c IVF. For K replacement today GI: On Pepcid 20 milligrams IV q. 12 for GI prophylaxis. On PO diet ID: Monitor for signs of infection(fever and WBC)s. CXR 03/27: No acute disease. Follow up on [facility] Heme: Monitor CBC. Will transfuse 1 unit PRBC today for Hgb 6.6. Guaiac stool for Heme. Endo: SSI with Accu-Cheks for glycemic control. GI prophylaxis with Pepcid 20 milligrams IV q. 12 and DVT prophylaxis with SCDs. Hold heparin subcu. Will sign off and transfer care to [facility] Level 2 Jhony Lemons MD Mar 29, 2017 07:51
[2017-03-29] MEDS: QUEtiapine FUMARATE 25 MG TAB PO SCH ×2 (08:19→14:30)
[2017-03-29] MEDS: FAMOTIDINE 20 MG/2 ML VIAL IV PUSH SCH ×2 (08:19→21:37)
[2017-03-29] MEDS: DOCUSATE SODIUM 50 MG/SENNA 8.6 MG TAB PO SCH ×2 (08:19→21:37)
--- NOTE | 2017-03-29 08:29 | HHI.PR ---
Review/Management Daily Summary 03/29 awake, conversant, partially oriented follows simple commands well, moves 4 limbs, raises legs well counts fingers bilaterally ??seizure, encephalopathy continue medical care, start PT for oob activities and advance as tolerated please call neuro prn nexxt few days/holiday Subjective Subjective Comments No new neuro events reported Active Medications Current Medications Medications (Trade) Dose Ordered Sig/Bryan Route Start Time Stop Time Status Last Admin (Pepcid Inj) 20 mg Q12HR IV PUSH 03/27/17 21:00 03/29/17 08:19 (Duoneb Neb) 1 ampule Q4HR NEB INH 03/27/17 20:00 03/28/17 20:05 (Duoneb Neb) 1 ampule Q2HR NEB PRN INH 03/27/17 16:30 (Heparin Inj) 5,000 units Q12H SQ 03/27/17 18:00 Future Hold 03/29/17 05:31 Miscellaneous Information 1 Q361D XX 03/27/17 16:30 (Chlorhexidine 2% Cloth) 3 pack Taper DAILY@04 TOP 03/28/17 04:00 03/24/18 03:59 03/29/17 04:00 (Chlorhexidine 2% Cloth) 3 pack UNSCH PRN TOP 03/27/17 16:30 (Sowmya-Colace) 1 tab BID PO 03/27/17 21:00 03/28/17 19:34 (Milk Of Magnesia Liq) 30 ml Q12H PRN PO 03/27/17 16:30 (Senokot) 17.2 mg Q12H PRN PO 03/27/17 16:30 (Dulcolax Supp) 10 mg DAILY PRN RECTAL 03/27/17 16:30 (Lactulose Liq) 30 ml DAILY PRN PO 03/27/17 16:30 (Ativan Inj) 1 mg Q4H PRN IV PUSH 03/27/17 16:30 (D50w (Vial) Inj) 50 ml UNSCH PRN IV PUSH 03/27/17 16:30 (Glucagon Inj) 1 mg UNSCH PRN OTHER 03/27/17 16:30 (NovoLIN R SUPPLEMENTAL SCALE) 1 Q4H SQ 03/27/17 18:00 03/28/17 22:00 Levetriacetam 500 mg/Sodium Chloride 105 ml @ 420 mls/hr Q12H IV 03/27/17 18:00 03/29/17 05:31 (SEROquel) 25 mg BID@09,12 PO 03/28/17 12:00 03/29/17 08:19 (Tylenol) 650 mg Q4H PRN PO 03/28/17 19:00 03/29/17 07:45 Potassium Chloride 100 ml @ 50 mls/hr Q2H PRN IV 03/29/17 07:45 Potassium Chloride 100 ml @ 50 mls/hr Q2H PRN IV 03/29/17 07:45 (K-Lyte Cl Eff) 50 meq UNSCH PRN PO 03/29/17 07:45 Potassium Chloride 100 ml @ 25 mls/hr UNSCH PRN IV 03/29/17 07:45 Potassium Chloride 100 ml @ 50 mls/hr Q2H PRN IV 03/29/17 07:45 Magnesium Sulfate 4 gm/Sodium Chloride 100 ml @ 50 mls/hr UNSCH PRN IV 03/29/17 07:45 (Mag-Ox) 800 mg UNSCH PRN PO 03/29/17 07:45 Magnesium Sulfate 2 gm/Sodium Chloride 100 ml @ 50 mls/hr UNSCH PRN IV 03/29/17 07:45 (K-Phos) 2,000 mg Q4H PRN PO 03/29/17 07:45 Sodium Phosphate 30 mmol/Sodium Chloride 250 ml @ 42 mls/hr UNSCH PRN IV 03/29/17 07:45 (K-Phos) 2,000 mg UNSCH PRN PO/TUBE 03/29/17 07:45 Potassium Phosphate 30 mmol/ Sodium Chloride 260 ml @ 42 mls/hr UNSCH PRN IV 03/29/17 07:45 Allergies Allergies Coded Allergies diclofenac (Unverified Adverse Reaction, Severe, GASTRIC BYPASS, 12/21/16) etodolac (Unverified Adverse Reaction, Severe, GASTRIC BYPASS, 12/21/16) flurbiprofen (Unverified Adverse Reaction, Severe, GASTRIC BYPASS, 12/21/16) ibuprofen (Unverified Adverse Reaction, Severe, GASTRIC BYPASS, 12/21/16) indomethacin (Unverified Adverse Reaction, Severe, GASTRIC BYPASS, 12/21/16) ketoprofen (Unverified Adverse Reaction, Severe, GASTRIC BYPASS, 12/21/16) ketorolac (Unverified Adverse Reaction, Severe, GASTRIC BYPASS, 12/21/16) naproxen (Unverified Adverse Reaction, Severe, GASTRIC BYPASS, 12/21/16) oxaprozin (Unverified Adverse Reaction, Severe, GASTRIC BYPASS, 12/21/16) aspirin (Unverified Adverse Reaction, Unknown, GASTRIC BYPASS, 12/21/16) Exam I&O / VS 03/29/17 03/29/17 03/30/17 15:00 23:00 07:00 Intake Total 330 ml Balance 330 ml IV Total 330 ml Vital Signs Date Time Temp Pulse Resp B/P (MAP) Pulse Ox O2 Delivery O2 Flow Rate FiO2 03/29/17 06:00 110 03/29/17 04:00 98.4 104 19 119/71 (87) 100 03/29/17 04:00 107 03/29/17 02:00 111 03/29/17 00:00 98.3 103 21 133/70 (91) 99 03/29/17 00:00 105 03/28/17 22:00 101 03/28/17 20:07 100 Nasal Cannula 2.50 03/28/17 20:00 98.4 104 24 119/82 (94) 100 03/28/17 20:00 99 03/28/17 18:00 98.0 109 29 112/74 (87) 100 03/28/17 18:00 109 03/28/17 17:00 98.0 97 39 92/62 (72) 100 03/28/17 16:00 97 03/28/17 16:00 98.8 97 20 123/64 (83) 100 03/28/17 15:00 98.8 99 21 117/66 (83) 99 03/28/17 14:00 97 03/28/17 14:00 98.9 97 22 157/74 (101) 98 03/28/17 13:00 98.9 81 26 173/80 (111) 100 03/28/17 12:00 99.2 80 20 110/63 (79) 100 03/28/17 12:00 80 03/28/17 11:00 98.1 98 22 149/77 (101) 92 03/28/17 10:00 98 03/28/17 10:00 98.1 98 22 149/77 (101) 92 03/28/17 09:00 98.1 85 21 151/81 (104) 99 03/28/17 08:38 98 Nasal Cannula 3.00 Objective Micro and Labs Laboratory Tests Test 03/28/17 14:20 03/29/17 05:10 Hemoglobin 8.4 6.6 Hematocrit 24.7 20.1 White Blood Count 3.5 Red Blood Count 1.90 Mean Corpuscular Volume 105.5 Mean Corpuscular Hemoglobin 34.6 Mean Corpuscular Hemoglobin Concent 32.8 Red Cell Distribution Width 17.8 Platelet Count 130 Mean Platelet Volume 8.7 Neutrophils (%) (Auto) 60.0 Lymphocytes (%) (Auto) 21.1 Monocytes (%) (Auto) 13.7 Eosinophils (%) (Auto) 4.0 Basophils (%) (Auto) 1.2 Neutrophils # (Auto) 2.1 Lymphocytes # (Auto) 0.7 Monocytes # (Auto) 0.5 Eosinophils # (Auto) 0.1 Basophils # (Auto) 0.0 CBC Comment DIFF FINAL Differential Comment Blood Urea Nitrogen 13 Creatinine 1.03 Random Glucose 102 Total Protein 5.7 Albumin 2.1 Calcium Level 8.3 Alkaline Phosphatase 77 Aspartate Amino Transf (AST/SGOT) 18 Alanine Aminotransferase (ALT/SGPT) 15 Total Bilirubin 0.2 Sodium Level 142 Potassium Level 3.4 Chloride Level 112 Carbon Dioxide Level 21.1 Anion Gap 9 Estimat Glomerular Filtration Rate 54 Frank Monet MD Mar 29, 2017 08:29
--- NOTE | 2017-03-29 09:43 | HHI.PYPN ---
Subjective Remarks Note form 03/28/2017 entered by mistake in previous hospitalizations, Patient was seen today in the ICU for psychiatric reevaluation. Patient was initially admitted in psychiatry due to an episode of exacerbation of schizophrenia. In the psychiatric unit she became lethargic, and unresponsive. She was sitting in the psychiatric unit she was found minimally responsive. She started having seizure. Was pushed 2mg Ativan X 2 Intramuscularly, established IV access on the left arm and then we pushed 2mg of IV Ativan. After IM Ativan, patient appeared to respond briefly but then she started having seizure again and became unresponsive. Rapid response was called and patient was subsequently transferred to Critical care. En route, patient received 2mg of IV Ativan. She was somewhat responsive in the ICU. She was consulted to neurology. Today on psychiatric evaluation patient is alert, oriented 3, engageable in a conversation. She is calm, mostly cooperative, breathing with not so cannula, no distress or pain reported. She reports feeling much better. She reports good mood, but says that she has been receiving visits from "small scary people from the [place] has been coming inside his room". She is able to was her most of my questions, but at times becomes disorganized and tangential. Patient was able to repeat car black judgment, but unable to recall these words in 5 minutes. Patient could not spell world backward or tell me the days of the week backwards, her abstract thinking also seems to be impaired at the moment of this evaluation. Review of Systems Neurologic: COMPLAINS OF: Headache Psychiatric: COMPLAINS OF: Delusions Except as stated in HPI: all other systems reviewed are Neg Mental Status Examination Appearance: Appropriate Consciousness: Alert Orientation: x4 Motor Activity: Normal gait Speech: Unremarkable Language: Adequate Fund of Knowledge: Adequate Attention and Concentration: Adequate Memory: Unremarkable Mood: Good Affect: Appropriate Thought Process & Associations: Intact Thought Content: Appropriate Hallucination Type: Auditory Delusion Type: None Suicidal Ideation: No Suicidal Plan: No Suicidal Intention: No Homicidal Ideation: No Homicidal Plan: No Homicidal Intention: No Insight: Adequate Judgment: Adequate Results Labs Test 03/28/17 14:20 03/29/17 05:10 Hemoglobin 8.4 GM/DL 6.6 GM/DL Hematocrit 24.7 % 20.1 % White Blood Count 3.5 TH/MM3 Red Blood Count 1.90 MIL/MM3 Mean Corpuscular Volume 105.5 FL Mean Corpuscular Hemoglobin 34.6 PG Mean Corpuscular Hemoglobin Concent 32.8 % Red Cell Distribution Width 17.8 % Platelet Count 130 TH/MM3 Mean Platelet Volume 8.7 FL Neutrophils (%) (Auto) 60.0 % Lymphocytes (%) (Auto) 21.1 % Monocytes (%) (Auto) 13.7 % Eosinophils (%) (Auto) 4.0 % Basophils (%) (Auto) 1.2 % Neutrophils # (Auto) 2.1 TH/MM3 Lymphocytes # (Auto) 0.7 TH/MM3 Monocytes # (Auto) 0.5 TH/MM3 Eosinophils # (Auto) 0.1 TH/MM3 Basophils # (Auto) 0.0 TH/MM3 CBC Comment DIFF FINAL Differential Comment Blood Urea Nitrogen 13 MG/DL Creatinine 1.03 MG/DL Random Glucose 102 MG/DL Total Protein 5.7 GM/DL Albumin 2.1 GM/DL Calcium Level 8.3 MG/DL Alkaline Phosphatase 77 U/L Aspartate Amino Transf (AST/SGOT) 18 U/L Alanine Aminotransferase (ALT/SGPT) 15 U/L Total Bilirubin 0.2 MG/DL Sodium Level 142 MEQ/L Potassium Level 3.4 MEQ/L Chloride Level 112 MEQ/L Carbon Dioxide Level 21.1 MEQ/L Anion Gap 9 MEQ/L Estimat Glomerular Filtration Rate 54 ML/MIN Vitals/IOs Vital Signs Date Time Temp Pulse Resp B/P (MAP) Pulse Ox O2 Delivery O2 Flow Rate FiO2 03/29/17 09:00 124 03/29/17 08:30 99 Nasal Cannula 2.00 03/29/17 08:00 98.1 32 138/78 (98) Intake and Output 03/29/17 03/29/17 03/30/17 08:00 16:00 00:00 Intake Total 1730 ml Output Total 700 ml Balance 1030 ml Assessment & Plan Problem List: (1) Schizophrenia ICD Codes: F20.9 - Schizophrenia, unspecified Assessment & Plan: At the moment of this evaluation patient has some disorganized speech, tangentiality, reported visual hallucinations. She is oriented 3, she has impairment in concentration and immediate recall. We will restart Seroquel 25 mg twice a day. We'll continue follow-up. Assessment & Plan Estimated LOS: days Justification for Cont. Inpt. Patient will be transferred back to psychiatry once medically stable Tico Silverio MD Mar 29, 2017 09:43
--- NOTE | 2017-03-29 09:49 | HHI.PYPN ---
Subjective Remarks Patient was seen today for psychiatric reevaluation, she is found, alert, talkative. Patient reports good mood, she is in a good spirit, she says that she feels today much better and just today. She was able to recognize me from previous encounters, she is fully oriented 4, able to express a fair understanding of her current medical conditions. He reports mild to moderate headache since yesterday. Mostly logical, coherent and relevant. No delusions , disorganized speech or behavior, paranoia, tangentiality elicited in this interview. Today the patient denies visual and auditory hallucinations. No agitation, violence, aggressive behavior, restlessness reported or observed. She denies suicidal and homicidal ideation. Review of Systems Neurologic: COMPLAINS OF: Headache Mental Status Examination Appearance: Appropriate Consciousness: Alert Orientation: x4 Motor Activity: Normal gait Speech: Unremarkable Language: Adequate Fund of Knowledge: Adequate Attention and Concentration: Adequate Memory: Unremarkable Mood: Good Affect: Appropriate Thought Process & Associations: Intact Thought Content: Appropriate Hallucination Type: None Delusion Type: None Suicidal Ideation: No Suicidal Plan: No Suicidal Intention: No Homicidal Ideation: No Homicidal Plan: No Homicidal Intention: No Insight: Adequate Judgment: Adequate Results Labs Test 03/28/17 14:20 03/29/17 05:10 Hemoglobin 8.4 GM/DL 6.6 GM/DL Hematocrit 24.7 % 20.1 % White Blood Count 3.5 TH/MM3 Red Blood Count 1.90 MIL/MM3 Mean Corpuscular Volume 105.5 FL Mean Corpuscular Hemoglobin 34.6 PG Mean Corpuscular Hemoglobin Concent 32.8 % Red Cell Distribution Width 17.8 % Platelet Count 130 TH/MM3 Mean Platelet Volume 8.7 FL Neutrophils (%) (Auto) 60.0 % Lymphocytes (%) (Auto) 21.1 % Monocytes (%) (Auto) 13.7 % Eosinophils (%) (Auto) 4.0 % Basophils (%) (Auto) 1.2 % Neutrophils # (Auto) 2.1 TH/MM3 Lymphocytes # (Auto) 0.7 TH/MM3 Monocytes # (Auto) 0.5 TH/MM3 Eosinophils # (Auto) 0.1 TH/MM3 Basophils # (Auto) 0.0 TH/MM3 CBC Comment DIFF FINAL Differential Comment Blood Urea Nitrogen 13 MG/DL Creatinine 1.03 MG/DL Random Glucose 102 MG/DL Total Protein 5.7 GM/DL Albumin 2.1 GM/DL Calcium Level 8.3 MG/DL Alkaline Phosphatase 77 U/L Aspartate Amino Transf (AST/SGOT) 18 U/L Alanine Aminotransferase (ALT/SGPT) 15 U/L Total Bilirubin 0.2 MG/DL Sodium Level 142 MEQ/L Potassium Level 3.4 MEQ/L Chloride Level 112 MEQ/L Carbon Dioxide Level 21.1 MEQ/L Anion Gap 9 MEQ/L Estimat Glomerular Filtration Rate 54 ML/MIN Vitals/IOs Vital Signs Date Time Temp Pulse Resp B/P (MAP) Pulse Ox O2 Delivery O2 Flow Rate FiO2 03/29/17 09:00 124 03/29/17 08:30 99 Nasal Cannula 2.00 03/29/17 08:00 98.1 32 138/78 (98) Intake and Output 03/29/17 03/29/17 03/30/17 08:00 16:00 00:00 Intake Total 1730 ml Output Total 700 ml Balance 1030 ml Assessment & Plan Problem List: (1) Schizophrenia ICD Codes: F20.9 - Schizophrenia, unspecified Assessment & Plan: We will increase Seroquel to 50 mg twice a day, does in which she was stable in psychiatry. Brief supportive psychotherapy, psychoeducation provided. We'll continue follow-up. Assessment & Plan Estimated LOS: days Justification for Cont. Inpt. Patient is under Shaikh act, she may need hospitalization after medical clearance , we will follow-up in the floor. Tcio Silverio MD Mar 29, 2017 09:49
[2017-03-29 15:40] LABS: HEMATOCRIT 23.2 % (35.0-46.0)
[2017-03-29 15:44] LABS: REVIEW FLAG FINAL
[2017-03-30] VITALS (12 sets, daily range): BP systolic 116–165; BP diastolic 56–90; PULSE 83–122; RESP 17–27; TEMP 98.5–99.4; O2SAT 98–100
[2017-03-30] MEDS: POTASSIUM CHLOR 20 MEQ PREMIX 100 ML IV PRN ×2 (01:18→01:19)
[2017-03-30] MEDS: INSULIN NovoLIN REGULAR SUPPLEMENTAL SCALE SQ SCH ×5 (01:19→17:31)
[2017-03-30] MEDS: CHLORHEXIDINE GLUCONATE 2 % 1 PACK (2 CLOTHS) TOP SCH (02:40)
[2017-03-30] MEDS: RESP: ALBUTEROL 2.5 MG/IPRATROPIUM 0.5 MG NEB (SCH) INH ×5 (03:47→20:09)
[2017-03-30] MEDS: levETIRAcetam INJ 500 MG in SODIUM CHLORIDE 0.9% INJ 100 ML IV SCH ×2 (05:05→17:30)
[2017-03-30 06:17] LABS: AUTOMATED NEUTROPHIL # 2.9 TH/MM3 (1.8-7.7); BASOPHIL % 0.8 % (0.0-2.0); EOSINOPHIL # 0.1 TH/MM3 (0-0.4); EOSINOPHIL % 3.1 % (0.0-4.0); HEMATOCRIT 24.6 % (35.0-46.0); HEMO FLAGS DIFF FINAL; LYMPH % 19.3 % (9.0-44.0); LYMPHOCYTE # 0.9 TH/MM3 (1.0-4.8); MEAN CELL VOLUME 104.7 FL (80.0-100.0); MEAN CORPUSCULAR HEMOGLOBIN 34.8 PG (27.0-34.0); MEAN CORPUSCULAR HGB CONC 33.2 % (32.0-36.0); MONO % 13.2 % (0.0-8.0); NEUT % 63.6 % (16.0-70.0); PLATELET COUNT 138 TH/MM3 (150-450); RED BLOOD COUNT 2.35 MIL/MM3 (4.00-5.30); RED CELL DISTRIBUTION WIDTH 20.2 % (11.6-17.2); WHITE BLOOD COUNT 4.6 TH/MM3 (4.0-11.0)
[2017-03-30 06:48] LABS: BICARBONATE 18.6 MEQ/L (21.0-32.0); MAGNESIUM 1.8 MG/DL (1.5-2.5); POTASSIUM 5.1 MEQ/L (3.5-5.1)
[2017-03-30] MEDS: FAMOTIDINE 20 MG/2 ML VIAL IV PUSH SCH ×2 (08:50→21:18)
[2017-03-30] MEDS: QUEtiapine FUMARATE 25 MG TAB PO SCH ×2 (08:52→13:16)
[2017-03-30] MEDS: ACETAMINOPHEN 325 MG TAB PO PRN ×3 (08:52→17:30)
[2017-03-30] MEDS: DOCUSATE SODIUM 50 MG/SENNA 8.6 MG TAB PO SCH ×2 (08:52→21:18)
--- NOTE | 2017-03-30 08:56 | HHI.CCPN ---
Subjective Remarks/Hospital Course The patient is a 66-year-old female with past medical history of hypertension, depression, schizophrenia and polysubstance abuse. She was admitted back in early March for altered mental status and polysubstance abuse withdrawal. At that time, she was in the ICU and required intubation, mechanical ventilation. In addition, she was treated for pneumonia. Her sputum culture from March 12 was positive for Proteus, Pseudomonas and MRSA. At that time, she was also seen by Dr. Ortiz from the neurology service due to encephalopathy and at that time she had a CT scan of the brain and an MRI of the brain from March 12 that were unremarkable. She was eventually stabilized and transferred to the psych unit. A [facility] was called for questionable new-onset seizures. The patient was given Ativan 4 milligrams IV push along with 4 milligrams IM total. An ABG was performed on room air which showed a pH of 7.44, CO2 28, pAO2 90, bicarb 19 and saturation of 95%. When seen in ICU the patient is restless and agitated. Her current blood pressure is 145/89 with a saturation a 98%. Blood sugar is 102. 03/28 Patient with intermittent confusion. Afebrile. CT brain last night no acute findings, EEG is within normal. 03/29 No events overnight. Patient is awake and alert. 03/30 No events overnight. Afebrile. Awake. Objective Vital Signs Date Time Temp Pulse Resp B/P (MAP) Pulse Ox O2 Delivery O2 Flow Rate FiO2 03/30/17 06:00 113 03/30/17 04:00 98.7 25 148/84 (105) 100 03/29/17 19:50 21 03/29/17 08:30 Nasal Cannula 2.00 Intake and Output 03/30/17 03/30/17 03/31/17 08:00 16:00 00:00 Intake Total 1100 ml Balance 1100 ml Result Diagram: 03/30/17 0544 03/30/17 0544 Other Results Laboratory Tests Test 03/29/17 15:23 03/30/17 05:44 Hemoglobin 8.1 GM/DL 8.2 GM/DL Hematocrit 23.2 % 24.6 % White Blood Count 4.6 TH/MM3 Red Blood Count 2.35 MIL/MM3 Mean Corpuscular Volume 104.7 FL Mean Corpuscular Hemoglobin 34.8 PG Mean Corpuscular Hemoglobin Concent 33.2 % Red Cell Distribution Width 20.2 % Platelet Count 138 TH/MM3 Mean Platelet Volume 8.6 FL Neutrophils (%) (Auto) 63.6 % Lymphocytes (%) (Auto) 19.3 % Monocytes (%) (Auto) 13.2 % Eosinophils (%) (Auto) 3.1 % Basophils (%) (Auto) 0.8 % Neutrophils # (Auto) 2.9 TH/MM3 Lymphocytes # (Auto) 0.9 TH/MM3 Monocytes # (Auto) 0.6 TH/MM3 Eosinophils # (Auto) 0.1 TH/MM3 Basophils # (Auto) 0.0 TH/MM3 CBC Comment DIFF FINAL Differential Comment Blood Urea Nitrogen 12 MG/DL Creatinine 0.93 MG/DL Random Glucose 84 MG/DL Calcium Level 8.6 MG/DL Phosphorus Level 2.2 MG/DL Magnesium Level 1.8 MG/DL Sodium Level 140 MEQ/L Potassium Level 5.1 MEQ/L Chloride Level 112 MEQ/L Carbon Dioxide Level 18.6 MEQ/L Anion Gap 9 MEQ/L Estimat Glomerular Filtration Rate 61 ML/MIN Imaging Last Impressions Head CT 03/27/17 0000 Signed Impressions: Service Date/Time: Monday, March 27, 2017 20:14 - CONCLUSION: Atrophy mildly prominent for age. No acute intracranial findings. Filemon Feldman MD Chest X-Ray 03/27/17 0000 Signed Impressions: Service Date/Time: Monday, March 27, 2017 16:16 - CONCLUSION: No acute disease. Osmany Leija MD Objective Remarks GENERAL: Patient is lying in bed in no acute resp distress, confused SKIN: Warm and dry. HEAD: Normocephalic. EYES: No scleral icterus. No injection or drainage. NECK: Supple, trachea midline. No JVD or lymphadenopathy. CARDIOVASCULAR: Regular rate and rhythm without murmurs, gallops, or rubs. RESPIRATORY: Breath sounds equal bilaterally. No accessory muscle use. GASTROINTESTINAL: Abdomen soft, non-tender, nondistended. MUSCULOSKELETAL: No cyanosis, or edema. Neuro: Awake and alert. A/P Assessment and Plan 1. Respiratory insufficiency. 2.? seizure. 3. Altered mental status. 4. Hypertension. 5. History of schizophrenia and depression. 6. Recent hospitalization for pneumonia. 7. Anemia. Plan Neuro: Monitor neuro status, on Ativan 1 mg IV q. 2 hour PRN Had a previous unremarkable MRI brain and CT brain . Repeat CT brain 03/27 - no acute findings. EEG 03/27 within normal. Neuro is following- On Keppra per neuro. Psych is following. On Seroquel 50mg BID Pulm: Continue with oxygen and maintain sats> 92%. Bronchodilators CV: Monitor HR and BP and maintain MAP >[address] on Lopressor 25mg Q12 : Monitor renal function, intake and output and electrolyte replacement as needed. Will need Phos replacement today GI: On Pepcid 20 milligrams IV q. 12 for GI prophylaxis. On PO diet ID: Monitor for signs of infection(fever and WBC) CXR 03/27: No acute disease. Heme: Monitor CBC. Will transfuse 1 unit PRBC today for Hgb 6.6. Guaiac stool for Heme. Endo: SSI with Accu-Cheks for glycemic control. GI prophylaxis with Pepcid 20 milligrams IV q. 12 and DVT prophylaxis with SCDs/ heparin subcu. Will sign off and transfer care to [facility] Awaiting transfer to floor. Level 2 Jhony Lemons MD Mar 30, 2017 08:56
--- NOTE | 2017-03-30 10:24 | HHI.PYPN ---
Subjective Remarks Patient was seen today for psychiatric reevaluation, patient continues to show improvement in her thought process and mood. Patient reports that she feels much better, motivated to continue medical treatment and recommendations, reports good mood, he denies depression, denies anhedonia, hopelessness, denies helplessness, denies suicidal and homicidal ideation, she denies visual and auditory hallucinations. She is fully oriented 3, no attention deficit, no fluctuation of consciousness, she is logical coherent and relevant at the moment of the evaluation. Mental Status Examination Appearance: Appropriate Consciousness: Alert Orientation: x4 Motor Activity: Normal gait Speech: Unremarkable Language: Adequate Fund of Knowledge: Adequate Attention and Concentration: Adequate Memory: Unremarkable Mood: Good Affect: Appropriate Thought Process & Associations: Intact Thought Content: Appropriate Hallucination Type: None Delusion Type: None Suicidal Ideation: No Suicidal Plan: No Suicidal Intention: No Homicidal Ideation: No Homicidal Plan: No Homicidal Intention: No Insight: Adequate Judgment: Adequate Results Labs Test 03/29/17 15:23 03/30/17 05:44 Hemoglobin 8.1 GM/DL 8.2 GM/DL Hematocrit 23.2 % 24.6 % White Blood Count 4.6 TH/MM3 Red Blood Count 2.35 MIL/MM3 Mean Corpuscular Volume 104.7 FL Mean Corpuscular Hemoglobin 34.8 PG Mean Corpuscular Hemoglobin Concent 33.2 % Red Cell Distribution Width 20.2 % Platelet Count 138 TH/MM3 Mean Platelet Volume 8.6 FL Neutrophils (%) (Auto) 63.6 % Lymphocytes (%) (Auto) 19.3 % Monocytes (%) (Auto) 13.2 % Eosinophils (%) (Auto) 3.1 % Basophils (%) (Auto) 0.8 % Neutrophils # (Auto) 2.9 TH/MM3 Lymphocytes # (Auto) 0.9 TH/MM3 Monocytes # (Auto) 0.6 TH/MM3 Eosinophils # (Auto) 0.1 TH/MM3 Basophils # (Auto) 0.0 TH/MM3 CBC Comment DIFF FINAL Differential Comment Blood Urea Nitrogen 12 MG/DL Creatinine 0.93 MG/DL Random Glucose 84 MG/DL Calcium Level 8.6 MG/DL Phosphorus Level 2.2 MG/DL Magnesium Level 1.8 MG/DL Sodium Level 140 MEQ/L Potassium Level 5.1 MEQ/L Chloride Level 112 MEQ/L Carbon Dioxide Level 18.6 MEQ/L Anion Gap 9 MEQ/L Estimat Glomerular Filtration Rate 61 ML/MIN Vitals/IOs Vital Signs Date Time Temp Pulse Resp B/P (MAP) Pulse Ox O2 Delivery O2 Flow Rate FiO2 03/30/17 10:00 122 03/30/17 09:52 26 03/30/17 08:39 99 21 03/30/17 08:00 98.6 165/85 (111) 03/29/17 08:30 Nasal Cannula 2.00 Intake and Output 03/30/17 03/30/17 03/31/17 08:00 16:00 00:00 Intake Total 1100 ml Balance 1100 ml Assessment & Plan Problem List: (1) Schizophrenia ICD Codes: F20.9 - Schizophrenia, unspecified Assessment & Plan: on psychiatric evaluation today the patient does not present any prominent symptomatology of mood or psychosis. She denies suicidal and homicidal ideation. He denies visual and auditory hallucinations. She is oriented 3, no delirium, delusions, elicited. Continue Seroquel 50 mg twice a day. Patient is psychiatrically stable to continue medical treatment and be discharged back home once medically stable. Assessment & Plan Estimated LOS: days Justification for Cont. Inpt. No psychiatric admission needed. Tico Silverio MD Mar 30, 2017 10:24
[2017-03-30] MEDS: METOPROLOL TARTRATE 25 MG TAB PO SCH ×2 (10:34→21:18)
[2017-03-30] MEDS ORDERED: LORazepam 2 MG TAB PO PRN (20:15)
[2017-03-30] MEDS ORDERED: LORazepam 2 MG/ML VIAL IV PUSH PRN ×4 (20:15)
[2017-03-30] MEDS ORDERED: FLUMAZENIL 0.5 MG/5 ML VIAL IV PUSH PRN (20:15)
[2017-03-30] MEDS ORDERED: LORazepam 1 MG TAB PO PRN (20:15)
[2017-03-30] MEDS: ONDANSETRON HCL 4 MG/2 ML VIAL IV PUSH PRN (21:03)
[2017-03-31] VITALS (8 sets, daily range): BP systolic 140–160; BP diastolic 72–95; PULSE 88–107; RESP 17–24; TEMP 98.4–99.6; O2SAT 95–98
[2017-03-31] MEDS: RESP: ALBUTEROL 2.5 MG/IPRATROPIUM 0.5 MG NEB (SCH) INH ×6 (00:42→19:45)
[2017-03-31] MEDS: INSULIN NovoLIN REGULAR SUPPLEMENTAL SCALE SQ SCH ×6 (03:04→22:00)
[2017-03-31] MEDS: CHLORHEXIDINE GLUCONATE 2 % 1 PACK (2 CLOTHS) TOP SCH (04:17)
[2017-03-31] MEDS: ACETAMINOPHEN 325 MG TAB PO PRN ×5 (04:52→22:08)
[2017-03-31] MEDS: levETIRAcetam INJ 500 MG in SODIUM CHLORIDE 0.9% INJ 100 ML IV SCH ×2 (05:08→16:30)
[2017-03-31 06:57] LABS: AUTOMATED NEUTROPHIL # 2.2 TH/MM3 (1.8-7.7); BASOPHIL % 1.2 % (0.0-2.0); EOSINOPHIL # 0.2 TH/MM3 (0-0.4); EOSINOPHIL % 4.4 % (0.0-4.0); HEMO FLAGS DIFF FINAL; LYMPH % 18.2 % (9.0-44.0); LYMPHOCYTE # 0.6 TH/MM3 (1.0-4.8); MEAN CELL VOLUME 103.2 FL (80.0-100.0); MEAN CORPUSCULAR HEMOGLOBIN 35.6 PG (27.0-34.0); MEAN CORPUSCULAR HGB CONC 34.5 % (32.0-36.0); MONO % 13.5 % (0.0-8.0); NEUT % 62.7 % (16.0-70.0); PLATELET COUNT 124 TH/MM3 (150-450); RED BLOOD COUNT 2.42 MIL/MM3 (4.00-5.30); RED CELL DISTRIBUTION WIDTH 18.9 % (11.6-17.2); WHITE BLOOD COUNT 3.4 TH/MM3 (4.0-11.0)
[2017-03-31 07:08] LABS: BICARBONATE 22.6 MEQ/L (21.0-32.0); POTASSIUM 4.5 MEQ/L (3.5-5.1)
[2017-03-31] MEDS: METOPROLOL TARTRATE 25 MG TAB PO SCH ×2 (08:36→22:09)
[2017-03-31] MEDS: FAMOTIDINE 20 MG/2 ML VIAL IV PUSH SCH ×2 (08:36→22:09)
[2017-03-31] MEDS: QUEtiapine FUMARATE 25 MG TAB PO SCH ×2 (08:36→12:29)
[2017-03-31] MEDS: DOCUSATE SODIUM 50 MG/SENNA 8.6 MG TAB PO SCH ×2 (08:36→22:09)
--- NOTE | 2017-03-31 08:38 | HHI.PR ---
Subjective Remarks Complaints of headache. No seizures overnight. No n/v/d/c. Able to keep some food down. No chest pain or sob. Objective Vitals Vital Signs Date Time Temp Pulse Resp B/P (MAP) Pulse Ox O2 Delivery O2 Flow Rate FiO2 03/31/17 08:00 98.5 107 18 154/79 (104) 95 03/31/17 07:15 15 03/31/17 05:41 98.6 103 17 156/90 (112) 95 03/31/17 05:09 97 03/31/17 00:44 98 03/31/17 00:30 99.6 99 17 151/78 (102) 97 03/30/17 20:13 99 03/30/17 18:00 98 03/30/17 16:00 98.5 89 23 145/82 (103) 98 03/30/17 16:00 89 03/30/17 14:00 83 03/30/17 12:00 98.6 86 27 152/90 (110) 100 03/30/17 12:00 86 03/30/17 10:00 122 03/30/17 08:39 99 21 I/O 03/30/17 03/30/17 03/30/17 03/31/17 03/31/17 03/31/17 07:00 15:00 23:00 07:00 15:00 23:00 Intake Total 1100 ml 1350 ml 240 ml Output Total 600 ml Balance 1100 ml 750 ml 240 ml Intake Oral 480 ml 1100 ml 240 ml IV Total 620 ml 250 ml Output Urine Total 600 ml # Voids 3 2 5 # Bowel Movements 0 Result Diagram: 03/31/1762103/31/17621 Imaging Last Impressions Head CT 03/27/17 0000 Signed Impressions: Service Date/Time: Monday, March 27, 2017 20:14 - CONCLUSION: Atrophy mildly prominent for age. No acute intracranial findings. Filemon Feldman MD Chest X-Ray 03/27/17 0000 Signed Impressions: Service Date/Time: Monday, March 27, 2017 16:16 - CONCLUSION: No acute disease. Osmany Leija MD Objective Remarks GENERAL: Patient is lying in bed in no acute resp distress, confused CARDIOVASCULAR: Regular rate and rhythm without murmurs, gallops, or rubs. RESPIRATORY: Breath sounds equal bilaterally. No accessory muscle use. GASTROINTESTINAL: Abdomen soft, non-tender, nondistended. MUSCULOSKELETAL: No cyanosis, or edema. Neuro: Awake and alert. A/P Assessment and Plan Respiratory insufficiency. Poss seizure. Altered mental status. Hypertension. History of schizophrenia and depression. Recent hospitalization for pneumonia. Anemia. Neuro: Monitor neuro status, on Ativan 1 mg IV q. 2 hour PRN Had a previous unremarkable MRI brain and CT brain . Repeat CT brain 03/27 - no acute findings. EEG 03/27 within normal. Neuro is following- On Keppra per neuro. Psych is following. On Seroquel 50mg BID Pulm: Continue with oxygen and maintain sats> 92%. Bronchodilators CV: Monitor HR and BP and maintain MAP >[address] on Lopressor 25mg Q12 : Monitor renal function, intake and output and electrolyte replacement as needed. Will need Phos replacement today GI: On Pepcid 20 milligrams IV q. 12 for GI prophylaxis. On PO diet ID: Monitor for signs of infection(fever and WBC) CXR 03/27: No acute disease. Heme: Monitor CBC. Transfused 1 unit PRBC 03/30/ for Hgb 6.6. Guaiac stool for Heme. Monitor h/h/ transfuse if HGB < 7 or is symptomatic. Endo: SSI with Accu-Cheks for glycemic control. GI prophylaxis with Pepcid 20 milligrams IV q. 12 and DVT prophylaxis with SCDs/ heparin SQ Discussed with the patient, nurse Jenn Diaz MD Mar 31, 2017 08:38
[2017-03-31] MEDS: NYSTATIN 100,000 U/GM PWD 15 GM BTL TOPICAL SCH ×2 (12:28→22:09)
[2017-03-31] MEDS: ONDANSETRON HCL 4 MG/2 ML VIAL IV PUSH PRN (20:52)
[2017-04-01 00:49] VITALS: BP 149/90; PULSE 103; RESP 18; TEMP 99.2; O2SAT 95
[2017-04-01] MEDS: ACETAMINOPHEN 325 MG TAB PO PRN ×3 (01:37→11:48)
[2017-04-01] MEDS: INSULIN NovoLIN REGULAR SUPPLEMENTAL SCALE SQ SCH ×4 (01:45→13:55)
[2017-04-01] MEDS: CHLORHEXIDINE GLUCONATE 2 % 1 PACK (2 CLOTHS) TOP SCH (04:00)
[2017-04-01] MEDS: levETIRAcetam INJ 500 MG in SODIUM CHLORIDE 0.9% INJ 100 ML IV SCH (05:06)
[2017-04-01 05:49] VITALS: BP 158/85; PULSE 93; RESP 18; TEMP 99.2; O2SAT 96
[2017-04-01 08:00] VITALS: BP 173/89; PULSE 98; RESP 16; TEMP 98; O2SAT 97
[2017-04-01 08:23] LABS: AUTOMATED NEUTROPHIL # 2.2 TH/MM3 (1.8-7.7); BASOPHIL % 1.2 % (0.0-2.0); EOSINOPHIL # 0.2 TH/MM3 (0-0.4); EOSINOPHIL % 5.1 % (0.0-4.0); HEMATOCRIT 26.1 % (35.0-46.0); HEMO FLAGS DIFF FINAL; LYMPH % 19.1 % (9.0-44.0); LYMPHOCYTE # 0.7 TH/MM3 (1.0-4.8); MEAN CELL VOLUME 103.2 FL (80.0-100.0); MEAN CORPUSCULAR HEMOGLOBIN 34.2 PG (27.0-34.0); MEAN CORPUSCULAR HGB CONC 33.1 % (32.0-36.0); MONO % 15.8 % (0.0-8.0); NEUT % 58.8 % (16.0-70.0); PLATELET COUNT 124 TH/MM3 (150-450); RED BLOOD COUNT 2.53 MIL/MM3 (4.00-5.30); RED CELL DISTRIBUTION WIDTH 18.7 % (11.6-17.2); WHITE BLOOD COUNT 3.8 TH/MM3 (4.0-11.0)
[2017-04-01 08:44] LABS: POTASSIUM 4.1 MEQ/L (3.5-5.1)
[2017-04-01] MEDS: QUEtiapine FUMARATE 25 MG TAB PO SCH ×2 (09:57→11:48)
[2017-04-01] MEDS: DOCUSATE SODIUM 50 MG/SENNA 8.6 MG TAB PO SCH (09:58)
[2017-04-01] MEDS: FAMOTIDINE 20 MG/2 ML VIAL IV PUSH SCH (09:58)
[2017-04-01] MEDS: METOPROLOL TARTRATE 25 MG TAB PO SCH (09:58)
[2017-04-01] MEDS: NYSTATIN 100,000 U/GM PWD 15 GM BTL TOPICAL SCH (09:58)
[2017-04-01] MEDS ORDERED: Nystatin Powder TOPICAL (11:15)
[2017-04-01] MEDS ORDERED: METO25TA3 PO (11:15)
[2017-04-01] MEDS ORDERED: LEVE500 PO (11:15)
--- NOTE | 2017-04-01 11:16 | HHI.DS ---
Discharge Summary Admission Date Mar 27, 2017 at 16:14 Discharge Date: Apr 01, 2017 Admitting Diagnosis seizures (1) Seizure ICD Code: R56.9 - Unspecified convulsions (2) Schizophrenia ICD Code: F20.9 - Schizophrenia, unspecified (3) Delirium ICD Code: R41.0 - Disorientation, unspecified (4) Acute encephalopathy ICD Code: G93.40 - Encephalopathy, unspecified Procedures none Brief History - From Admission The patient is a 66-year-old female with past medical history of hypertension, depression, schizophrenia and polysubstance abuse. She was admitted back in early March for altered mental status and polysubstance abuse withdrawal. At that time, she was in the ICU and required intubation, mechanical ventilation. In addition, she was treated for pneumonia. Her sputum culture from March 12 was positive for Proteus, Pseudomonas and MRSA. At that time, she was also seen by Dr. Ortiz from the neurology service due to encephalopathy and at that time she had a CT scan of the brain and an MRI of the brain from March 12 that were unremarkable. She was eventually stabilized and transferred to the psych unit. A [facility] was called for questionable new-onset seizures. The patient was given Ativan 4 milligrams IV push along with 4 milligrams IM total. An ABG was performed on room air which showed a pH of 7.44, CO2 28, pAO2 90, bicarb 19 and saturation of 95%. When seen in ICU the patient is restless and agitated. Her current blood pressure is 145/89 with a saturation a 98%. Blood sugar is 102. CBC/BMP: 04/01/17 0720 04/01/17 0720 Significant Findings Laboratory Tests Test 03/29/17 15:23 03/30/17 05:44 03/30/17 23:13 03/31/17 06:22 Hemoglobin 8.1 GM/DL (11.6-15.3) 8.2 GM/DL (11.6-15.3) 8.6 GM/DL (11.6-15.3) Hematocrit 23.2 % (35.0-46.0) 24.6 % (35.0-46.0) 25.0 % (35.0-46.0) Red Blood Count 2.35 MIL/MM3 (4.00-5.30) 2.42 MIL/MM3 (4.00-5.30) Mean Corpuscular Volume 104.7 FL (80.0-100.0) 103.2 FL (80.0-100.0) Mean Corpuscular Hemoglobin 34.8 PG (27.0-34.0) 35.6 PG (27.0-34.0) Red Cell Distribution Width 20.2 % (11.6-17.2) 18.9 % (11.6-17.2) Platelet Count 138 TH/MM3 (150-450) 124 TH/MM3 (150-450) Monocytes (%) (Auto) 13.2 % (0.0-8.0) 13.5 % (0.0-8.0) Lymphocytes # (Auto) 0.9 TH/MM3 (1.0-4.8) 0.6 TH/MM3 (1.0-4.8) Phosphorus Level 2.2 MG/DL (2.5-4.9) 5.3 MG/DL (2.5-4.9) Chloride Level 112 MEQ/L (98-107) 111 MEQ/L (98-107) Carbon Dioxide Level 18.6 MEQ/L (21.0-32.0) Estimat Glomerular Filtration Rate 61 ML/MIN (>89) 64 ML/MIN (>89) White Blood Count 3.4 TH/MM3 (4.0-11.0) Eosinophils (%) (Auto) 4.4 % (0.0-4.0) Test 04/01/17 07:20 White Blood Count 3.8 TH/MM3 (4.0-11.0) Red Blood Count 2.53 MIL/MM3 (4.00-5.30) Hemoglobin 8.6 GM/DL (11.6-15.3) Hematocrit 26.1 % (35.0-46.0) Mean Corpuscular Volume 103.2 FL (80.0-100.0) Mean Corpuscular Hemoglobin 34.2 PG (27.0-34.0) Red Cell Distribution Width 18.7 % (11.6-17.2) Platelet Count 124 TH/MM3 (150-450) Monocytes (%) (Auto) 15.8 % (0.0-8.0) Eosinophils (%) (Auto) 5.1 % (0.0-4.0) Lymphocytes # (Auto) 0.7 TH/MM3 (1.0-4.8) Chloride Level 108 MEQ/L (98-107) Estimat Glomerular Filtration Rate 62 ML/MIN (>89) Imaging Last Impressions Head CT 03/27/17 0000 Signed Impressions: Service Date/Time: Monday, March 27, 2017 20:14 - CONCLUSION: Atrophy mildly prominent for age. No acute intracranial findings. Filemon Feldman MD Chest X-Ray 03/27/17 0000 Signed Impressions: Service Date/Time: Monday, March 27, 2017 16:16 - CONCLUSION: No acute disease. Osmany Leija MD PE at Discharge GENERAL: Patient is lying in bed in no acute resp distress, alert and oriented. CARDIOVASCULAR: Regular rate and rhythm without murmurs, gallops, or rubs. RESPIRATORY: Breath sounds equal bilaterally. No accessory muscle use. GASTROINTESTINAL: Abdomen soft, non-tender, nondistended. MUSCULOSKELETAL: No cyanosis, or edema. Neuro: Awake and alert. Pt update on day of discharge Feels much better. patient denies seizures. Lucien murillo. Able to ambulate says she has walker and wheelchair has PT and nurse, and CNAs at home. has a very good family support and would like to go home. Hospital Course Respiratory insufficiency. Poss seizure. Altered mental status. Hypertension. History of schizophrenia and depression. Recent hospitalization for pneumonia. Anemia. Neuro: Monitor neuro status, on Ativan 1 mg IV q. 2 hour PRN Had a previous unremarkable MRI brain and CT brain . Repeat CT brain 03/27 - no acute findings. EEG 03/27 within normal. Neuro is following- On Keppra per neuro. Psych is following. On Seroquel 50mg BID Pulm: Continue with oxygen and maintain sats> 92%. Bronchodilators CV: Monitor HR and BP and maintain MAP >[address] on Lopressor 25mg Q12 : Monitor renal function, intake and output and electrolyte replacement as needed. Will need Phos replacement today GI: On Pepcid 20 milligrams IV q. 12 for GI prophylaxis. On PO diet ID: Monitor for signs of infection(fever and WBC) CXR 03/27: No acute disease. Heme: Monitor CBC. Transfused 1 unit PRBC 03/30/ for Hgb 6.6. Guaiac stool for Heme. Monitor h/h/ transfuse if HGB < 7 or is symptomatic. Endo: SSI with Accu-Cheks for glycemic control. GI prophylaxis with Pepcid 20 . DVT prophylaxis with SCDs/heparin SQ Discussed with the patient, nurse Patient is improved significantly. Says she is walking with a walker without problems. Has care at home CNAs and nurses, has walker/wheelchair and is ready to go home. Doesn't want to go to SNF. Discharge home with walker [facility] in satble condition to follow up as OP with PCP and consultants. Pt Condition on Discharge: Stable Discharge Disposition: Disch w/ Home Health Serv Discharge Time: > 30 minutes Discharge Instructions DIET: Follow Instructions for: Heart Healthy Diet Speech Therapy-Diet Recommends: Mechanical Soft Activities you can perform: Regular-No Restrictions Follow up Referrals: Neurology - 1 Week PCP Follow-up - 2-3 Days New Medications: Levetiracetam (Keppra) 500 Mg Tab 500 MG PO Q12HR for Seizure Control, #60 TAB Metoprolol Tartrate (Metoprolol Tartrate) 25 Mg Tab 25 MG PO Q12HR for Blood Pressure Management, #60 TAB [Nystatin Powder] () 15 APPLIC/15 GM POWD 1 APPLIC TOPICAL Q12HR for skin rash for 7 Days Continued Medications: Albuterol 18 GM Inh (Ventolin Hfa 18 GM Inh) 90 Mcg/Act Aer 2 PUFF INH Q4-6H PRN for SHORTNESS OF BREATH, #1 INHALER 0 Refills Famotidine (Famotidine) 20 Mg Tab 20 MG PO BID for Reflux, #60 TAB Olanzapine (Olanzapine) 5 Mg Tab 5 MG PO BID for Schizophrenia, #60 TAB 0 Refills Propranolol (Propranolol) 40 Mg Tab 40 MG PO Q8HR for tachycardia, #90 TAB Quetiapine (Seroquel) 25 Mg Tab 50 MG PO Q8HR for Anxiety and/or Insomnia, #30 TAB Discontinued Medications: Levofloxacin (Levaquin) 500 Mg Tablet 500 MG PO DAILY for Infection, #3 TAB Sulfamethoxazole-Trimethoprim (Sulfamethoxazole-Trimethoprim) 800-160 Mg Tab 1 TAB PO Q12HR for Infection, #6 TAB Cosma,Jenn MD Apr 01, 2017 11:16
[2017-04-01 12:00] VITALS: BP 130/73; PULSE 85; RESP 18; TEMP 99.2; O2SAT 96
--- NOTE | 2017-04-01 12:10 | HHI.FF ---
Face to Face Verification Diagnosis: (1) Seizure (2) Acute encephalopathy (3) Delirium (4) Schizophrenia Home Health Nursing Order: Medical education Signs/symptoms of disease process Medication education-adverse effect Nursing assessment with vital signs I have seen patient Katie Jaramillo on 04/01/17. My clinical findings support the need for the requested home health care services because: Ltd mobility - disease progression I certify that my clinical findings support that this patient is homebound because: Post-op weakness Unsteady gait/balance Jenn Diaz MD Apr 01, 2017 12:10
--- NOTE | 2017-04-01 12:54 | HHI.FF ---
Face to Face Verification Diagnosis: (1) Acute encephalopathy (2) Seizure (3) Delirium Physical Therapy Order: Evaluate and Treat Home Health Nursing Order: Medical education Signs/symptoms of disease process Medication education-adverse effect Nursing assessment with vital signs I have seen patient Katie Jaramillo on 04/01/17. My clinical findings support the need for the requested home health care services because: Ltd mobility - disease progression Deconditioned w/ increased weakness I certify that my clinical findings support that this patient is homebound because: Post-op weakness Unsteady gait/balance Jenn Diaz MD Apr 01, 2017 12:54
[2017-04-01] MEDS ORDERED: levETIRAcetam 500 MG TAB PO SCH (21:00)
== END 2017-04-01 13:58 | disposition home health service (06) | DRG 100 ==
LOC: HIMN 16:14 → N05B 03-30 19:37
PROVIDERS: ADMIT Hospitalist; ATTEND Hospitalist
PROC: 30233N1 Transfusion of Nonautologous Red Blood Cells into Peripheral Vein, Percutaneous Approach (ICD-10-PCS; principal; 2017-03-29)
DX: R56.9 Unspecified convulsions (principal); G93.40 Encephalopathy, unspecified; F20.9 Schizophrenia, unspecified; R41.0 Disorientation, unspecified; I10 Essential (primary) hypertension; F32.9 Major depressive disorder, single episode, unspecified; D64.9 Anemia, unspecified; R06.89 Other abnormalities of breathing; Z87.01 Personal history of pneumonia (recurrent)
CPT/HCPCS: 36430; 70450; 71010; 76937; 80048; 80053; 82140; 82272; 82948; 83735; 84100; 85014; 85018; 85025; 86850; 86900; 86901; 86920; 87070; 87205; 87641; 94640; 94664; 95819; J1644; J1953; J2060; J2405; J3480; J7042; J7050; P9016